=== PATIENT | male | born 1975 | race Caucasian/White ===

== ENCOUNTER 2024-01-16 21:28 | Emergency (ER) | payer OTHER, SELFPAY ==
[2024-01-16 22:17] LABS: PT Prothrombin Time 11.6 SECONDS (9.4-12.5); PTT, Activated Partial Thromb 35.5 SECONDS (24.3-36.9); Protime INR 1.04
[2024-01-16 22:19] LABS: Absolute Basophils 0.1 K/uL (0-0.5); Absolute Lymphocytes (CBC) 2.1 K/uL (0.7-4.9); Basophils % 0.6 % (0-1.3); Hemoglobin 15.8 g/dL (13.6-17.9); MPV 7.7 fL (7.6-11.3)
[2024-01-16 22:21] LABS: Barbiturates NEGATIVE (NEGATIVE); Benzodiazepines NEGATIVE (NEGATIVE); Cocaine POSITIVE (NEGATIVE); METHAMPHETAM NEGATIVE (NEGATIVE); Methadone NEGATIVE (NEGATIVE); Opiates NEGATIVE (NEGATIVE); Phencyclidine NEGATIVE (NEGATIVE); THC Cannibis NEGATIVE (NEGATIVE)
[2024-01-16 22:23] LABS: Absolute Eosinophils 0.3 K/uL (0-0.5); Absolute Monocytes 1.1 K/uL (0.1-1.3); Eosinophils % 2.7 % (0-4.4); Hematocrit 47.4 % (39.6-49.0); Lymphocytes % 19.8 % (15.3-44.8); MCH 29.8 pg (27.0-35.0); MCHC 33.3 g/dL (32.0-36.0); MCV 89.5 fL (80-100); Monocytes % 10.1 % (3.3-12.3); Neutrophils % 66.8 % (41.7-73.7); Platelets 309 thou/uL (152-406); RBC Red Blood Cell Count 5.29 M/uL (4.33-5.43); Red Cell Distribution Width 14.8 % (12.1-15.2)
[2024-01-16 22:24] LABS: Specific Gravity 1.019 (1.005-1.030); Sqamous Epithelial <5 /HPF (None Seen); Urine Bacteria <20 /HPF (<20); Urine Bilirubin NEGATIVE (Negative); Urine Blood 1+ (Negative); Urine Clarity Clear (Clear); Urine Color Light-Yellow (Yellow); Urine Crystals Unidentified Few /HPF (None Seen); Urine Culture Reflex Order NOT NEEDED; Urine Glucose NEGATIVE (Negative); Urine Ketones NEGATIVE (Negative); Urine Microscopic Reflex YN ORDER UMIC; Urine Mucus 1+ /HPF (None Seen); Urine Nitrite NEGATIVE (Negative); Urine Protein 1+ (Negative); Urine RBC <5 /HPF (None Seen); Urine Urobilinogen Normal (Normal); Urine WBC <5 /HPF (<5); Urine pH 5.5 (5.0-7.0)
[2024-01-16 22:29] LABS: ALT/SGPT 45 U/L (16-61); AST/SGOT 34 U/L (15-37); Albumin 3.9 g/dL (3.4-5.0); Alkaline Phosphatase 78 U/L (45-117); Anion Gap 9.3 mEq/L (5.0-15.0); BUN Blood Urea Nitrogen 27 mg/dL (7-18); Bicarbonate 28 mEq/L (21-32); Bilirubin Direct < 0.2 mg/dL (0-0.2); Bilirubin Indirect, Calculated 0.3 mg/dL (0.2-0.8); Bilirubin Total 0.5 mg/dL (0.2-1.0); Glomerular Filtration Rate 61 ml/min (=/>90); Glucose Level 138 mg/dL (74-106); Potassium 3.3 mEq/L (3.5-5.1); Protein, Total 7.9 g/dL (6.4-8.2); Sodium Level 140 mEq/L (136-145)
[2024-01-16] MEDS ORDERED: NA CHLORIDE 0.9% 1,000 ML ONE (22:54)
[2024-01-16] MEDS ORDERED: POTASSIUM 25 MEQ EFFERV TAB ONE (22:54)
--- NOTE | 2024-01-16 23:06 | ER ---
Nurse's Notes [facility] Name: Konrad Verde Age: 48 yrs Sex: Male : 1975 Arrival Date: 01/16/2024 Time: 21:28 Bed 15 Private MD: Diagnosis: Major depressive disorder, recurrent, moderate;Suicidal ideations;Obesity, unspecified;Homelessness;Cocaine abuse;Hypokalemia Presentation: 01/15 21:28 Chief complaint: per [place] [employer], PT was at [employer] at [facility] to worker that he lg3 needed help because he wanted to shoot himself with the gun he had in his backpack. On police arrival to scene PT cooperative and confirms SI ideations. On arrival to ED PT confirms SI ideations and that he took 1/2 a bottle of Advil PM [employer]. Coronavirus screen: Client denies travel out of the [place] in the last 14 days. Ebola Screen: Patient negative for fever greater than or equal to 101.5 degrees Fahrenheit, and additional compatible Ebola Virus Disease symptoms. Initial Sepsis Screen: Does the patient meet any 2 criteria? No. Patient's initial sepsis screen is negative. Does the patient have a suspected source of infection? No. Patient's initial sepsis screen is negative. Risk Assessment: Do you want to hurt yourself or someone else? Patient reports desire/thoughts of hurting themselves or someone else. Provider notified. Onset of symptoms is unknown. 21:28 Method Of Arrival: Law Enforcement: [facility] lg3 21:28 Acuity: HEIDY 2 lg3 Triage Assessment: 21:28 General: Appears in no apparent distress. comfortable, unkempt, Behavior is calm, lg3 cooperative. Pain: Denies pain. EENT: No deficits noted. No signs and/or symptoms were reported regarding the EENT system. Neuro: No deficits noted. Patel Agitation-Sedation Scale (RASS): 0 - Alert and Calm Level of Consciousness is awake, alert, obeys commands, Oriented to person, place, time, situation. Cardiovascular: No deficits noted. Denies chest pain, shortness of breath, Capillary refill < 3 seconds Clubbing of nail beds is absent JVD is absent Patient's skin is warm and dry. 21:28 Respiratory: No deficits noted. Airway is patent Respiratory effort is even, unlabored, lg3 Respiratory pattern is regular, symmetrical. GI: No deficits noted. No signs and/or symptoms were reported involving the gastrointestinal system. Abdomen is round non-distended, obese. : No deficits noted. No signs and/or symptoms were reported regarding the genitourinary system. Derm: No deficits noted. No signs and/or symptoms reported regarding the dermatologic system. Skin is intact, is healthy with good turgor, Skin is dry, Skin is normal, Skin temperature is warm. Musculoskeletal: No deficits noted. No signs and/or symptoms reported regarding the musculoskeletal system. Circulation, motion, and sensation intact. Range of motion: intact in all extremities. Historical: - Allergies: 22:35 No Known Allergies; lg3 - Home Meds: 22:35 Unable to obtain [Active]; lg3 - PMHx: 22:35 Anxiety; Depressive disorder; lg3 - PSHx: 22:35 Unable to Obtain; lg3 - Immunization history:: Adult Immunizations up to date. - Infectious Disease History:: Denies. - Social history:: Smoking status: Patient denies any tobacco usage or history of. Patient/guardian denies using alcohol, street drugs. Screenin:28 [facility] ED Fall Risk Assessment (Adult) History of falling in the last 3 months, lg3 including since admission No falls in past 3 months (0 pts) Confusion or Disorientation No (0 pts) Intoxicated or Sedated No (0 pts) Impaired Gait No (0 pts) Mobility Assist Device Used No (0 pt) Altered Elimination No (0 pt) Score/Fall Risk Level 0 - 2 = Low Risk Oriented to surroundings, Maintained a safe environment, Educated pt \\T\\ family on fall prevention, incl call for assistance when getting out of bed, Assessed \\T\\ reinforced patient's understanding of fall precautions, Provided non-skid footwear. Abuse screen: Denies threats or abuse. Denies injuries from another. Nutritional screening: No deficits noted. Tuberculosis screening: No symptoms or risk factors identified. Assessment: 21:28 General: see triage assessment. lg3 23:30 Reassessment: Patient appears in no apparent distress at this time. No changes from lg3 previously documented assessment. Patient and/or family updated on plan of care and expected duration. Pain level reassessed. Patient is alert, oriented x 3, equal unlabored respirations, skin warm/dry/pink. 01/16 03:30 General: Appears in no apparent distress. comfortable, quietly resting at this time. lg3 06:22 Reassessment: Patient appears in no apparent distress at this time. No changes from lg3 previously documented assessment. quietly resting at this time. 07:00 Reassessment: Patient appears in no apparent distress at this time. Patient is alert, mb9 oriented x 3, equal unlabored respirations, skin warm/dry/pink. SI precautions in place. Sitter at bedside. 08:00 Reassessment: Patient appears in no apparent distress at this time. Patient is alert, mb9 oriented x 3, equal unlabored respirations, skin warm/dry/pink. SI precautions in place. Sitter at bedside. 09:00 Reassessment: Patient and/or family updated on plan of care and expected duration. Pain mb9 level reassessed. Patient is alert, oriented x 3, equal unlabored respirations, skin warm/dry/pink. SI precautions in place. Sitter at bedside. 09:06 Reassessment: [facility] at bedside. mb9 10:00 Reassessment: Patient appears in no apparent distress at this time. Patient is alert, mb9 oriented x 3, equal unlabored respirations, skin warm/dry/pink. SI precautions in place. Sitter at bedside. 11:00 Reassessment: Patient and/or family updated on plan of care and expected duration. Pain mb9 level reassessed. Patient is alert, oriented x 3, equal unlabored respirations, skin warm/dry/pink. SI precautions in place. Sitter at bedside. 12:02 Reassessment: Patient is alert, oriented x 3, equal unlabored respirations, skin mb9 warm/dry/pink. Si precautions in place. Sitter at bedside. 13:00 Reassessment: Patient and/or family updated on plan of care and expected duration. Pain mb9 level reassessed. Patient is alert, oriented x 3, equal unlabored respirations, skin warm/dry/pink. sitter at bedside. SI precautions in place. 14:02 Reassessment: Patient and/or family updated on plan of care and expected duration. Pain mb9 level reassessed. Patient is alert, oriented x 3, equal unlabored respirations, skin warm/dry/pink. SI precautions in place. Sitter at bedside. 15:00 Reassessment: No changes from previously documented assessment. Patient is alert, mb9 oriented x 3, equal unlabored respirations, skin warm/dry/pink. 16:00 Reassessment: No changes from previously documented assessment. Patient is alert, mb9 oriented x 3, equal unlabored respirations, skin warm/dry/pink. 17:00 Reassessment: No changes from previously documented assessment. Patient is alert, mb9 oriented x 3, equal unlabored respirations, skin warm/dry/pink. 18:00 Reassessment: No changes from previously documented assessment. Patient is alert, mb9 oriented x 3, equal unlabored respirations, skin warm/dry/pink. 19:00 Reassessment: No changes from previously documented assessment. Patient is alert, mb9 oriented x 3, equal unlabored respirations, skin warm/dry/pink. 19:00 General: Appears in no apparent distress. comfortable, Behavior is calm. Pain: Denies rg5 pain. 19:00 Neuro: Level of Consciousness is obeys commands, Oriented to person, place, time. rg5 Cardiovascular: Denies chest pain, Capillary refill < 3 seconds Patient's skin is warm and dry. Respiratory: Airway is patent Trachea midline Respiratory effort is even, unlabored, Respiratory pattern is regular, symmetrical. GI: Abdomen is round. : No signs and/or symptoms were reported regarding the genitourinary system. EENT: No signs and/or symptoms were reported regarding the EENT system. Derm: Skin is intact, Skin is dry, Skin is normal, Skin temperature is warm. Musculoskeletal: Range of motion: intact in all extremities. 20:00 Reassessment: No changes from previously documented assessment. Patient and/or family rg5 updated on plan of care and expected duration. Pain level reassessed. 21:16 Reassessment: No changes from previously documented assessment. Patient and/or family rg5 updated on plan of care and expected duration. Pain level reassessed. Pain: Denies pain. Respiratory: Airway is patent Trachea midline Respiratory effort is even, unlabored, Respiratory pattern is regular, symmetrical. 22:30 Reassessment: No changes from previously documented assessment. Patient and/or family rg5 updated on plan of care and expected duration. Pain level reassessed. 23:35 Reassessment: Patient and/or family updated on plan of care and expected duration. Pain rg5 level reassessed. Patient is alert, oriented x 3, equal unlabored respirations, skin warm/dry/pink. 01/17 00:20 Reassessment: No changes from previously documented assessment. Patient and/or family rg5 updated on plan of care and expected duration. Pain level reassessed. Patient is alert, oriented x 3, equal unlabored respirations, skin warm/dry/pink. 01:25 Reassessment: No changes from previously documented assessment. Patient and/or family rg5 updated on plan of care and expected duration. Pain level reassessed. Patient is alert, oriented x 3, equal unlabored respirations, skin warm/dry/pink. 02:38 Reassessment: No changes from previously documented assessment. Patient and/or family rg5 updated on plan of care and expected duration. Pain level reassessed. Respiratory: Airway is patent Respiratory effort is even, unlabored, Respiratory pattern is regular, symmetrical. 03:36 Reassessment: No changes from previously documented assessment. Patient and/or family rg5 updated on plan of care and expected duration. Pain level reassessed. 04:20 Reassessment: No changes from previously documented assessment. Patient and/or family rg5 updated on plan of care and expected duration. Pain level reassessed. 05:00 Reassessment: No changes from previously documented assessment. Patient and/or family rg5 updated on plan of care and expected duration. Pain level reassessed. 06:56 Reassessment: No changes from previously documented assessment. Patient and/or family rg5 updated on plan of care and expected duration. Pain level reassessed. 10:40 Reassessment: Nurse to nurse completed at this time for reyna bowers. ld1 Psych: 01/15 21:28 [place] Suicide Severity Screening: In the past month, have you wished you were lg3 or wished you could go to sleep and not wake up? Patient responds "yes." "In the past month, have you actually had any thoughts of killing yourself?" Patient responds "yes." "In your lifetime, have you ever done anything, started to do anything, or prepared to do anything to end your life?" Patient responds "yes." Patient reports suicidal intent within 3 past months. Subjective: Patient's mood is hopeless, Delusions are denied, Hallucinations are denied Having thoughts of suicide. Plan for suicide is self inflicted gunshot. Objective: Patient is cooperative, using poor eye contact, Speech is normal, Affect is appropriate. Interventions: Removed personal items and placed in bag. Patient placed in hospital gown. Searched person for dangerous items. Urine collected and sent for urine drug test. Belonging list filled out. Safety Checks: Personal items have been removed. Pt has been placed in a hallway bed/chair. No visitors are present at this time. Pt denies substance abuse. Commitment: Patient will be an involuntary commitment. Commitment papers completed. Vital Signs: 21:28 BP 159 / 93; Pulse 83; Resp 17 S; Temp 96.8(O); Pulse Ox 96% on R/A; Weight 113.4 kg lg3 (R); Height 5 ft. 9 in. (R); Pain 0/10; 01/16 14:07 BP 143 / 86; Pulse 74; Resp 23; Pulse Ox 95% on R/A; jr12 19:00 BP 137 / 83; Pulse 82; Resp 17; Temp 98.9; Pulse Ox 100% on R/A; vk 01/17 12:46 BP 134 / 76; Pulse 84; Resp 18; Pulse Ox 100% on R/A; ld1 01/15 21:28 Body Mass Index 36.92 (113.40 kg, 175.26 cm) 3 01/15 21:28 Pain Scale: Adult 3 ED Course: 01/15 21:28 Safety Checks: Personal items have been removed. The door is open or patient has been lg3 placed in a hallway bed/chair. There are no family/friend visitors at this time Sitter present at this time. 21:28 Safety checks: Items removed: yes. Door open/sign placed on door: yes. Sitter present: kmf Yes. 21:28 Arm band placed on right wrist. EKG completed in triage. Results shown to MD. lg3 21:28 Patient has correct armband on for positive identification. Valuables inventory done. lg3 Locked in safe. See valuables checklist. Noise minimized. Lights dimmed. Warm blanket given. Pillow given. Patient is placed in psych hold. 21:34 Patient arrived in ED. lg3 21:44 Jim Alvarez MD is Attending Physician. [facility] 22:23 Mindi Rocha RN is Primary Nurse. lg3 22:30 Initial lab(s) drawn, by me, sent to lab. kmf 22:31 Inserted saline lock: 20 gauge in right forearm, using aseptic technique. Blood kmf collected. Flushed with 10 mL NS. 22:35 Triage completed. lg3 23:15 Faxed pt clinicals to the following facilities for placement; [address] 01/16 07:00 Report received from JORDAN Obregon. mb9 07:00 IV discontinued. mb9 07:02 \\[id number] called the [facility] crisis line placed on automatic hold/ \\[id number] Maryjane took eb patient information and will page the screener pharmacy operations coordinator to come evaluate the patient. 07:53 Sowmya the [facility] screener pharmacy operations coordinator will be here in 45 minutes. eb 07:53 No provider procedures requiring assistance completed. mb9 09:30 Buzz from [facility] here and recommends inpatient. eb 09:41 Primary Nurse role handed off by Mindi Rocha RN eb 09:47 Chase from [facility] says they can't take him currently. They do not have any eb [facility] beds at this time. 09:52 Rach Stephen RN is Primary Nurse. mb9 11:43 Taking lunch break report given to NILAY... jr12 19:00 transfer approval from receiving facility. rg5 19:08 Report given to JORDAN Nunez. mb9 23:38 Diet: Patient given snack. Patient given juice. Patient given water. vk 23:39 Assisted to bathroom. vk 01/17 01:38 Assisted to bathroom. vk 01:48 Warm blanket given. vk 02:38 Resting quietly. Appears to be sleeping. rg5 10:25 Contacted [facility] pt intake to follow up on bed availability, was advised that em1 there were beds available and to fax pt clinical information; pt clinicals faxed to [facility]. 10:40 [facility] accepts this pt as a transfer; Dr Giovanny Vaughn is accepting em1 physician Genaro Sevilla is admin approval. [facility] requests pt be transported under transfer warrant. 11:05 Transfer warrant application packet filled out faxed to Judge Darrin Mccurdy's office. em1 11:23 Transfer warrant signed and faxed back to [facility] ED. em1 11:29 Called [facility]'s Office to arrange transportation via [facility] em1 deputy. Administered Medications: 01/15 23:05 Drug: NS 0.9% IV 1000 ml IV at 1 bolus Per protocol; 1000 mL bolus Route: IV; Rate: 1 lg3 bolus; Site: right forearm; 01/16 00:17 Follow up: Response: No adverse reaction; IV Status: Completed infusion; IV Intake: lg3 1000ml 01/15 23:05 Drug: Potassium PO Effervescent Tablet 50 mEq PO once; dissolve in 4 ounces of water or lg3 juice Route: PO; 01/16 01:13 Follow up: Response: No adverse reaction lg3 01/17 11:35 Drug: Nicoderm CQ Transdermal Patch 21 mg/24 hr 1 patches Transdermal once Route: cm10 Transdermal; Site: affected area; Medication: 01/15 22:42 VIS not applicable for this client. lg3 Intake: 01/16 00:17 IV: 1000ml; Total: 1000ml. lg3 Outcome: 01/15 23:05 ER care complete, transfer ordered by MD. husain 01/17 12:30 Patient left the ED. aa5 12:45 Transferred by ground EMS Note: [facility] ld1 12:45 Condition: stable 12:45 Instructed on the need for transfer, Signatures: Jim Alvarez MD MD cha Martinez, Eric em1 Ana Luisa Castañeda, RN RN aa5 Helena Shelby Lacie, RN RN lg3 Yue Huber RN RN ld1 Rach Stephen, RN RN mb9 Dorina Cohn rv1 Sailaja Huitron RN RN cm10 Melina Pulido [facility] [[email or web address]] Pooja Garcia [facility] Falguni Albert Rommel, RN RN rg5 Corrections: (The following items were deleted from the chart) 01/16 06:22 01:12 Reassessment: Patient appears in no apparent distress at this time. No changes lg3 from previously documented assessment. Patient and/or family updated on plan of care and expected duration. Pain level reassessed. Patient is alert, oriented x 3, equal unlabored respirations, skin warm/dry/pink. lg3 : 06:20 Reassessment: Patient appears in no apparent distress at this time. No changes lg3 from previously documented assessment. Patient and/or family updated on plan of care and expected duration. Pain level reassessed. Patient is alert, oriented x 3, equal unlabored respirations, skin warm/dry/pink. lg3 01/17 12:41 12:39 Patient left the ED. ld1 aa5
--- NOTE | 2024-01-16 23:06 | EDPHYS ---
Physician Documentation [facility] Name: Konrad Verde Age: 48 yrs Sex: Male : 1975 Arrival Date: 01/16/2024 Time: 21:28 Bed 15 Private MD: ED Physician Jim Alvarez HPI: 01/15 22:56 This 48 yrs old Male presents to ER via Law Enforcement with complaints of lisha suicidal ideation, depression. 22:56 The patient presents to the emergency department with anxiety, depression. Onset: The lisha symptoms/episode began/occurred 1 week(s) ago. Past psychiatric history: Prior diagnosis: depression, Psychiatric medications include:. Associated signs and symptoms: The patient has no apparent associated signs or symptoms. Severity of symptoms: At their worst the symptoms were moderate in the emergency department the symptoms are unchanged. The patient has experienced similar episodes in the past, multiple times. Historical: - Allergies: 22:35 No Known Allergies; lg3 - Home Meds: 22:35 Unable to obtain [Active]; lg3 - PMHx: 22:35 Anxiety; Depressive disorder; lg3 - PSHx: 22:35 Unable to Obtain; lg3 - Immunization history:: Adult Immunizations up to date. - Infectious Disease History:: Denies. - Social history:: Smoking status: Patient denies any tobacco usage or history of. Patient/guardian denies using alcohol, street drugs. ROS: 23:00 Constitutional: Negative for fever, chills, and weight loss, Eyes: Negative for injury, lisha pain, redness, and discharge, ENT: Negative for injury, pain, and discharge, Neck: Negative for injury, pain, and swelling, Cardiovascular: Negative for chest pain, palpitations, and edema, Respiratory: Negative for shortness of breath, cough, wheezing, and pleuritic chest pain, Abdomen/GI: Negative for abdominal pain, nausea, vomiting, diarrhea, and constipation, Back: Negative for injury and pain, : Negative for injury, bleeding, discharge, and swelling, MS/Extremity: Negative for injury and deformity, Skin: Negative for injury, rash, and discoloration, Neuro: Negative for headache, weakness, numbness, tingling, and seizure, Allergy/Immunology: Negative for hives, rash, and allergies, Endocrine: Negative for neck swelling, polydipsia, polyuria, polyphagia, and marked weight changes, Hematologic/Lymphatic: Negative for swollen nodes, abnormal bleeding, and unusual bruising, 23:00 Psych: Positive for anxiety, depression, suicide gesture, suicidal ideation, Exam: 23:00 Constitutional: This is a well developed, well nourished patient who is awake, alert, lisha and in no acute distress. Head/Face: Normocephalic, atraumatic. Eyes: Pupils equal round and reactive to light, extra-ocular motions intact. Lids and lashes normal. Conjunctiva and sclera are non-icteric and not injected. Cornea within normal limits. Periorbital areas with no swelling, redness, or edema. ENT: Nares patent. No nasal discharge, no septal abnormalities noted. Tympanic membranes are normal and external auditory canals are clear. Oropharynx with no redness, swelling, or masses, exudates, or evidence of obstruction, uvula midline. Mucous membranes moist. Neck: Trachea midline, no thyromegaly or masses palpated, and no cervical lymphadenopathy. Supple, full range of motion without nuchal rigidity, or vertebral point tenderness. No Meningismus. Chest/axilla: Normal chest wall appearance and motion. Nontender with no deformity. No lesions are appreciated. Cardiovascular: Regular rate and rhythm with a normal S1 and S2. No gallops, murmurs, or rubs. Normal PMI, no JVD. No pulse deficits. Respiratory: Lungs have equal breath sounds bilaterally, clear to auscultation and percussion. No rales, rhonchi or wheezes noted. No increased work of breathing, no retractions or nasal flaring. Abdomen/GI: Soft, non-tender, with normal bowel sounds. No distension or tympany. No guarding or rebound. No evidence of tenderness throughout. Back: No spinal tenderness. No costovertebral tenderness. Full range of motion. Male : Normal genitalia with no discharge or lesions. Skin: Warm, dry with normal turgor. Normal color with no rashes, no lesions, and no evidence of cellulitis. MS/ Extremity: Pulses equal, no cyanosis. Neurovascular intact. Full, normal range of motion. Neuro: Awake and alert, GCS 15, oriented to person, place, time, and situation. Cranial nerves II-XII grossly intact. Motor strength 5/5 in all extremities. Sensory grossly intact. Cerebellar exam normal. Normal gait. 23:00 ECG was reviewed by the Attending Physician. 23:00 Psych: Behavior/mood is cooperative, Affect is calm, Oriented to Patient has no thoughts/intents to harm self or others. Memory is normal. Delusions/hallucinations are not present. Vital Signs: 21:28 BP 159 / 93; Pulse 83; Resp 17 S; Temp 96.8(O); Pulse Ox 96% on R/A; Weight 113.4 kg lg3 (R); Height 5 ft. 9 in. (R); Pain 0/10; 01/16 14:07 BP 143 / 86; Pulse 74; Resp 23; Pulse Ox 95% on R/A; jr12 19:00 BP 137 / 83; Pulse 82; Resp 17; Temp 98.9; Pulse Ox 100% on R/A; vk 01/17 12:46 BP 134 / 76; Pulse 84; Resp 18; Pulse Ox 100% on R/A; ld1 01/15 21:28 Body Mass Index 36.92 (113.40 kg, 175.26 cm) lg3 01/15 21:28 Pain Scale: Adult lg3 MDM: 01/15 21:44 Patient medically screened. lisha 23:02 Differential diagnosis: drug withdrawal. acute psychotic break, depression, psychosis lisha secondary to non-compliance. Data reviewed: vital signs, nurses notes, lab test result(s), EKG, radiologic studies. Consideration of Admission/Observation Escalation of care including admission/observation considered. I considered the following discharge prescriptions or medication management in the emergency department Medications were administered in the Emergency Department. See MAR. Independent interpretation of the following test(s) in the Emergency Department EKG: See my EKG interpretation above. Test considered but Not performed: CT: no ct head. Historians other than the Patient: police. Care significantly affected by the following chronic conditions: Obesity, depression, anxiety. 01/16 12:00 ED course: Patient denies auditory hallucinations. Patient states he doesn't want to ms3 live anymore. Patient without complaints. Awaiting bed for psych placement.. 01/15 21:45 Order name: Acetaminophen; Complete Time: 22:54 lisha 01/15 21:45 Order name: Basic Metabolic Panel; Complete Time: 22:54 lisha 01/15 21:45 Order name: CBC with Diff; Complete Time: 22:54 lisha 01/15 21:45 Order name: ETOH Level; Complete Time: 22:54 [facility] 01/15 21:45 Order name: Hepatic Function; Complete Time: :54 [facility] 01/15 21:45 Order name: PT-INR; Complete Time: :54 [facility] 01/15 21:45 Order name: Ptt, Activated; Complete Time: 22:54 [facility] 01/15 21:45 Order name: Salicylate; Complete Time: :54 [facility] 01/15 21:45 Order name: Urinalysis w/ reflexes; Complete Time: :54 [facility] 01/15 21:45 Order name: Urine Drug Screen; Complete Time: 22:54 [facility] 01/15 21:45 Order name: EKG - Nurse/Tech; Complete Time: 22:40 [facility] 01/15 21:45 Order name: IV Saline Lock; Complete Time: 22:40 [facility] 01/15 21:45 Order name: Labs collected and sent; Complete Time: 22:40 [facility] 01/15 21:45 Order name: Suicide Precautions; Complete Time: 22:40 [facility] 01/15 21:45 Order name: Suicide Screening (Cook); Complete Time: 22:40 [facility] EC/03 23:00 Rate is 95 beats/min. Rhythm is regular. QRS Fidelity is Normal. MS interval is normal. QRS lisha interval is normal. QT interval is normal. No Q waves. T waves are Normal. No ST changes noted. Clinical impression: NSR w/ Non-specific ST/T Changes and No evidence of ischemia. Interpreted by me. Reviewed by me. Administered Medications: 23:05 Drug: NS 0.9% IV 1000 ml IV at 1 bolus Per protocol; 1000 mL bolus Route: IV; Rate: 1 lg3 bolus; Site: right forearm; 01/16 00:17 Follow up: Response: No adverse reaction; IV Status: Completed infusion; IV Intake: lg3 1000ml 01/15 23:05 Drug: Potassium PO Effervescent Tablet 50 mEq PO once; dissolve in 4 ounces of water or lg3 juice Route: PO; 01/16 01:13 Follow up: Response: No adverse reaction lg3 01/17 11:35 Drug: Nicoderm CQ Transdermal Patch 21 mg/24 hr 1 patches Transdermal once Route: cm10 Transdermal; Site: affected area; Disposition Summary: 01/16/24 23:05 Transfer Ordered Notes: Transfer Location: Psych Facility lisha Reason: Higher level of care lisha Condition: Stable lisha Problem: new lisha Symptoms: have improved lisha Accepting Physician: to psych(01/18/24 12:39) ld1 Diagnosis - Major depressive disorder, recurrent, moderate lisha - Suicidal ideations lisha - Obesity, unspecified lisha - Homelessness lisha - Cocaine abuse lisha - Hypokalemia lisha Forms: - Medication Reconciliation Form lisha - SBAR form lisha Signatures: Dispatcher [employer] EDMS Jim Alvarez MD MD cha Able, Lacie, RN RN lg3 Papo Huber, DO ms3 Yue Huber RN RN ld1 Sailaja Huitron RN RN cm10 Corrections: (The following items were deleted from the chart) 01/15 21:46 21:46 ACETAMINOPHEN+C.LAB.BRZ ordered. EDMS EDMS 21:46 21:46 BASIC METABOLIC PANEL+C.LAB.BRZ ordered. EDMS EDMS 21:46 21:46 CBC+H.LAB.BRZ ordered. EDMS EDMS 21:46 21:46 ETHANOL+C.LAB.BRZ ordered. EDMS EDMS 21:46 21:46 HEPATIC FUNCTION+C.LAB.BRZ ordered. EDMS EDMS 21:46 21:46 PROTIME (+INR)+COAG.LAB.BRZ ordered. EDMS EDMS 21:46 21:46 PTT, ACTIVATED+COAG.LAB.BRZ ordered. EDMS EDMS 21:46 21:46 SALICYLATE+C.LAB.BRZ ordered. EDMS EDMS 21:46 21:46 Urinalysis+U.LAB.BRZ ordered. EDMS EDMS 21:46 21:46 URINE DRUG SCREEN+UC.LAB.BRZ ordered. EDMS EDMS 01/17 12:39 01/15 23:05 to psych lisha ld1
--- NOTE | 2024-01-17 12:07 | EKG ---
Test Date: 2024-01-16 Test Time: 21:46:20 Land Commissioner: LATRICE MEASUREMENT RESULTS: Intervals: Rate: 95 MA: 148 QRSD: 76 QT: 368 QTc: 462 [place]: P: 59 MA: 148 QRS: 51 T: 67 INTERPRETIVE STATEMENTS: Normal sinus rhythm Right atrial enlargement Borderline ECG Compared to ECG 03/12/2008 23:26:01 Atrial abnormality now present Electronically Signed On 01-17-24 12:06:08 CDT by Bernardo Guerrero
[2024-01-18] MEDS ORDERED: MAGNES/ALUMIN/SIMET 30ML UCUP ONE (03:23)
[2024-01-18] MEDS ORDERED: ONDANSETRON 4 MG/2 ML VIAL ONE (03:23)
[2024-01-18] MEDS ORDERED: LIDOCAINE VISCOUS 2% 10ML ORAL SOLN ONE (03:24)
[2024-01-18] MEDS ORDERED: MORPHINE 4 MG/ML SYR ONE (03:24)
[2024-01-18] MEDS ORDERED: PANTOPRAZOLE 40 MG INJ ONE (03:24)
[2024-01-18] MEDS ORDERED: NA CHLORIDE 0.9% 1,000 ML ONE (03:58)
[2024-01-18] MEDS ORDERED: NICOTINE 21 MG/PAT TD ONE (11:18)
[2024-01-18 12:57] VITALS: BP 137/83; TEMP 98.9; O2SAT 100
== END 2024-01-18 12:39 ==
LOC: ER 21:28
DX: R45.851 Suicidal ideations (principal); F33.1 Major depressive disorder, recurrent, moderate; F14.10 Cocaine abuse, uncomplicated; E87.6 Hypokalemia; E66.9 Obesity, unspecified; Z68.36 Body mass index [BMI] 36.0-36.9, adult; Z59.00 Homelessness unspecified
CPT/HCPCS: 93005; 85025; 81001; 80048; 36415; 85610; 80076; 85730; 80307; 96360; 99285; 80143; 80179; 82077; J2470; J2405; J7030 ×2

== ENCOUNTER 2024-08-03 08:20 | Emergency (ER) | payer OTHER, SELFPAY ==
--- OUTSIDE RECORDS SUMMARY | 2024-08-03 08:27 | XMS REPORT | Continuity of Care Document ---
Author Name Unknown Address [address] [facility] [address] [place] [address] [facility] [place] Address [address] [facility] [place] [address] Care Team Providers Care Design Teacher Name Role Phone Pcp, Patient Does Not Have A Primary Care Physic yudi PEPITO LAKHANI Attending Clinician Unavailable JANNA LUCIANO Attending Clinician Unavailable [id number] Attending Clinician Unavailable ESPERANZA SOLIS Attending Clinician Unavailable MD EUNICE Attending Clinician Unavailab SHEY Ashford Attending Clinician Unava Norman Soria MD Attending Clinician [phone] RAMSES NUÑEZ Attending Clinician UnavailNUVIA Beal Attending Clinician Unavailable NUVIA MERAZ Attending Clinician Unavailable Nuvia Almazan Attending Clinician [phone] Neurology Attending Clinician Unavailable Keenan Spain RN Attending Clinician Unavail able NESTOR ORTIZ Attending Clinician Unavailable Selam Carrillo DO Attending Clinician [phone] Nu LACEY, Venus Attending Clinician [phone] Rosanna LACEY, Lalit Wahl Attending Clinician [phone] Angel LACEY, Nestor Hernandez Attending Clinician [phone] JP SAAVEDRA Attending Clinician Unavailable ES, TECH 1 Attending Clinician Unavailable LAB90 Attending Clinician Unavailable Campaigns, Generic Provider Attending Clinician Unavailable Faculty, Pulmonary Attending Clinician Unavailab SELAM Brooks Attending Clinician Unavailable SELAM CARRILLO Attending Clinician Unavailable TATYANA FAN Attending Clinician Unavailab Tali Godinez Attending Clinician [phone] NUVIA MERAZ Admitting Clinician Unavailable VENUS JUDGE Admitting Clinician Unavailable Venus Judge MD Admitting Clinician [phone] SELAM CARRILLO Admitting Clinician Unavailable Payers Payer Name Policy Type Policy Number Effective Date Expirati on Date Source [address] 94 9 [id number] 2024 00:00:00 Problems Condition Name Condition Details Condition Category Status Onset Date Resolution Date Last Treatment Date Treating Clinician Comments Source Moderate episode of recurrent major depressive disorder Moderate episode of recurrent major depressive disorder Disease Active 3-20 00:00: 00 Pooja Graff - Externa milka Depression Depression Disease Active 07-10 00:00: 00 Pooja Graff - Externa l History of drug abuse History of drug abuse Disease Active 07-10 00:00: 00 Pooja Peresold - Externa l Chest pain Chest pain Disease Active 07-10 00:00: 00 Pooja Peresold - Externa l Anxiety Anxiety Disease Active 07-10 00:00: 00 Pooja Peresold - Externa l Gastroesop hageal reflux disease Gastroesop hageal reflux disease Disease Active 07-10 00:00: 00 Pooja Peresold - Externa l Hyperlipid emia Hyperlipid emia Disease Active 07-10 00:00: 00 Pooja Seazulold - Externa l Housing instabilit y, currently housed, at risk for homelessne ss Housing instabilit y, currently housed, at risk for homelessne ss Disease Active 07-10 00:00: 00 Pooja Peresold - Externa l Obesity, Class III, BMI 40-49.9 (morbid obesity) Obesity, Class III, BMI 40-49.9 (morbid obesity) Disease Active 07-10 00:00: 00 Pooja Peresold - Externa l Morbid obesity with body mass index of 40.0-49.9 Morbid obesity with body mass index of 40.0-49.9 Disease Active 2023-05 00:00: 00 [facility] Weakness of right leg Weakness of right leg Disease Active 2023-05 00:00: 00 [facility] CHAVA (obstructi ve sleep apnea) CHAVA (obstructi ve sleep apnea) Disease Active Pooja Seybold - Externa l MS (multiple sclerosis) (multi HCC) MS (multiple sclerosis) (multi HCC) Disease Active Pooja Seybold - Externa l HTN (hypertens ion) HTN (hypertens ion) Disease Active Pooja Seybold - Externa l No known active problems No known active problems Disease [facility] Allergies, Adverse Reactions, Alerts Allergy Name Allergy Type Status Severity Reaction(s) Onset Date Inactive Date Treating Clinician Comments Source NO KNOWN ALLERGIE S Drug Class Active [facility] Social History Social Habit Start Date Stop Date Quantity Comments Source History of tobacco use 1988-02-22 00:00:00 Cigarette Smoker [facility] Sexual orientation K shanelle Graff - External Alcoholic beverage intake 2024-02-29 00:00:00 2024-02-29 00:00:00 Current drinker of alcohol (finding) [facility] Cigarettes smoked current (pack per day) - Reported 2024-02-22 00:00:00 2024-02-22 00:00:00 [facility] Cigarette pack-years 2024-02-22 00:00:00 2024-02-22 00:00:00 [facility] History of Social function 2024-02-22 00:00:00 2024-02-22 00:00:00 [facility] Tobacco use and exposure 2024-02-15 00:00:00 2024-02-15 00:00:00 Smokeless tobacco non-user Pooja Deshpande Sex 2023-02-16 17:54:14 2023-02-16 17:54:14 Male (finding) Pooja Paezazulnicola Deshpande Exposure to SARS-CoV-2 (event) 2021-11-09 00:00:00 2021-11-19 09:32:00 Not sure [facility] Sex assigned at 1975 00:00:00 1975 00:00:00 Pooja Paezazulnicola Deshpande Smoking Status Start Date Stop Date Source Tobacco smoking consumption unknown [facility] Smokes tobacco daily 2024-02-15 00:00:00 Pooja Seazulnicola Jeremy Charlee Medications Ordered Medication Name Filled Medication Name Start Date Stop Date Current Medication? Ordering Clinician Indication Dosage Frequency Signature (SIG) Comments Components Source MAGNESIUM BISGLYCINAT E OR 08-01 11:57: 31 08-01 00:00 :00 No 400mg QD Take 400 mg by mouth daily as needed. Pooja jarquin Furosemide (LASIX) 20 MG oral Tablet 08-01 00:00: 00 10-31 04:59 :00 Yes [id number] 20mg Q.5D Take 1 tablet (20 mg total) by mouth 2 times daily. Pooja jarquin Famotidine 40 MG oral Tablet 07-10 09:41: 36 07-10 00:00 :00 No 40mg Q.5D Take 1 tablet (40 mg total) by mouth 2 times daily. Pooja jarquin Benzonatate 200 MG oral Capsule 07-10 09:33: 04 07-10 00:00 :00 No 200mg Q.[id number] 3D Take 1 capsule (200 mg total) by mouth 3 times daily as needed for cough. Pooja jarquin MAGNESIUM BISGLYCINAT E OR 07-10 09:11: 15 Yes 400mg QD Take 400 mg by mouth daily as needed. Pooja jarquin Clonidine HCl (CATAPRES) 0.1 MG oral Tablet 07-10 00:00: 00 Yes 87 .1mg Take 1 tablet (0.1 mg total) by mouth as needed. Indication s: High Blood Pressure Pooja jarquin Atorvastadaniel n Calcium 40 MG oral Tablet 07-10 00:00: 00 Yes [id number] 40mg QD Take 1 tablet (40 mg total) by mouth nightly. Pooja jarquin Famotidine 40 MG oral Tablet 07-10 00:00: 00 01-07 04:59 :00 Yes [id number] 40mg Q.5D Take 1 tablet (40 mg total) by mouth 2 times daily. Pooja jarquin Aspirin Low Dose 81 MG oral Tablet Delayed Response 06-01 00:00: 00 07-10 00:00 :00 No 81mg QD Take 1 tablet (81 mg total) by mouth daily. Pooja jarquin hydrOXYzine HCl 50 MG oral Tablet - 00:00: 00 Yes [id number] 50mg Q.25D Take 1 tablet (50 mg total) by mouth every 6 hours as needed for anxiety. Pooja jarquin Lisinopril 10 MG oral Tablet 2023-05 00:00: 00 Yes [id number] 10mg QD Take 1 tablet (10 mg total) by mouth daily. Pooja jarquin Fluoxetine HCl 20 MG oral Capsule 2023-05 00:00: 00 Yes [id number] 20mg QD Take 1 capsule (20 mg total) by mouth daily. Pooja jarquin Aspirin (Aspirin 81) 81 MG oral Chewable Tablet 2023-05 00:00: 00 07-10 00:00 :00 No 81mg QD Take 1 tablet (81 mg total) by mouth daily. Pooja jarquin Atorvastati n Calcium 40 MG oral Tablet 2023-05 00:00: 00 07-10 00:00 :00 No [id number] 40mg QD Take 1 tablet (40 mg total) by mouth nightly. Pooja jarquin NaCl 0.9% (NS) bolus infusion 1,000 mL 2024-1 2-10 20:45: 00 04-24 00:16 :00 No 1000mL at 999 mL/hr, 1,000 mL, IV Infusion, ONCE, 1 dose, On Mon04/23/24 at 1445, STAT [facility] Benzonatate 200 MG oral Capsule 2023-05 10:07: 49 Yes 200mg Q.[id number] 3D Take 1 capsule (200 mg total) by mouth 3 times daily as needed for cough. Pooja jarquin NICOTINE TRANSDERMAL SYSTEM TD 2023-05 10:07: [address] the skin. Pooja jarquin Atorvastati n Calcium 40 MG oral Tablet 2023-05 10:06: 58 Yes 40mg QD Take 1 tablet (40 mg total) by mouth daily. Pooja jarquin MAGNESIUM BISGLYCINAT E OR 2023-05 10:06: 41 Yes 400mg QD Take 400 mg by mouth daily as needed. Pooja jarquin Famotidine 40 MG oral Tablet 2023-05 10:05: 55 Yes 40mg Q.5D Take 1 tablet (40 mg total) by mouth 2 times daily. Pooja jarquin Azithromyci n 250 MG oral Tablet 2023-05 10:05: 34 Yes 250mg QD Take 1 tablet (250 mg total) by mouth daily Take 2 tablets by mouth on day 1 then 1 tablet by mouth daily for 4 days thereafter .. Pooja jarquin ASPIRIN 81 OR 2023-05 10:04: 54 Yes 1{tbl} QD Take 1 tablet by mouth daily. Pooja jarquin Quetiapine Fumarate 100 MG oral Tablet 2023-05 00:00: 00 Yes 100mg Take 1 tablet (100 mg total) by mouth at bedtime. Pooja jarquin benzonatate 100 mg capsule 2023-05 00:00: 00 Yes [id number] 200mg Take 2 capsules by mouth 3 (three) times daily as needed for Cough. [facility] methylPREDN ISolone sodium succinate (SOLU-MEDRO L) 1,000 mg in D5W 250 mL VIAL-MATE IV piggyback 2023-05 16:00: 00 03-02 16:31 :00 No 1000mg 1,000 mg, Intravenou s, Q24H, 1 dose, First dose (after last modificati on) on 03/02/24 at 1100, Administer over 60 Minutes, 250 mL [facility] fluticasone propionate 50 mcg/actuati on nasal spray 2 [place] 2023-05 14:00: 00 03-02 17:25 :30 No 2{spray } 2 [place], Nasal, DAILY, First dose on Mon03/02/24 at 0900, Until Discontinu ed, Routine [facility] oxymetazoli ne (OXYMETAZOL INE HCL) 0.05 % nasal spray 1 [place] 2023-05 01:00: 00 Yes 1{spray } 1 [place], Nasal, BID, First dose on Mon03/01/24 at 2000, Until Discontinu ed, Routine [facility] aspirin 81 mg chewable tablet 2023-05 00:00: 00 Yes [id number] 81mg Take 1 tablet by mouth in the morning. [facility] vitamin B complex tablet 2023-05 00:00: 00 Yes [id number] 1{tbl} Take 1 tablet by mouth in the morning. [facility] oxymetazoli ne 0.05 % nasal spray 2023-05 00:00: 00 Yes [id number] 1{spray } Use 1 [place] in each nostril in the morning and 1 [place] in the evening. [facility] nitroglycer in 0.4 mg sublingual tablet 2023-05 00:00: [id number] 1 tablet under the tongue every 5 (five) minutes as needed for Chest pain. [facility] nicotine 21 mg/24 hr patch 2023-05 00:00: 00 Yes [id number] 1{patch } Apply 1 Patch to area(s) every 24 (twenty-fo ur) hours. [facility] famotidine 40 mg tablet 2023-05 00:00: 00 Yes [id number] 40mg Take 1 tablet by mouth in the morning and 1 tablet in the evening. [facility] atorvastati n 40 mg tablet 2023-05 00:00: 00 Yes [id number] 40mg Take 1 tablet by mouth at bedtime. [facility] glatiramer 20 mg/mL injection syringe 2023-05 00:00: 00 08-30 04:59 :00 No [id number] 20mg inject 1 mL under the skin in the morning for 180 days. [facility] acetaminoph en-codeine 300-30 mg tablet 2023-05 00:00: 00 03-10 04:59 :00 No [id number] 1{tbl} Take 1 tablet by mouth every 4 (four) hours as needed for Pain (scale 7-10) for up to 7 days. Indication s: chronic pain [facility] D5W 0.9% NaCl (NS) IV infusion 500 mL 2023-05 18:30: 00 02-27 18:30 :00 No 500mL at 100 mL/hr, 500 mL, IV Infusion, ONCE, 1 dose, On Mon02/28/24 at 1330, Routine [facility] lidocaine 2 % + bupivacaine 0.25 % 1:1 injection 2023-05 18:30: 00 02-27 20:00 :00 No 10mL 10 mL, Intraderma l, ONCE, 1 dose, On Mon02/28/24 at 1330, Routine [facility] famotidine (PEPCID) tablet 40 mg 2023-05 13:00: 00 Yes 40mg 40 mg, Oral, BID, First dose (after last modificati on) on Mon02/28/24 at 0800, Until Discontinu ed, Routine, Indication for use: None of the above [facility] Sliding Scale Insulin - Lispro (HumaLOG) 2023-05 13:00: 00 03-02 17:25 :30 No Subcutaneo us, TID MEALS+HS, First dose on Mon02/28/24 at 0800, Until Discontinu ed, Routine [facility] glucagon HCL injection 1 mg 2023-05 016 12:07: 24 03-02 17:25 :30 No 1mg 1 mg, Intramuscu lar, PRN, Starting on Mon02/28/24 at 0707, Until 03/02/24 at 1225, ARLETTE, Low blood sugar, Blood Glucose < or = 70 mg/dL and patient is NPO, unable to swallow or has mental changes. [facility] 50 % in water (D50W) injection 25 mL 2023-05 12:07: 24 03-02 17:25 :30 No 25mL 25 mL, Slow IV Push, PRN, Starting on Mon02/28/24 at 0707, Until 03/02/24 at 1225, ARLETTE, Blood Glucose < or = 70 mg/dL and patient is NPO, unable to swallow or has mental status changes. [facility] methylPREDN ISolone sodium succinate (SOLU-MEDRO L) 1,000 mg in D5W 250 mL VIAL-MATE IV piggyback 2023-05 22:00: 00 03-02 13:29 :23 No 1000mg 1,000 mg, Intravenou s, Q24H, 5 doses, First dose on Mon02/27/24 at 1700, Last dose on Mon03/02/24 at 1700, Administer over 60 Minutes, 250 mL [facility] vitamin B complex (COMPLEX B-100) tablet 2023-05 14:00: 00 04-25 14:59 :00 No 1{tbl} 1 tablet, Oral, DAILY, 60 doses, First dose on Mon02/25/24 at 0900, Last dose on Mon04/24/24 at 0900, Routine [facility] acetaminoph en-codeine (TYLENOL #3) 300-30 mg tablet 1 tablet 2023-05 0 03:43: 40 Yes 1{tbl} 1 tablet, Oral, Q4HPRN, Starting on Mon02/24/24 at 2243, Until Discontinu ed, Routine, Pain (scale 7-10) [facility] morpHINE injection 2 mg 2023-05 0-13 02:15: 00 02-24 01:28 :00 No 2mg 2 mg, Slow IV Push, ONCE, 1 dose, On 02/24/24 at 2115, Routine [facility] nitroglycer in (NITROSTAT) sublingual tablet 0.4 mg 2023-05 01:04: 51 Yes .4mg 0.4 mg, Sublingual , Q5MIN PRN, Starting on Mon02/24/24 at 2004, Until Discontinu ed, Routine, Chest pain [facility] famotidine (PEPCID AC) tablet 20 mg 2023-05 01:00: 00 02-27 12:07 :54 No 20mg 20 mg, Oral, BID, First dose on Mon02/23/24 at 2000, Until Discontinu ed, Routine, Indication for use: None of the above [facility] enoxaparin (LOVENOX) injection 40 mg 2023-05 22:00: 00 03-02 17:25 :30 No 40mg 40 mg, Subcutaneo us, DAILY, First dose on Mon02/23/24 at 1700, Until Discontinu ed, Routine [facility] clopidogreL (PLAVIX) 75 mg tablet 75 mg 2023-05 14:00: 00 02-26 18:22 :58 No 75mg 75 mg, Oral, DAILY, First dose on Mon02/23/24 at 0900, Until Discontinu ed, Routine [facility] aspirin chewable tablet 81 mg 2023-05 12:30: 00 Yes 81mg 81 mg, Oral, DAILY, First dose on Mon02/23/24 at 0730, Until Discontinu ed, Routine [facility] furosemide (LASIX) injection 40 mg 2023-05 12:15: 00 02-22 14:25 :00 No 40mg 40 mg, Slow IV Push, ONCE, 1 dose, On Mon02/23/24 at 0715, Routine [facility] haloperidol lactate (HALDOL) injection 2 mg 2023-05 09:15: 00 02-22 09:09 :00 No 2mg 2 mg, Intramuscu lar, ONCE, 1 dose, On Mon02/23/24 at 0415, Routine [facility] atorvastati n (LIPITOR) tablet 40 mg 2023-05 02:00: 00 Yes 40mg 40 mg, Oral, QHS, First dose on Mon02/22/24 at 2100, Until Discontinu ed, Routine [facility] QUEtiapine (SEROQUEL) tablet 100 mg 2023-05 02:00: 00 03-02 17:25 :30 No 100mg 100 mg, Oral, QHS, First dose (after last modificati on) on Mon02/22/24 at 2100, Until Discontinu ed, Routine [facility] traZODone (DESYREL) tablet 100 mg 2023-05 02:00: 00 03-02 17:25 :29 No 100mg 100 mg, Oral, QHS, First dose on Mon02/22/24 at 2100, Until Discontinu ed, Routine [facility] sulfur hexafluorid e microsphr (LUMASON) injection 5 mL 2023-05 16:15: 00 02-21 15:55 :00 No [id number] 5mL 5 mL, Intravenou s, ONCE, 1 dose, On Mon02/22/24 at 1115, Routine [facility] Saline Bubble Study 2023-05 16:07: 54 03-02 17:25 :30 No [id number] 6mL 6 mL, Injection, SEE-INSTRU CTIONS, Starting on Mon02/22/24 at 1107, Until 03/02/24 at 1225, Routine [facility] Saline Bubble Study 2023-05 16:07: 53 03-02 17:25 :30 No [id number] 6mL 6 mL, Injection, SEE-INSTRU CTIONS, Starting on Mon02/22/24 at 1107, Until 03/02/24 at 1225, Routine [facility] acetaminoph en (TYLENOL) tablet 650 mg 2023-05 15:00: 24 03-02 17:25 :30 No 650mg 650 mg, Oral, Q6HPRN, Starting on Mon02/22/24 at 1000, Until 03/02/24 at 1225, Routine, Pain (scale 1-3), Pain (scale 4-6), Temp > 38 C [facility] FLUoxetine (PROZAC) capsule 20 mg 2023-0510 14:00: 00 03-02 17:25 :29 No 20mg 20 mg, Oral, DAILY, First dose on Mon02/22/24 at 0900, Until Discontinu ed, Routine [facility] D5W 0.9% NaCl (NS) IV infusion 1,000 mL 2023-05 14:00: 00 02-23 03:21 :22 No 1000mL at 42 mL/hr, 1,000 mL, IV Infusion, CONTINUOUS , Starting on Mon02/22/24 at 0900, Until Mon02/23/24 at 2221, Routine [facility] famotidine (PEPCID AC) tablet 20 mg 2023-05 13:00: 00 02-22 15:55 :08 No 20mg 20 mg, Oral, BID, First dose on Mon02/22/24 at 0800, Until Discontinu ed, Routine [facility] heparin (porcine) injection 5,000 Units 2023-05 13:00: 00 02-22 15:55 :08 No 5000U 5,000 Units, Subcutaneo us, Q12H, First dose on Mon02/22/24 at 0800, Until Discontinu ed, Routine [facility] nicotine (NICODERM) 21 mg/24 hr patch 1 Patch 2023-05 12:30: 00 Yes 1{patch } 1 Patch, Topical, Administer over 24 Hours, Q24H, First dose on Mon02/22/24 at 0730, Until Discontinu ed, Routine [facility] labetaloL (NORMODYNE) 5 mg/mL injection 10 mg 2023-0510 12:13: 03 03-02 17:25 :29 No 10mg [facility] clopidogreL (PLAVIX) 75 mg tablet 75 mg 2023-05 08:30: 00 02-21 08:26 :00 No 75mg 75 mg, Oral, ONCE, 1 dose, On [facility]22[facility]24 [facility] 0330[facility] mg 2023-05 08:30: 00 02-21 08:26 :00 No 325mg 325 mg, Oral, ONCE, 1 dose, On [facility] 02/22/24 at 0330, STAT [facility] atorvastati n (LIPITOR) tablet 80 mg 2023-05 08:15: 00 02-21 08:26 :00 No 80mg 80 mg, Oral, ONCE, 1 dose, On [facility] 02/22/24 at 0330, [facility] iopamidol (ISOVUE 370-500 mL) injection 80 mL 2023-05 08:00: 00 02-21 08:00 :00 No [id number] 80mL 80 mL, Intravenou s, ONCE, 1 dose, On [facility] 02/22/24 at 0300, Routine [facility] ipratropium -albuteroL (DUONEB) 0.5 mg-3 mg(2.5 mg base)/3 mL nebulizer solution 3 mL 2023-05 06:00: 00 02-21 05:08 :00 No 3mL 3 mL, Inhalation , ONCE, 1 dose, On [facility] 02/22/24 at 0100, [facility] Propranolol HCl 20 MG oral Tablet 02-05 00:00: 00 Yes 17 20mg Q.25D Take 1 tablet (20 mg total) by mouth 4 times daily PRN. Indication s: Feeling Anxious Pooja Gaytan l Clonidine HCl (CATAPRES) 0.1 MG oral Tablet 02-05 00:00: 00 07-10 00:00 :00 No 87 .1mg Q.5D Take 1 tablet (0.1 mg total) by mouth 2 times daily PRN. Indication s: High Blood Pressure Pooja jarquin hydrOXYzine Pamoate 50 MG oral Capsule 02-05 00:00: 00 07-10 00:00 :00 No 50mg Q.25D Take 1 capsule (50 mg total) by mouth 4 times daily as needed for anxiety PRN. Pooja jarquin Trazodone HCl 100 MG oral Tablet 01-25 00:00: 00 Yes 100mg QD Take 1 tablet (100 mg total) by mouth nightly. Pooja jarquin Fluoxetine HCl 20 MG oral Capsule 01-25 00:00: 00 Yes Pooja jarquin Lisinopril 10 MG oral Tablet 01-25 00:00: 00 Yes Pooja jarquin Quetiapine Fumarate 400 MG oral Tablet 01-25 00:00: 00 Yes Pooja jarquin amoxicillin -clavulanat e 875-125 mg per tablet 11-19 00:00: 00 11-27 04:59 :00 No [id number] 1{tbl} Take 1 tablet by mouth every 12 (twelve) hours for 7 days. [facility] HYDROCODONE -ACETAMINOP HEN 5-500 MG ORAL CAP 06-29 12:52: 55 02-21 00:00 :00 No None Entered [facility] IBUPROFEN 800 MG ORAL TAB 06-29 12:52: 55 02-21 00:00 :00 No None Entered [facility] Vital Signs Vital Name Observation Time Observation Value Comments S nelson Systolic blood pressure 2024-08-01 14:41:00 110 mm[Hg] Pooja yañez - External Diastolic blood pressure 2024-08-01 14:41:00 64 mm[Hg] Pooja yañez - External Heart rate 2024-08-01 14:41:00 78 /min Mango Graff - External Body temperature 2024-08-01 14:41:00 36.28 Tracey Pooja Graff - External Respiratory rate 2024-08-01 14:41:00 20 /min Pooja Graff - External Body height 2024-08-01 14:41:00 175.3 cm Linda ey Seybold - External Body weight 2024-08-01 14:41:00 146.965 kg Linda ey Seybold - External BMI 2024-08-01 14:41:00 47.85 kg/m2 Linda ey Seybold - External Oxygen saturation in Arterial blood by Pulse oximetry 2024-08-01 14:41:00 97 /min Pooja Seybo ld - External Systolic blood pressure 2024-07-10 15:02:00 118 mm[Hg] Pooja Seybo ld - External Diastolic blood pressure 2024-07-10 15:02:00 64 mm[Hg] Pooja Seybo ld - External Heart rate 2024-07-10 15:02:00 76 /min Mango becker Seybold - External Body temperature 2024-07-10 15:02:00 36.72 Tracey Pooja Paezybold - External Respiratory rate 2024-07-10 15:02:00 20 /min Pooja Seybold - External Body height 2024-07-10 15:02:00 175.3 cm Linda ey Seybold - External Body weight 2024-07-10 15:02:00 139.254 kg Linda ey Seybold - External BMI 2024-07-10 15:02:00 45.34 kg/m2 Linda ey Seybold - External Oxygen saturation in Arterial blood by Pulse oximetry 2024-07-10 15:02:00 98 /min Pooja Paezybo ld - External Systolic blood pressure 2024-04-24 02:30:00 110 mm[Hg] [facility] Diastolic blood pressure 2024-04-24 02:30:00 72 mm[Hg] [facility] Heart rate 2024-04-24 02:30:00 77 /min [facility] Respiratory rate 2024-04-24 02:30:00 20 /min [facility] Oxygen saturation in Arterial blood by Pulse oximetry 2024-04-24 02:30:00 95 /min [facility] Body temperature 2024-04-23 18:28:00 36.72 Tracey [facility] Body height 2024-04-23 18:28:00 175.3 cm [facility] Body weight 2024-04-23 18:28:00 136.079 kg [facility] BMI 2024-04-23 18:28:00 44.30 kg/m2 [facility] Systolic blood pressure 2024-04-15 15:36:00 109 mm[Hg] Pooja Paezybo ld - External Diastolic blood pressure 2024-04-15 15:36:00 70 mm[Hg] Pooja Paezybo ld - External Heart rate 2024-04-15 15:36:00 62 /min Kel y Seybold - External Body temperature 2024-04-15 15:36:00 36.44 Tracey Pooja Seybold - External Respiratory rate 2024-04-15 15:36:00 18 /min Pooja Paezybold - External Body height 2024-04-15 15:36:00 175.3 cm Linda garg Seybold - External Body weight 2024-04-15 15:36:00 122.018 kg Linda ey Seybold - External BMI 2024-04-15 15:36:00 39.72 kg/m2 Linda ey Seybold - External Oxygen saturation in Arterial blood by Pulse oximetry 2024-04-15 15:36:00 96 /min Pooja Paezybo ld - External Heart rate 2024-03-20 07:01:00 89 /min [facility] Respiratory rate 2024-03-20 07:01:00 14 /min [facility] Oxygen saturation in Arterial blood by Pulse oximetry 2024-03-20 07:01:00 96 /min [facility] Systolic blood pressure 2024-03-20 07:00:00 128 mm[Hg] [facility] Diastolic blood pressure 2024-03-20 07:00:00 86 mm[Hg] [facility] Body temperature 2024-03-20 07:00:00 36.61 Tracey [facility] Body height 2024-03-20 04:51:00 175.3 cm [facility] Body weight 2024-03-20 04:51:00 135.172 kg [facility] BMI 2024-03-20 04:51:00 44.01 kg/m2 [facility] Heart rate 2024-03-02 16:27:00 88 /min [facility] Body temperature 2024-03-02 16:27:00 36.44 Tracey [facility] Respiratory rate 2024-03-02 16:27:00 18 /min [facility] Oxygen saturation in Arterial blood by Pulse oximetry 2024-03-02 16:27:00 97 /min [facility] Systolic blood pressure 2024-03-02 16:27:00 154 mm[Hg] [facility] Diastolic blood pressure 2024-03-02 16:27:00 79 mm[Hg] [facility] Body height 2024-02-22 11:10:00 175.3 cm [facility] Body weight 2024-02-22 11:10:00 131.543 kg [facility] BMI 2024-02-22 11:10:00 42.83 kg/m2 [facility] Systolic blood pressure 2024-02-15 19:43:00 123 mm[Hg] Pooja Seybo ld - External Diastolic blood pressure 2024-02-15 19:43:00 82 mm[Hg] Pooja Seybo ld - External Heart rate 2024-02-15 19:43:00 80 /min Kelse y Seybold - External Body temperature 2024-02-15 19:43:00 36.61 Tracey Pooja Seybold - External Respiratory rate 2024-02-15 19:43:00 18 /min Pooja Seybold - External Body height 2024-02-15 19:43:00 176.5 cm Linda ey Seybold - External Body weight 2024-02-15 19:43:00 132.632 kg Linda ey Seybold - External BMI 2024-02-15 19:43:00 42.56 kg/m2 Linda ey Seybold - External Oxygen saturation in Arterial blood by Pulse oximetry 2024-02-15 19:43:00 94 /min Pooja Seybo ld - External Systolic blood pressure 2024-02-09 14:45:00 102 mm[Hg] Pooja Seybo ld - External Diastolic blood pressure 2024-02-09 14:45:00 68 mm[Hg] Pooja Alvarez ld - External Heart rate 2024-02-09 14:45:00 90 /min Mango Graff - External Body temperature 2024-02-09 14:45:00 36.39 Tracey Pooja Graff - External Respiratory rate 2024-02-09 14:45:00 20 /min Pooja Graff - External Body height 2024-02-09 14:45:00 176.5 cm Linda garg Seybnicola - External Body weight 2024-02-09 14:45:00 133.811 kg Linda garg Seybold - External BMI 2024-02-09 14:45:00 42.94 kg/m2 Linda garg Seybnicola - External Oxygen saturation in Arterial blood by Pulse oximetry 2024-02-09 14:45:00 90 /min Pooja Alvarez ld - External Systolic blood pressure 2024-01-27 09:10:00 125 mm[Hg] [facility] Diastolic blood pressure 2024-01-27 09:10:00 71 mm[Hg] [facility] Heart rate 2024-01-27 09:10:00 80 /min [facility] Respiratory rate 2024-01-27 09:10:00 20 /min [facility] Oxygen saturation in Arterial blood by Pulse oximetry 2024-01-27 09:10:00 92 /min [facility] Body temperature 2024-01-27 07:43:00 36.78 Tracey [facility] Body height 2024-01-27 07:43:00 175.3 cm [facility] Body weight 2024-01-27 07:43:00 127.007 kg [facility] BMI 2024-01-27 07:43:00 41.35 kg/m2 [facility] Systolic blood pressure 2021-11-19 14:33:00 153 mm[Hg] [facility] Diastolic blood pressure 2021-11-19 14:33:00 102 mm[Hg] [facility] Heart rate 2021-11-19 14:33:00 94 /min [facility] Body temperature 2021-11-19 14:33:00 36.44 Tracey [facility] Respiratory rate 2021-11-19 14:33:00 16 /min [facility] Body height 2021-11-19 14:33:00 177.8 cm [facility] Body weight 2021-11-19 14:33:00 104.327 kg [facility] BMI 2021-11-19 14:33:00 33.00 kg/m2 [facility] Oxygen saturation in Arterial blood by Pulse oximetry 2021-11-19 14:33:00 96 /min [facility] Procedures Procedure Date / Time Performed Performing Clinician Source ACUTE CARE ARTERIAL BLOOD GAS 2024-04-24 00:12:00 Norman Corea [facility] URINE DRUG (IMMUNOASSAY) - COMPREHENSIVE DRUG SCREEN 2024-04-23 20:53:00 Norman Corea [facility] AMMONIA, PLASMA 2024-04-23 19:38:00 Norman Corea [facility] ACUTE CARE ARTERIAL BLOOD GAS 2024-04-23 19:12:00 Norman Corea [facility] CT HEAD WO CONTRAST 2024-04-23 19:09:13 Norman Corea [facility] TROPONIN I 2024-04-23 18:44:00 Norman Corea [facility] COMP. METABOLIC PANEL (98643) 2024-04-23 18:44:00 Norman Corea [facility] ETHANOL 2024-04-23 18:44:00 Norman Corea [facility] SERUM DRUG (IMMUNOASSAY) - COMPREHENSIVE DRUG SCREEN 2024-04-23 18:44:00 Norman Corea [facility] CBC WITH DIFF 2024-04-23 18:44:00 Norman Corea [facility] XR CHEST 1 VW 2024-04-23 18:41:09 Norman Corea [facility] TROPONIN I 2024-03-20 05:28:00 Nuvia Meraz [facility] COMP. METABOLIC PANEL (34461) 2024-03-20 05:28:00 Nuvia Meraz [facility] CBC WITH DIFF 2024-03-20 05:28:00 Nuvia Meraz [facility] N-TERMINAL PRO-BNP 2024-03-20 05:28:00 Nuvia Meraz [facility] XR CHEST 1 VW 2024-03-20 05:24:52 Nuvia Meraz [facility] POCT GLUCOSE (AUTOMATED) 2024-03-02 12:59:00 Masel, To [facility] POCT GLUCOSE (AUTOMATED) 2024-03-02 00:47:00 Masel, To [facility] POCT GLUCOSE (AUTOMATED) 2024-03-01 22:09:00 Masel, To [facility] POCT GLUCOSE (AUTOMATED) 2024-03-01 17:19:00 Masel, To [facility] POCT GLUCOSE (AUTOMATED) 2024-03-01 12:46:00 Masel, To [facility] MAGNESIUM 2024-03-01 09:08:00 Alisha Beltran [facility] BASIC METABOLIC PANEL (NA, K, CL, CO2, GLUCOSE, BUN, CREATININE, CA) 2024-03-01 09:08:00 Alisha Beltran [facility] CBC WITH DIFF 2024-03-01 09:08:00 Alisha Beltran [facility] POCT GLUCOSE (AUTOMATED) 2024-03-01 02:33:00 Masel, To [facility] POCT GLUCOSE (AUTOMATED) 2024-02-29 21:26:00 Masel, To [facility] POCT GLUCOSE (AUTOMATED) 2024-02-29 17:23:00 Masel, To [facility] POCT GLUCOSE (AUTOMATED) 2024-02-29 13:03:00 Masel, To [facility] MAGNESIUM 2024-02-29 09:10:00 Alisha Beltran [facility] BASIC METABOLIC PANEL (NA, K, CL, CO2, GLUCOSE, BUN, CREATININE, CA) 2024-02-29 09:10:00 Alisha Beltran [facility] CBC WITH DIFF 2024-02-29 09:10:00 Alisha Beltran [facility] POCT GLUCOSE (AUTOMATED) 2024-02-29 01:16:00 Masel, To dd S [facility] POCT GLUCOSE (AUTOMATED) 2024-02-28 21:46:00 Masel, To dd S [facility] MYELIN BASIC PROTEIN 2024-02-28 21:25:00 Alisha Beltran [facility] CEREBROSPINAL FLUID PROTEIN 2024-02-28 21:25:00 Alisha Beltran [facility] CEREBROSPINAL FLUID GLUCOSE 2024-02-28 21:25:00 Devin Alisha [facility] BODY FLUID DIRECT COUNT 2024-02-28 21:25:00 Tee alcala Alisha [facility] FUNGUS (ROUTINE) CULTURE 2024-02-28 21:25:00 Luis Alberto perales [facility] EXTRA TUBE CSF 2024-02-28 21:25:00 Ban Beltran [facility] CSF CULTURE 2024-02-28 21:25:00 Devin Alisha [facility] MENINGITIS/ENCEPHALITIS PANEL BY PCR 2024-02-28 21:25:00 Devin Alisha [facility] POCT GLUCOSE (AUTOMATED) 2024-02-28 13:25:00 Masel, To dd S [facility] MAGNESIUM 2024-02-28 08:51:00 Devin Alisha [facility] BASIC METABOLIC PANEL (NA, K, CL, CO2, GLUCOSE, BUN, CREATININE, CA) 2024-02-28 08:51:00 Alisha Beltran [facility] CBC WITH DIFF 2024-02-28 08:51:00 Devin Alisha [facility] PROTHROMBIN TIME / INR 2024-02-27 20:23:00 Carrol blair Alisha [facility] MAGNESIUM 2024-02-27 09:33:00 Paul Ervin [facility] BASIC METABOLIC PANEL (NA, K, CL, CO2, GLUCOSE, BUN, CREATININE, CA) 2024-02-27 09:33:00 Rodolfo Ervin [facility] CBC WITH DIFF 2024-02-27 09:33:00 Paul Ervin [facility] MR STROKE BRAIN WO CONTRAST 2024-02-26 21:59:00 Katy Comer [facility] SHARON AURIS SURVEILLANCE BY PCR (INFECTION CONTROL PURPOSES) 2024-02-26 16:54:00 Rodolfo Ervin Nicu [facility] MAGNESIUM 2024-02-26 09:41:00 Jae Mccurdy [facility] BASIC METABOLIC PANEL (NA, K, CL, CO2, GLUCOSE, BUN, CREATININE, CA) 2024-02-26 09:41:00 Jae Mccurdy [facility] CBC WITH DIFF 2024-02-26 09:41:00 Jae Mccurdy [facility] BASIC METABOLIC PANEL (NA, K, CL, CO2, GLUCOSE, BUN, CREATININE, CA) 2024-02-25 09:42:00 Karen Diallo [facility] POCT GLUCOSE (AUTOMATED) 2024-02-25 02:09:00 Baron Vegaammed [facility] TROPONIN I 2024-02-25 01:11:00 Ari Dobson mmad [facility] URINE DRUG (IMMUNOASSAY) - COMPREHENSIVE DRUG SCREEN 2024-02-24 14:15:00 Marvin Gusman [facility] POCT GLUCOSE (AUTOMATED) 2024-02-24 13:17:00 Irma branch Lalit [facility] POCT GLUCOSE (AUTOMATED) 2024-02-24 09:20:00 Lalit Vega [facility] PHOSPHORUS 2024-02-24 08:39:00 Bruna Gusman [facility] MAGNESIUM 2024-02-24 08:39:00 Bruna Gusman [facility] BASIC METABOLIC PANEL (NA, K, CL, CO2, GLUCOSE, BUN, CREATININE, CA) 2024-02-24 08:39:00 Marvin Gusman [facility] CBC WITH DIFF 2024-02-24 08:39:00 Bruna Gusman [facility] POCT GLUCOSE (AUTOMATED) 2024-02-24 05:27:00 Lalit Vega [facility] POCT GLUCOSE (AUTOMATED) 2024-02-24 02:36:00 [facility] POCT GLUCOSE (AUTOMATED) 2024-02-23 22:04:00 [facility] POCT GLUCOSE (AUTOMATED) 2024-02-23 22:03:00 Lalit Vega [facility] ANTICARDIOLIPIN ANTIBODIES 2024-02-23 21:53:00 Coty rodriguez Lalit [facility] ANTI-B2 GLYCOPROTEIN I AB 2024-02-23 21:53:00 Lalit Cox [facility] DIAGNOSTIC MANAGEMENT TEAM; SPECIAL COAGULATION EVALUATION 2024-02-23 21:53:00 [facility]TIB[facility]S AND EVALUATION 2024-02-23 21:53:00 [facility]TIP[facility] ANTIBODY [facility]ALUATION-LT BLUE 2024-02-23 [facility]:53[facility]TIB[facility]AL[facility]-SST 2024-02-23 21:53:00 [facility] / MSSA SCREEN BY GAMAL BRADFORD 2024-02-23 21:53:00 Jacinto Sethi [facility] LUPUS ANTICOAGULANT REFLEXIVE PANEL 2024-02-23 21:53:00 Lalit Marte [facility] ACUTE CARE ARTERIAL BLOOD GAS 2024-02-23 16:51:00 Jacinto Sethi [facility] AC PANEL 20 + LACTIC ACID 2024-02-23 15:00:00 Grace Benavidez [facility] XR TIBIA FIBULA 2 VW RIGHT 2024-02-23 14:50:00 Katy Garcia [facility] POCT GLUCOSE (AUTOMATED) 2024-02-23 14:45:00 [facility]24-02-23 09:08:00 Darren nowak Katy [facility] BASIC METABOLIC PANEL (NA, K, CL, CO2, GLUCOSE, BUN, CREATININE, CA) 2024-02-23 09:08:00 Katy Comer [facility] CBC WITH DIFF 2024-02-23 09:08:00 Darren nowak Katy [facility] XR TIBIA FIBULA 2 VW RIGHT 2024-02-22 23:30:00 Des Persaud [facility] SERUM DRUG (IMMUNOASSAY) - COMPREHENSIVE DRUG SCREEN 2024-02-22 21:55:00 Lyric [facility] AC PANEL 21 + LACTIC ACID 2024-02-22 19:09:00 Karlos herrmann [facility] INFLUENZA A/B RSV COVID NAAT 2024-02-22 16:47:[address] [facility] LAB ONLY COVID INTERPRETATION 2024-02-22 16:47:00 Darren Chan Katy [facility] TRANSTHORACIC ECHO (TTE) COMPLETE W/ CONTRAST 2024-02-22 16:06:23 Darren Chan Katy [facility] METHYLMALONIC ACID, SERUM 2024-02-22 13:14:[address] [facility] VITAMIN B12, LEVEL 2024-02-22 13:14:00 Darren Chan Katy [facility] FOLATE 2024-02-22 13:14:[address] [facility] C-REACTIVE PROTEIN 2024-02-22 13:14:[address] [facility] THYROID STIMULATING HORMONE 2024-02-22 13:14:[address] [facility] LIPID PANEL ([id number])(TOTAL CHOLESTEROL, TRIGLYCERIDES, HDL) 2024-02-22 13:14:00 Darren Chan Katy [facility] SEDIMENTATION RATE 2024-02-22 13:14:00 Darren Chan Katy [facility] SICKLE CELL SCREEN 2024-02-22 13:14:[address] [facility] GLYCOSYLATED HEMOGLOBIN (A1C) 2024-02-22 13:14:[address] [facility] FACTOR V ASSAY 2024-02-22 13:14:[address] [facility] ANTI-NUCLEAR ANTIBODY SCREEN 2024-02-22 13:14:[address] [facility] HOMOCYSTEINE 2024-02-22 13:14:[address] [facility] PROTEIN C ANTIGEN 2024-02-22 13:14:[address] [facility] ANTI-NUCLEAR ANTIBODY TITER 2024-02-22 13:14:[address] [facility] ANTI-DOUBLE STRANDED DNA 2024-02-22 13:14:[address] [facility] FACTOR 5 LEIDEN 2024-02-22 13:14:[address] [facility] FACTOR 2 [id number] MUTATION 2024-02-22 13:14:[address] [facility] VITAMIN B1 (THIAMINE), WHOLE BLOOD 2024-02-22 13:14:[address] [facility] HIV 1/2 AG-AB WITH REFLEX 2024-02-22 13:14:[address] [facility] F5 LEIDEN AND F2 [id number] MUTATIONS 2024-02-22 13:14:[address] [facility] ANTITHROMBIN ACTIVITY 2024-02-22 13:14:[address] [facility] FREE PROTEIN S 2024-02-22 13:14:[address] [facility] HB ECG ROUTINE & RHYTHM STRIP 2024-02-22 13:05:[address] [facility] XR CHEST 1 VW 2024-02-22 08:18:07 Selam Carrillo [facility] HB ECG ROUTINE & RHYTHM STRIP 2024-02-22 07:55:32 Selam Carrillo [facility] CT ANGIOGRAM HEAD 2024-02-22 07:12:08 Selam Carrillo [facility] CT ANGIOGRAM NECK 2024-02-22 07:12:08 Selam Carrillo [facility] CT HEAD WO CONTRAST 2024-02-22 07:11:35 Selam Carrillo [facility] XR KNEE 3 VW RIGHT 2024-02-22 05:42:55 Selam Carrillo [facility] TROPONIN I 2024-02-22 05:19:00 Selam Carrillo [facility] COMP. METABOLIC PANEL ([id number]) 2024-02-22 05:19:00 Selam Carrillo [facility] CBC WITH DIFF 2024-02-22 05:19:00 Selam Carrillo [facility] EKG-12 LEAD 2024-01-27 09:25:34 Selam Carrillo [facility] XR CHEST 1 VW 2024-01-27 08:17:37 Selam Carrillo [facility] TROPONIN I 2024-01-27 07:48:00 Selam Carrillo [facility] COMP. METABOLIC PANEL ([id number]) 2024-01-27 07:48:00 Berta Selam [facility] CBC WITH DIFF 2024-01-27 07:48:00 Selam Carrillo [facility] N-TERMINAL PRO-BNP 2024-01-27 07:48:00 Selam Carrillo [facility] Encounters Start Date/Time End Date/Time Encounter Type Admission Type Attending Clinicians Care Facility Care Department Encounter ID Source 2024-10-04 08:30:00 2024-10-04 08:30:00 Outpatient PEPITO LAKHANI POOJA VILLALOBOS [id number] Pooja [facility] 2024-08-29 09:00:00 2024-08-29 09:00:00 Outpatient PEPITO LAKHANI POOJA VILLALOBOS [id number] [facility]ja [facility] 2024-08-13 10:45:00 2024-08-13 10:45:00 Outpatient FRANDYRASHMIJEROME JANNA POOJA VILLALOBOS [id number] [facility]ja [facility] 2024-08-02 13:00:00 2024-08-02 13:00:00 Outpatient POOJA VILLALOBOS [id number] Pooja [facility] 2024-08-02 00:00:00 2024-08-02 00:00:00 Outpatient PEPITO LAKHANI POOJA VILLALOBOS [id number] [facility]ja [facility] 2024-08-01 11:00:00 2024-08-01 11:00:00 Outpatient PEPITO LAKHANI POOJA VILLALOBOS [id number] [facility]ja [facility] 2024-07-29 13:30:00 2024-07-29 13:30:00 Outpatient LAKHANIPEPITO DOMINGUEZ POOJA VILLALOBOS [id number] [facility]ooja [facility] 2024-07-15 10:05:00 2024-07-15 10:05:00 Outpatient [id number] POOJA VILLALOBOS [id number] Pooja [facility] 2024-07-10 09:30:00 2024-07-10 09:30:00 Outpatient PEPITO LAKHANI POOJA VILLALOBOS [id number] [facility] 2024-07-10 00:00:00 2024-07-10 00:00:00 Outpatient POOJA VILLALOBOS [id number] [facility]ooja [facility] 2024-06-29 00:00:00 2024-06-29 00:00:00 Outpatient ESPERANZA SOLIS [id number] [facility] 2024-05-22 00:00:00 2024-05-22 00:00:00 Outpatient MD POOJA WOOD [id number] [facility] 2024-05-22 00:00:00 2024-05-22 00:00:00 Outpatient SHEY CARVAJAL POOJA VILLALOBOS [id number] [facility] 2024-05-22 00:00:00 2024-05-22 00:00:00 Outpatient MD POOJA WOOD [id number] [facility] 2024-04-27 00:00:00 2024-04-27 00:00:00 Outpatient ESPERANZA SOLIS [id number] [facility] 2024-04-25 00:00:00 2024-04-25 00:00:00 Outpatient MD POOJA WOOD [id number] [facility] 2024-04-24 00:00:00 2024-04-24 00:00:00 Outpatient MD POOJA WOOD [id number] [facility]ja [facility] 2024-04-23 12:19:00 2024-04-23 21:19:00 Emergency Norman Corea [facility] [id number] 350.1.13.10 4.2.7.2.686 [id number] [facility] 2024-04-23 00:00:00 2024-04-23 00:00:00 Outpatient RAMSES NUÑEZ [id number] [facility] 2024-04-22 00:00:00 2024-04-22 00:00:00 Outpatient ESPERANZA SOLIS [id number] [facility]ja [facility] 2024-04-15 10:00:00 2024-04-15 10:00:00 Outpatient RAMSES NUÑEZ [id number] [facility] 2024-04-03 00:00:00 2024-04-03 00:00:00 Outpatient ESPERANZA SOLIS [id number] [facility] 2024-03-19 22:42:00 2024-03-20 01:21:00 Emergency NUVIA GIBBONS ERICCA [facility] [id number] [facility] 2024-03-19 22:42:00 2024-03-20 01:21:00 Emergency Nuvia Meraz [facility] 1..840.114 350.1.13.10 4.2.7.2.686 [id number] [facility] 2024-03-08 00:00:00 2024-03-08 00:00:00 Outpatient MD POOJA WOOD [id number] Pooja [facility] 2024-03-05 00:00:00 2024-03-05 09:38:24 Letter (Out) Neurology Neurology [facility] 1..840.114 350.1.13.10 4.2.7.2.686 [id number] [facility] 2024-03-04 00:00:00 2024-03-04 12:50:02 Transition of Care Keenan [place] Miatha R [address] 1..840.114 350.1.13.10 4.2.7.2.686 [id number] [facility] 2024-02-21 23:51:00 2024-03-02 12:24:00 Inpatient X NESTOR ORTIZ [facility] [id number] [facility] 2024-02-21 23:51:00 2024-03-02 12:24:00 Hospital Encounter Selam Carrillo, Venus Marte, Nestor Palafox [facility] 1..840.114 350.1.13.10 4.2.7.2.686 [id number] [facility] 2024-02-24 00:00:00 2024-02-24 00:00:00 Outpatient JP SAAVEDRA [id number] [facility] Gra[facility] 2024-02-23 10:00:00 2024-02-23 10:00:00 Outpatient JP SAAVEDRASEY [id number] P[facility]ja Paeznicola 2024-02-23 00:00:00 2024-02-23 00:00:00 Outpatient KERI, JP [facility] [id number] [facility] 2024-02-22 00:00:00 2024-02-22 00:00:00 Outpatient POOJA [facility]OBOS [id number] [facility] 2024-02-16 15:00:00 2024-02-16 15:00:00 Outpatient ES, KALEIGH NULLSEY [id number] [facility] 2024-02-15 14:40:00 2024-02-15 14:40:00 Outpatient KERI, JP VILLALOBOS POOJA [id number] [facility]ja [facility] 2024-02-14 00:00:00 2024-02-14 00:00:00 Outpatient SHEY CARVAJAL POOJA [id number] [facility] 2024-02-09 10:35:00 2024-02-09 10:35:00 Outpatient LAB90 POOJA NULLSEY [id number] Pooja [facility] 2024-02-09 10:00:00 2024-02-09 10:00:00 Outpatient SHEY CARVAJALRUMA VILLALOBOS [id number] [facility] 2024-02-07 00:00:00 2024-02-07 10:47:01 Letter (Out) Campaigns, Generic Provider Campaigns, Generic Provider [facility] ..840.114 350.1.13.10 4.2.7.2.686 [id number] [facility] 2024-02-02 00:00:00 2024-02-02 12:35:50 Letter (Out) Faculty, Pulmonary Faculty, Pulmonary [facility] ..840.114 350.1.13.10 4.2.7.2.686 [id number] [facility] 2024-01-27 02:48:00 2024-01-27 05:24:00 Emergency X SELAM CARRILLO TIMOTHY [facility] [id number] [facility] 2024-01-27 02:48:00 2024-01-27 05:24:00 Emergency Selam Carrillo [facility] 1.2.840.114 350.1.13.10 4.2.7.2.686 [id number] [facility] 2023-07-31 15:30:00 2023-07-31 15:30:00 Outpatient TATYANA FAN POOJA POOJA [id number] P[facility]ja Peresnicola 2021-11-19 09:34:00 2021-11-19 10:32:00 Emergency X TALI DA SILVA [facility] ERT [id number] [facility] 2021-11-19 09:34:00 2021-11-19 10:32:00 Emergency Tali Da Silva [facility] [id number] [id number] [facility] Results Test Description Test Time Test Comments Results Result Co mments Source [facility].2024-04-24 00:17:12* Test Item Value Reference Range Interpretation Comme nts PH (test code = 2) 7.36 7.35-7.45 PCO2 (test code = 9792174710) 45 35-45 PO2 (test code = 6666729789) 72 80-100 L HCO3 (test code = 7338325822) 25 22-26 BE (test code = 1135017795) -1.1 -3.0-3.0 Lab Interpretation (test cod e = 30631-4) Abnormal [facility] 1 [id number] 20:52:56EXAM: XR CHEST 1 VW HISTORY: 49 years-old Male with ams . TECHNIQUE: Single frontal view of the chest. COMPARISON: Chest radiograph from March 19, 2024 FINDINGS: Lines, tubes and devices: None. Lungs and pleura: The lungs are moderately expanded with mild resultantperihilar congestion. No focal opacities, pleural effusion or pneumothoraxis visualized. Heart/Mediastinum: The cardiac silhouette appears normal accounting fortechnique and degree of inspiration. Bones and soft tissues: No acute fracture, aggressive osseous lesion, ordislocation. No soft tissue abnormality.[facility] CenterAmmonia, Ktokrw3372-46-56 20:00:03* Test Item Value Reference Range Interpretation Comme nts AMMONIA (test code = 1395546638) 28 umol/L Lab Interpretation (test cod e = 74456-1) Normal [facility] CenterCT Head wo wfqpkiml2023-16-22 19:41:57EXAM: CT HEAD WO CONTRAST HISTORY: Mental status change, lethargy TECHNIQUE: Axial CT of the head was performed and reconstructed at 5 mmintervals. Coronal and sagittal reformatted images were generated. COMPARISON: MRI brain 02/26/2024 FINDINGS: The ventricles and cerebral sulci are unchanged in caliber andconfiguration. No midline shift or pathological extra-axial fluidcollection is present. The basal cisterns are unremarkable. No acute intracranial hemorrhage or significant mass effect is visualized.Patchy hypodensities are redemonstrated in the periventricular and deepwhite matter which correlates to demyelinating plaques on the comparisonMRI. Partial opacification of the right mastoid air cells. Paranasal sinuses arenormal. The calvarium and central skull base are unremarkable.[facility] CenterTroponin Z3602-06-17 19:33:16* Test Item Value Reference Range Interpretation Comme nts TROPONIN I (test code = 7758099066) 0.001 ng/mL <=0.034 BANDAR (test code = BANDAR) Reference (Normal) Range (defined by the 99th percentile reference limit): <= 0.034 ng/mL Note: Cardiac troponin begins to rise 3-4 hours after the onset of ischemia. Repeat in 4-6 hours if the sample was drawn within 3-4 hours of the onset of the symptom and found normal. Diagnosis of myocardial injury is made with acute changes in cTn concentrations with at least one serial sample above the 99th percentile upper reference limit (URL), taken together with the patient's clinical presentation. Biotin has been reported to cause a negative bias, interpret results relative to patient's use of biotin. Lab Interpretation (test code = 85636-2) Normal [facility] CenterEthanol2024-12-10 19:22:05 ALCOHOL<10mg/dL04/23/2024 1:22 PM [facility] Hwfrbpuj70-123 Toxic>100 Depression of HEPATOLOGY PHYSICIAN>400 Fatalities ReportedUnDoctors Hospital at RenaissanceComp. Metabolic Panel (46797)2024-04-23 19:21:39* Test Item Value Reference Range Interpretation Comme nts NA (test code = 8345148552) 134 mmol/L 135-145 L K (test code = 0134369702) 4.2 mmol/L 3.5-5.0 CL (test code = 0685261529) 102 mmol/L 98-108 CO2 TOTAL (test code = 7068771071) 25 mmol/L 23-31 AGAP (test code = 1943161733) 7 2-16 BUN (test code = 8336534768) 14 mg/dL 7-23 GLUCOSE (test code = 3316209358) 144 mg/dL 70-110 H CREATININE (test code = 2160-0) 0.85 mg/dL 0.60-1.25 TOTAL BILI (test code = 9429054717) 0.3 mg/dL 0.1-1.1 CALCIUM (test code = 5387167607) 9.2 mg/dL 8.6-10.6 T PROTEIN (test code = 8516742413) 7.2 g/dL 6.3-8.2 ALBUMIN (test code = 7008444048) 4.1 g/dL 3.5-5.0 ALK PHOS (test code = 7128903563) 77 U/L 34-122 ALTv (test code = 1742-6) 43 U/L 5-50 AST(SGOT) (test code = 4971139759) 44 U/L 13-40 H eGFR (test code = 67425-3) 106.5 mL/min/1.73m2 CKD-EPI eGFR (2020). Assuming creatinine has been stable day-to-day for at least three months, the eGFR indicates Category G1 (>= 90 mL/min/1.73 m2) Lab Interpretation (test code = 96879-9) Abnormal [facility] with [id number] 19:09:48* Test Item Value Reference Range Interpretation Comme nts WBC (test code = 6690-2) 5.59 4.20-10.70 RBC (test code = 789-8) 4.87 4.26-5.52 HGB (test code = 718-7) 14.7 g/dL 12.2-16.4 HCT (test code = 4544-3) 44.4 % 38.4-49.3 MCV (test code = 787-2) 91.2 fL 81.7-95.6 MCH (test code = 785-6) 30.2 pg 26.1-32.7 MCHC (test code = 786-4) 33.1 g/dL 31.2-35.0 RDW-SD (test code = 83506-2) 47.3 fL 38.5-51.6 RDW-CV (test code = 788-0) 14.0 % 12.1-15.4 PLT (test code = 777-3) 212 150-328 MPV (test code = 54743-0) 9.7 fL 9.8-13.0 L NRBC/100 WBC (test code = 7175234153) 0.0 0.0-10.0 NRBC x10^3 (test code = 8451444307) See_Comment [Automated messa ge] The system which generated this result transmitted reference range: 10*3/?L. The reference range was not used to interpret this result as normal/abnormal. GRAN MAT (NEUT) % (test code = 770-8) 62.0 % IMM GRAN % (test code = 7320278180) 0.20 % LYMPH % (test code = 736-9) 20.4 % MONO % (test code = 5905-5) 14.0 % EOS % (test code = 713-8) 2.7 % BASO % (test code = 706-2) 0.7 % GRAN MAT x10^3(ANC) (test code = 8115634812) 3.47 10*3/uL 1.99-6.95 IMM GRAN x10^3 (test code = 5282206040) 0.00-0.06 LYMPH x10^3 (test code = 731-0) 1.14 10*3/uL 1.09-3.23 MONO x10^3 (test code = 742-7) 0.78 10*3/uL 0.36-1.02 EOS x10^3 (test code = 711-2) 0.15 10*3/uL 0.06-0.53 BASO x10^3 (test code = 704-7) 0.04 10*3/uL 0.01-0.09 Lab Interpretation (test code = 35012-4) Abnormal [facility] CenterXR Chest 1 [id number] 06:55:30EXAM: XR CHEST 1 VW HISTORY: 48 years-old Male; Provided indication: STEMI TECHNIQUE: Single frontal view of the chest. COMPARISON: Radiograph dated 02/22/2024 FINDINGS: Poor inspiratory effort. No focal consolidation or pleural abnormality isvisualized. The cardiomediastinal silhouette is normal in size accounting fortechnique. No focal osseous lesions or acute osseous findings are detected. [facility] CenterN-Terminal Wyh-VTN7648-78-06 06:17:27* Test Item Value Reference Range Interpretation Comme nts NT-proBNP (test code = 40919-9) <=125 Lab Interpretation (test cod e = 76541-3) Normal [facility] CenterTroponin [id number] 06:17:07* Test Item Value Reference Range Interpretation Comme nts TROPONIN I (test code = 2427304237) <=0.034 BANDAR (test code = BANDAR) Reference (Normal) Range (defined by the 99th percentile reference limit): <= 0.034 ng/mL Note: Cardiac troponin begins to rise 3-4 hours after the onset of ischemia. Repeat in 4-6 hours if the sample was drawn within 3-4 hours of the onset of the symptom and found normal. Diagnosis of myocardial injury is made with acute changes in cTn concentrations with at least one serial sample above the 99th percentile upper reference limit (URL), taken together with the patient's clinical presentation. Biotin has been reported to cause a negative bias, interpret results relative to patient's use of biotin. Lab Interpretation (test code = 73088-3) Normal [facility] CenterCMP2024-11-06 06:04:19* Test Item Value Reference Range Interpretation Comme nts NA (test code = 0982809398) 134 mmol/L 135-145 L K (test code = 3285467368) 3.8 mmol/L 3.5-5.0 CL (test code = 6968568353) 95 mmol/L 98-108 L CO2 TOTAL (test code = 8216562567) 33 mmol/L 23-31 H AGAP (test code = 3901152745) 6 2-16 BUN (test code = 5117090055) 19 mg/dL 7-23 GLUCOSE (test code = 9656725991) 118 mg/dL 70-110 H CREATININE (test code = 2160-0) 0.96 mg/dL 0.60-1.25 TOTAL BILI (test code = 4522546294) 0.2 mg/dL 0.1-1.1 CALCIUM (test code = 1768609033) 9.9 mg/dL 8.6-10.6 T PROTEIN (test code = 9572059074) 7.6 g/dL 6.3-8.2 ALBUMIN (test code = 5841262316) 4.2 g/dL 3.5-5.0 ALK PHOS (test code = 3741162927) 90 U/L 34-122 ALTv (test code = 1742-6) 43 U/L 5-50 AST(SGOT) (test code = 1705897115) 33 U/L 13-40 eGFR (test code = 87472-4) 97.5 mL/min/1.73m2 CKD-EPI eGFR (2020). Assuming creatinine has been stable day-to-day for at least three months, the eGFR indicates Category G1 (>= 90 mL/min/1.73 m2) Lab Interpretation (test code = 30315-2) Abnormal [facility] with Potu7836-10-64 05:39:14* Test Item Value Reference Range Interpretation Comme nts WBC (test code = 6690-2) 11.80 4.20-10.70 H RBC (test code = 789-8) 4.75 4.26-5.52 HGB (test code = 718-7) 13.9 g/dL 12.2-16.4 HCT (test code = 4544-3) 42.9 % 38.4-49.3 MCV (test code = 787-2) 90.3 fL 81.7-95.6 MCH (test code = 785-6) 29.3 pg 26.1-32.7 MCHC (test code = 786-4) 32.4 g/dL 31.2-35.0 RDW-SD (test code = 78085-6) 47.5 fL 38.5-51.6 RDW-CV (test code = 788-0) 14.3 % 12.1-15.4 PLT (test code = 777-3) 305 150-328 MPV (test code = 58343-6) 8.8 fL 9.8-13.0 L NRBC/100 WBC (test code = 7003132817) 0.0 0.0-10.0 NRBC x10^3 (test code = 1779629687) See_Comment [Automated messa ge] The system which generated this result transmitted reference range: 10*3/?L. The reference range was not used to interpret this result as normal/abnormal. GRAN MAT (NEUT) % (test code = 770-8) 74.1 % IMM GRAN % (test code = 5115136632) 0.30 % LYMPH % (test code = 736-9) 14.6 % MONO % (test code = 5905-5) 8.6 % EOS % (test code = 713-8) 2.0 % BASO % (test code = 706-2) 0.4 % GRAN MAT x10^3(ANC) (test code = 9873430510) 8.74 10*3/uL 1.99-6.95 H IMM GRAN x10^3 (test code = 6247746483) 0.04 10*3/uL 0.00-0.06 LYMPH x10^3 (test code = 731-0) 1.72 10*3/uL 1.09-3.23 MONO x10^3 (test code = 742-7) 1.01 10*3/uL 0.36-1.02 EOS x10^3 (test code = 711-2) 0.24 10*3/uL 0.06-0.53 BASO x10^3 (test code = 704-7) 0.05 10*3/uL 0.01-0.09 Lab Interpretation (test code = 78867-1) Abnormal [facility] GLUCOSE (AUTOMATED)2024-03-02 13:00:16* Test Item Value Reference Range Interpretation Comme nts POCT GLU (test code = 0421690832) 123 mg/dL 70-110 H Lab Interpretation (test cod e = 12703-0) Abnormal [facility] GLUCOSE (AUTOMATED)2024-03-02 00:48:50* Test Item Value Reference Range Interpretation Comme nts POCT GLU (test code = 8462828675) 181 mg/dL 70-110 H Lab Interpretation (test cod e = 84078-6) Abnormal [facility] GLUCOSE (AUTOMATED)2024-03-01 22:11:45* Test Item Value Reference Range Interpretation Comme nts POCT GLU (test code = 8212186014) 117 mg/dL 70-110 H Lab Interpretation (test cod e = 72559-7) Abnormal [facility] GLUCOSE (AUTOMATED)2024-03-01 17:20:46* Test Item Value Reference Range Interpretation Comme nts POCT GLU (test code = 5921873963) 93 mg/dL 70-110 Lab Interpretation (test cod e = 72798-9) Normal [facility] GLUCOSE (AUTOMATED)2024-03-01 12:48:14* Test Item Value Reference Range Interpretation Comme nts POCT GLU (test code = 7174126996) 109 mg/dL 70-110 Lab Interpretation (test cod e = 10379-7) Normal [facility] GLUCOSE (AUTOMATED)2024-03-01 02:34:07* Test Item Value Reference Range Interpretation Comme nts POCT GLU (test code = 6991730056) 134 mg/dL 70-110 H Lab Interpretation (test cod e = 62264-0) Abnormal [facility] GLUCOSE (AUTOMATED)2024-02-29 21:27:11* Test Item Value Reference Range Interpretation Comme nts POCT GLU (test code = 7532889983) 95 mg/dL 70-110 Lab Interpretation (test cod e = 30020-4) Normal [facility] GLUCOSE (AUTOMATED)2024-02-29 17:24:36* Test Item Value Reference Range Interpretation Comme nts POCT GLU (test code = 8094889252) 187 mg/dL 70-110 H Lab Interpretation (test cod e = 34294-1) Abnormal [facility] CenterDiagnostic Management Team; Special Coagulation Wkebeyftfl4351-86-77 16:32:15Related Clinical Uphyxfw56-xvxw-ldx right handed male with PMH of substance abuse (cocaine, crack, prior crystal meth), alcohol use, smoking history (vapes and tobacco cigarettes), HTN, and CHAVA (not on CPAP) who was transferred from [facility] with CC of R leg weakness. 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 The suspected etiology is watershed versus lacunar infarction. BMI: 42.83 kg/m2 Medications: Aspirin 81 mg and Plavix 75 mg daily Family History: No family history of coagulation disorder 02/29/2024 11:32 AM [facility]OR[facility] SERVICESPertinent Lab Results ? Ref. Range ?02/22/24 ? ? PT ? 12 - 15.5 Sec. ?13.3 Factor V Activity ?62 - 139 % ?104 ? Antithrombin Activity ? ?83 - 128% ? 76 Protein C Activity ? ? ? 70 - 140% ? 116Free Protein S ? 55 - 146% ? 93 Lupus Anticoagulant Screen (DRVVT) ? NegativeLupus Anticoagulant Screen (PTT-LA) ?Negative Antiphospholipid Antibodies: Anti-Beta 2 Glycoprotein 1 IgG ?0.0-20.0 SGU ?2.6IgM ?0.0-20.0 SMU ?7IgA ?0.0-20.0 LAUREN ?7.7 Anticardiolipin IgG ?<10.0 GPL ? 1.4IgM ?<10.0 MPL ? 2.2IgA ?<15.0 APL ? 7.6 ?Genetic Mutation Testing: Factor V Leiden ?Normal ?NormalProthrombin ?Normal ?Wgcfza9102/29/2024 11:32 AM [facility] LABORATORY SERVICESCoagDMT interpretationAntithrombin activity is slightly low. It is unlikely that this represents a truecongenital deficiency of antithrombin because the patient has been treated with heparin. Treatment with heparin results in the formation of heparin antithrombin complexes which are cleared, reducing the antithrombin level. Remaining labs are within normal limits. A significant portion of the population are moderately insensitive to aspirin therapy and testing may be informative to verify the effectiveness of the therapy if the use of aspirin is continued. A significant portion of the populationare non-responders to Plavix therapy and testing may be informative to verify the effectiveness of the therapy if the use of Plavix is continued. 02/29/2024 11:32 AM [facility] LABORATORY SERVICESRecommendationsIf concerns for antithrombin deficiency persist, retesting for antithrombin when patient isnot on heparin may be informative. Recommend testing the patient for aspirin insensitivity by the Ve rifyNow method. If inadequate inhibition of platelets is demonstrated by the current aspirin therapy, therapy may be increased to 325 mg and patient may be retested for platelet responsiveness. Recommend testing the patient for Clopidogrel (Plavix) resistance by the VerifyNow method. ?If inadequate inhibition of platelets is demonstrated by the current Clopidogrel therapy, patient should be genotyped for the WOH7M43 enzyme to determine medication efficacy. ?02/29/2024 11:32 AM [facility]OR[facility] SERVICESUnDoctors Hospital at RenaissancePOCT GLUCOSE (AUTOMATED)2024-02-29 13:04:10* Test Item Value Reference Range Interpretation Comme nts POCT GLU (test code = 5934862449) 133 mg/dL 70-110 H Lab Interpretation (test cod e = 65001-2) Abnormal [facility] CenterCb with Cxgt3817-16-12 09:59:58* Test Item Value Reference Range Interpretation Comme nts WBC (test code = 6690-2) 20.49 4.20-10.70 H RBC (test code = 789-8) 5.15 4.26-5.52 HGB (test code = 718-7) 15.2 g/dL 12.2-16.4 HCT (test code = 4544-3) 46.7 % 38.4-49.3 MCV (test code = 787-2) 90.7 fL 81.7-95.6 MCH (test code = 785-6) 29.5 pg 26.1-32.7 MCHC (test code = 786-4) 32.5 g/dL 31.2-35.0 RDW-SD (test code = 29303-2) 47.4 fL 38.5-51.6 RDW-CV (test code = 788-0) 14.3 % 12.1-15.4 PLT (test code = 777-3) 339 150-328 H MPV (test code = 58449-3) 9.3 fL 9.8-13.0 L NRBC/100 WBC (test code = 2524342308) 0.0 0.0-10.0 NRBC x10^3 (test code = 3752948696) See_Comment [Automated message] The system which generated this result transmitted reference range: 10*3/?L. The reference range was not used to interpret this result as normal/abnormal. GRAN MAT (NEUT) % (test code = 770-8) 91.6 % IMM GRAN % (test code = 3707754173) 1.80 % LYMPH % (test code = 736-9) 5.1 % MONO % (test code = 5905-5) 1.4 % EOS % (test code = 713-8) 0.0 % BASO % (test code = 706-2) 0.1 % GRAN MAT x10^3(ANC) (test code = 2685085166) 18.78 10*3/uL 1.99-6.95 H IMM GRAN x10^3 (test code = 1796948875) 0.36 10*3/uL 0.00-0.06 H LYMPH x10^3 (test code = 731-0) 1.04 10*3/uL 1.09-3.23 L MONO x10^3 (test code = 742-7) 0.29 10*3/uL 0.36-1.02 L EOS x10^3 (test code = 711-2) 0.06-0.53 L BASO x10^3 (test code = 704-7) 0.01-0.09 Lab Interpretation (test code = 77930-7) Abnormal [facility] CenterBariver [facility] Metabolic Panel (NA, K, CL, CO2, GLUCOSE, BUN, CREATININE, CA)2024-02-29 09:48:38* Test Item Value Reference Range Interpretation Comme nts NA (test code = 1250739809) 137 mmol/L 135-145 K (test code = 5014207410) 4.7 mmol/L 3.5-5.0 CL (test code = 0090259557) 97 mmol/L 98-108 L CO2 TOTAL (test code = 0320807362) 31 mmol/L 23-31 AGAP (test code = 8181903413) 9 2-16 BUN (test code = 8374360664) 16 mg/dL 7-23 GLUCOSE (test code = 9178726175) 153 mg/dL 70-110 H CREATININE (test code = 2160-0) 0.82 mg/dL 0.60-1.25 CALCIUM (test code = 6389871186) 9.7 mg/dL 8.6-10.6 eGFR (test code = 02405-0) 108.4 mL/min/1.73m2 CKD-EPI eGFR (2020). Assuming creatinine has been stable day-to-day for at least three months, the eGFR indicates Category G1 (>= 90 mL/min/1.73 m2) Lab Interpretation (test code = 44062-2) Abnormal [facility] CenterMagnesium2024-10-17 09:48:38* Test Item Value Reference Range Interpretation Comme nts MAGNESIUM (test code = 5366664057) 2.0 mg/dL 1.7-2.4 Lab Interpretation (test cod e = 28005-9) Normal [facility] CenterPOCT GLUCOSE (AUTOMATED)2024-02-29 01:17:39* Test Item Value Reference Range Interpretation Comme nts POCT GLU (test code = 3725670027) 176 mg/dL 70-110 H Lab Interpretation (test cod e = 64548-4) Abnormal [facility] Medical CenterAnti-B2 Glycoprotein I Fo0426-35-57 00:55:22* Test Item Value Reference Range Interpretation Comme [facility] Anti-B2 Glycoprotein 1 IgG (test code = 8111729159) 2.6 0.0-20.0 Anti-B2 Glycoprotein 1 IgM (test code = 9687369541) 7.0 0.0-20.0 Anti-B2 Glycoprotein 1 IgA (test code = 1358400675) 7.7 0.0-20.0 BANDAR (test code = BANDAR) INTERPRETATION:Delilah ues over 20 SGU, SMU, or LAUREN units are considered positive. NOTE:A positive test for anti-B2 Glycoprotein I antibodies may indicate the presence of Antiphospholipid Syndrome. ?Anti-B2 Glycoprotein I antibodies have been associated with thrombosis, recurrent losses and/or thrombocytopenia. TEST PERFORMED AT:[facility] [id number] [place] [address], [address] [employer] [place] [address] Lab Interpretation (test code = 58544-8) Normal [facility] Medical CenterAnticardiolipin Xwkytlnfti7786-70-57 00:55:12 * Test Item Value Reference Range Interpretation Comme nts Anticardiolipin Antibody IgG (test code = 2633370220) 1.4 0.0-10.0 Anticardiolipin Antibody IgM (test code = 7701851690) 2.2 0.0-10.0 Anticardiolipin Antibody IgA (test code = 5072571764) 7.6 0.0-15.0 BANDAR (test code = BANDAR) Interpretation: ? IgG ?IgM ?IgANegative Values: ? <10.0 ?<10.0 ? <15.0Indeterminate ("Talbot" zone) Values: ? ?10.0-19.0 ? ?10.0-25.0 ? ? 15.0-27.0Medium Values: ? 20.0-80.0 ? ?26.0-80.0 ? ? 28.0-80.0High Positive Values: ? >80.0 ?>80.0 ? >80.0 Note:Medium-high levels of anticardiolipin antibodies (mainly of the IgG isotype)have been associated with thrombosis, recurrent losses andthrombocytopenia in patients with Antiphospholipid Syndrome and SLE relateddisorders.It is recommended to repeat the test that give values in theIndeterminate "Talbot" zone range at a later date (i.e. 4-6 weeks) to confirmpositivity. ?Rajeev Manning et al. ?J Thromb Haemost 2006; 4: 2210-4 Lab Interpretation (test code = 28924-8) Normal [facility] GLUCOSE (AUTOMATED)2024-02-28 21:47:39* Test Item Value Reference Range Interpretation Comme [facility] POCT GLU (test code = 2680513357) 181 mg/dL 70-110 H Lab Interpretation (test cod e = 25970-3) Abnormal [facility] GLUCOSE (AUTOMATED)2024-02-28 13:25:39* Test Item Value Reference Range Interpretation Comme [facility] POCT GLU (test code = 9990436506) 139 mg/dL 70-110 H Lab Interpretation (test cod e = 12581-8) [facility] Ref[facility]ive Rtgub6415-98-29 02:51:39* Test Item Value Reference Range Interpretation Comme [facility] Prothrombin Time (PT) (test code = 5902-2) 13.3 s 12.0-15.5 Neutralized PTT-LA Ratio (test code = 99920-5) Not Performed <=1.20 dRVVT Screen Ratio (test code = 57399-6) 0.87 <=1.20 Anti-Xa Qualitative Interpretation (test code = 48361-1) Not Performed Not Present Thrombin Time (TT) (test code = 3243-3) Not Performed <=19.5 Anticoagulant Medication Neutralization (test code = 3269-8) Not Performed Not Performed Neutralized dRVVT Screen Ratio (test code = 21792-9) Not Performed <=1.20 dRVVT 1:1 Mix Ratio (test code = 64289-0) Not Performed <=1.20 dRVVT Confirmation Ratio (test code = 06799-1) Not Performed <=1.20 Hexagonal Phospholipid Confirmation (test code = 57828-7) Not Performed <=7.9 Lupus Anticoagulant, Interpretation (test code = 68352-2) See Note Lupus anticoagul ant not detected. This panel did not detect evidence for heparin, direct thrombin inhibitors, or direct Xa inhibitors and drug neutralization was not performed. Lupus anticoagulant antibodies are heterogeneous and antibody titers fluctuate over time. Laboratory tests used to identify lupus anticoagulant demonstrate variable sensitivity. Testing is best performed when the patient is not acutely ill and not anticoagulated. If there is strong clinical suspicion for antiphospholipid antibody syndrome (APS), consider testing for cardiolipin and beta-2 glycoprotein 1 antibodies (IgG and IgM) if this testing has not already been performed.INTERPRETIV E INFORMATION: Lupus Anticoagulant Reflex Panel This test was developed and its performance characteristics determined by [facility]. It has not been cleared or approved by the U.S. Food and Drug Administration. This test was performed in a CLIA-certified laboratory and is intended for clinical purposes.Performed By: [facility] [place] [address] [id number] Director: Marvin Gillespie MD, PhDCLIA Number: [id number] [facility] CenterMR STROKE BRAIN WO FQKEWHMI5122-03-21 22:08:21 MR STROKE BRAIN WO CONTRAST COMPARISON: None HISTORY: Neuro deficit, acute, stroke suspected S/SX, Dx: Stroke TECHNIQUE: Multisequence multiplanar MR images of the brain obtainedwithout IV contrast. FINDINGS:Images degraded by motion artifact.The ventricles and cerebral sulci are normal in caliber and configuration.No midline shift, hydrocephalus or pathological extra-axial fluidcollection is present. The basal cisterns are unremarkable. Patchy supratentorial deep and subcortical white matter T2/FLAIRhyperintensities are seen many involving the callososeptal interfaceconcerning for demyelination. Two lesions in the right centrum semiovaledemonstrate questionable diffusion restriction raising the possibility ofactive demyelination. No abnormal gradient blooming. The T2 flow voids for the major intracranial vessels are unremarkable.Right mastoid effusion.[facility] CenterXR TIBIA FIBULA 2 VW [id number] 17:19:50XR TIBIA FIBULA 2 VW RIGHT HISTORY: ?MRI CLEARANCE Neuro deficit, acute, stroke suspected S/SX, Dx:Stroke COMPARISON: [facility]25 02:10:22* Test Item Value Reference Range Interpretation Comme nts POCT GLU (test code = 5688499097) 108 mg/dL 70-110 Lab Interpretation (test cod e = 76171-8) Normal [facility] GLUCOSE (AUTOMATED)2024-02-24 13:17:53* Test Item Value Reference Range Interpretation Comme nts POCT GLU (test code = 7150679420) 99 mg/dL 70-110 Lab Interpretation (test cod e = 66797-9) Normal [facility] GLUCOSE (AUTOMATED)2024-02-24 09:21:47* Test Item Value Reference Range Interpretation Comme nts POCT GLU (test code = 7081995323) 85 mg/dL 70-110 Lab Interpretation (test cod e = 93616-8) Normal [facility] GLUCOSE (AUTOMATED)2024-02-24 05:28:17* Test Item Value Reference Range Interpretation Comme nts POCT GLU (test code = 7610440920) 107 mg/dL 70-110 Lab Interpretation (test cod e = 51169-1) Normal [facility] GLUCOSE (AUTOMATED)2024-02-24 02:37:16* Test Item Value Reference Range Interpretation Comme nts POCT GLU (test code = 6537020870) 112 mg/dL 70-110 H Lab Interpretation (test cod e = 41329-3) Abnormal [facility] GLUCOSE (AUTOMATED)2024-02-23 22:06:44* Test Item Value Reference Range Interpretation Comme nts POCT GLU (test code = 7600944784) 93 mg/dL 70-110 Lab Interpretation (test cod e = 47802-8) Normal [facility] GLUCOSE (AUTOMATED)2024-02-23 22:03:50* Test Item Value Reference Range Interpretation Comme nts POCT GLU (test code = 8486701325) 79 mg/dL 70-110 Lab Interpretation (test cod e = 94501-3) Normal [facility] Arterial Blood Gas.2024-02-23 16:53:18* Test Item Value Reference Range Interpretation Comme nts PH (test code = 2) 7.38 7.35-7.45 PCO2 (test code = 2535331805) 54 35-45 H PO2 (test code = 9485914252) 107 80-100 H QUES HCO3 (test code = 5401959565) 31 22-26 H BE (test code = 3146060880) 4.4 -3.0-3.0 H Lab Interpretation (test cod e = 67293-0) [facility] + Lactic [id number] 15:12:41* Test Item Value Reference Range Interpretation Comme nts PH (test code = 2) 7.39 7.35-7.45 PCO2 (test code = 5552827821) 51 35-45 H PO2 (test code = 0644412341) 62 80-100 L HCO3 (test code = 9075063414) 31 22-26 H BE (test code = 0919201898) 4.3 -3.0-3.0 H THB (test code = 8786705356) 15.8 g/dL 13.5-18.0 %O2HB (test code = 1964028918) 91.7 % 94.0-99.0 L %COHB ART (test code = 1890782700) 1.0 % 0.0-1.5 %METHB ART (test code = 7299458151) 0.3 % 0.4-1.5 L VOL%O2 ART (test code = 3782779240) 20.3 % 15.0-23.0 NA (test code = 0147375065) 139 mmol/L 135-145 K+ (test code = 8641982723) 4.3 mmol/L 3.5-5.0 AC CA IONZ (test code = 1139336603) 4.90 mg/dL 4.50-5.30 GLUCOSE (test code = 0031072817) 92 mg/dL 70-110 LACTIC ACID (test code = 1488106411) 1.29 mmol/L 0.50-2.20 QUES Lab Interpretation (test cod e = 01633-8) [facility]normal [facility]2024-02-23 14:47:48* Test Item Value Reference Range Interpretation Comme nts POCT GLU (test code = 9533788014) 94 mg/dL 70-110 Lab Interpretation (test cod e = 39737-7) Normal [facility] TIBIA FIBULA 2 VW [id number] 12:10:58 XR TIBIA FIBULA 2 VW RIGHT HISTORY: ?For Mri Clearance PT claims to have metal injury from counter topthat had to be removed. Need XR to verify no foreign body still in patientprior to MRI. COMPARISON: ?none available.[facility] Protocol - Transthoracic echo (TTE)2024-02-22 21:09:32* Test Item Value Reference Range Interpretation Comme nts Height (test code = 6496267647) 69 in Weight (test code = 4421853796) 290 lbs Systolic BP (test code = 0115850264) 149 mmHg Diastolic BP (test code = 7042487574) 95 mmHg Heart Rate (test code = 7203659478) 81 bpm BSA (test code = 2895800996) 2.42 m2 LVOT diameter (test code = 2308598038) 2.29 cm LVOT area (test code = 3488332298) 4.10 cm2 LA size (test code = 3035144020) 3.8 cm Ao root diam (test code = 4143031093) 3.40 cm Aortic root (test code = 0127877305) 3.4 cm Ao root annulus (test code = 5163866518) 3.4 cm E wave decelartion time (test code = 7942761786) 0.12 s MV Peak A Elidia (test code = 8435447191) 90.9 cm/s MV Peak E Elidia (test code = 5021834358) 76.2 cm/s E/A ratio (test code = 8657833625) 0.84 ratio MV Prop V (test code = 9838896146) 47.10 cm/s LAV(MOD-sp4) (test code = 3785285287) 28.70 mL Tapse (test code = 3719243225) 1.97 cm LVOT stroke volume (test code = 3504984524) 59.40 cm3 LVOT peak elidia (test code = 6175784722) 99.1 cm/s LVOT mn grad (test code = 0970770392) 1.7 mmHg AV LVOT peak gradient (test code = 6029430676) 3.9 mmHg LVOT peak VTI (test code = 8654632427) 14.4 cm LV V1 mean (test code = 9421098289) 60.30 cm/s LA Volume Index (BP) (test code = 3680308493) 10.1 mL/m2 LA volume (BP) (test code = 4093537202) 24.5 mL LAV(MOD-sp2) (test code = 3951064969) 21.70 mL LVIDD (test code = 9096889266) 5.30 cm Left Ventricular End Diastolic Volume by Teichholz Method (test code = 4408151) 134.8 mL IVS (test code = 4457052269) 0.92 cm Interventricular Septum Diastolic Thickness by 2D (test code = 1284178) 0.92 cm LVPWD (test code = 9703140867) 1.09 cm PW (test code = 8865251689) 1.09 cm 0.6-1.1 EF(Teich) (test code = 4311357403) 52.10 % LVIDS (test code = 1893265906) 3.90 cm Left Ventricular End Systolic Volume by Teichholz Method (test code = 1328402) 64.6 mL FS (test code = 9052502773) 27 % EF - 2D (test code = 51728740) 52.10 % A4C EF (test code = 0362627930) 25.40 % EF(sp4-el) (test code = 8051117890) 23.40 % SV(MOD-sp4) (test code = 1308951316) 45.70 mL SV(sp4-el) (test code = 3430571975) 41.50 mL Radiology Study observation (narrative) (test code = 44861-2) BANDAR (test code = BANDAR) ?Left?Ventricle: Left ventricle size is normal. Normal wall thickness. Septal motion is normal. Normal wall motion. No regional wall motion abnormalities. Normal systolic function with a visually estimated EF of 55 - 60%. Normal diastolic function. ?Right?Ventricle: Right ventricle is dilated. Normal wall thickness. Normal systolic function. ?Left?Atrium: Left atrium size is normal. Left atrium volume index is 10.1 mL/m2. Saline contrast shows no shunt. ?Tricuspid?Valve: Tricuspid valve structure is normal. Trace transvalvular regurgitation. Insufficient tricuspid regurgitation jet to estimate RVSP . Left VentricleLeft ventricle size is normal. Normal wall thickness. Septal motion is normal. Normal wall motion. No regional wall motion abnormalities. Normal systolic function with a visually estimated EF of 55 - 60%. Normal diastolic function.Right VentricleRight ventricle is dilated. Normal wall thickness. Normal systolic function.Left AtriumLeft atrium size is normal. Left atrium volume index is 10.1 mL/m2. Saline contrast shows no shunt.Right AtriumRight atrium size is normal.IVC/SVCIVC diameter is less than or equal to 21 mm and decreases greater than 50% during inspiration; therefore the estimated right atrial pressure is normal (~0-5 mmHg). IVC normal in size and respiratory variation.Mitral ValveMitral valve structure is normal. No transvalvular regurgitation. No stenosis.Tricuspid ValveTricuspid valve structure is normal. Trace transvalvular regurgitation. Insufficient tricuspid regurgitation jet to estimate RVSP . No stenosis.Aortic ValveAortic valve opens well. No transvalvular regurgitation. No evidence of aortic stenosis.Pulmonic ValveNot well visualized. No transvalvular regurgitation. No stenosis.Ascending AortaNormal sized annulus.PericardiumEv idence of epicardial fat. Trivial pericardial effusion present. No indication of cardiac tamponade.Study DetailsStudy quality experienced technical difficulty. A complete echocardiogram was performed using 2D, color flow Doppler and spectral Doppler. 5 mL of Lumason ultrasound enhancing agent used and saline contrast was performed. Patient exhibited sinus bradycardia. [facility] Panel 21 + Lactic [id number] 19:16:26* Test Item Value Reference Range Interpretation Comme nts PH (test code = 6834178982) 7.35 7.32-7.42 PCO2 GYPSY (test code = 3266145131) 56 41-51 H PO2 GYPSY (test code = 6960377789) 46 25-40 H HCO3 GYPSY (test code = 6307084729) 30 24-28 H AC VBE(BEAKER) (test code = 0957023582) 2.9 mEq/L THB GYPSY (test code = 8432496625) 16.0 g/dL 13.5-18.0 %O2HB GYPSY (test code = 9354282873) 83.4 % 52.0-63.0 H %COHB GYPSY (test code = 2915112489) 1.0 % 0.0-1.5 %METHB GYPSY (test code = 0246342036) 0.3 % 0.4-1.5 L VOL%O2 GYPSY (test code = 0784866961) 18.7 % 6.0-12.0 H NA (test code = 8845731154) 138 mmol/L 135-145 K+ (test code = 9033121990) 4.3 mmol/L 3.5-5.0 AC CA IONZ (test code = 1065892466) 4.90 mg/dL 4.50-5.30 GLUCOSE (test code = 6405291100) 113 mg/dL 70-110 H LACTIC ACID (test code = 0736749054) 1.88 mmol/L 0.50-2.20 QUES Lab Interpretation (test cod e = 95662-3) Abnormal [facility] CHEST 1 [id number] 16:02:49EXAM: XR CHEST 1 VW COMPARISON: 01/27/2020 HISTORY: 48 years-old Male; weakness FINDINGS: The lung apices are not fully visualized due to the overlying patient'shead. Lungs: The lung volumes are low resulting in crowding of bronchovascularmarkings. Bilateral pulmonary hilar vasculature congestion. No focalopacities. No pneumothorax. No pleural effusion. Heart/Mediastinum: The cardiac silhouette terry ears normal. Bones and soft tissues: No acute osseous findings are detected. [facility] CenterCT ANGIOGRAM [id number] 13:49:37CT ANGIOGRAM HEAD, CT ANGIOGRAM NECK HISTORY: 48 years-old; Male; Neuro deficit, acute, stroke suspected TECHNIQUE: CTA of the head and neck with coronal, sagittal reformats, andMIPS reconstruction was performed. COMPARISON: ?None available FINDINGS: CTA NECK: Degraded scan due to patient's body habitus. Four- vessel branching anatomy of the aortic arch, the left vertebral arteryarises directly from the arch. Right subclavian artery is patent. Left subclavian artery is obscured bycontrast in thesubclavian vein. Common and internal cervical carotids: The common carotid arteries, carotidbulbs and cervical internal carotid arteries are patent. Vertebral arteries: The right vertebral artery originates from thesubclavian artery and the left vertebral artery from the aorta. Rightdominant vertebral artery with the hypoplastic left vertebral arteryterminating as PICA. Cervical soft tissues: Unremarkable. Lung apices: Unremarkable. Cervical spine: No acute bony abnormality.. CTA HEAD: PICA origin is visualized bilaterally. Left vertebral artery terminates asPICA The basilar artery is normal in caliber. The superior cerebellararteries are unremarkable. The posterior cerebral arteries areunremarkable. origin of the bilateral posterior cerebral arteries,otherwise patent. The distal cervical, petrous, cavernous and supraclinoidinternal carotid arteries are unremarkable. The distal cervical, petrous, cavernous and supraclinoid internal carotidarteries are patent. The anterior and middle cerebral arteries areunremarkable. Small anterior communicating artery. The dural venous sinuses are grossly patent. [facility] ANGIOGRAM [id number] 13:49:37CT ANGIOGRAM HEAD, CT ANGIOGRAM NECK HISTORY: 48 years-old; Male; Neuro deficit, acute, stroke suspected TECHNIQUE: CTA of the head and neck with coronal, sagittal reformats, andMIPS reconstruction was performed. COMPARISON: ?None available FINDINGS: CTA NECK: Degraded scan due to patient's body habitus. Four- vessel branching anatomy of the aortic arch, the left vertebral arteryarises directly from the arch. Right subclavian artery is patent. Left subclavian artery is obscured bycontrast in thesubclavian vein. Common and internal cervical carotids: The common carotid arteries, carotidbulbs and cervical internal carotid arteries are patent. Vertebral arteries: The right vertebral artery originates from thesubclavian artery and the left vertebral artery from the aorta. Rightdominant vertebral artery with the hypoplastic left vertebral arteryterminating as PICA. Cervical soft tissues: Unremarkable. Lung apices: Unremarkable. Cervical spine: No acute bony abnormality.. CTA HEAD: PICA origin is visualized bilaterally. Left vertebral artery terminates asPICA The basilar artery is normal in caliber. The superior cerebellararteries are unremarkable. The posterior cerebral arteries areunremarkable. origin of the bilateral posterior cerebral arteries,otherwise patent. The distal cervical, petrous, cavernous and supraclinoidinternal carotid arteries are unremarkable. The distal cervical, petrous, cavernous and supraclinoid internal carotidarteries are patent. The anterior and middle cerebral arteries areunremarkable. Small anterior communicating artery. The dural venous sinuses are grossly patent. [facility] KNEE 3 VW [id number] 13:33:39EXAM: XR KNEE 3 VW RIGHT HISTORY: 48 years-old Male with pain COMPARISON: None. FINDINGS: Radiographs of the right knee demonstrate no acute fractures ordislocations. Chronically fragmented tibial tuberosity is visualized. Trav-Stiedatype calcification, likely due to remote MCL injury.Alignment is within normal limits. The soft tissues are unremarkable.[facility] CenterCT HEAD WO [id number] 13:29:15EXAM: CT HEAD WO CONTRAST HISTORY: 48 years- old Male; Provided indication: Neuro deficit, acute,stroke suspected . TECHNIQUE: Axial CT of the head was performed and reconstructed at 2.5 mmintervals. Coronal and sagittal reformatted images were generated. COMPARISON: None FINDINGS: The ventricles and cerebral sulci are normal in caliber and configuration.No midline shift or pathological extra-axial fluid collection is present.The basal cisterns are unremarkable. No acute intracranial hemorrhage or significant mass effect is visualized.Patchy hypodensities in the left parietal periventricular white matter andsubcortical white matter of right parietal lobe, indeterminant. Thegray-white matter differentiation is preserved. There is complete opacification of right mastoid air cells. The leftmastoid air cells are clear. The calvarium and central skull base areunremarkable.[facility] CenterTROPONIN [id number] 08:15:34* Test Item Value Reference Range Interpretation Comme nts TROPONIN I (test code = 4928088647) 0.005 ng/mL <=0.034 BANDAR (test code = BANDAR) Reference (Normal) Range (defined by the 99th percentile reference limit): <= 0.034 ng/mL Note: Cardiac troponin begins to rise 3-4 hours after the onset of ischemia. Repeat in 4-6 hours if the sample was drawn within 3-4 hours of the onset of the symptom and found normal. Diagnosis of myocardial injury is made with acute changes in cTn concentrations with at least one serial sample above the 99th percentile upper reference limit (URL), taken together with the patient's clinical presentation. Biotin has been reported to cause a negative bias, interpret results relative to patient's use of biotin. Lab Interpretation (test code = 85226-7) Normal [facility]. METABOLIC PANEL (85266)2024-02-22 06:19:00* Test Item Value Reference Range Interpretation Comme nts NA (test code = 2753010353) 137 mmol/L 135-145 K (test code = 9435104931) 3.6 mmol/L 3.5-5.0 CL (test code = 2971871174) 100 mmol/L 98-108 CO2 TOTAL (test code = 3464979224) 33 mmol/L 23-31 H AGAP (test code = 7639638167) 4 2-16 BUN (test code = 3804015290) 23 mg/dL 7-23 GLUCOSE (test code = 2457794627) 132 mg/dL 70-110 H CREATININE (test code = 2160-0) 1.04 mg/dL 0.60-1.25 TOTAL BILI (test code = 4831327193) 0.5 mg/dL 0.1-1.1 CALCIUM (test code = 6242307477) 9.4 mg/dL 8.6-10.6 T PROTEIN (test code = 9364212636) 7.5 g/dL 6.3-8.2 ALBUMIN (test code = 9496329121) 3.9 g/dL 3.5-5.0 ALK PHOS (test code = 5565017458) 75 U/L 34-122 ALTv (test code = 1742-6) 38 U/L 5-50 AST(SGOT) (test code = 7331113688) 34 U/L 13-40 eGFR (test code = 54288-7) 88.6 mL/min/1.73m2 CKD-EPI eGFR (2020). Assuming creatinine has been stable day-to-day for at least three months, the eGFR indicates Category G2 (60 - 89 mL/min/1.73 m2) Lab Interpretation (test code = 84742-3) Abnormal [facility] WITH [id number] 05:49:38* Test Item Value Reference Range Interpretation Comme nts WBC (test code = 6690-2) 9.08 4.20-10.70 RBC (test code = 789-8) 4.94 4.26-5.52 HGB (test code = 718-7) 14.6 g/dL 12.2-16.4 HCT (test code = 4544-3) 44.8 % 38.4-49.3 MCV (test code = 787-2) 90.7 fL 81.7-95.6 MCH (test code = 785-6) 29.6 pg 26.1-32.7 MCHC (test code = 786-4) 32.6 g/dL 31.2-35.0 RDW-SD (test code = 09252-0) 47.6 fL 38.5-51.6 RDW-CV (test code = 788-0) 14.4 % 12.1-15.4 PLT (test code = 777-3) 294 150-328 MPV (test code = 06681-9) 9.1 fL 9.8-13.0 L NRBC/100 WBC (test code = 0439856519) 0.0 0.0-10.0 NRBC x10^3 (test code = 1959466799) See_Comment [Automated messa ge] The system which generated this result transmitted reference range: 10*3/?L. The reference range was not used to interpret this result as normal/abnormal. GRAN MAT (NEUT) % (test code = 770-8) 56.5 % IMM GRAN % (test code = 4657068905) 0.30 % LYMPH % (test code = 736-9) 30.2 % MONO % (test code = 5905-5) 8.4 % EOS % (test code = 713-8) 4.2 % BASO % (test code = 706-2) 0.4 % GRAN MAT x10^3(ANC) (test code = 6110015594) 5.13 10*3/uL 1.99-6.95 IMM GRAN x10^3 (test code = 1004523576) 0.03 10*3/uL 0.00-0.06 LYMPH x10^3 (test code = 731-0) 2.74 10*3/uL 1.09-3.23 MONO x10^3 (test code = 742-7) 0.76 10*3/uL 0.36-1.02 EOS x10^3 (test code = 711-2) 0.38 10*3/uL 0.06-0.53 BASO x10^3 (test code = 704-7) 0.04 10*3/uL 0.01-0.09 Lab Interpretation (test code = 32447-4) Abnormal [facility] CenterN-TERMINAL [id number] 08:57:36* Test Item Value Reference Range Interpretation Comme nts NT-proBNP (test code = 37350-5) 20 pg/mL <=125 Lab Interpretation (test cod e = 34052-7) Normal [facility] CenterTROP[facility]IN [id number] 08:33:10* Test Item Value Reference Range Interpretation Comme nts TROPONIN I (test code = 5971948763) 0.005 ng/mL <=0.034 BANDAR (test code = BANDAR) Reference (Normal) Range (defined by the 99th percentile reference limit): <= 0.034 ng/mL Note: Cardiac troponin begins to rise 3-4 hours after the onset of ischemia. Repeat in 4-6 hours if the sample was drawn within 3-4 hours of the onset of the symptom and found normal. Diagnosis of myocardial injury is made with acute changes in cTn concentrations with at least one serial sample above the 99th percentile upper reference limit (URL), taken together with the patient's clinical presentation. Biotin has been reported to cause a negative bias, interpret results relative to patient's use of biotin. Lab Interpretation (test code = 85080-1) Normal [facility] CHEST 1 [id number] 08:30:11Ordering physician: SELAM CARRILLO Indication: Chest pain Comparison: None Technical quality: Adequate Findings: Single AP view of the chest. The cardiopericardial silhouette ismildly enlarged. There is mild prominence of the central interstitium. Thevisualized bony thorax is intact.[facility] CenterCOMP. METABOLIC PANEL (69870)2024-01-27 08:22:18* Test Item Value Reference Range Interpretation Comme nts NA (test code = 7838425852) 137 mmol/L 135-145 K (test code = 7564875259) 3.6 mmol/L 3.5-5.0 CL (test code = 6571611612) 100 mmol/L 98-108 CO2 TOTAL (test code = 1421723009) 32 mmol/L 23-31 H AGAP (test code = 4478307553) 5 2-16 BUN (test code = 7523848394) 17 mg/dL 7-23 GLUCOSE (test code = 9884772199) 163 mg/dL 70-110 H CREATININE (test code = 2160-0) 0.94 mg/dL 0.60-1.25 TOTAL BILI (test code = 1370501857) 0.3 mg/dL 0.1-1.1 CALCIUM (test code = 3279176325) 8.9 mg/dL 8.6-10.6 T PROTEIN (test code = 5970298514) 6.8 g/dL 6.3-8.2 ALBUMIN (test code = 7557467863) 3.8 g/dL 3.5-5.0 ALK PHOS (test code = 4693670997) 84 U/L 34-122 ALTv (test code = 1742-6) 36 U/L 5-50 AST(SGOT) (test code = 1852855253) 46 U/L 13-40 H eGFR (test code = 46400-5) 100.0 mL/min/1.73m2 CKD-EPI eGFR (2020). Assuming creatinine has been stable day-to-day for at least three months, the eGFR indicates Category G1 (>= 90 mL/min/1.73 m2) Lab Interpretation (test code = 96981-3) Abnormal [facility] WITH [id number] 08:05:09* Test Item Value Reference Range Interpretation Comme nts WBC (test code = 6690-2) 8.83 4.20-10.70 RBC (test code = 789-8) 4.97 4.26-5.52 HGB (test code = 718-7) 14.7 g/dL 12.2-16.4 HCT (test code = 4544-3) 45.4 % 38.4-49.3 MCV (test code = 787-2) 91.3 fL 81.7-95.6 MCH (test code = 785-6) 29.6 pg 26.1-32.7 MCHC (test code = 786-4) 32.4 g/dL 31.2-35.0 RDW-SD (test code = 75565-9) 46.6 fL 38.5-51.6 RDW-CV (test code = 788-0) 13.8 % 12.1-15.4 PLT (test code = 777-3) 274 150-328 MPV (test code = 79994-8) 9.6 fL 9.8-13.0 L NRBC/100 WBC (test code = 6843594045) 0.0 0.0-10.0 NRBC x10^3 (test code = 8387691560) See_Comment [Automated messa ge] The system which generated this result transmitted reference range: 10*3/?L. The reference range was not used to interpret this result as normal/abnormal. GRAN MAT (NEUT) % (test code = 770-8) 63.7 % IMM GRAN % (test code = 9142445889) 0.30 % LYMPH % (test code = 736-9) 21.7 % MONO % (test code = 5905-5) 10.1 % EOS % (test code = 713-8) 3.9 % BASO % (test code = 706-2) 0.3 % GRAN MAT x10^3(ANC) (test code = 1456491391) 5.62 10*3/uL 1.99-6.95 IMM GRAN x10^3 (test code = 7599914469) 0.03 10*3/uL 0.00-0.06 LYMPH x10^3 (test code = 731-0) 1.92 10*3/uL 1.09-3.23 MONO x10^3 (test code = 742-7) 0.89 10*3/uL 0.36-1.02 EOS x10^3 (test code = 711-2) 0.34 10*3/uL 0.06-0.53 BASO x10^3 (test code = 704-7) 0.03 10*3/uL 0.01-0.09 Lab Interpretation (test code = 77848-2) Abnormal [facility] Consult Notes Date/Time Note Provider Source 2024-02-28 11:54:18 Associated Order(s): CONSULT MANAGER [facility]-ADULT Care Management Note 02/28/24 11:54 AM Consult Comments Reason for Consult - will need help obtaining CPAP at home for CHAVA CM ordered home BiPAP that will be delivered to the patient at discharge. JOHN Whitehead, RN Inpatient Aircraft Maintenance Engineer [facility] [email or web address]. [email or web address] [phone] [facility] Health 2024-02-24 12:10:40 Associated Order(s): CONSULT HEMATOLOGY HEMATOLOGY AND ONCOLOGY CONSULT NOTE Date of Service: 02/23/2024 Reason for Consultation: Hypercoagulable workup Referring Physician / Primary Service: MICU Chief Complaint: stroke HPI Janiya Verde is a 48 year old /White male with a Medical Hx significant for substance, tobacco use disorder, HTN, ?CHAVA transferred from [facility] to [facility] for right leg weakness. 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 He did not receive tPA or thrombectomy given no LVO and > 4.5 hours from onset of symptoms. Symptoms started 02/19/24 with difficulty walking 2/2 R leg weakness and slurred speech. Presented to [facility] ED with NIHSS 0 and CTH showing left parietal white matter infarct at the MCA [place] watershed and CTA H/N showing moderate narrowing of the superior branch of th left Me segment of MCA. PT received ASA 325 mg and plavix 75 mg x1. Pt has been living at a rehab facility for drug use: cocaine. Pt reports multiple family members with "clots" in hearts and legs requiring stents. Denies personal hx of clots or abnormal bleeding or abnormal bruising. ONCOLOGY HISTORY: Oncology History No history exists. Review of Systems: A 10-system review was conducted and was negative except for what's noted in the HPI. The following systems were reviewed: Constitutional, cardiovascular, respiratory, gastrointestinal, genitourinary, musculoskeletal, neurologic, psychiatric, endocrinological, and hematological. HISTORIES: Past Medical History: Diagnosis Date Cocaine abuse Hypertension CHAVA (obstructive sleep apnea) Smoking Substance abuse History reviewed. No pertinent surgical history. History reviewed. No pertinent family history. Social History Socioeconomic History Marital status: Single Spouse name: Not on file Number of children: Not on file Years of education: Not on file Highest education level: Not on file Occupational History Not on file Tobacco Use Smoking status: Every Day Current packs/day: 2.00 Average packs/day: 2.0 packs/day for 36.0 years (72.0 ttl pk-yrs) Types: Cigarettes Start date: 02/22/1988 Smokeless tobacco: Not on file Vaping Use Vaping status: Every Day Substance and Sexual Activity Alcohol use: Yes Drug use: Yes Types: Cocaine, Marijuana, Other-see comments Comment: former Sexual activity: Not on file Other Topics Concern Not on file Social History Narrative Not on file Social Determinants of Health Financial Resource Strain: Medium Risk (02/22/2024) Overall Financial Resource Strain (CARDIA) Difficulty of Paying Living Expenses: Somewhat hard Food Insecurity: No Food Insecurity (02/22/2024) Hunger Vital Sign Worried About Running Out of Food in the Last Year: Never true Ran Out of Food in the Last Year: Never true Transportation Needs: Not on file Physical Activity: Inactive (02/22/2024) Exercise Vital Sign Days of Exercise per Week: 0 days Minutes of Exercise per Session: 0 min Stress: Not on file Social Connections: Unknown (02/22/2024) Social Connection and Isolation Panel [NHANES] Frequency of Communication with Friends and Family: More than three times a week Frequency of Social Gatherings with Friends and Family: Not on file Attends Rastafari Services: Not on file Active Member of Clubs or Organizations: Not on file Attends Club or Organization Meetings: Not on file Marital Status: Patient declined Intimate Partner Violence: Not on file Housing Stability: Low Risk (02/22/2024) Housing Stability Vital Sign Unable to Pay for Housing in the Last Year: No Number of Places Lived in the Last Year: 1 Unstable Housing in the Last Year: No ALLERGIES No Known Allergies MEDICATIONS: Current Facility-Administered Medications: enoxaparin (LOVENOX) injection 40 mg, 40 mg, Subcutaneous, DAILY, Jacinto Sethi MD, 40 mg at 02/23/241736 famotidine (PEPCID AC) tablet 20 mg, 20 mg, Oral, BID, Jacinto Sethi MD, 20 mg at 02/23/242046 acetaminophen (TYLENOL) tablet 650 mg, 650 mg, Oral, Q6HPRN, Katy Comer MD aspirin chewable tablet 81 mg, 81 mg, Oral, DAILY, Katy Comer MD, 81 mg at 02/23/24 1038 atorvastatin (LIPITOR) tablet 40 mg, 40 mg, Oral, QHS, Katy Comer MD, 40 mg at 02/23/242046 clopidogreL (PLAVIX) 75 mg tablet 75 mg, 75 mg, Oral, DAILY, Katy Comer MD, 75 mg at 02/23/24 1038 D5W 0.9% NaCl (NS) IV infusion 1,000 mL, 1,000 mL, IV Infusion, CONTINUOUS, Rl Gunter MBBS, Last Rate: 42 mL/hr at 02/22/24 1347, 1,000 mL at 02/22/24 1347 FLUoxetine (PROZAC) capsule 20 mg, 20 mg, Oral, DAILY, Katy Comer MD labetaloL (NORMODYNE) 5 mg/mL injection 10 mg, 10 mg, Slow IV Push, [id number], Katy Comer MD nicotine (NICODERM) 21 mg/24 hr patch 1 Patch, 1 Patch, Topical, Q24H, Katy Comer MD, 1 Patch at 02/23/24 0924 QUEtiapine (SEROQUEL) tablet 100 mg, 100 mg, Oral, QHS, Lerint, Rodolfo Ahn MD, 100 mg at 02/23/242045 Saline Bubble Study, 6 mL, Injection, SEE-INSTRUCTIONS, Blair Dhaliwal MD, 6 mL at 02/22/24 1050 Saline Bubble Study, 6 mL, Injection, SEE-INSTRUCTIONS, Blair Dhaliwal MD, 6 mL at 02/22/24 105 traZODone (DESYREL) tablet 100 mg, 100 mg, Oral, QHS, Katy Comer MD, 100 mg at 02/23/242045 PHYSICAL EXAM Wt Readings from Last 3 Encounters: 02/22/24 131.5 kg (290 lb) 01/27/24 127 kg (280 lb) 11/19/21 104.3 kg (230 lb) Vitals: 02/23/24 1700 02/23/24 1800 02/23/24 1913 02/23/241999 BP: (!) 133/92 125/80 128/82 BP Location: Patient Position: Pulse: 72 73 82 72 Resp: 18 18 20 20 Temp: 36.3 ?C (97.3 ?F) 36.6 ?C (97.9 ?F) TempSrc: Tympanic SpO2: 97% 96% 100% 96% Weight: Height: Intake/Output Summary (Last 24 hours) at 02/23/20242054 Last data filed at 02/23/20241999 Gross per 24 hour Intake -- Output 1550 ml Net -1550 ml General: No acute distress, obese HEENT: Normocephalic, atraumatic, PERRLA, normal conjunctiva & lids, moist mucous membranes, left facial droop Neck: thick Lungs: clear to auscultation bilaterally Cardiovascular: Normal S1, S2, RRR Abdomen: soft, non-tender, non-distended Musculoskeletal: Full ROM of all extremities 5/5 LE and UE strength Extremities: no edema, no calf tenderness Integumentary: warm, dry Neuro: no tremors, no focal deficits LABS/IMAGING - Reviewed ASSESSMENT: Janiya Verde is a 48 year old male with the following active problems: #L parietal white matter infarct, unknonw chronicity ?CHAVA #cocaine use disorder #tobacco use disorder #HTN Pt presenting with R leg weakness and slurre speech for > 3 days. CTH found L parietal white matte infarct at watershed area unknown chronicity of lesion. Hypercoagulable workup was initiated given age < 50 and possible FHx. Given acuity of clotting event most of the hypercoagulable work up is unreliable and will require repeating after resolution of acute issues. Currently pending APLS antibodies. FVL and PT [id number] wild-type. Positive CORNELIUS. Anti-thrombin 3 level was low at 76%, which is unreliable in the acute setting. PLANS / RECOMMENDATIONS: --stroke per neurology --pending APLS labs --recommend repeat hypercoagulable work up in 4 weeks --rest per primary Hematology & Medical Oncology will continue to follow this patient with you. Thank you for involving us in the care of this interesting patient. Please call with any questions or concerns. Patient seen and discussed with Dr. Zuñiga, Faculty. Darell Fernandez MD I PGY-4 Department of Hematology and Oncology If after 5 pm or weekend please page on-call fellow Associated attestation - Gerry Zuñiga MD - 02/26/2024 10:43 AM CDT I have seen and examined the patient with the hematology/medical oncology fellow, Dr. Winkler on February 24, 2024, reviewed the history, exam findings, relevant laboratory and radiological results, and discussed assessment and plan. I agree with the note Please contact us with any further questions/concerns. Gerry Zuñiga MD professor of voice, Department of Hematology/Oncology, [facility]. HEMATOLOGY & ONCOLOGY [facility] 2024-02-22 14:57:12 Associated Order(s): Consult Pulmonary Medicine Consult Pulmonary Medicine Consult performed by: Rudy Kelsey MD Consult ordered by: Venus Judge MD PULMONARY MEDICINE CONSULTATION NOTE Consultation requested by: Venus Judge MD Date of Service: 02/22/2024 14:57 HD #: 0 Reason for Consultation: Management of CHAVA and hypersomnolence History of Present Illness Janiya Verde is a 48 year old male with PMH significant for substance abuse, tobacco abuse, HTN, and possible CHAVA. Patient was originally admitted to [facility] with right leg weakness where he was found to have left parietal infarct and was admitted to the neurology unit. Did not receive tPA nor thrombectomy as no LVO and time to presentation was contraindication to tPA. Today we were consulted for assistance with management of his CHAVA as the patient has been hypersomnolent throughout his admission. It was reported that he has been falling asleep through conversations and have not able to clearly find a reason for this. Outpatient he follows Dr. Saavedra at [facility]. Due to hypersomnolence, snoring and obesity a home sleep study was recently performed; the patient does not have the results yet. Labs and imaging were reviewed. VBG was pH 7.35 CO2 56 bicarb 30. A1c 5.9. CXR with suggestion of pulmonary vascular congestion without infiltrate or effusion. TTE currently pending as part of stroke workup. With no known history of heart failure. Viral panel negative including COVID, influenza and HIV. . PAST MEDICAL HISTORY Past Medical History: Diagnosis Date Cocaine abuse Hypertension CHAVA (obstructive sleep apnea) Smoking Substance abuse History reviewed. No pertinent surgical history. History reviewed. No pertinent family history. Social History Socioeconomic History Marital status: Single Tobacco Use Smoking status: Every Day Current packs/day: 2.00 Average packs/day: 2.0 packs/day for 36.0 years (72.0 ttl pk-yrs) Types: Cigarettes Start date: 02/22/1988 Vaping Use Vaping status: Every Day Substance and Sexual Activity Alcohol use: Yes Drug use: Yes Types: Cocaine, Marijuana, Other-see comments Comment: former Social Determinants of Health Financial Resource Strain: Medium Risk (02/22/2024) Overall Financial Resource Strain (CARDIA) Difficulty of Paying Living Expenses: Somewhat hard Food Insecurity: No Food Insecurity (02/22/2024) Hunger Vital Sign Worried About Running Out of Food in the Last Year: Never true Ran Out of Food in the Last Year: Never true Physical Activity: Inactive (02/22/2024) Exercise Vital Sign Days of Exercise per Week: 0 days Minutes of Exercise per Session: 0 min Social Connections: Unknown (02/22/2024) Social Connection and Isolation Panel [NHANES] Frequency of Communication with Friends and Family: More than three times a week Marital Status: Patient declined Housing Stability: Low Risk (02/22/2024) Housing Stability Vital Sign Unable to Pay for Housing in the Last Year: No Number of Places Lived in the Last Year: 1 Unstable Housing in the Last Year: No Allergies: Patient has no known allergies. Current Hospital Medications: Current Facility-Administered Medications Medication Dose Route Frequency Last Rate Last Admin acetaminophen (TYLENOL) tablet 650 mg 650 mg Oral Q6HPRN [START ON 02/23/2024] aspirin chewable tablet 81 mg 81 mg Oral DAILY atorvastatin (LIPITOR) tablet 40 mg 40 mg Oral QHS [START ON 02/23/2024] clopidogreL (PLAVIX) 75 mg tablet 75 mg 75 mg Oral DAILY D5W 0.9% NaCl (NS) IV infusion 1,000 mL 1,000 mL IV Infusion CONTINUOUS 42 mL/hr at 02/22/24 1347 1,000 mL at 02/22/24 1347 famotidine (PEPCID AC) tablet 20 mg 20 mg Oral BID FLUoxetine (PROZAC) capsule 20 mg 20 mg Oral DAILY heparin (porcine) injection 5,000 Units 5,000 Units Subcutaneous Q12H 5,000 Units at 02/22/24 1354 labetaloL (NORMODYNE) 5 mg/mL injection 10 mg 10 mg Slow IV Push [id number] [START ON 02/23/2024] lisinopriL (PRINIVIL,ZESTRIL) tablet 10 mg 10 mg Oral DAILY nicotine (NICODERM) 21 mg/24 hr patch 1 Patch 1 Patch Topical Q24H 1 Patch at 02/22/24 1354 QUEtiapine (SEROQUEL) tablet 100 mg 100 mg Oral QHS Saline Bubble Study 6 mL Injection SEE-INSTRUCTIONS 6 mL at 02/22/24 1050 Saline Bubble Study 6 mL Injection SEE-INSTRUCTIONS 6 mL at 02/22/24 1052 traZODone (DESYREL) tablet 100 mg 100 mg Oral QHS Home Medications: Current Facility-Administered Medications Medication Dose Route Frequency Last Rate Last Admin acetaminophen (TYLENOL) tablet 650 mg 650 mg Oral Q6HPRN [START ON 02/23/2024] aspirin chewable tablet 81 mg 81 mg Oral DAILY atorvastatin (LIPITOR) tablet 40 mg 40 mg Oral QHS [START ON 02/23/2024] clopidogreL (PLAVIX) 75 mg tablet 75 mg 75 mg Oral DAILY D5W 0.9% NaCl (NS) IV infusion 1,000 mL 1,000 mL IV Infusion CONTINUOUS 42 mL/hr at 02/22/24 1347 1,000 mL at 02/22/24 1347 famotidine (PEPCID AC) tablet 20 mg 20 mg Oral BID FLUoxetine (PROZAC) capsule 20 mg 20 mg Oral DAILY heparin (porcine) injection 5,000 Units 5,000 Units Subcutaneous Q12H 5,000 Units at 02/22/24 1354 labetaloL (NORMODYNE) 5 mg/mL injection 10 mg 10 mg Slow IV Push [id number] [START ON 02/23/2024] lisinopriL (PRINIVIL,ZESTRIL) tablet 10 mg 10 mg Oral DAILY nicotine (NICODERM) 21 mg/24 hr patch 1 Patch 1 Patch Topical Q24H 1 Patch at 02/22/24 1354 QUEtiapine (SEROQUEL) tablet 100 mg 100 mg Oral QHS Saline Bubble Study 6 mL Injection SEE-INSTRUCTIONS 6 mL at 02/22/24 1050 Saline Bubble Study 6 mL Injection SEE-INSTRUCTIONS 6 mL at 02/22/24 1052 traZODone (DESYREL) tablet 100 mg 100 mg Oral QHS Review of Systems: Review of Systems Constitutional: Positive for malaise/fatigue. Negative for chills, diaphoresis, fever and weight loss. Respiratory: Positive for shortness of breath. Negative for cough and wheezing. Cardiovascular: Negative for chest pain and leg swelling. Neurological: Positive for dizziness and focal weakness. Negative for headaches. Psychiatric/Behavioral: The patient is not nervous/anxious. Physical Exam and Objective Data BP 121/83 (BP Location: Left arm, Patient Position: Supine) | Pulse 65 | Temp 36.2 ?C (97.2 ?F) | Resp 18 | Ht 5' 9" (1.753 m) | Wt 290 lb (131.5 kg) | SpO2 99% | BMI 42.83 kg/m? Physical Exam Constitutional: General: He is awake. Appearance: He is obese. He is ill-appearing. Cardiovascular: Rate and Rhythm: Normal rate. Heart sounds: No murmur heard. Pulmonary: Effort: No respiratory distress. Comments: Distant lung sounds 4L via NC Musculoskeletal: Right lower leg: Edema present. Left lower leg: Edema present. Skin: General: Skin is warm. Capillary Refill: Capillary refill takes less than 2 seconds. Coloration: Skin is not jaundiced. Neurological: Mental Status: He is oriented to person, place, and time. He is lethargic. Psychiatric: Mood and Affect: Mood normal. Behavior: Behavior is cooperative. No intake or output data in the 24 hours ending 02/22/24 1457 LABORATORY CBC BMP LFTs WBC (10*3/?L) Date Value 02/22/2024 9.08 NA (mmol/L) Date Value 02/22/2024 137 ALK PHOS (U/L) Date Value 02/22/2024 75 HGB (g/dL) Date Value 02/22/2024 14.6 K (mmol/L) Date Value 02/22/2024 3.6 ALTv (U/L) Date Value 02/22/2024 38 HCT (%) Date Value 02/22/2024 44.8 CALCIUM (mg/dL) Date Value 02/22/2024 9.4 AST(SGOT) (U/L) Date Value 02/22/2024 34 PLT (10*3/?L) Date Value 02/22/2024 294 CL (mmol/L) Date Value 02/22/2024 100 RBC (10*6/?L) Date Value 02/22/2024 4.94 BUN (mg/dL) Date Value 02/22/2024 23 Cardio CREATININE (mg/dL) Date Value 02/22/2024 1.04 NT-proBNP (pg/mL) Date Value 01/27/2024 20 Thyroid TSH (mIU/L) Date Value 02/22/2024 1.84 No components found for: "GLUC" RESULTS REVIEWED: XR CHEST 1 VW Result Date: 02/22/2024 Bilateral pulmonary congestion without acute infiltrate, pleural effusion, or pneumothorax. Preliminary Report Dictated by Resident: Drake Garner MD., have reviewed this study and agree with the above report. CT ANGIOGRAM HEAD Result Date: 02/22/2024 No high-grade stenosis or large vessel occlusion within the limitations of the scan. Preliminary Report Dictated by Resident: Miesha Garner MD., have reviewed this study and agree with the above report. CT ANGIOGRAM NECK Result Date: 02/22/2024 No high-grade stenosis or large vessel occlusion within the limitations of the scan. Preliminary Report Dictated by Resident: Miesha Garner MD., have reviewed this study and agree with the above report. XR KNEE 3 VW RIGHT Result Date: 02/22/2024 No acute fracture or dislocation. Chronically fragmented tibial tuberosity which may be seen with remote [place] Schlatter disease. Preliminary Report Dictated by Resident: Adrian Garner MD., have reviewed this study and agree with the above report. CT HEAD WO CONTRAST Result Date: 02/22/2024 Hypodensities in the left parietal periventricular white matter and right parietal subcortical white matter, indeterminant may represent ischemic changes versus demyelinating process. Further evaluation by MRI of the brain is recommended. The findings of this study, including concern for left parietal white matter infarct at the MCA [place] watershed, have been discussed by Dr. Bashir Cardona with and acknowledged by Dr. Carrillo, over the phone on 02/22/2024 at 2:40 AM with readback. Preliminary Report Dictated by Resident: Miesha Garner MD., have reviewed this study and agree with the above report. 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 He recalls that he is waking up every 45 minutes to 1 hour sometimes due to his significant snoring and then feels tired during the day and has required numerous naps. Labs reviewed and For the past 2 years he has also been [place] bridge which exacerbated his symptoms although now that he lives at his rehab facility he is still endorsing similar symptoms. No symptoms at this time to suggest narcolepsy. Labs suggestive of chronic hypercapnia without acute exacerbation. Recently was seen by linux support engineer and had home sleep study done due to high pretest probability of CHAVA. No results yet as he only had it done this past Monday. Hypersomnolence is likely related to untreated fragmented sleep in the setting of suspected CHAVA. Also suggestion of volume overload based on physical exam, oxygen requirement and xray; pending TTE. - Can continue CPAP(Auto-titrate) QHS and with naps - Will attempt to get results of sleep study but if positive will need titration study for PAP device as outpatient with his linux support engineer. - Lasix 40 mg IV once today Patient to be discussed with Dr Morocho. Rudy Kelsey MD Pulmonary & Critical Care Medicine Fellow 02/22/24 2:57 PM Associated attestation - Ronaldo Morocho MD - 02/23/2024 1:34 PM CDT Attestation: Today 22 February 2024 I examined and discussed this patient with Dr Kelsey. I agree with the observations, assessments, and recommendations. [facility] [employer] 2024-02-22 14:12:00 Associated Order(s): CONSULT ADULT OCCUPATIONAL THERAPY OT GENERAL EVALUATION Consult received via [employer], EMR reviewed and evaluation completed 02/22/24. Patient referred to occupational therapy for evaluation and treatment per stroke protocol. Seen in conjunction with Pérze Maynard, PT secondary to anticipated limited activity tolerance. Billing for OT portion only. Patient agreeable to participate in occupational therapy. Discharge Recommendations: Therapy Needs and Potential: Not applicable as no further skilled acute care OT needs at this time. Challenges to Home Transition: - No caregiver support Equipment Recommendations: None PLAN OF CARE: Discharge from OT services Precautions: Weight bearing status: NA General: PPE Utilized: Gloves, Gown, and N-95 Mask, Contact, and Airborne, and aspiration, seizure, bowel management Bracing: N/A Subjective: "I just feel like I have narcolepsy." Current Occupational Performance and/or Treatment: AM-PAC 6 Clicks (Raw Score 0=Dependent, 24=Independent; Low function Raw Score 0= Dependent, 32=Independent): Raw Score - Daily Activity: 24 T-Scale Score - Daily Activity: 57.54 Grooming: Independent, to wipe face with damp washcloth at bed level Dressing: Independent, patient wearing clothing from home and endorses independence in dressing Toilet Transfer: Independent, Functional Mobility: Recline to sit: Independent, with no device Sit to stand: Independent, with no device In room ambulation with no device Out of room ambulation then patient returns to bedside chair Stand to sit: Independent, onto bedside chair. Patient/caregiver educated on: ADL training, Compensatory techniques/adaptive strategies, Deep breathing, Fall prevention, Positioning, Role of OT, Safety awareness, and importance of participation in ADLs relative to individual functionality (e.g., grooming, dressing, bathing, toileting, feeding, and functional mobility, etc.) and participation in simple UE ROM/strengthening regimen for increased/continued functional participation in ADLs and deconditioning prevention Patient left reclining in bedside chair with call garcia in reach. Nursing present. Please, see full evaluation below for more detail. OT EVALUATION: 48 year old male Admit date: 02/21/2024 Date of onset: 2-3 days Admit Diagnosis: Weakness of right leg [R29.898] OT Diagnosis: Impaired IADL independence PMH: Past Medical History: Diagnosis Date Cocaine abuse Hypertension CHAVA (obstructive sleep apnea) Smoking Substance abuse PSH: History reviewed. No pertinent surgical history. PAIN: Pain Location: diffuse/generalized Pain rating before treatment: does not rate, After treatment: no change Pain Management: Decreased movement aides in some pain reduction and Repositioning Provided OCCUPATIONAL ROLES/HOME ENVIRONMENT: Home environment: Prior homelessness however recently at drug rehab facility 30+ days. Bathroom access: Yes Bathroom setup: Shower Occupation(s): Unemployed Function prior to admission: Household ambulation, Community ambulation, Independent with BADLs, and Independent with IADLs Suspected ischemic or hemorraghic stroke patient: No Equipment prior to admission: None PERFORMANCE SKILLS/FACTORS: UE Muscle Tone: bilateral WNL UE ROM: bilateral AROM WFL UE Strength: GIOVANNI UE WFL Hand dominance: bilateral Dexterity/Coordination: bilateral Intact Endurance - Sitting: Good Standing: Good Sitting Balance - Static: Good Dynamic: Good Standing: Balance - Static Good Dynamic: Good Dizziness: yes upon standing however resolves Skin Integrity: No breakdown noted Sensation: Patient denies numbness and tingling. Oral Motor: WFL Communication: Able to verbalize needs Yes Other: N/A Vision: WFL Yes Other: needs glasses Hearing: good; no issues reported COGNITION: Orientation: person, place, date/time, and situation Follows Commands: 1-step Yes Multi-step Yes Inconsistencies No Safety Awareness/Judgment: Good PROBLEM LIST: Decreased independence with IADL and Decreased strength/endurance for functional activity REHAB POTENTIAL/PROGNOSIS: NA as no further therapy needs PATIENT/FAMILY GOALS: To get better. TREATMENT/INTERVENTION PLAN: Discharge from OT PATIENT-FAMILY TEACHING Patient provided with preferred teaching of verbal information on ADL training, Compensatory techniques/adaptive strategies, Deep breathing, Fall prevention, Positioning, Role of OT, Safety awareness, and importance of participation in ADLs relative to individual functionality (e.g., grooming, dressing, bathing, toileting, feeding, and functional mobility, etc.) and participation in simple UE ROM/strengthening regimen for increased/continued functional participation in ADLs and deconditioning prevention. Shows readiness to learn. Verbal instruction teaching provided. Individual is able to read and verbalizes understanding of teaching provided and accurately returns demonstration of skill. Mahnaz Nicole, OTR, OTD Pager: [phone] Total Timed Treatment Codes: 10 Min Total Treatment Time: 26 Min Patient Complexity Level Moderate - An occupational therapy evaluation of moderate complexity was completed using the above tests and measures. The following information was obtained: An occupational profile and medical and therapy history, including an expanded review of medical and/or therapy records and additional review of physical, cognitive, or psychosocial history related to current functional performance, Various standardized and non-standardized assessments were used to identify at least 3-5 performance deficits related to physical, cognitive, or psychosocial skills that result in activity limitations and/or participation restrictions, and Clinical decision making of moderate analytic complexity, which includes an analysis of the occupational profile, analysis of data from detailed assessment(s), and consideration of several treatment options. Patient may present with comorbidities that affect occupational performance. Minimal to moderate modification of tasks or assistance (e.g., physical or verbal) with assessment(s) is necessary to enable patient to complete evaluation component. [facility] 2024-02-22 14:12:00 Associated Order(s): CONSULT ADULT PHYSICAL THERAPY Patient cleared with nursing and agreeable to working with physical therapy. Patient met semi reclined in bed. Recommend nursing staff utilize cane at independent level to safely assist patient with mobility out of the bed or chair. PHYSICAL THERAPY EVALUATION Consult received, chart reviewed and evaluation complete this date in conjunction with Venu Nicole OTR/L for safety given patient's decreased activity tolerance. Billing for PT portion only. Patient is referred to PT for evaluation and treatment. Patient is a 48 year old male who presents to hospital for Weakness of right leg [R29.898] and stroke work up. Discharge Recommendations: Therapy Needs and Potential: Patient without any skilled PT needs at this time. Challenges to Home Transition: N/A Equipment recommendations: Patient has or access to necessary equipment Current Functional Status and/or Treatment: AM-PAC 6 Clicks (Raw Score 0=Dependent, 24=Independent; Low function Raw Score 0= Dependent, 32=Independent): Raw Score - Basic Mobility : 24 T-Scale Score - Basic Mobility : 57.68 Tolerated session well at room air with vitals as follows: Semi reclined: 117/84, MAP (95), 81 bpm and 97% SpO2 Seated EOB: 119/82, MAP (91), 78 bpm and 95% SpO2 Standing with cane: 119/78, MAP (92), 70 bpm and 95% SpO2 Bed Mobility: Rolling: Independent Supine to sit: Independent Scooting to edge of bed: Independent Sitting EOB for ~ 5 mins while prepping to stand and AROM ex of both LE Dizziness No Transfers: Sit to stand: Independent using cane Step transfer: Independent using cane Stand to sit: Independent using cane Instructed patient to stand upright and to reach back for sitting surface before sitting down for safety with control descent Dizziness No Ambulation: Assisted patient with ambulation as follows: 300 feet using straight Cane and Independent. Patient presenting with Modified 3 point gait pattern. Normal herb with slight wider LIZ. No unsteadiness / LOB or SOB noted. Provided varying grade assistance to increase patient control and intermittent cues to improve posture Dizziness No Therapeutic exercise: Patient educated in ROM ex, Postural / positional Awareness, Compensatory techniques/adaptive strategies, Energy conservation, and Fall prevention, Functional Outcome Measures: (Values within the past 12 hours) Tinetti Gait Score- # / 12 Initiation of gait: No hesitancy Step length: On both sides, swing foot passes stance foot Foot clearance: Both feet completely clear floor Step Symmetry: Step lengths equal Step continuity: Steps appear continuous Path: Mild/moderate deviation or uses AD Trunk: Marked sway or uses AD Walking: Heels apart Tinetti Gait Score: 8 Tinetti Gait Score Interpretation: >= 7 - Low risk for falls TINETTI BALANCE SCORE- # / 16 Sitting balance: Steady, safe Arises: Able, uses arms to help Attempts to Rise: Able to rise, 1 attempt Immediate standing balance (first 5 sec): Steady but uses walker or other support Standing Balance: Steady but LIZ > 4 inches or uses AD/other support Nudged 3 times *: Staggers, grabs, catches self Eyes closed*: Steady Turning 360 degrees: Continuous steps and steady Sitting down: Safe smooth Tinetti Balance Score: 12 Tinetti Balance Interpretation: >= 9 - Low risk for falls After session, patient up in chair. Call button provided. All needs met, RN aware PLAN OF CARE: PT signs off. See below for complete details. Admit Date: 02/21/2024 Hospital Diagnosis:Weakness of right leg [R29.898] PT Diagnosis: Difficulty walking and Vertigo/dizziness Weight Bearing Precaution: NA General Precautions: General,IV Peripheral, oxygen: Nasal canula Bracing/Cast present or required:N/A PMH: Past Medical History: Diagnosis Date Cocaine abuse Hypertension CHAVA (obstructive sleep apnea) Smoking Substance abuse PSH: History reviewed. No pertinent surgical history. Prior Living Situation: lives alone and was in drug rehab, DME: Single Point Cane Prior level of Mobility: community ambulation, ambulates with straight Cane Suspected ischemic or hemorraghic stroke:No Subjective: "Feeling better and ready to walk." Patient/Family Goals: Finish my rehab Patient/Family verbalizes understanding of condition: Yes PAIN: denies pain before and after session COMMUNICATION Primary Language: Danish Able to Verbalize needs: Yes Vision:glasses Hearing:good; no issues reported ORIENTATION/COGNITION: Oriented to: person, place, date/time, and situation Awake: Yes Alert: Yes Dizzy: No Follows Commands: Yes 1-Step Yes Multi-Step Yes Inconsistent: No NEUROLOGICAL Light Touch: within functional limits bilateral LE, Heel to medellin: WFL Tone: WFL BALANCE: Sitting: Static: Excellent Dynamic: Good Standing: Static: Good Dynamic: Good RANGE OF MOTION: within functional limits bilateral LE, STRENGTH: 5/5 (Normal), bilateral LE ENDURANCE: Good, Room air SKIN INTEGRITY: defer to nursing PROBLEM LIST: Decline in gait, Decline in transfers, Decreased endurance, Decreased balance, and Decreased Coordination ASSESSMENT: Patient is a 48 year old male seen secondary to the above listed diagnosis. No further inpatient PT needs identified at this time. Rehabilitation Potential: NA as no further therapy needs Goals: The following goals are to maximize independence and safety with functional mobility to eventually return to prior living situation and prior functional status. Defer as no PT needs. Treatment Plan: Discharge from PT , Gait training, Therapeutic exercise, Transfer training, Balance training, Bed mobility training, Equipment needs assessment, Safety education, patient/caregiver education, Pain management, Neuromuscular Re-Education, and Functional Motor Training PATIENT EDUCATION: Patient provided with preferred teaching of verbal information and demonstration on role of PT, plan of care and HEP. Shows readiness to learn. Verbal instruction and Demonstration teaching provided. Individual verbalizes understanding of teaching provided and accurately returns demonstration of skill. Total Time Tx Codes in Minutes: 15 min Total Treatment Time in Minutes: 30 min Clark Maynard PT [facility] Department of Rehabilitation Services Clark Maynard PT [facility] 2024-02-22 12:05:00 Associated Order(s): CONSULT SPEECH Speech-Language Pathology Clinical Swallow Evaluation 02/22/2024 Janiya Verde : 1975 Age/Sex: 48 year old male Time IN/OUT: 7297-8675 Referring Physician: Katy Comer MD Date of Referral: 02/22/2024 Reason for Referral: stroke activation (dysphagia, speech-language/cognitive-hortencia guistic) Date of Admission/Onset: 02/22/2024 SUBJECTIVE: Pt awake/alert, no family at bedside, and agreeable to evaluation upon WOOD BARKER arrival. Pt denies coughing or choking on food or liquids. WOOD BARKER observed slightly slurred speech, however pt denies noticing changes in his speech, difficulty w/ expressive or receptive language, or changes in cognition. Pt endorses being very drowsy and intentionally avoids eating when tired to avoid falling asleep with food in his mouth. OBJECTIVE: is being seen for a clinical swallow evaluation. "Janiya Verde is a 48 year old right handed male with PMH of substance abuse (cocaine, crack, prior crystal meth), alcohol use, smoking history (vapes and tobacco cigarettes), HTN, CHAVA who was transferred from [facility] with CC of R leg weakness." Please see chart for further details. Pertinent Imaging: XR CHEST 1 VW Result Date: 02/22/2024 Bilateral pulmonary congestion without acute infiltrate, pleural effusion, or pneumothorax. Preliminary Report Dictated by Resident: Drake Garner MD., have reviewed this study and agree with the above report. CT ANGIOGRAM HEAD Result Date: 02/22/2024 No high-grade stenosis or large vessel occlusion within the limitations of the scan. Preliminary Report Dictated by Resident: Miesha Garner MD., have reviewed this study and agree with the above report. CT ANGIOGRAM NECK Result Date: 02/22/2024 No high-grade stenosis or large vessel occlusion within the limitations of the scan. Preliminary Report Dictated by Resident: Miesha Garner MD., have reviewed this study and agree with the above report. XR KNEE 3 VW RIGHT Result Date: 02/22/2024 No acute fracture or dislocation. Chronically fragmented tibial tuberosity which may be seen with remote [place] Schlatter disease. Preliminary Report Dictated by Resident: Bashir Cardona I, Adrian Chiu MD., have reviewed this study and agree with the above report. CT HEAD WO CONTRAST Result Date: 02/22/2024 Hypodensities in the left parietal periventricular white matter and right parietal subcortical white matter, indeterminant may represent ischemic changes versus demyelinating process. Further evaluation by MRI of the brain is recommended. The findings of this study, including concern for left parietal white matter infarct at the MCA [place] watershed, have been discussed by Dr. Bashir Cardona with and acknowledged by Dr. Carrillo, over the phone on 02/22/2024 at 2:40 AM with readback. Preliminary Report Dictated by Resident: Bashir Cardona I, Miesha Benton MD., have reviewed this study and agree with the above report. XR CHEST 1 VW Result Date: 01/27/2024 Impression: Mild cardiomegaly with mild pulmonary edema versus viral respiratory illness. END REPORT RL: [id number] AFC: [id number] Previous WOOD BARKER Services/Swallow History: Pt not previously known to WOOD BARKER services. Past Medical History: Diagnosis Date Cocaine abuse Hypertension CHVAA (obstructive sleep apnea) Smoking Substance abuse History reviewed. No pertinent surgical history. General Behavior: Alert and Cooperative Hearing: WFL for speech Respiratory Status: nasal cannula: 3L/min Orientation/Cognition: - Patient oriented to: person, place, time, and situation - Response type: verbal - Follows 1-step commands: Yes Current Diet Texture/Means of Nutrition: NPO Oral Motor Exam Dentition and Oral Cavity: natural dentition, dental caries, and many missing teeth Face within normal limits and symmetrical Jaw within normal limits and symmetrical Lips within normal limits and symmetrical Tongue impaired function, characterized by slight tongue deviation to the left Palate unable to assess/did not assess Vocal Quality rough Speech decreased intelligibility d/t slurring, ?dysarthria CLINICAL SWALLOW EVALUATION Swallows on command: Yes Handles Secretions: Yes Volitional Cough: strong Spontaneous Cough: No PO trials were administered by patient and WOOD BARKER. Patient was provided with multiple bites/sips of ice chips, thin liquid (0), pudding (4), and regular solid (7) consistencies with the following observations: Oral Stage Anterior leakage of bolus not observed Pocketing of bolus not observed Subjectively prolonged oral phase not observed Oral residue not observed Mastication WNL Pharyngeal Stage Subjectively reduced laryngeal elevation not observed Coughing or throat clearing not observed Change in voice quality not observed Multiple swallows subjectively not observed Respiratory sufficiency and coordination WFL - no increased work of breathing and/or oxygen sats and respiratory rate remained stable Report of globus sensation does not report 3 oz water challenge passed Patient/Family/Staff education: Provided verbally. Discussed findings of evaluation, recommendations and WOOD BARKER plan of care. Discussed recommendation/option for instrumental swallow assessment. Discussed risks of aspiration/dysphagia and possible associated complications including respiratory distress, respiratory infections (such as PNA), weight loss/difficulty meeting nutritional needs, possible need for mechanical ventilation, and even . Patient/Family goal: safe PO intake ASSESSMENT/IMPRESSIONS: Janiya Verde presents with: Diagnosis: suspected grossly safe and functional oropharyngeal swallow Etiology of suspected dysphagia/Risk factors for dysphagia: infarct of unknown chronicity and ongoing neurologic work up Observations/Complaints: audible swallows and no overt s/sx of aspiration Factors raising concern for aspiration or pharyngeal dysphagia: need for supplemental oxygen and ?acute stroke Suspected risk for aspiration: low Factors increasing risk for aspiration-related respiratory complication such as pneumonia: reduced mobility, poor oral hygiene, and tenuous respiratory status Risk for malnutrition/dehydration or not meeting nutritional needs: no Additional comments: NA *Note: aspiration cannot be ruled out nor confirmed without instrumental assessment/imaging. Prognosis: good for safe po intake with adherence to WOOD BARKER recommendations due to above findings. RECOMMENDATIONS/GOALS: Diet: Recommend patient initiate a regular (IDDSI level 7)-textured diet with thin liquids (IDDSI level 0) Precautions: - Swallow Precautions: sit fully upright/in chair, small single bites/sips, and remain upright after PO intake - Recommend patient be monitored for s/sx of aspiration or signs of a developing respiratory infection or worsening respiratory status (i.e. throat clearing/coughing with po, wet/gurgled voice, fever spikes 30-60 mins after meals, increased chest congestion, leukocytosis, increased O2 requirements, etc.). If observed or suspected, please notify MD and WOOD BARKER. Instrumental Swallow Assessment: no Additional Referrals: - None evident at this time. Continued WOOD BARKER services: Recommend WOOD BARKER therapy 2-5x/wk for 15-45 min/session while in-house to address the following goals: Swallowing: - Patient will tolerate the safest, least restricted po diet texture without overt s/sx of aspiration or other negative effects on medical condition Discharge Recommendations: - TBD pending ongoing work-up/progress made while in-house. Eugenie Marquis M.S. WOOD BARKER-Skate Boarder Speech-Language Pathology Office: [phone] Pager: [phone] Associated attestation - Keyana Castelan SLP - 02/22/2024 3:40 PM CDT I agree with the assessment and recommendations as completed and documented by Eugenie Marquis MS, WOOD BARKER-Skate Boarder. Keyana Castelan MS, CCC-WOOD BARKER Speech Language Pathology Office Number: [phone] Pager: [phone] [facility] - Health 2024-02-22 11:16:07 Associated Order(s): CONSULT MANAGER PARK-ADULT Care Management Note 02/22/24 11:16 AM Consult Comments Reason for Consult - Please give recommendations and opinions on family primary decision maker and appropriate options for discharge destination. Met with Patient at bedside for SFA interview. Patient is A&Ox4 and therefore should retain full executive decision making capacity. Patient does not have a MPOA completed. Probable discharge location; [x] Home [] Home with Home Angel [x] Home with Outpatient Physical Therapy [] Inpatient Rehab [] [facility] JOHN Whitehead, RN Inpatient Aircraft Maintenance Engineer [facility] [email or web address]. weekends/holidays [phone] [facility] - Health History and Physical Notes Date/Time Note Provider Source 2024-02-23 17:14:58 Medicine Intensive Care History and Physical Date of Service: 02/23/2024 17:16 ICU day: 0 Intubation Day: 0 CHIEF COMPLAINT: Short of breath History of Present Illness Janiya Verde is a 48 year old male with a substance abuse (cocaine, crack, prior crystal meth), alcohol use, smoking history (vapes and tobacco cigarettes), HTN, CHAVA not on CPAP that presents with hypersomnolence likely 2/2 untreated CHAVA requiring continuous BiPAP. Pt presented to [facility] ED on 02/20 with CC of RLE weakness. Was transferred to [facility] on 02/21 AM due to concern for stroke. CTH revealed Left Parietal White Matter infarct at MCA [place] Watershed. CTA H/N Moderate narrowing of the superior branch of the left M2 segment of MCA, but no aneurysm or high-grade, flow-limiting stenosis of the intracranial or extracranial vessels. The patient received aspirin loading dose 325 mg and Plavix 75 mg once in [facility] before being transferred. Pulmonary medicine consulted and started CPAP at night. Pt was incompliant with CPAP at night. Rapid Response was called this AM (02/23/24) for apnea and hypersomnolence that required BiPAP. Pt transferred to ICU on continuous BiPAP. Per Pt, he had sleep study done at OSH for concern for CHAVA but has not gotten the results back. Pt says he has neuropathy in his bilateral upper and lower extremities. Pt lives in rehab facility for previous crack cocaine use last date he used was on Jan 20 2024. Pt does not take any medications at home. PAST MEDICAL HISTORY Past Medical History: Diagnosis Date Cocaine abuse Hypertension CHAVA (obstructive sleep apnea) Smoking Substance abuse PAST SURGICAL HISTORY History reviewed. No pertinent surgical history. FAMILY HISTORY History reviewed. No pertinent family history. SOCIAL HISTORY Social History Socioeconomic History Marital status: Single Tobacco Use Smoking status: Every Day Current packs/day: 2.00 Average packs/day: 2.0 packs/day for 36.0 years (72.0 ttl pk-yrs) Types: Cigarettes Start date: 02/22/1988 Vaping Use Vaping status: Every Day Substance and Sexual Activity Alcohol use: Yes Drug use: Yes Types: Cocaine, Marijuana, Other-see comments Comment: former Social Determinants of Health Financial Resource Strain: Medium Risk (02/22/2024) Overall Financial Resource Strain (CARDIA) Difficulty of Paying Living Expenses: Somewhat hard Food Insecurity: No Food Insecurity (02/22/2024) Hunger Vital Sign Worried About Running Out of Food in the Last Year: Never true Ran Out of Food in the Last Year: Never true Physical Activity: Inactive (02/22/2024) Exercise Vital Sign Days of Exercise per Week: 0 days Minutes of Exercise per Session: 0 min Social Connections: Unknown (02/22/2024) Social Connection and Isolation Panel [NHANES] Frequency of Communication with Friends and Family: More than three times a week Marital Status: Patient declined Housing Stability: Low Risk (02/22/2024) Housing Stability Vital Sign Unable to Pay for Housing in the Last Year: No Number of Places Lived in the Last Year: 1 Unstable Housing in the Last Year: No ALLERGIES No Known Allergies REVIEW OF SYSTEMS Review of Systems Constitutional: Positive for fatigue. Negative for chills and fever. HENT: Negative for congestion, sneezing and trouble swallowing. Respiratory: Positive for shortness of breath. Negative for cough, choking and chest tightness. Cardiovascular: Negative for chest pain, palpitations and leg swelling. Gastrointestinal: Negative for abdominal pain, blood in stool, constipation, diarrhea and nausea. Musculoskeletal: Negative for myalgias and neck pain. Skin: Negative for wound. Neurological: Negative for dizziness, seizures, weakness, light-headedness and headaches. Psychiatric/Behavioral: Negative for confusion. PHYSICAL EXAMINATION Physical Exam Vitals reviewed. Constitutional: General: He is not in acute distress. Appearance: He is obese. He is not toxic-appearing or diaphoretic. Comments: Somnolent HENT: Head: Normocephalic and atraumatic. Mouth/Throat: Comments: Dry Lips Cardiovascular: Rate and Rhythm: Normal rate and regular rhythm. Pulses: Normal pulses. Heart sounds: Normal heart sounds. No murmur heard. No gallop. Pulmonary: Effort: Tachypnea present. Comments: Increased WOB Chest: Chest wall: No tenderness. Abdominal: General: Abdomen is flat. Bowel sounds are normal. Palpations: Abdomen is soft. There is no mass. Tenderness: There is no guarding. Genitourinary: Comments: Deferred Musculoskeletal: General: No swelling. Right lower leg: No edema. Left lower leg: No edema. Skin: General: Skin is warm and dry. Neurological: Mental Status: He is oriented to person, place, and time. Labs (pertinent only)/Imaging: ABG: pH: 7.38 PCO2: 54 PO2: 107 HCO3: 31 FiO2: 40% Lactic acid: 1.29, Time: 1000 AM XR TIBIA FIBULA 2 VW RIGHT Result Date: 02/23/2024 Findings/Impression: No visualized acute fracture or dislocation. Chronic nonunited tibial tuberosity avulsion fracture. 2 screws stabilizing healed fracture of the medial malleolus. XR CHEST 1 VW Result Date: 02/22/2024 Bilateral pulmonary congestion without acute infiltrate, pleural effusion, or pneumothorax. Preliminary Report Dictated by Resident: Drake Garner MD., have reviewed this study and agree with the above report. CT ANGIOGRAM HEAD Result Date: 02/22/2024 No high-grade stenosis or large vessel occlusion within the limitations of the scan. Preliminary Report Dictated by Resident: Miesha Garner MD., have reviewed this study and agree with the above report. CT ANGIOGRAM NECK Result Date: 02/22/2024 No high-grade stenosis or large vessel occlusion within the limitations of the scan. Preliminary Report Dictated by Resident: Miesha Garner MD., have reviewed this study and agree with the above report. XR KNEE 3 VW RIGHT Result Date: 02/22/2024 No acute fracture or dislocation. 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 Preliminary Report Dictated by Resident: Adrian Garner MD., have reviewed this study and agree with the above report. CT HEAD WO CONTRAST Result Date: 02/22/2024 Hypodensities in the left parietal periventricular white matter and right parietal subcortical white matter, indeterminant may represent ischemic changes versus demyelinating process. Further evaluation by MRI of the brain is recommended. The findings of this study, including concern for left parietal white matter infarct at the MCA [place] watershed, have been discussed by Dr. Bashir Cardona with and acknowledged by Dr. Carrillo, over the phone on 02/22/2024 at 2:40 AM with readback. Preliminary Report Dictated by Resident: Miesha Garner MD., have reviewed this study and agree with the above report. Microbiology: None Assessment/Plan: Janiya Verde is a 48 year old male with PMH of substance abuse (cocaine, crack, prior crystal meth), alcohol use, smoking history (vapes and tobacco cigarettes), HTN, CHAVA not on CPAP admitted with respiratory distress secondary to untreated CHAVA requiring continuous BiPAP. Pt is hemodynamically stable. Neuro Stroke Etiology: Watershed infarction vs Lacunar Sedation/Analgesia: other: None - Neurology Stroke Service Following - Thrombophilia Workup: protein S and C, anti-cardiolipin, lupus anticoagulant, anti-thrombin III, factor V leiden mutation, APC resistance, Prothrombin 29234 A mutation, check sickle cell screen, hemoglobin electrophoresis, ESR, CRP, CORNELIUS, anti-dsDNA antibodies, vit B12, folate, homocysteine, methylmalonic acid, thiamine, HIV - ASA 81 mg daily - Lipitor 40 mg QHS daily - MRI Brain without contrast - Hematology Consult Resp The patient describes months of hypersomnolence associated with fragmented sleep. He recalls that he is waking up every 45 minutes to 1 hour sometimes due to his significant snoring and then feels tired during the day and has required numerous naps. No symptoms at this time to suggest narcolepsy. Labs suggestive of chronic hypercapnia without acute exacerbation(Normal pH with elevated CO2 and bicarb) secondary to CHAVA. Recently was seen by linux support engineer and had home sleep study done due to high pretest probability of CHAVA. No results yet as he only had it done this past Monday. Also suggestion of volume overload based on physical exam, oxygen requirement, and TTE. Today rapid called due to hypersomnolence and ABG reviewed without acute hypercapnia. Attempt to get results of sleep study but study had not yet been read. Overall clinical picture and symptom of chronic hypercapnia and hypersomnolence is likely related to untreated fragmented sleep due to suspected CHAVA - Now on NC tolerating well - BiPAP at Night - Consider diuresis pending clinical development of pulmonary edema Cardiovascular Pressors (mcg/kg/min): None - No Active Concerns FEN/GI Stress ulcer prophylaxis: None Nutrition: Diabetic Diet PO ID - No active issues Renal - No active issues Endo - T2DM on Diabetic Diet Other DVT prophylaxis: None Dispo: MICU Prognosis: Guarded Code Status: Presumed Full Code COMPLICATIONS/SECONDARY DIAGNOSIS Neurological: TIA Jacinto Sethi MD Department of Anesthesiology Associated attestation - Lalit Marte MD - 02/24/2024 9:27 AM CDT I personally examined the patient on 02/24/[address] Sethi's resident note. I actively participated in the decision-making process. Please see the resident's note for additional details. Janiya Verde is a 48 year old male admitted with Acute CVA Acute on chronic hypercapnic and hypoxic respiratory failure -- requiring NC and BPAP Suspecting CHAVA / [facility] PLAN Cont BPAP at night and with daytime naps everyday Symptoms improved Tolerating Nc during the day PT OT Ok for TTF [facility] 2024-02-22 07:26:55 STROKE SERVICE HISTORY AND PHYSICAL DATE OF SERVICE: 02/22/2024 11:27 CHIEF COMPLAINT: R leg weakness HISTORY OF PRESENT ILLNESS Janiya Verde is a 48 year old right handed male with PMH of substance abuse (cocaine, crack, prior crystal meth), alcohol use, smoking history (vapes and tobacco cigarettes), HTN, CHAVA not on CPAP who was transferred from [facility] with CC of R leg weakness. Patient last known normal was 3 days ago (02/19/2024). The patient reports that 2-3 days ago started experiencing difficulty walking due to R leg weakness, requiring a cane for assistance in his walking as well as slurred speech. The patient was taken to [facility] and at the ED, NIHSS was 0, glucose: 132, BP: Wnl, O2 sat: 90-93%, labs wnl He had a CTH reporting left parietal white matter infarct at the MCA [place] watershed, and CTA H/N with Moderate narrowing of the superior branch of the left M2 segment of MCA. Patient received one aspirin loading dose 325 mg and plavix 75 mg once and was sent to our facility for further stroke workup. T-PA not given due to Arrival > 4.5 hours from onset of Stroke symptoms. Thrombectomy not performed due to no LVO. Also, the patient is complaining of dry cough for 6 weeks, but denies fever, SOB, Chest pain, palpitations, headache, nausea, vomiting, diarrhea, vision changes. The patient has been living in a rehab facility for drug abuse (cocaine and crack), last time he consumed 30 days ago. Upon the arrival presentation, BP 149/95, FSBG 132. NIHSS 0. Antiplatelets: none Anticoagulants: none Tobacco abuse: Yes, 2 packs/day, cut down 2 months ago to 2 cigarettes per day. Alcohol abuse: occasionally Drug abuse: Yes, cocaine crack, last use 30 days ago. Previously crystal meth, last 10 years ago. Previous stroke: No STROKE DOCUMENTATION Stroke Activation - Date: 02/22/24 Stroke Activation - Time: (not recorded) Physician arrival at bedside - Date: (not recorded) Physician arrival at bedside - Time: (not recorded) CT-Head without contrast read by Neurology: (not recorded) Last seen normal: Last known well - Date: (not recorded) Last known well - Time: (not recorded) Wake up stroke: No NIH STROKE SCALE NIHSS TOTAL: 0 NIHSS Interval: Admission LOC: 0 Alert: Keenly Responsive LOC QUESTIONS: 0 Answers Both Questions Correctly LOC COMMANDS: 0 Performs Both Tasks Correctly BEST GAZE: 0 Normal VISUAL: 0 No Visual Loss FACIAL PALSY: 0 Normal MOTOR ARM-LEFT: 0 No Drift MOTOR ARM-RIGHT: 0 No Drift MOTOR LEG-LEFT: 0 No Drift MOTOR LEG-RIGHT: 0 No Drift LIMB ATAXIA: 0 Absent SENSORY: 0 Normal BEST LANGUAGE: 0 No Aphasia DYSARTHRIA: 0 Normal EXTINCTION AND INATTENTION (FORMERLY NEGLECT): 0 No Abnormalty Dysphagia Screen: Dysphagia Screen Step 1 (Exclusion Criteria): Patient is not alert or awake for 5 minutes or greater IV Thrombolytic Therapy: Was IV thrombolytic given?: no Reason why thrombolytic not given: T-PA not given due to Arrival > 4.5 hours from onset of Stroke symptoms If IV thrombolytic was indicated and given as a standard of care was the patient/family informed of benefits of treatment and risk such as hemorrhage and/or angioedema?: N/A If IV Tenecteplase was indicated and given as standard of care, was the patient/family informed of the nature of patient s diagnosis, medically indicated, evidence-based treatment options including the immediate use of intravenous thrombolytic Tenecteplase (TNK) for the non-FDA approved indication of Acute Ischemic Stroke (AIS) treatment? N/A Patient/family was advised of the risks of this treatment, the likelihood of achieving the patient s goals, and had the opportunity to address any questions. The [place] [employer]/[place] [employer] Association AIS guidelines recognize TNK as a non-inferior alternative to the FDA-approved use of alteplase for AIS treatment with similar risks/benefits/alternatives: N/A Was there a delay in door to IV thrombolytic over 30 minutes?: N/A ICH/SAH ICH/SAH: No Endovascular Intervention: Was Endovascular Intervention Performed?: No Reason patient is not a candidate for endovascular intervention: Imaging: no large vessel occlusion PRE- ADMISSION MODIFIED ASHLEY SCORE 1 - No significant disability despite symptoms; able to carry out all usual duties and activities PAST MEDICAL HISTORY Past Medical History: Diagnosis Date Cocaine abuse Hypertension CHAVA (obstructive sleep apnea) Smoking Substance abuse PAST SURGICAL HISTORY History reviewed. No pertinent surgical history. FAMILY HISTORY History reviewed. No pertinent family history. SOCIAL HISTORY Social History Socioeconomic History Marital status: Single Tobacco Use Smoking status: Every Day Current packs/day: 2.00 Average packs/day: 2.0 packs/day for 36.0 years (72.0 ttl pk-yrs) Types: Cigarettes Start date: 02/22/1988 Vaping Use Vaping status: Every Day Substance and Sexual Activity Alcohol use: Yes Drug use: Yes Types: Cocaine, Marijuana, Other-see comments Comment: former Social Determinants of Health Financial Resource Strain: Medium Risk (02/22/2024) Overall Financial Resource Strain (CARDIA) Difficulty of Paying Living Expenses: Somewhat hard Food Insecurity: No Food Insecurity (02/22/2024) Hunger Vital Sign Worried About Running Out of Food in the Last Year: Never true Ran Out of Food in the Last Year: Never true Physical Activity: Inactive (02/22/2024) Exercise Vital Sign Days of Exercise per Week: 0 days Minutes of Exercise per Session: 0 min Social Connections: Unknown (02/22/2024) Social Connection and Isolation Panel [NHANES] Frequency of Communication with Friends and Family: More than three times a week Marital Status: Patient declined Housing Stability: Low Risk (02/22/2024) Housing Stability Vital Sign Unable to Pay for Housing in the Last Year: No Number of Places Lived in the Last Year: 1 Unstable Housing in the Last Year: No Reviewed patient's family, surgical and social hx. HOME MEDICATIONS Medications Prior to Admission Medication Sig Dispense Refill Last Dose FLUoxetine 20 mg capsule Take 1 capsule by mouth in the morning. lisinopriL 10 mg tablet Take 1 tablet by mouth in the morning. QUEtiapine 400 mg tablet Take 1 tablet by mouth in the morning. traZODone 100 mg tablet Take 1 tablet by mouth at bedtime. [DISCONTINUED] HYDROCODONE-ACETAMINOPHEN 5-500 MG ORAL CAP None Entered [DISCONTINUED] IBUPROFEN 800 MG ORAL TAB None Entered HOSPITAL MEDICATIONS Current Facility-Administered Medications Medication Dose Route Frequency Last Rate Last Admin acetaminophen (TYLENOL) tablet 650 mg 650 mg Oral Q6HPRN [START ON 02/23/2024] aspirin chewable tablet 81 mg 81 mg Oral DAILY atorvastatin (LIPITOR) tablet 40 mg 40 mg Oral QHS [START ON 02/23/2024] clopidogreL (PLAVIX) 75 mg tablet 75 mg 75 mg Oral DAILY D5W 0.9% NaCl (NS) IV infusion 1,000 mL 1,000 mL IV Infusion CONTINUOUS famotidine (PEPCID AC) tablet 20 mg 20 mg Oral BID FLUoxetine (PROZAC) capsule 20 mg 20 mg Oral DAILY heparin (porcine) injection 5,000 Units 5,000 Units Subcutaneous Q12H labetaloL (NORMODYNE) 5 mg/mL injection 10 mg 10 mg Slow IV Push [id number] [START ON 02/23/2024] lisinopriL (PRINIVIL,ZESTRIL) tablet 10 mg 10 mg Oral DAILY nicotine (NICODERM) 21 mg/24 hr patch 1 Patch 1 Patch Topical Q24H QUEtiapine (SEROQUEL) tablet 400 mg 400 mg Oral DAILY Saline Bubble Study 6 mL Injection SEE-INSTRUCTIONS 6 mL at 02/22/24 1050 Saline Bubble Study 6 mL Injection SEE-INSTRUCTIONS 6 mL at 02/22/24 1052 traZODone (DESYREL) tablet 100 mg 100 mg Oral QHS ALLERGY No Known Allergies REVIEW OF SYSTEMS As per HPI. PHYSICAL EXAM Vitals: 02/22/24 0438 02/22/24 0605 02/22/24 0610 02/22/24 0800 BP: 108/79 (!) 149/95 (!) 150/98 Pulse: 78 81 85 Resp: 21 18 18 Temp: 37.1 ?C (98.8 ?F) 35.6 ?C (96 ?F) 36.7 ?C (98.1 ?F) TempSrc: Oral Tympanic SpO2: 93% 95% 95% Weight: 131.5 kg (290 lb) Height: 1.753 m (5' 9") Body mass index is 42.83 kg/m?. General: Sleepy, but easily arousable and oriented x 4 (time, person, place and situation); no apparent distress. Mental Status: Attention, concentration: stays focused and on task while being questioned. Speech/ Language: intact fluency, comprehension, naming and repetition. Remote and recent memory: normal, can recall recent and distant memories Cranial Nerves: I. Not tested. II. PERRL. full to confrontation III. IV., . extraocular muscles intact V. intact sensation in bilateral V1-3 distributions. VII. No facial droop noted. VIII. Hearing intact bilaterally . IX., X. Palatal elevation and gag response present symmetrically. XI. normal strength of sternocleidomastoid and trapezius muscles bilaterally. XII. Tongue in midline. Motor: Bulk: normal pattern without edema or atrophy Tone: normal Tremors: neg STRENGTH Right Left Deltoid 5 5 Biceps 5 5 Triceps 5 5 Wrist extensors 5 5 Interossei 5 5 Hip flexors 5 5 Knee flexors (hamstring) 5 5 Knee extensors (quadriceps) 5 5 Ankle dorsiflexors 5 5 Ankle plantar flexors 5 5 DTR's: Right Left Biceps 2+ 2+ Triceps 2+ 2+ Brachioradialis 2+ 2+ Patella 2+ 2+ Achilles 2+ 1+ Pathologic reflexes and signs: Chung: absent Babinski: absent Cerebellar: Nystagmus: neg, FTN: nl, HTS:nl, Dysdiadochokinesia: neg Sensory: LT: intact, PP: intact, proprioception: intact Gait: normal Neck:supple,no carotid bruit,no JVD Cardio: S1, S2 normal Lungs: slightly decreased breath sound in R lower field, rest clear to auscultation bilaterally Extremities:no cyanosis,clubbing or edema LABS Labs (last 24 hours): Chemistry CBC LFTs Coags, other 137 100 23 132 (H) 9.08 14.6 294 AST: 34 ALT: 38 PT: - INR: - 3.6 33 (H) 1.04 44.8 AP: 75 T Giovanni: 0.5 PTT: - eGFR: 88.6 Ca: 9.4 % Manju: 56.5 Prot: 7.5 Alb: 3.9 Lact: - Mg: - PO4: - ANC: 5.13 Procal: - Stroke Cardiac A1C: 5.9 (H) Date: 02/22/2024 Tri Date: 02/22/2024 pBNP: 20 Date: 01/27/2024 LDL: 129 Date: 02/22/2024 HDL: 39 (L) Date: 02/22/2024 Trop I: 0.005 Date: 02/22/[address] head wo contrast 02/22/2024 IMPRESSION Suspected area of infarct at the deep white matter of the left parietal lobe at the area of left MCA [place] watershed. MRI can be performed to for further evaluation and possible further extension of the suspected infarct. Right mastoid effusion. The findings of this study, including concern for left parietal white matter infarct at the MCA [place] watershed. CTA H/N 02/22/2024: IMPRESSION Moderate narrowing of the superior branch of the left M2 segment of middle cerebral artery. Otherwise no aneurysm or high-grade, flow-limiting stenosis of the intracranial or extracranial vessels. ASSESSMENT AND PLAN Janiya Verde is a 48 year old right handed male with PMH of substance abuse (cocaine, crack, prior crystal meth), alcohol use, smoking history (vapes and tobacco cigarettes), HTN, CHAVA who was transferred from [facility] with CC of R leg weakness. LSN: 02/19/2024, NIHSS 0. BP 149/95, FSBG 132. NIHSS 0. 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 Labs wnl, chest xray with bilateral pulmonary congestion. The patient received aspirin loading dose 325 mg and Plavix 75 mg once in [facility] before being transferred. The patient will benefit from further stroke workup to determine stroke etiology, but most likely related to his substance abuse. Anatomic localization: Subacute to chronic L parietal infarct Stroke etiology: Watershed infarction vs lacunar List of Problems: L parietal white matter infarct, unsure about chronicity Substance abuse Tobacco use HTN Plan: - Admission under Neurology service - Aspirin 81mg daily from tomorrow - continue with Plavix 75 mg PO daily - Lipitor 40 mg QHS daily - continue home meds: - Lisinopril 10 mg daily - Fluoxetine 20 mg q daily - Seroquel 400 mg daily - Trazodone 100 mg QHS - start nicotine patch daily - BP control - Telemetry monitoring - Check CBC, BMP, fasting Lipid panel, HgA1c, U/A, TSH, PT, PTT, Troponin x 2, EKG - Frequent Neurochecks - Avoid hyperthermia, pain and constipation - POCT for BG and sliding scale insulin - Fall precautions - Consult PT/OT/ Speech pathology/Primary swallowing screen - Flatwork Finisher on stroke education, smoking cessation, healthy diet, physical activity, weight loss Imaging: - TTE w/ bubble study - MRI brain without contrast - For Stroke in Young patients <50: - Thrombophilia workup (including protein S and C, anti-cardiolipin, lupus anticoagulant, anti-thrombin III, factor V leiden mutation, APC resistance, Prothrombin 78304 A mutation), check sickle cell screen, hemoglobin electrophoresis, ESR, CRP, CORNELIUS, anti-dsDNA antibodies, vit B12, folate, homocysteine, methylmalonic acid, thiamine, HIV. - GI Prophylaxis: famotidine - DVT Prophylaxis: heparin - Code status: Full code Discussed with Dr. NU LACEY, ANGELIKA, Neurology Faculty Katy Banks MD PGY-2 Neurology Department [facility] Stroke pager: [phone] Associated attestation - Venus Judge MD - 02/24/2024 9:14 AM CDT I personally examined the patient on 02/22/[address] Banks's resident note as written . I actively participated in the decision-making process. Please see the resident's note for additional details. [facility] - Health Procedure Notes Date/Time Note Provider Source 2024-02-28 17:00:45 LUMBAR PUNCTURE PROCEDURE NOTE: Faculty: Dr. Ortiz Indication/Diagnosis: c/f MS PreProcedure Verification Completed: Yes Site Marking Completed Yes Time Out Completed: Yes Aseptic technique: Betadine Anesthesia: local: 1% lidocaine Opening pressure (in cm H2O): 26 Closing pressure (in cm H2O): Not measured Narrative: The patient was placed in the lateral decubitus position. The patient was prepped and draped in a sterile fashion. The skin and subcutaneous tissue were numbed with 1% lidocaine. The spinal needle was inserted into the L3-L4 inner space and CSF was obtained after 1 attempt/s. 28 cc of fluid was obtained and sent for cell count, chemistry, cultures, cytology and gram stain. Also, [facility] was ordered. The spinal needle was removed and a sterile dressing was applied. The patient was instructed to lie supine for two hours post procedure. The patient tolerated the procedure well. Complications: None Dr. Ortiz, Faculty was immediately available for the procedure, if needed. [facility] [place] Department of Internal medicine PGY2 Neurology Associated attestation - Nestor Ortiz MD - 02/29/2024 12:19 PM CDT Agree with jannet for LP. [facility] Notes Date/Time Note Provider Source 2024-08-01 09:45:15 Chief Complaint Patient presents with Edema Edema to right foot Elsi Lang LVN T [facility] 2024-07-10 09:11:59 Chief Complaint Patient presents with Physical Patient is not fasting Elsi Lang LVN [facility] 2024-04-23 20:40:00 Report given to [facility] EMS personnel LAY Olson RN [facility] 2024-04-23 20:40:00 Patient is awake and alert, oriented x4, speech is clear and appropriate, ambulatory with a steady gait. Respirations even and unlabored, no distress. [facility] 2024-04-23 19:38:15 [employer] cancelled and called [facility] instead[facility] ETA is 35 to 40 minutes. [facility] Olga Resendiz [facility] 2024-04-23 19:08:44 [employer] ETA is 20 minutes. [facility] 2024-04-23 13:12:22 Report received from JORDAN Diego [facility] 2024-04-23 12:23:25 [facility] for [facility]argy. EMS originally called out for high BP. Pt from [facility] and was given an extra dose of 0.1mg Clonidine this morning. Pt reports he has felt this tired all morning. EMS gave 2x narcan without change. Pt A&Ox4 but very drowsy. Awakens to verbal stimuli. [facility] Brandie Baca RN [facility] 2024-04-23 12:15:00 [facility] Emergency Department Note Patient Name: Janiya Verde Date of : 1975 49 year old male Treatment Room: TX1/TX1 Primary Care Physician: PATIENT DOES NOT HAVE A PCP Patient Escorted by: Self [9] Mode of Arrival: EMS - [facility] [45] EMS Treatment Prior to ED Arrival: CHIEF CARDIOPULMONARY TECHNOLOGIST treatment: Saline lock;Medication (comment) CHIEF CARDIOPULMONARY TECHNOLOGIST treatment comments: Narcan Travel and Exposure Screening: Symptoms Does patient have any of these symptoms?: (not recorded) Exposure Screening Has patient had contact with someone with a communicable disease in the last month?: (not recorded) Diseases exposed to:: (not recorded) Is Patient ?: (not recorded) Exposure Date: (not recorded) Chief Complaint: Chief Complaint Patient presents with Lethargic History of Present Illness: 49 y.o. male to ER with lethargy and AMS Past Medical History/Immunizations: Past Medical History: Diagnosis Date Cocaine abuse Hypertension CHAVA (obstructive sleep apnea) Smoking Substance abuse Tetanus received in last 5 years: Unknown Allergies: No Known Allergies Past Social History: Tobacco Use Every Day; Cigarettes: Started 02/22/1988; 2.0 packs/day; Smoked an average of 2.0 packs/day for 36.2 years Vaping Use Every day Alcohol Use Yes. Drug Use Yes; Cocaine, Marijuana, Other-see comments. Comments: former Past Surgical History: No past surgical history on file. Review of Systems: Review of Systems Unable to perform ROS: Mental status change Physical Exam: ED Triage Vitals [04/23/24 1228] Weight 136.1 kg (300 lb) Actual or estimated Estimated by patient/family report Height 1.753 m (5' 9") BP 128/86 Pulse 72 Resp 14 Temp 36.7 ?C (98.1 ?F) Temp source Oral SpO2 94 % Measured on Room air Physical Exam Vitals and nursing note reviewed. Constitutional: Comments: Alert to painful stimuli, lethargic HENT: Mouth/Throat: Mouth: Mucous membranes are dry. Eyes: Pupils: Pupils are equal, round, and reactive to light. Cardiovascular: Rate and Rhythm: Normal rate. Pulses: Normal pulses. Pulmonary: Effort: Pulmonary effort is normal. Abdominal: Palpations: Abdomen is soft. Musculoskeletal: General: Normal range of motion. Skin: General: Skin is warm. Capillary Refill: Capillary refill takes less than 2 seconds. Neurological: Mental Status: He is disoriented. Radiology: CT Head wo contrast Final Result EXAM: CT HEAD WO CONTRAST HISTORY: Mental status change, lethargy TECHNIQUE: Axial CT of the head was performed and reconstructed at 5 mm intervals. Coronal and sagittal reformatted images were generated. COMPARISON: MRI brain 02/26/2024 FINDINGS: The ventricles and cerebral sulci are unchanged in caliber and configuration. No midline shift or pathological extra-axial fluid collection is present. The basal cisterns are unremarkable. No acute intracranial hemorrhage or significant mass effect is visualized. Patchy hypodensities are redemonstrated in the periventricular and deep white matter which correlates to demyelinating plaques on the comparison MRI. Partial opacification of the right mastoid air cells. Paranasal sinuses are normal. The calvarium and central skull base are unremarkable. IMPRESSION No acute intracranial finding. Patchy periventricular and deep white matter hypodensities which correlates to demyelinating plaques on the comparison MRI. Preliminary Report Dictated by Resident: Enrrique Davis I, Miesha Benton MD., have reviewed this study and agree with the above report. XR Chest 1 vw Final Result EXAM: XR CHEST 1 VW HISTORY: 49 years-old Male with ams . TECHNIQUE: Single frontal view of the chest. COMPARISON: Chest radiograph from March 19, 2024 FINDINGS: Lines, tubes and devices: None. Lungs and pleura: The lungs are moderately expanded with mild resultant perihilar congestion. No focal opacities, pleural effusion or pneumothorax is visualized. Heart/Mediastinum: The cardiac silhouette appears normal accounting for technique and degree of inspiration. Bones and soft tissues: No acute fracture, aggressive osseous lesion, or dislocation. No soft tissue abnormality. IMPRESSION No acute cardiopulmonary abnormality. Preliminary Report Dictated by Resident: Jerrica Calero I, Justin Antoine MD., have reviewed this study and agree with the above report. Lab Results: Lab Results CBC WITH DIFF - Abnormal Result Value Ref Range WBC 5.59 4.20 - 10.70 10*3/?L RBC 4.87 4.26 - 5.52 10*6/?L HGB 14.7 12.2 - 16.4 g/dL HCT 44.4 38.4 - 49.3 % MCV 91.2 81.7 - 95.6 fL MCH 30.2 26.1 - 32.7 pg MCHC 33.1 31.2 - 35.0 g/dL RDW-SD 47.3 38.5 - 51.6 fL RDW-CV 14.0 12.1 - 15.4 % PLT 212 150 - 328 10*3/?L MPV 9.7 (*) 9.8 - 13.0 fL NRBC/100 WBC 0.0 0.0 - 10.0 /100 WBCs NRBC x10 3 <0.01 10*3/?L GRAN MAT (NEUT) % 62.0 % IMM GRAN % 0.20 % LYMPH % 20.4 % MONO % 14.0 % EOS % 2.7 % BASO % 0.7 % GRAN MAT x10 3 (ANC) 3.47 1.99 - 6.95 10*3/uL IMM GRAN x10 3 <0.03 0.00 - 0.06 10*3/uL LYMPH x10 3 1.14 1.09 - 3.23 10*3/uL MONO x10 3 0.78 0.36 - 1.02 10*3/uL EOS x10 3 0.15 0.06 - 0.53 10*3/uL BASO x10 3 0.04 0.01 - 0.09 10*3/uL COMP. METABOLIC PANEL (28842) - Abnormal NA 134 (*) 135 - 145 mmol/L K 4.2 3.5 - 5.0 mmol/L CL 102 98 - 108 mmol/L CO2 TOTAL 25 23 - 31 mmol/L AGAP 7 2 - 16 BUN 14 7 - 23 mg/dL GLUCOSE 144 (*) 70 - 110 mg/dL CREATININE 0.85 0.60 - 1.25 mg/dL TOTAL BILI 0.3 0.1 - 1.1 mg/dL CALCIUM 9.2 8.6 - 10.6 mg/dL T PROTEIN 7.2 6.3 - 8.2 g/dL ALBUMIN 4.1 3.5 - 5.0 g/dL ALK PHOS 77 34 - 122 U/L ALTv 43 5 - 50 U/L AST(SGOT) 44 (*) 13 - 40 U/L eGFR 106.5 mL/min/1.73m2 ACUTE CARE ARTERIAL BLOOD GAS - Abnormal PH 7.35 7.35 - 7.45 PCO2 58 (*) 35 - 45 mmHg PO2 58 (*) 80 - 100 mmHg HCO3 28 (*) 22 - 26 mEq/L BE 2.0 -3.0 - 3.0 mEq/L ACUTE CARE ARTERIAL BLOOD GAS - Abnormal PH 7.36 7.35 - 7.45 PCO2 45 35 - 45 mmHg PO2 72 (*) 80 - 100 mmHg HCO3 25 22 - 26 mEq/L BE -1.1 -3.0 - 3.0 mEq/L TROPONIN I - Normal TROPONIN I 0.001 <=0.034 ng/mL URINE DRUG (IMMUNOASSAY) - COMPREHENSIVE DRUG SCREEN - Normal AMPHET Negative Negative LAURENT U Negative Negative BENZO U Negative Negative Cocaine Metabolite Negative Negative METHADONE Negative Negative OPIATES Negative Negative PCP Negative Negative THC Negative Negative AMMONIA, PLASMA - Normal AMMONIA 28 9 - 33 umol/L ETHANOL ALCOHOL <10 mg/dL SERUM DRUG (IMMUNOASSAY) - COMPREHENSIVE DRUG SCREEN EKG: If EKG completed, see Procedure Note. Orders and Treatments: Orders Placed This Encounter Procedures XR Chest [address] Head wo contrast Cbc with Diff Comp. Metabolic Panel (40096) Acute Care Arterial Blood Gas. Troponin I Urine Drug (Immunoassay) - Comprehensive Drug Screen Ethanol Serum Drug (Immunoassay) - Comprehensive Drug Screen Ammonia, Plasma Acute Care Arterial Blood Gas. BI-PAP O2 Per Protocol Orders Placed This Encounter Medications NaCl 0.9% (NS) bolus infusion 1,000 mL First Provider Eval: ED Events Date/Time Event User Comments 04/23/24 1240 Medical Screening Begins NORMAN COREA MD -- 04/23/24 124 First Provider Evaluation NORMAN COREA MD -- ED COURSE Diagnosis/Impression as of 04/23/24 1837 Altered mental status, unspecified altered mental status type Procedures: Procedures MDM: Medical Decision Making Amount and/or Complexity of Data Reviewed Labs: ordered. Radiology: ordered. Risk Prescription drug management. A) Severe CHAVA with lethargy Disposition/Condition: Home, continue CPAP and meds as prescribed, ER warnings, f/u PCP in 1-2 days. ED Disposition ED Disposition Discharge Condition Stable Comment -- Discharge Medications: Patient's Medications START taking these medications No medications on file CONTINUE taking these medications which have NOT CHANGED ASPIRIN 81 MG CHEWABLE TABLET Take 1 tablet by mouth in the morning. ATORVASTATIN 40 MG TABLET Take 1 tablet by mouth at bedtime. BENZONATATE 100 MG CAPSULE Take 2 capsules by mouth 3 (three) times daily as needed for Cough. FAMOTIDINE 40 MG TABLET Take 1 tablet by mouth in the morning and 1 tablet in the evening. FLUOXETINE 20 MG CAPSULE Take 1 capsule by mouth in the morning. GLATIRAMER 20 MG/ML INJECTION SYRINGE inject 1 mL under the skin in the morning for 180 days. LISINOPRIL 10 MG TABLET Take 1 tablet by mouth in the morning. NICOTINE 21 MG/24 HR PATCH Apply 1 Patch to area(s) every 24 (twenty-four) hours. NITROGLYCERIN 0.[address] 1 tablet under the tongue every 5 (five) minutes as needed for Chest pain. OXYMETAZOLINE 0.05 % NASAL SPRAY Use 1 [place] in each nostril in the morning and 1 [place] in the evening. QUETIAPINE 400 MG TABLET Take 1 tablet by mouth in the morning. TRAZODONE 100 MG TABLET Take 1 tablet by mouth at bedtime. VITAMIN B COMPLEX TABLET Take 1 tablet by mouth in the morning. START taking Modified Medications as Prescribed No medications on file STOP taking these medications No medications on file Follow-up: PCP and Neurology clinics Electronically signed by: Norman Corea MD 04/23/241836 [facility] 2024-04-15 09:36:44 Chief Complaint Patient presents with Consultation Wants rx for nitroglycerine, has sleep apnea Monica Paulino CMA I [facility] 2024-03-20 01:20:08 Pt given printed and verbal discharge instructions regarding cough, chest pain, and encouraged hydration. Prescription x1 sent to pharmacy Pt verbalized understanding of instructions, pt awake alert oriented, resp reg unlabored, skin w/d, color appropriate for race, moves all ext well,pt encouraged to follow up with pcp. Advised to seek medical attention for new/prolonged/worsening of symptoms. PIV d'cd, dressing to site, catheter in tact. Awake, alert oriented, resp reg unlabored, skin w/d, pt leaving ambulatory with use of cane, in no apparent distress, LAY Feliz RN [facility] 2024-03-19 22:51:25 Pt to ED via EMS CO CP starting 2029 today. Pt had just gotten out of an NA meeting and was at the [facility] when his CP started. CP is centralized, states it starts in his back and goes through into his chest. Pt is currently on a zpack, he is unsure why. Also CO ongoing cough. CP worsens on inspiration and cough. Pt reports chronic fatigue, and was in the process of narcolepsy RO, but was unable to finish the testing. 4 ASA, 1 nitro given en route with no relief. BGL 98. P [employer] Inga Sanchez RN [facility] 2024-03-04 12:49:11 TRANSITIONAL CARE MANAGEMENT ASSESSMENT 03/04/2024 Janiya Verde [id number] Janiya Verde is a 48 year old /White male was admitted on 02/21/[address] He was discharged on 03/02/24 with discharge disposition of HR- Routine Discharge. Admitting Physician: Venus Judge Discharge Diagnosis: C/F Multiple sclerosis No linked episodes TCM [id number] outreach documentation: Discharge Assessment Chart Assessed: 03/04/24 Chart Reviewed - Post Discharge Call Deferred due to Change in Discharge Status.: Discharged to Other ([address], [place] [address] F: [phone]) Future Appointments: Keenan Spain RN [facility] 2024-03-02 11:41:17 Problem: Falls, Risk of Goal: Absence of falls 03/02/2024 1140 by Geronimo Sargent, JORDAN Outcome: Resolved 03/02/2024 0943 by Geronimo Sargent, JORDAN Outcome: Progressing as expected Problem: Tissue Perfusion, Cerebral - Altered Goal: Absence of continued neurologic deterioration signs and symptoms 03/02/2024 1140 by Geronimo Sargent, JORDAN Outcome: Resolved 03/02/2024 0943 by Geronimo Sargent, JORDAN Outcome: Progressing as expected Problem: Procedure Routine Goal: Absence of post-procedure complications 03/02/2024 1140 by Geronimo Sargent, JORDAN Outcome: Resolved 03/02/2024 0943 by Geronimo Sargent, JORDAN Outcome: Progressing as expected Goal: Knowledge of procedure 03/02/2024 1140 by Geronimo Sargent, RN Outcome: Resolved 03/02/2024 0943 by Geronimo Sargent, RN Outcome: Progressing as expected Problem: Discharge Planning Goal: Able to perform ADL 03/02/2024 1140 by Geronimo Sargent, RN Outcome: Resolved 03/02/2024 0943 by Geronimo Sargent, RN Outcome: Progressing as expected Goal: Knowledge of medication management 03/02/2024 1140 by Geronimo Sargent, RN Outcome: Resolved 03/02/2024 0943 by Geronimo Sargent, RN Outcome: Progressing as expected Goal: Knowledge of need for follow-up care 03/02/2024 1140 by Geronimo Sargent, RN Outcome: Resolved 03/02/2024 09 by Geronimo Sargent, RN Outcome: Progressing as expected Goal: Knowledge of personal stroke risk factors 03/02/2024 1140 by Geronimo Sargent, JORDAN Outcome: Resolved 03/02/2024 0943 by Geronimo Sargent, RN Outcome: Progressing as expected Goal: Knowledge of stroke warning signs 03/02/2024 1140 by Geronimo Sargent, RN Outcome: Resolved 03/02/2024 0943 by Geronimo Sargent, RN Outcome: Progressing as expected Problem: Aspiration, Risk of Goal: Absence of aspiration 03/02/2024 1140 by Geronimo Sargent, JORDAN Outcome: Resolved 03/02/2024 0943 by Geronimo Sargent, RN Outcome: Progressing as expected Problem: Complications of thrombolytic administration (risk or actual) Goal: Absence of impaired coagulation signs and symptoms 03/02/2024 1140 by Geronimo Sargent, RN Outcome: Resolved 03/02/2024 0943 by Geronimo Sargent, RN Outcome: Progressing as expected Goal: Absence of active bleeding 03/02/2024 1140 by Geronimo Sargent, JORDAN Outcome: Resolved 03/02/2024 0943 by Geronimo Sargent, RN Outcome: Progressing as expected Goal: Absence of angioedema signs & symptoms 03/02/2024 1140 by Geronimo Sargent, RN Outcome: Resolved 03/02/2024 0943 by Geronimo Sargent, RN Outcome: Progressing as expected Problem: Bowel Function - Altered Goal: Normal bowel habits 03/02/2024 1140 by Geronimo Sargent, RN Outcome: Resolved 03/02/2024942 by Geronimo Sargent, JORDAN Outcome: Progressing as expected Problem: Cognitive-Perceptual Pattern - Impaired Goal: Able to achieve maximum level of cognitive ability 03/02/2024 1140 by Geronimo Sargent, RN Outcome: Resolved 03/02/2024942 by Geronimo Sargent, RN Outcome: Progressing as expected Goal: Mood stable 03/02/2024 1140 by Geronimo Sargent, RN Outcome: Resolved 03/02/2024942 by Geronimo Sargent, RN Outcome: Progressing as expected Problem: Mobility - Impaired Goal: Able to achieve maximum mobility level 03/02/2024 1140 by Geronimo Sargent, JORDAN Outcome: Resolved 03/02/2024942 by Geronimo Sargent, RN Outcome: Progressing as expected Goal: Able to use ambulatory assistive device appropriately 03/02/2024 1140 by Geronimo Sargent, JORDAN Outcome: Resolved 03/02/2024942 by Geronimo Sargent, RN Outcome: Progressing as expected Problem: Nutrition Deficit, Risk of Goal: Adequate nutritional intake 03/02/2024 1140 by Geronimo Sargent, JORDAN Outcome: Resolved 03/02/2024942 by Geronimo Sargent, JORDAN Outcome: Progressing as expected Problem: Pain Goal: Control of pain at or below patient's documented comfort goal Outcome: Resolved Goal: Reduction in pain sensation 03/02/2024 1140 by Geronimo Sargent, JORDAN Outcome: Resolved 03/02/2024942 by Geronimo Sargent, JORDAN Outcome: Progressing as expected Problem: Skin integrity Impaired (Risk or Actual) Goal: Prevention of new skin breakdown 03/02/2024 1140 by Geronimo Sargent, JORDAN Outcome: Resolved 03/02/2024942 by Geronimo Sargent, RN Outcome: Progressing as expected Problem: Respiratory Function - Impaired Goal: Able to cough effectively 03/02/2024 1140 by Geronimo Sargent, RN Outcome: Resolved 03/02/2024942 by Geronimo Sargent, RN Outcome: Progressing as expected Goal: Adequate oxygenation 03/02/2024 1140 by Geronimo Sargent RN Outcome: Resolved 03/02/2024 0943 by Geronimo Sargent RN Outcome: Progressing as expected Goal: Adequate work of breathing 03/02/2024 1140 by Geronimo Sargent RN Outcome: Resolved 03/02/2024 0943 by Geronimo Sargent RN Outcome: Progressing as expected Goal: Patent airway 03/02/2024 1140 by Geronimo Sargent RN Outcome: Resolved 03/02/2024 0943 by Geronimo Sargent RN Outcome: Progressing as expected Geronimo Sargent RN [facility] 2024-03-02 02:13:52 Problem: Falls, Risk of Goal: Absence of falls Outcome: Progressing as expected Problem: Tissue Perfusion, Cerebral - Altered Goal: Absence of continued neurologic deterioration signs and symptoms Outcome: Progressing as expected Problem: Discharge Planning Goal: Able to perform ADL Outcome: Progressing as expected Goal: Knowledge of medication management Outcome: Progressing as expected Goal: Knowledge of need for follow-up care Outcome: Progressing as expected Goal: Knowledge of personal stroke risk factors Outcome: Progressing as expected Goal: Knowledge of stroke warning signs Outcome: Progressing as expected Problem: Aspiration, Risk of Goal: Absence of aspiration Outcome: Progressing as expected Problem: Complications of thrombolytic administration (risk or actual) Goal: Absence of active bleeding Outcome: Progressing as expected Goal: Absence of angioedema signs & symptoms Outcome: Progressing as expected Problem: Bowel Function - Altered Goal: Normal bowel habits Outcome: Progressing as expected Problem: Cognitive-Perceptual Pattern - Impaired Goal: Able to achieve maximum level of cognitive ability Outcome: Progressing as expected Goal: Mood stable Outcome: Progressing as expected Problem: Mobility - Impaired Goal: Able to achieve maximum mobility level Outcome: Progressing as expected Goal: Able to use ambulatory assistive device appropriately Outcome: Progressing as expected Problem: Nutrition Deficit, Risk of Goal: Adequate nutritional intake Outcome: Progressing as expected Problem: Pain Goal: Control of pain at or below patient's documented comfort goal Outcome: Progressing as expected Goal: Reduction in pain sensation Outcome: Progressing as expected Problem: Skin integrity Impaired (Risk or Actual) Goal: Prevention of new skin breakdown Outcome: Progressing as expected Problem: Respiratory Function - Impaired Goal: Able to cough effectively Outcome: Progressing as expected Goal: Adequate oxygenation Outcome: Progressing as expected Goal: Adequate work of breathing Outcome: Progressing as expected Goal: Patent airway Outcome: Progressing as expected Sabino Schroeder RN [facility] 2024-03-01 10:40:20 Problem: Falls, Risk of Goal: Absence of falls Outcome: Progressing as expected Problem: Tissue Perfusion, Cerebral - Altered Goal: Absence of continued neurologic deterioration signs and symptoms Outcome: Progressing as expected Problem: Procedure Routine Goal: Absence of post-procedure complications Outcome: Progressing as expected Goal: Knowledge of procedure Outcome: Progressing as expected Problem: Discharge Planning Goal: Able to perform ADL Outcome: Progressing as expected Goal: Knowledge of medication management Outcome: Progressing as expected Goal: Knowledge of need for follow-up care Outcome: Progressing as expected Goal: Knowledge of personal stroke risk factors Outcome: Progressing as expected Goal: Knowledge of stroke warning signs Outcome: Progressing as expected Problem: Aspiration, Risk of Goal: Absence of aspiration Outcome: Progressing as expected Problem: Complications of thrombolytic administration (risk or actual) Goal: Absence of impaired coagulation signs and symptoms Outcome: Progressing as expected Goal: Absence of active bleeding Outcome: Progressing as expected Goal: Absence of angioedema signs & symptoms Outcome: Progressing as expected Problem: Bowel Function - Altered Goal: Normal bowel habits Outcome: Progressing as expected Problem: Cognitive-Perceptual Pattern - Impaired Goal: Able to achieve maximum level of cognitive ability Outcome: Progressing as expected Goal: Mood stable Outcome: Progressing as expected Problem: Mobility - Impaired Goal: Able to achieve maximum mobility level Outcome: Progressing as expected Goal: Able to use ambulatory assistive device appropriately Outcome: Progressing as expected Problem: Nutrition Deficit, Risk of Goal: Adequate nutritional intake Outcome: Progressing as expected Problem: Pain Goal: Control of pain at or below patient's documented comfort goal Outcome: Progressing as expected Goal: Reduction in pain sensation Outcome: Progressing as expected Problem: Skin integrity Impaired (Risk or Actual) Goal: Prevention of new skin breakdown Outcome: Progressing as expected Problem: Respiratory Function - Impaired Goal: Able to cough effectively Outcome: Progressing as expected Goal: Adequate oxygenation Outcome: Progressing as expected Goal: Adequate work of breathing Outcome: Progressing as expected Goal: Patent airway Outcome: Progressing as expected [facility] 2024-02-29 20:08:48 Problem: Falls, Risk of Goal: Absence of falls Outcome: Progressing as expected Problem: Tissue Perfusion, Cerebral - Altered Goal: Absence of continued neurologic deterioration signs and symptoms Outcome: Progressing as expected Problem: Procedure Routine Goal: Absence of post-procedure complications Outcome: Progressing as expected Goal: Knowledge of procedure Outcome: Progressing as expected Problem: Discharge Planning Goal: Able to perform ADL Outcome: Progressing as expected Goal: Knowledge of medication management Outcome: Progressing as expected Goal: Knowledge of need for follow-up care Outcome: Progressing as expected Goal: Knowledge of personal stroke risk factors Outcome: Progressing as expected Goal: Knowledge of stroke warning signs Outcome: Progressing as expected T Ambrocio Bravo RN [facility] 2024-02-29 13:23:32 Problem: Falls, Risk of Goal: Absence of falls Outcome: Progressing as expected Problem: Tissue Perfusion, Cerebral - Altered Goal: Absence of continued neurologic deterioration signs and symptoms Outcome: Progressing as expected Problem: Procedure Routine Goal: Absence of post-procedure complications Outcome: Progressing as expected Goal: Knowledge of procedure Outcome: Progressing as expected Problem: Discharge Planning Goal: Able to perform ADL Outcome: Progressing as expected Goal: Knowledge of medication management Outcome: Progressing as expected Goal: Knowledge of need for follow-up care Outcome: Progressing as expected Goal: Knowledge of personal stroke risk factors Outcome: Progressing as expected Goal: Knowledge of stroke warning signs Outcome: Progressing as expected Problem: Aspiration, Risk of Goal: Absence of aspiration Outcome: Progressing as expected Problem: Complications of thrombolytic administration (risk or actual) Goal: Absence of impaired coagulation signs and symptoms Outcome: Progressing as expected Goal: Absence of active bleeding Outcome: Progressing as expected Goal: Absence of angioedema signs & symptoms Outcome: Progressing as expected Problem: Bowel Function - Altered Goal: Normal bowel habits Outcome: Progressing as expected Problem: Cognitive-Perceptual Pattern - Impaired Goal: Able to achieve maximum level of cognitive ability Outcome: Progressing as expected Goal: Mood stable Outcome: Progressing as expected Problem: Mobility - Impaired Goal: Able to achieve maximum mobility level Outcome: Progressing as expected Goal: Able to use ambulatory assistive device appropriately Outcome: Progressing as expected Problem: Nutrition Deficit, Risk of Goal: Adequate nutritional intake Outcome: Progressing as expected Problem: Pain Goal: Control of pain at or below patient's documented comfort goal Outcome: Progressing as expected Goal: Reduction in pain sensation Outcome: Progressing as expected Problem: Skin integrity Impaired (Risk or Actual) Goal: Prevention of new skin breakdown Outcome: Progressing as expected Problem: Respiratory Function - Impaired Goal: Able to cough effectively Outcome: Progressing as expected Goal: Adequate oxygenation Outcome: Progressing as expected Goal: Adequate work of breathing Outcome: Progressing as expected Goal: Patent airway Outcome: Progressing as expected T Maryam Sadler RN [facility] 2024-02-28 20:24:45 Problem: Falls, Risk of Goal: Absence of falls Outcome: Progressing as expected Problem: Tissue Perfusion, Cerebral - Altered Goal: Absence of continued neurologic deterioration signs and symptoms Outcome: Progressing as expected Problem: Procedure Routine Goal: Absence of post-procedure complications Outcome: Progressing as expected Goal: Knowledge of procedure Outcome: Progressing as expected Problem: Discharge Planning Goal: Able to perform ADL Outcome: Progressing as expected Goal: Knowledge of medication management Outcome: Progressing as expected Goal: Knowledge of need for follow-up care Outcome: Progressing as expected Goal: Knowledge of personal stroke risk factors Outcome: Progressing as expected Goal: Knowledge of stroke warning signs Outcome: Progressing as expected [facility] 2024-02-28 16:07:38 Problem: Falls, Risk of Goal: Absence of falls Outcome: Progressing as expected Problem: Tissue Perfusion, Cerebral - Altered Goal: Absence of continued neurologic deterioration signs and symptoms Outcome: Progressing as expected Problem: Procedure Routine Goal: Absence of post-procedure complications Outcome: Progressing as expected Goal: Knowledge of procedure Outcome: Progressing as expected Problem: Discharge Planning Goal: Able to perform ADL Outcome: Progressing as expected Goal: Knowledge of medication management Outcome: Progressing as expected Goal: Knowledge of need for follow-up care Outcome: Progressing as expected Goal: Knowledge of personal stroke risk factors Outcome: Progressing as expected Goal: Knowledge of stroke warning signs Outcome: Progressing as expected Problem: Aspiration, Risk of Goal: Absence of aspiration Outcome: Progressing as expected Problem: Complications of thrombolytic administration (risk or actual) Goal: Absence of impaired coagulation signs and symptoms Outcome: Progressing as expected Goal: Absence of active bleeding Outcome: Progressing as expected Goal: Absence of angioedema signs & symptoms Outcome: Progressing as expected Problem: Bowel Function - Altered Goal: Normal bowel habits Outcome: Progressing as expected Problem: Cognitive-Perceptual Pattern - Impaired Goal: Able to achieve maximum level of cognitive ability Outcome: Progressing as expected Goal: Mood stable Outcome: Progressing as expected Problem: Mobility - Impaired Goal: Able to achieve maximum mobility level Outcome: Progressing as expected Goal: Able to use ambulatory assistive device appropriately Outcome: Progressing as expected Problem: Nutrition Deficit, Risk of Goal: Adequate nutritional intake Outcome: Progressing as expected Problem: Pain Goal: Control of pain at or below patient's documented comfort goal Outcome: Progressing as expected Goal: Reduction in pain sensation Outcome: Progressing as expected Problem: Skin integrity Impaired (Risk or Actual) Goal: Prevention of new skin breakdown Outcome: Progressing as expected Problem: Respiratory Function - Impaired Goal: Able to cough effectively Outcome: Progressing as expected Goal: Adequate oxygenation Outcome: Progressing as expected Goal: Adequate work of breathing Outcome: Progressing as expected Goal: Patent airway Outcome: Progressing as expected [facility] [employer] 2024-02-28 04:29:45 Problem: Falls, Risk of Goal: Absence of falls Outcome: Progressing as expected Problem: Tissue Perfusion, Cerebral - Altered Goal: Absence of continued neurologic deterioration signs and symptoms Outcome: Progressing as expected Problem: Procedure Routine Goal: Absence of post-procedure complications Outcome: Progressing as expected Goal: Knowledge of procedure Outcome: Progressing as expected Problem: Discharge Planning Goal: Able to perform ADL Outcome: Progressing as expected Goal: Knowledge of medication management Outcome: Progressing as expected Goal: Knowledge of need for follow-up care Outcome: Progressing as expected Goal: Knowledge of personal stroke risk factors Outcome: Progressing as expected Goal: Knowledge of stroke warning signs Outcome: Progressing as expected Problem: Aspiration, Risk of Goal: Absence of aspiration Outcome: Progressing as expected Problem: Complications of thrombolytic administration (risk or actual) Goal: Absence of impaired coagulation signs and symptoms Outcome: Progressing as expected Goal: Absence of active bleeding Outcome: Progressing as expected Goal: Absence of angioedema signs & symptoms Outcome: Progressing as expected Problem: Bowel Function - Altered Goal: Normal bowel habits Outcome: Progressing as expected Problem: Cognitive-Perceptual Pattern - Impaired Goal: Able to achieve maximum level of cognitive ability Outcome: Progressing as expected Goal: Mood stable Outcome: Progressing as expected Problem: Mobility - Impaired Goal: Able to achieve maximum mobility level Outcome: Progressing as expected Goal: Able to use ambulatory assistive device appropriately Outcome: Progressing as expected Problem: Nutrition Deficit, Risk of Goal: Adequate nutritional intake Outcome: Progressing as expected Problem: Pain Goal: Control of pain at or below patient's documented comfort goal Outcome: Progressing as expected Goal: Reduction in pain sensation Outcome: Progressing as expected Problem: Skin integrity Impaired (Risk or Actual) Goal: Prevention of new skin breakdown Outcome: Progressing as expected Problem: Respiratory Function - Impaired Goal: Able to cough effectively Outcome: Progressing as expected Goal: Adequate oxygenation Outcome: Progressing as expected Goal: Adequate work of breathing Outcome: Progressing as expected Goal: Patent airway Outcome: Progressing as expected Lyndon Nicolas RN [facility] 2024-02-27 14:46:16 Janiya Verde is a 48 year old right handed male with PMH of substance abuse (cocaine, crack, prior crystal meth), alcohol use, smoking history (vapes and tobacco cigarettes), HTN, CHAVA who was transferred from [facility] with CC of R leg weakness. LSN: 02/19/2024, NIHSS 0. BP 149/95, FSBG 132. NIHSS 0. 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 Labs wnl, chest xray with bilateral pulmonary congestion. The patient was loaded with aspirin 325 mg and Plavix 75 mg before being transferred. His A1c is 5.9, LDL 129. TTE w/ EF 55-60%, LA normal size, no shunt. MRI brain pending today. 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 The patient will benefit from further stroke workup to determine stroke etiology, but most likely related to his substance abuse. He was transferred to [facility]U for hypercapnic resp failure likely 2/2 suspected CHAVA on 02/22, afterwhich he was shifted back to [facility] the following day with recs to continue BPAP overnight and daily daytime naps. Pending CHAVA device prior to discharge. Julianne Yanez [facility] 2024-02-27 08:49:33 Problem: Falls, Risk of Goal: Absence of falls Outcome: Adequate for discharge Problem: Tissue Perfusion, Cerebral - Altered Goal: Absence of continued neurologic deterioration signs and symptoms Outcome: Adequate for discharge Problem: Procedure Routine Goal: Absence of post-procedure complications Outcome: Adequate for discharge Goal: Knowledge of procedure Outcome: Adequate for discharge Problem: Discharge Planning Goal: Able to perform ADL Outcome: Adequate for discharge Goal: Knowledge of medication management Outcome: Adequate for discharge Goal: Knowledge of need for follow-up care Outcome: Adequate for discharge Goal: Knowledge of personal stroke risk factors Outcome: Adequate for discharge Goal: Knowledge of stroke warning signs Outcome: Adequate for discharge Problem: Aspiration, Risk of Goal: Absence of aspiration Outcome: Adequate for discharge Problem: Complications of thrombolytic administration (risk or actual) Goal: Absence of impaired coagulation signs and symptoms Outcome: Adequate for discharge Goal: Absence of active bleeding Outcome: Adequate for discharge Goal: Absence of angioedema signs & symptoms Outcome: Adequate for discharge Problem: Bowel Function - Altered Goal: Normal bowel habits Outcome: Adequate for discharge Problem: Cognitive-Perceptual Pattern - Impaired Goal: Able to achieve maximum level of cognitive ability Outcome: Adequate for discharge Goal: Mood stable Outcome: Adequate for discharge Problem: Mobility - Impaired Goal: Able to achieve maximum mobility level Outcome: Adequate for discharge Goal: Able to use ambulatory assistive device appropriately Outcome: Adequate for discharge Problem: Nutrition Deficit, Risk of Goal: Adequate nutritional intake Outcome: Adequate for discharge Problem: Pain Goal: Control of pain at or below patient's documented comfort goal Outcome: Adequate for discharge Goal: Reduction in pain sensation Outcome: Adequate for discharge Problem: Skin integrity Impaired (Risk or Actual) Goal: Prevention of new skin breakdown Outcome: Adequate for discharge Problem: Respiratory Function - Impaired Goal: Able to cough effectively Outcome: Adequate for discharge Goal: Adequate oxygenation Outcome: Adequate for discharge Goal: Adequate work of breathing Outcome: Adequate for discharge Goal: Patent airway Outcome: Adequate for discharge Dorina Hidalgo RN [facility] 2024-02-27 04:42:02 Problem: Falls, Risk of Goal: Absence of falls Outcome: Progressing as expected Problem: Tissue Perfusion, Cerebral - Altered Goal: Absence of continued neurologic deterioration signs and symptoms Outcome: Progressing as expected Problem: Procedure Routine Goal: Absence of post-procedure complications Outcome: Progressing as expected Goal: Knowledge of procedure Outcome: Progressing as expected Problem: Discharge Planning Goal: Able to perform ADL Outcome: Progressing as expected Goal: Knowledge of medication management Outcome: Progressing as expected Goal: Knowledge of need for follow-up care Outcome: Progressing as expected Goal: Knowledge of personal stroke risk factors Outcome: Progressing as expected Goal: Knowledge of stroke warning signs Outcome: Progressing as expected Problem: Aspiration, Risk of Goal: Absence of aspiration Outcome: Progressing as expected Problem: Complications of thrombolytic administration (risk or actual) Goal: Absence of impaired coagulation signs and symptoms Outcome: Progressing as expected Goal: Absence of active bleeding Outcome: Progressing as expected Goal: Absence of angioedema signs & symptoms Outcome: Progressing as expected Problem: Bowel Function - Altered Goal: Normal bowel habits Outcome: Progressing as expected Problem: Cognitive-Perceptual Pattern - Impaired Goal: Able to achieve maximum level of cognitive ability Outcome: Progressing as expected Goal: Mood stable Outcome: Progressing as expected Problem: Mobility - Impaired Goal: Able to achieve maximum mobility level Outcome: Progressing as expected Goal: Able to use ambulatory assistive device appropriately Outcome: Progressing as expected Problem: Nutrition Deficit, Risk of Goal: Adequate nutritional intake Outcome: Progressing as expected Problem: Pain Goal: Control of pain at or below patient's documented comfort goal Outcome: Progressing as expected Goal: Reduction in pain sensation Outcome: Progressing as expected Problem: Skin integrity Impaired (Risk or Actual) Goal: Prevention of new skin breakdown Outcome: Progressing as expected Problem: Respiratory Function - Impaired Goal: Able to cough effectively Outcome: Progressing as expected Goal: Adequate oxygenation Outcome: Progressing as expected Goal: Adequate work of breathing Outcome: Progressing as expected Goal: Patent airway Outcome: Progressing as expected [facility] [employer] 2024-02-26 09:09:39 Problem: Falls, Risk of Goal: Absence of falls Outcome: Progressing as expected Problem: Tissue Perfusion, Cerebral - Altered Goal: Absence of continued neurologic deterioration signs and symptoms Outcome: Progressing as expected Problem: Procedure Routine Goal: Absence of post-procedure complications Outcome: Progressing as expected Goal: Knowledge of procedure Outcome: Progressing as expected Problem: Discharge Planning Goal: Able to perform ADL Outcome: Progressing as expected Goal: Knowledge of medication management Outcome: Progressing as expected Goal: Knowledge of need for follow-up care Outcome: Progressing as expected Goal: Knowledge of personal stroke risk factors Outcome: Progressing as expected Goal: Knowledge of stroke warning signs Outcome: Progressing as expected Problem: Aspiration, Risk of Goal: Absence of aspiration Outcome: Progressing as expected Problem: Complications of thrombolytic administration (risk or actual) Goal: Absence of impaired coagulation signs and symptoms Outcome: Progressing as expected Goal: Absence of active bleeding Outcome: Progressing as expected Goal: Absence of angioedema signs & symptoms Outcome: Progressing as expected Problem: Bowel Function - Altered Goal: Normal bowel habits Outcome: Progressing as expected Problem: Cognitive-Perceptual Pattern - Impaired Goal: Able to achieve maximum level of cognitive ability Outcome: Progressing as expected Goal: Mood stable Outcome: Progressing as expected Problem: Mobility - Impaired Goal: Able to achieve maximum mobility level Outcome: Progressing as expected Goal: Able to use ambulatory assistive device appropriately Outcome: Progressing as expected Problem: Nutrition Deficit, Risk of Goal: Adequate nutritional intake Outcome: Progressing as expected Problem: Pain Goal: Control of pain at or below patient's documented comfort goal Outcome: Progressing as expected Goal: Reduction in pain sensation Outcome: Progressing as expected Problem: Skin integrity Impaired (Risk or Actual) Goal: Prevention of new skin breakdown Outcome: Progressing as expected Problem: Respiratory Function - Impaired Goal: Able to cough effectively Outcome: Progressing as expected Goal: Adequate oxygenation Outcome: Progressing as expected Goal: Adequate work of breathing Outcome: Progressing as expected Goal: Patent airway Outcome: Progressing as expected [employer] 2024-02-25 22:53:24 Problem: Falls, Risk of Goal: Absence of falls Outcome: Progressing as expected Problem: Tissue Perfusion, Cerebral - Altered Goal: Absence of continued neurologic deterioration signs and symptoms Outcome: Progressing as expected Problem: Procedure Routine Goal: Absence of post-procedure complications Outcome: Progressing as expected Goal: Knowledge of procedure Outcome: Progressing as expected Problem: Discharge Planning Goal: Able to perform ADL Outcome: Progressing as expected Goal: Knowledge of medication management Outcome: Progressing as expected Goal: Knowledge of need for follow-up care Outcome: Progressing as expected Goal: Knowledge of personal stroke risk factors Outcome: Progressing as expected Goal: Knowledge of stroke warning signs Outcome: Progressing as expected Problem: Aspiration, Risk of Goal: Absence of aspiration Outcome: Progressing as expected Problem: Complications of thrombolytic administration (risk or actual) Goal: Absence of impaired coagulation signs and symptoms Outcome: Progressing as expected Goal: Absence of active bleeding Outcome: Progressing as expected Goal: Absence of angioedema signs & symptoms Outcome: Progressing as expected Problem: Bowel Function - Altered Goal: Normal bowel habits Outcome: Progressing as expected Problem: Cognitive-Perceptual Pattern - Impaired Goal: Able to achieve maximum level of cognitive ability Outcome: Progressing as expected Goal: Mood stable Outcome: Progressing as expected Problem: Mobility - Impaired Goal: Able to achieve maximum mobility level Outcome: Progressing as expected Goal: Able to use ambulatory assistive device appropriately Outcome: Progressing as expected Problem: Nutrition Deficit, Risk of Goal: Adequate nutritional intake Outcome: Progressing as expected Problem: Pain Goal: Control of pain at or below patient's documented comfort goal Outcome: Progressing as expected Goal: Reduction in pain sensation Outcome: Progressing as expected Problem: Skin integrity Impaired (Risk or Actual) Goal: Prevention of new skin breakdown Outcome: Progressing as expected Problem: Respiratory Function - Impaired Goal: Able to cough effectively Outcome: Progressing as expected Goal: Adequate oxygenation Outcome: Progressing as expected Goal: Adequate work of breathing Outcome: Progressing as expected Goal: Patent airway Outcome: Progressing as expected [facility] 2024-02-25 13:09:35 Problem: Falls, Risk of Goal: Absence of falls Outcome: Progressing as expected Problem: Tissue Perfusion, Cerebral - Altered Goal: Absence of continued neurologic deterioration signs and symptoms Outcome: Progressing as expected Problem: Procedure Routine Goal: Absence of post-procedure complications Outcome: Progressing as expected Goal: Knowledge of procedure Outcome: Progressing as expected Problem: Discharge Planning Goal: Able to perform ADL Outcome: Progressing as expected Goal: Knowledge of medication management Outcome: Progressing as expected Goal: Knowledge of need for follow-up care Outcome: Progressing as expected Goal: Knowledge of personal stroke risk factors Outcome: Progressing as expected Goal: Knowledge of stroke warning signs Outcome: Progressing as expected Problem: Aspiration, Risk of Goal: Absence of aspiration Outcome: Progressing as expected Problem: Complications of thrombolytic administration (risk or actual) Goal: Absence of impaired coagulation signs and symptoms Outcome: Progressing as expected Goal: Absence of active bleeding Outcome: Progressing as expected Goal: Absence of angioedema signs & symptoms Outcome: Progressing as expected Problem: Bowel Function - Altered Goal: Normal bowel habits Outcome: Progressing as expected Problem: Cognitive-Perceptual Pattern - Impaired Goal: Able to achieve maximum level of cognitive ability Outcome: Progressing as expected Goal: Mood stable Outcome: Progressing as expected Problem: Mobility - Impaired Goal: Able to achieve maximum mobility level Outcome: Progressing as expected Goal: Able to use ambulatory assistive device appropriately Outcome: Progressing as expected Problem: Nutrition Deficit, Risk of Goal: Adequate nutritional intake Outcome: Progressing as expected Problem: Pain Goal: Control of pain at or below patient's documented comfort goal Outcome: Progressing as expected Goal: Reduction in pain sensation Outcome: Progressing as expected Problem: Skin integrity Impaired (Risk or Actual) Goal: Prevention of new skin breakdown Outcome: Progressing as expected Problem: Respiratory Function - Impaired Goal: Able to cough effectively Outcome: Progressing as expected Goal: Adequate oxygenation Outcome: Progressing as expected Goal: Adequate work of breathing Outcome: Progressing as expected Goal: Patent airway Outcome: Progressing as expected [facility] 2024-02-25 06:33:03 Problem: Falls, Risk of Goal: Absence of falls Outcome: Progressing as expected Problem: Tissue Perfusion, Cerebral - Altered Goal: Absence of continued neurologic deterioration signs and symptoms Outcome: Progressing as expected Problem: Discharge Planning Goal: Able to perform ADL Outcome: Progressing as expected Problem: Aspiration, Risk of Goal: Absence of aspiration Outcome: Progressing as expected Problem: Complications of thrombolytic administration (risk or actual) Goal: Absence of active bleeding Outcome: Progressing as expected [facility] 2024-02-25 06:31:34 Dr. Jones making rounds and see pt ambulating in his room. Denies chest pain or SOB at this time. [facility] Bibiana Jalloh RN [facility] 2024-02-25 00:08:45 During nurse rounding pt observe walking in his room. Denies chest pain or SOB at this time. Offered assistance pt denies any discomfort at this time. Vital signs WNL. [facility] 2024-02-24 15:46:57 Problem: Falls, Risk of Goal: Absence of falls Outcome: Progressing as expected Problem: Tissue Perfusion, Cerebral - Altered Goal: Absence of continued neurologic deterioration signs and symptoms Outcome: Progressing as expected Problem: Procedure Routine Goal: Absence of post-procedure complications Outcome: Progressing as expected Goal: Knowledge of procedure Outcome: Progressing as expected Problem: Discharge Planning Goal: Able to perform ADL Outcome: Progressing as expected Goal: Knowledge of medication management Outcome: Progressing as expected Goal: Knowledge of need for follow-up care Outcome: Progressing as expected Goal: Knowledge of personal stroke risk factors Outcome: Progressing as expected Goal: Knowledge of stroke warning signs Outcome: Progressing as expected Problem: Aspiration, Risk of Goal: Absence of aspiration Outcome: Progressing as expected Problem: Complications of thrombolytic administration (risk or actual) Goal: Absence of impaired coagulation signs and symptoms Outcome: Progressing as expected Goal: Absence of active bleeding Outcome: Progressing as expected Goal: Absence of angioedema signs & symptoms Outcome: Progressing as expected Problem: Bowel Function - Altered Goal: Normal bowel habits Outcome: Progressing as expected Problem: Cognitive-Perceptual Pattern - Impaired Goal: Able to achieve maximum level of cognitive ability Outcome: Progressing as expected Goal: Mood stable Outcome: Progressing as expected Problem: Mobility - Impaired Goal: Able to achieve maximum mobility level Outcome: Progressing as expected Goal: Able to use ambulatory assistive device appropriately Outcome: Progressing as expected Problem: Nutrition Deficit, Risk of Goal: Adequate nutritional intake Outcome: Progressing as expected Problem: Pain Goal: Control of pain at or below patient's documented comfort goal Outcome: Progressing as expected Goal: Reduction in pain sensation Outcome: Progressing as expected Problem: Skin integrity Impaired (Risk or Actual) Goal: Prevention of new skin breakdown Outcome: Progressing as expected Problem: Respiratory Function - Impaired Goal: Able to cough effectively Outcome: Progressing as expected Goal: Adequate oxygenation Outcome: Progressing as expected Goal: Adequate work of breathing Outcome: Progressing as expected Goal: Patent airway Outcome: Progressing as expected Lacy Doe RN [facility] 2024-02-23 18:40:24 Problem: Falls, Risk of Goal: Absence of falls Outcome: Progressing as expected Problem: Tissue Perfusion, Cerebral - Altered Goal: Absence of continued neurologic deterioration signs and symptoms Outcome: Progressing as expected Problem: Procedure Routine Goal: Absence of post-procedure complications Outcome: Progressing as expected Goal: Knowledge of procedure Outcome: Progressing as expected Problem: Discharge Planning Goal: Able to perform ADL Outcome: Progressing as expected Goal: Knowledge of medication management Outcome: Progressing as expected Goal: Knowledge of need for follow-up care Outcome: Progressing as expected Goal: Knowledge of personal stroke risk factors Outcome: Progressing as expected Goal: Knowledge of stroke warning signs Outcome: Progressing as expected Problem: Aspiration, Risk of Goal: Absence of aspiration Outcome: Progressing as expected Problem: Complications of thrombolytic administration (risk or actual) Goal: Absence of impaired coagulation signs and symptoms Outcome: Progressing as expected Goal: Absence of active bleeding Outcome: Progressing as expected Goal: Absence of angioedema signs & symptoms Outcome: Progressing as expected Problem: Bowel Function - Altered Goal: Normal bowel habits Outcome: Progressing as expected Problem: Cognitive-Perceptual Pattern - Impaired Goal: Able to achieve maximum level of cognitive ability Outcome: Progressing as expected Goal: Mood stable Outcome: Progressing as expected Problem: Mobility - Impaired Goal: Able to achieve maximum mobility level Outcome: Progressing as expected Goal: Able to use ambulatory assistive device appropriately Outcome: Progressing as expected Problem: Nutrition Deficit, Risk of Goal: Adequate nutritional intake Outcome: Progressing as expected Problem: Pain Goal: Control of pain at or below patient's documented comfort goal Outcome: Progressing as expected Goal: Reduction in pain sensation Outcome: Progressing as expected Problem: Skin integrity Impaired (Risk or Actual) Goal: Prevention of new skin breakdown Outcome: Progressing as expected Problem: Respiratory Function - Impaired Goal: Able to cough effectively Outcome: Progressing as expected Goal: Adequate oxygenation Outcome: Progressing as expected Goal: Adequate work of breathing Outcome: Progressing as expected Goal: Patent airway Outcome: Progressing as expected Eunice Garcia RN [facility] 2024-02-23 13:45:32 Rapid Response Note Patient with apneic spells and severe lethargy (brief awakening to painful stimuli). Pt had been removing CPAP mask overnight. Mask in place but long apneic intervals and mid 90's saturations. After awakening pt alert and apnea improved, but still dozing off. Likely need for rescue BiPAP. Pt transferred to ICU. Rapid Response Note Neftali Castano RN [facility] 2024-02-23 03:27:38 Patient refused CPAP 3x, ripping off both face and nasal mask. Keeps desaturating to 80 before coming up with bouts of apnea. Placed on 3 L O2, messaged providers and waiting on response. Aziza Urban RT [facility] 2024-02-22 16:56:39 Problem: Falls, Risk of Goal: Absence of falls Outcome: Progressing as expected Problem: Tissue Perfusion, Cerebral - Altered Goal: Absence of continued neurologic deterioration signs and symptoms Outcome: Progressing as expected Problem: Procedure Routine Goal: Absence of post-procedure complications Outcome: Progressing as expected Goal: Knowledge of procedure Outcome: Progressing as expected Problem: Discharge Planning Goal: Able to perform ADL Outcome: Progressing as expected Goal: Knowledge of medication management Outcome: Progressing as expected Goal: Knowledge of need for follow-up care Outcome: Progressing as expected Goal: Knowledge of personal stroke risk factors Outcome: Progressing as expected Goal: Knowledge of stroke warning signs Outcome: Progressing as expected Problem: Aspiration, Risk of Goal: Absence of aspiration Outcome: Progressing as expected Problem: Complications of thrombolytic administration (risk or actual) Goal: Absence of impaired coagulation signs and symptoms Outcome: Progressing as expected Goal: Absence of active bleeding Outcome: Progressing as expected Goal: Absence of angioedema signs & symptoms Outcome: Progressing as expected Problem: Mobility - Impaired Goal: Able to achieve maximum mobility level Outcome: Progressing as expected Goal: Able to use ambulatory assistive device appropriately Outcome: Progressing as expected Problem: Nutrition Deficit, Risk of Goal: Adequate nutritional intake Outcome: Progressing as expected Problem: Pain Goal: Control of pain at or below patient's documented comfort goal Outcome: Progressing as expected Goal: Reduction in pain sensation Outcome: Progressing as expected Problem: Skin integrity Impaired (Risk or Actual) Goal: Prevention of new skin breakdown Outcome: Progressing as expected Ramila Jones RN [facility] 2024-02-22 06:17:43 Problem: Falls, Risk of Goal: Absence of falls Outcome: Progressing as expected Problem: Tissue Perfusion, Cerebral - Altered Goal: Absence of continued neurologic deterioration signs and symptoms Outcome: Progressing as expected Problem: Procedure Routine Goal: Absence of post-procedure complications Outcome: Progressing as expected Goal: Knowledge of procedure Outcome: Progressing as expected Krunal Duran RN [facility] 2024-02-22 04:39:49 Patient transferred to [facility] for diagnosis of weakness of right leg, acute CVA, sleep apnea Patient agrees to transfer/admit plan and verbalized understanding of plan of care, family aware of plan Patient awake alert, oriented, resp reg unlabored, skin w/d PIV patent, no s/s infiltration noted, No adverse reaction to medications given while in ED. Report given to [facility] personnel Isha Ordaz RN [facility] 2024-02-22 04:12:22 Nurse Report Report given to JORDAN Quintanilla. Chief complaint, assessment findings, infusion verify and orders reviewed. Plan of care discussed with patient and both nurses. Patient/family members verbalized understanding. Isha Ordaz RN [facility] 2024-02-22 00:59:38 Report to Isha ORTEGA. Inga Sanchez RN [facility] 2024-02-21 23:52:44 Pt arrived from [facility] for multiple falls and today started complaining of R leg weakness for a few days. Pt recently had sleep study done but no results. Brandie Baca RN [facility] 2024-02-21 23:49:00 Associated Order(s): EKG-12 Lead ROUTINE ONCE Pre-Procedure Diagnose(s): Weakness of right leg Post-Procedure Diagnose(s): Weakness of right leg [facility] Emergency Department Note Patient Name: Janiya Verde Date of : 1975 48 year old male Treatment [facility]: [facility] Primary Care Physician: PATIENT DOES NOT HAVE A PCP Patient Escorted by: Friend [6] Mode of Arrival: Personal means [1] EMS Treatment Prior to ED Arrival: CHIEF CARDIOPULMONARY TECHNOLOGIST treatment: Medication (comment) CHIEF CARDIOPULMONARY TECHNOLOGIST treatment comments: 100mg Seroquel, 100mg Trazodone Travel and Exposure Screening: Symptoms Does patient have any of these symptoms?: (not recorded) Exposure Screening Has patient had contact with someone with a communicable disease in the last month?: (not recorded) Diseases exposed to:: (not recorded) Is Patient ?: (not recorded) Exposure Date: (not recorded) Chief Complaint: Chief Complaint Patient presents with Weakness History of Present Illness: [facility] with complaint of right leg weakness for 3 days. The patient further relates that he has had difficulty with his walking and balance for the last 3 days because of some weakness to this right lower extremity. The patient does not relate numbness. Multiple reasons for falls are related History provided by: Patient Weakness Location: Right lower extremity Quality: Weak Severity: Mild Onset quality: Gradual Duration: 3 days Timing: Constant Progression: Unchanged Chronicity: New Associated symptoms: cough Associated symptoms: no abdominal pain, no chest pain, no fever and no sore throat Past Medical History/Immunizations: History reviewed. No pertinent past medical history. Tetanus received in last 5 years: Yes Allergies: No Known Allergies Past Social History: Substance & Sexual Activity No substance use or sexual activity history on file. Past Surgical History: History reviewed. No pertinent surgical history. Review of Systems: Review of Systems Constitutional: Negative for activity change, appetite change and fever. HENT: Negative for sore throat. Eyes: Negative for photophobia, pain and redness. Respiratory: Positive for cough. Cardiovascular: Negative for chest pain. Gastrointestinal: Negative for abdominal pain. Genitourinary: Negative for dysuria, urgency, frequency and difficulty urinating. Musculoskeletal: Negative for neck pain and neck stiffness. Physical Exam: ED Triage Vitals [02/21/24 2355] Weight 131.5 kg (290 lb) Actual or estimated Estimated by patient/family report Height 1.753 m (5' 9") BP 125/79 Pulse 92 Resp 13 Temp 37.3 ?C (99.1 ?F) Temp source Oral SpO2 98 % Measured on Room air Physical Exam Vitals reviewed. Constitutional: General: He is not in acute distress. Appearance: He is obese. HENT: Right Ear: Tympanic membrane, ear canal and external ear normal. There is no impacted cerumen. Left Ear: Tympanic membrane, ear canal and external ear normal. There is no impacted cerumen. Nose: Nose normal. No congestion or rhinorrhea. Mouth/Throat: Mouth: Mucous membranes are moist. Pharynx: Oropharynx is clear. No oropharyngeal exudate or posterior oropharyngeal erythema. Eyes: General: No scleral icterus. Right eye: No discharge. Left eye: No discharge. Conjunctiva/sclera: Conjunctivae normal. Pupils: Pupils are equal, round, and reactive to light. Cardiovascular: Rate and Rhythm: Normal rate and regular rhythm. Pulses: Normal pulses. Heart sounds: Normal heart sounds. Pulmonary: Breath sounds: Examination of the right-middle field reveals decreased breath sounds. Examination of the left-middle field reveals decreased breath sounds. Examination of the right-lower field reveals decreased breath sounds. Examination of the left-lower field reveals decreased breath sounds. Decreased breath sounds present. No wheezing or rales. Abdominal: General: Abdomen is protuberant. Bowel sounds are normal. There is no distension. Palpations: Abdomen is soft. There is no fluid wave. Tenderness: There is no abdominal tenderness. Musculoskeletal: General: No swelling, tenderness or deformity. Cervical back: Neck supple. No rigidity or tenderness. Skin: General: Skin is warm. Coloration: Skin is not jaundiced or pale. Neurological: General: No focal deficit present. Mental Status: He is alert and oriented to person, place, and time. Cranial Nerves: No cranial nerve deficit. Motor: No weakness. Radiology: XR CHEST 1 VW Preliminary Result EXAM: XR CHEST 1 VW COMPARISON: 01/27/2020 HISTORY: 48 years-old Male; weakness FINDINGS: The lung apices are not fully visualized due to the overlying patient's head. Lungs: The lung volumes are low resulting in crowding of bronchovascular markings. Bilateral pulmonary hilar vasculature congestion. No focal opacities. No pneumothorax. No pleural effusion. Heart/Mediastinum: The cardiac silhouette appears normal. Bones and soft tissues: No acute osseous findings are detected. IMPRESSION Bilateral pulmonary congestion without evident pulmonary edema. Preliminary Report Dictated by Resident: Bashir Cardona CT ANGIOGRAM HEAD Preliminary Result CT ANGIOGRAM HEAD, CT ANGIOGRAM NECK HISTORY: 48 years-old; Male; Neuro deficit, acute, stroke suspected TECHNIQUE: CTA of the head and neck with coronal, sagittal reformats, and MIPS reconstruction was performed. COMPARISON: None available FINDINGS: CTA NECK: Aortic arch and arch vessel origins: Standard three- vessel aortic arch. The ostia of the great neck vessels are free of significant stenosis. Innominate and subclavian arteries: Innominate and subclavian arteries are patent with normal course. Common and internal cervical carotids: The common carotid arteries, carotid bulbs and cervical internal carotid arteries are patent. Vertebral arteries: Vertebral arteries originate normally from the subclavian arteries and are patent along their course. Right dominant vertebral artery with the hypoplastic left vertebral artery terminating as PICA. Cervical soft tissues: Unremarkable. Lung apices: Unremarkable. Cervical spine: No acute bony abnormality.. CTA HEAD: Right PICA origin is visualized. The left hypoplastic vertebral artery terminates as PICA. The basilar artery is normal in caliber. The superior cerebellar arteries are unremarkable. The posterior cerebral arteries are unremarkable. origin of the right [place] RUNNER with a very faint right P1 segment. A left P-comm is visualized. The distal cervical, petrous, cavernous and supraclinoid internal carotid arteries are unremarkable. There is moderate diffuse narrowing of the superior branch of the left M2 segments of the middle cerebral artery (8:258 and 6:69-67). The left anterior cerebral artery is unremarkable. The right anterior and middle cerebral arteries are unremarkable. A faint anterior communicating artery is visualized. The dural venous sinuses are grossly patent. IMPRESSION Moderate narrowing of the superior branch of the left M2 segment of middle cerebral artery. Otherwise no aneurysm or high-grade, flow-limiting stenosis of the intracranial or extracranial vessels. Preliminary Report Dictated by Resident: Bashir Cardona CT ANGIOGRAM NECK Preliminary Result CT ANGIOGRAM HEAD, CT ANGIOGRAM NECK HISTORY: 48 years-old; Male; Neuro deficit, acute, stroke suspected TECHNIQUE: CTA of the head and neck with coronal, sagittal reformats, and MIPS reconstruction was performed. COMPARISON: None available FINDINGS: CTA NECK: Aortic arch and arch vessel origins: Standard three- vessel aortic arch. The ostia of the great neck vessels are free of significant stenosis. Innominate and subclavian arteries: Innominate and subclavian arteries are patent with normal course. Common and internal cervical carotids: The common carotid arteries, carotid bulbs and cervical internal carotid arteries are patent. Vertebral arteries: Vertebral arteries originate normally from the subclavian arteries and are patent along their course. Right dominant vertebral artery with the hypoplastic left vertebral artery terminating as PICA. Cervical soft tissues: Unremarkable. Lung apices: Unremarkable. Cervical spine: No acute bony abnormality.. CTA HEAD: Right PICA origin is visualized. The left hypoplastic vertebral artery terminates as PICA. The basilar artery is normal in caliber. The superior cerebellar arteries are unremarkable. The posterior cerebral arteries are unremarkable. origin of the right [place] with a very faint right P1 segment. A left P-comm is visualized. The distal cervical, petrous, cavernous and supraclinoid internal carotid arteries are unremarkable. There is moderate diffuse narrowing of the superior branch of the left M2 segments of the middle cerebral artery (8:258 and 6:69-67). The left anterior cerebral artery is unremarkable. The right anterior and middle cerebral arteries are unremarkable. A faint anterior communicating artery is visualized. The dural venous sinuses are grossly patent. IMPRESSION Moderate narrowing of the superior branch of the left M2 segment of middle cerebral artery. Otherwise no aneurysm or high-grade, flow-limiting stenosis of the intracranial or extracranial vessels. Preliminary Report Dictated by Resident: Bashir Cardona CT HEAD WO CONTRAST Preliminary Result EXAM: CT HEAD WO CONTRAST HISTORY: 48 years-old Male; Provided indication: Neuro deficit, acute, stroke suspected . TECHNIQUE: Axial CT of the head was performed and reconstructed at 2.5 mm intervals. Coronal and sagittal reformatted images were generated. COMPARISON: None FINDINGS: The ventricles and cerebral sulci are normal in caliber and configuration. No midline shift or pathological extra-axial fluid collection is present. The basal cisterns are unremarkable. No acute intracranial hemorrhage or significant mass effect is visualized. Small area of hypoattenuation within the deep white matter of the left parietal lobe (series 13, image 53 and series 6 image 13. This correlates to the area of watershed between the left MCA and SLOPE RUNNER. Otherwise no parenchymal attenuation abnormality is seen. The tomlinson-white matter differentiation is preserved. There is complete opacification of right mastoid air cells. The left mastoid air cells are clear. The calvarium and central skull base are unremarkable. IMPRESSION Suspected area of infarct at the deep white matter of the left parietal lobe at the area of left MCA SLOPE RUNNER watershed. MRI can be performed to for further evaluation and possible further extension of the suspected infarct. Right mastoid effusion. The findings of this study, including concern for left parietal white matter infarct at the MCA SLOPE RUNNER watershed, have been discussed by Dr. Bashir Cardona with and acknowledged by Dr. Carrillo, over the phone on 02/22/2024 at 2:40 AM with readback. Preliminary Report Dictated by Resident: Bashir Cardona XR KNEE 3 VW RIGHT Preliminary Result EXAM: XR KNEE 3 VW RIGHT HISTORY: 48 years-old Male with pain COMPARISON: None. FINDINGS: Radiographs of the right knee demonstrate no acute fractures or dislocations. Unfused versus fragmented tibial tuberosity is visualized. There is a prominent intercondylar notch and mild loss of medial joint space. Alignment is within normal limits. The soft tissues are unremarkable. IMPRESSION No acute fracture or dislocation. 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 Preliminary Report Dictated by Resident: Bashir Cardona Lab Results: Lab Results CBC WITH DIFF - Abnormal Result Value Ref Range WBC 9.08 4.20 - 10.70 10*3/?L RBC 4.94 4.26 - 5.52 10*6/?L HGB 14.6 12.2 - 16.4 g/dL HCT 44.8 38.4 - 49.3 % MCV 90.7 81.7 - 95.6 fL MCH 29.6 26.1 - 32.7 pg MCHC 32.6 31.2 - 35.0 g/dL RDW-SD 47.6 38.5 - 51.6 fL RDW-CV 14.4 12.1 - 15.4 % PLT 294 150 - 328 10*3/?L MPV 9.1 (*) 9.8 - 13.0 fL NRBC/100 WBC 0.0 0.0 - 10.0 /100 WBCs NRBC x10 3 <0.01 10*3/?L GRAN MAT (NEUT) % 56.5 % IMM GRAN % 0.30 % LYMPH % 30.2 % MONO % 8.4 % EOS % 4.2 % BASO % 0.4 % GRAN MAT x10 3 (ANC) 5.13 1.99 - 6.95 10*3/uL IMM GRAN x10 3 0.03 0.00 - 0.06 10*3/uL LYMPH x10 3 2.74 1.09 - 3.23 10*3/uL MONO x10 3 0.76 0.36 - 1.02 10*3/uL EOS x10 3 0.38 0.06 - 0.53 10*3/uL BASO x10 3 0.04 0.01 - 0.09 10*3/uL COMP. METABOLIC PANEL (12626) - Abnormal NA 137 135 - 145 mmol/L K 3.6 3.5 - 5.0 mmol/L CL 100 98 - 108 mmol/L CO2 TOTAL 33 (*) 23 - 31 mmol/L AGAP 4 2 - 16 BUN 23 7 - 23 mg/dL GLUCOSE 132 (*) 70 - 110 mg/dL CREATININE 1.04 0.60 - 1.25 mg/dL TOTAL BILI 0.5 0.1 - 1.1 mg/dL CALCIUM 9.4 8.6 - 10.6 mg/dL T PROTEIN 7.5 6.3 - 8.2 g/dL ALBUMIN 3.9 3.5 - 5.0 g/dL ALK PHOS 75 34 - 122 U/L ALTv 38 5 - 50 U/L AST(SGOT) 34 13 - 40 U/L eGFR 88.6 mL/min/1.73m2 TROPONIN I - Normal TROPONIN I 0.005 <=0.034 ng/mL EKG: If EKG completed, see Procedure Note. Orders and Treatments: Orders Placed This Encounter Procedures XR KNEE [address] HEAD WO CONTRAST CT ANGIOGRAM HEAD CT ANGIOGRAM NECK XR CHEST 1 VW CBC WITH DIFF COMP. METABOLIC PANEL (76205) TROPONIN I BI-PAP Orders Placed This Encounter Medications ipratropium-albuteroL (DUONEB) 0.5 mg-3 mg(2.5 mg base)/3 mL nebulizer solution 3 mL iopamidol (ISOVUE 370-500 mL) injection 80 mL aspirin tablet 325 mg clopidogreL (PLAVIX) 75 mg tablet 75 mg atorvastatin (LIPITOR) tablet 80 mg First Provider Eval: ED Events Date/Time Event User Comments 02/21/24 2352 Medical Screening Begins SELAM CARRILLO DO -- 02/21/242351 First Provider Evaluation SELAM CARRILLO DO -- ED COURSE Diagnosis/Impression as of 02/22/24 0432 Weakness of right leg Sleep apnea in adult Acute CVA (cerebrovascular accident) Procedures: EKG-12 Lead ROUTINE ONCE Date/Time: 02/22/2024 3:17 AM Performed by: Selam Carrillo DO Authorized by: Selam Carrillo DO ECG interpreted by ED Physician in the absence of a gun stock maker: yes Interpretation: Interpretation: non-specific Rate: ECG rate: 58 ECG rate assessment: bradycardic Rhythm: Rhythm: sinus bradycardia Ectopy: Ectopy: none QRS: QRS axis: Normal QRS intervals: Normal QRS conduction: normal ST segments: ST segments: Normal T waves: T waves: normal Q waves: Abnormal Q-waves: not present MDM: Medical Decision Making Patient was evaluated for the complaint of Weakness Diagnoses considered but not limited to: CVA Hypernatremia Hypoglycemia Hyponatremia Pneumonia Transient Ischemic Attack Intracerebral Hemorrhage Subarachnoid Hemorrhage Subdural Hematoma. Labs:were ordered, and resulted, any relevant abnormalities were considered. Imaging:Ordered, and resulted, any relevant abnormalities were considered. Procedures:were not performed. History, physical exam findings, results of visit, diagnosis, medication regimens and plan of future care have been considered. Additional MDM may be found in the ED course. Vital signs were rechecked before final disposition and determined to be stable. Amount and/or Complexity of Data Reviewed Labs: ordered. Decision-making details documented in ED Course. Radiology: ordered. Decision-making details documented in ED Course. Risk OTC drugs. Prescription drug management. Decision regarding hospitalization. Flowsheet Documentation: Stroke Activation - Date: 02/22/24 LOC: 0 Alert: Keenly Responsive LOC QUESTIONS: 0 Answers Both Questions Correctly LOC COMMANDS: 0 Performs Both Tasks Correctly BEST GAZE: 0 Normal VISUAL: 0 No Visual Loss FACIAL PALSY: 0 Normal MOTOR ARM-LEFT: 0 No Drift MOTOR ARM-RIGHT: 0 No Drift MOTOR LEG-LEFT: 0 No Drift MOTOR LEG-RIGHT: 0 No Drift LIMB ATAXIA: 0 Absent SENSORY: 0 Normal BEST LANGUAGE: 0 No Aphasia DYSARTHRIA: 0 Normal EXTINCTION AND INATTENTION (FORMERLY NEGLECT): 0 No Abnormalty STROKE SCALE TOTAL SCORE: 0 NIH STROKE SCALE LOC: 0 Alert: Keenly Responsive LOC QUESTIONS: 0 Answers Both Questions Correctly LOC COMMANDS: 0 Performs Both Tasks Correctly BEST GAZE: 0 Normal VISUAL: 0 No Visual Loss FACIAL PALSY: 0 Normal MOTOR ARM-LEFT: 0 No Drift MOTOR ARM-RIGHT: 0 No Drift MOTOR LEG-LEFT: 0 No Drift MOTOR LEG-RIGHT: 0 No Drift LIMB ATAXIA: 0 Absent SENSORY: 0 Normal BEST LANGUAGE: 0 No Aphasia DYSARTHRIA: 0 Normal EXTINCTION AND INATTENTION (FORMERLY NEGLECT): 0 No Abnormalty STROKE SCALE INTERVAL: Admission STROKE SCALE TOTAL SCORE: 0 STROKE SCALE INTERVAL: Admission STROKE SCALE TOTAL SCORE: 0 Did the patient score a "0" on the NIH stroke scale within 180 minutes of their time last known well?: Yes Was IV thrombolytic therapy given?: No Reason no IV thrombolytic therapy initiated: NIH equals 0;Arrival > 4.5 hours from symptom onset Did patient and/or family agree to IV Thrombolytic?: No ICH/SAH: No Was Endovascular Intervention Performed?: No Reason patient is not a candidate for endovascular intervention: Imaging: no large vessel occlusion Scoring Tools: No data recorded Disposition/Condition: ED Disposition ED Disposition Transfer [facility] to IP/Obs Condition -- Comment -- Discharge Medications: Patient's Medications START taking these medications No medications on file CONTINUE taking these medications which have NOT CHANGED HYDROCODONE-ACETAMINOPHEN 5-500 MG ORAL CAP None Entered IBUPROFEN 800 MG ORAL TAB None Entered START taking Modified Medications as Prescribed No medications on file STOP taking these medications No medications on file Follow-up: Electronically signed by: Selam Carrillo DO 02/22/24 0432 EM-EMERGENCY MEDICINE STAFF [facility] 2024-02-15 14:43:47 Chief Complaint Patient presents with Consultation CHAVA Sweta Huitron MA II [facility] 2024-01-27 04:45:00 Pt dc'd back [facility]. Pt v/u of dc instructions and copy sent back with patient. Pt to follow up with cardiology and sleep study T [facility] 2024-01-27 03:03:15 Pt has undiagnosed sleep apnea, states multiple people have told him he has it. Pt has breathing patterns that appears to be sleep apnea. Pt on 2L NC. T [facility] 2024-01-27 02:39:26 Pt arrived via [facility] from [facility] for CP that started at 1:45 am while taking a bath. Pt given Nitro by facility and EMS gave 324 ASA, 500 NS, 4 Zofran CHIEF CARDIOPULMONARY TECHNOLOGIST. Pt also took trazodone and Seroquel and is very drowsy but awakes to verbal stimuli. Brandie Baca RN [facility] - Health 2024-01-27 02:36:00 Associated Order(s): EKG-12 Lead ROUTINE ONCE Pre-Procedure Diagnose(s): Acute chest pain Post-Procedure Diagnose(s): Acute chest pain [facility] Emergency Department Note Patient Name: Janiya Verde Date of : 1975 48 year old male Treatment Room: Room/bed info not found Primary Care Physician: PATIENT DOES NOT HAVE A PCP Patient Escorted by: Self [9] Mode of Arrival: EMS - [facility] ([facility]) [43] EMS Treatment Prior to ED Arrival: CHIEF CARDIOPULMONARY TECHNOLOGIST treatment: Saline lock;Oxygen CHIEF CARDIOPULMONARY TECHNOLOGIST treatment comments: Nitro @ Rehab home, Zofran 4mg, ASA 324mg, 500mL NS bolus by [facility] Travel and Exposure Screening: Symptoms Does patient have any of these symptoms?: (not recorded) Exposure Screening Has patient had contact with someone with a communicable disease in the last month?: (not recorded) Diseases exposed to:: (not recorded) Is Patient ?: (not recorded) Exposure Date: (not recorded) Chief Complaint: Chief Complaint Patient presents with Chest Pain History of Present Illness: History provided by: Patient and EMS personnel Chest Pain Pain location: L lateral chest Pain quality: dull Pain radiates to: Does not radiate Pain severity: Moderate Onset quality: Sudden Duration: 1 hour Timing: Constant Progression: Resolved Chronicity: New Relieved by: Nothing Worsened by: Nothing Associated symptoms: no abdominal pain, no anorexia, no diaphoresis, no fever, no nausea, no shortness of breath, no vomiting and no weakness Past Medical History/Immunizations: No past medical history on file. Tetanus received in last 5 years: Unknown Allergies: No Known Allergies Past Social History: Substance & Sexual Activity No substance use or sexual activity history on file. Past Surgical History: No past surgical history on file. Review of Systems: Review of Systems Constitutional: Negative for activity change, appetite change, diaphoresis and fever. Respiratory: Negative for shortness of breath. Cardiovascular: Positive for chest pain. Gastrointestinal: Negative for abdominal pain, anorexia, nausea and vomiting. Neurological: Negative for weakness. Physical Exam: ED Triage Vitals [01/27/24 0243] Weight 127 kg (280 lb) Actual or estimated Estimated by patient/family report Height 1.753 m (5' 9") BP 122/72 Pulse 91 Resp 25 Temp 36.8 ?C (98.2 ?F) Temp source Oral SpO2 92 % Measured on Room air Physical Exam Vitals and nursing note reviewed. Constitutional: General: He is sleeping. He is not in acute distress. Appearance: Normal appearance. He is obese. He is not ill-appearing, toxic-appearing or diaphoretic. HENT: Head: Normocephalic and atraumatic. Right Ear: Tympanic membrane, ear canal and external ear normal. Left Ear: Tympanic membrane, ear canal and external ear normal. Nose: Nose normal. No congestion or rhinorrhea. Mouth/Throat: Mouth: Mucous membranes are dry. Pharynx: Oropharynx is clear. Eyes: General: No scleral icterus. Right eye: No discharge. Left eye: No discharge. Extraocular Movements: Extraocular movements intact. Conjunctiva/sclera: Conjunctivae normal. Pupils: Pupils are equal, round, and reactive to light. Cardiovascular: Rate and Rhythm: Normal rate and regular rhythm. Pulses: Normal pulses. Heart sounds: Normal heart sounds. No murmur heard. No friction rub. No gallop. Pulmonary: Effort: Pulmonary effort is normal. No respiratory distress. Breath sounds: Normal breath sounds. No stridor. No wheezing or rales. Chest: Chest wall: No tenderness. Abdominal: General: Bowel sounds are normal. There is no distension. Palpations: Abdomen is soft. There is no mass. Tenderness: There is no abdominal tenderness. There is no right CVA tenderness, left CVA tenderness or rebound. Musculoskeletal: General: No swelling, tenderness, deformity or signs of injury. Normal range of motion. Cervical back: Neck supple. No rigidity. Right lower leg: No edema. Left lower leg: No edema. Lymphadenopathy: Cervical: No cervical adenopathy. Skin: General: Skin is warm and dry. Capillary Refill: Capillary refill takes less than 2 seconds. Coloration: Skin is not pale. Findings: No erythema or rash. Neurological: General: No focal deficit present. Mental Status: He is oriented to person, place, and time and easily aroused. Mental status is at baseline. Cranial Nerves: No cranial nerve deficit. Motor: No weakness. Coordination: Coordination normal. Radiology: XR CHEST 1 VW Final Result Ordering physician: SELAM CARRILLO Indication: Chest pain Comparison: None Technical quality: Adequate Findings: Single AP view of the chest. The cardiopericardial silhouette is mildly enlarged. There is mild prominence of the central interstitium. The visualized bony thorax is intact. IMPRESSION Impression: Mild cardiomegaly with mild pulmonary edema versus viral respiratory illness. END REPORT RL: [id number] AFC: [id number] Lab Results: Lab Results CBC WITH DIFF - Abnormal Result Value Ref Range WBC 8.83 4.20 - 10.70 10*3/?L RBC 4.97 4.26 - 5.52 10*6/?L HGB 14.7 12.2 - 16.4 g/dL HCT 45.4 38.4 - 49.3 % MCV 91.3 81.7 - 95.6 fL MCH 29.6 26.1 - 32.7 pg MCHC 32.4 31.2 - 35.0 g/dL RDW-SD 46.6 38.5 - 51.6 fL RDW-CV 13.8 12.1 - 15.4 % PLT 274 150 - 328 10*3/?L MPV 9.6 (*) 9.8 - 13.0 fL NRBC/100 WBC 0.0 0.0 - 10.0 /100 WBCs NRBC x10 3 <0.01 10*3/?L GRAN MAT (NEUT) % 63.7 % IMM GRAN % 0.30 % LYMPH % 21.7 % MONO % 10.1 % EOS % 3.9 % BASO % 0.3 % GRAN MAT x10 3 (ANC) 5.62 1.99 - 6.95 10*3/uL IMM GRAN x10 3 0.03 0.00 - 0.06 10*3/uL LYMPH x10 3 1.92 1.09 - 3.23 10*3/uL MONO x10 3 0.89 0.36 - 1.02 10*3/uL EOS x10 3 0.34 0.06 - 0.53 10*3/uL BASO x10 3 0.03 0.01 - 0.09 10*3/uL COMP. METABOLIC PANEL (52773) - Abnormal NA 137 135 - 145 mmol/L K 3.6 3.5 - 5.0 mmol/L CL 100 98 - 108 mmol/L CO2 TOTAL 32 (*) 23 - 31 mmol/L AGAP 5 2 - 16 BUN 17 7 - 23 mg/dL GLUCOSE 163 (*) 70 - 110 mg/dL CREATININE 0.94 0.60 - 1.25 mg/dL TOTAL BILI 0.3 0.1 - 1.1 mg/dL CALCIUM 8.9 8.6 - 10.6 mg/dL T PROTEIN 6.8 6.3 - 8.2 g/dL ALBUMIN 3.8 3.5 - 5.0 g/dL ALK PHOS 84 34 - 122 U/L ALTv 36 5 - 50 U/L AST(SGOT) 46 (*) 13 - 40 U/L eGFR 100.0 mL/min/1.73m2 TROPONIN I - Normal TROPONIN I 0.005 <=0.034 ng/mL N-TERMINAL PRO-BNP - Normal NT-proBNP 20 <=125 pg/mL EKG: If EKG completed, see Procedure Note. Orders and Treatments: Orders Placed This Encounter Procedures XR CHEST 1 VW CBC WITH DIFF TROPONIN I COMP. METABOLIC PANEL (88622) N-TERMINAL PRO-BNP Consult/Referral Cardiology CONSULT/REFERRAL SLEEP CLINIC ADULT PULM No orders of the defined types were placed in this encounter. First Provider Eval: ED Events Date/Time Event User Comments 01/27/24 0240 Medical Screening Begins SELAM CARRILLO DO -- 01/27/24 024 First Provider Evaluation SELAM CARRILLO DO -- ED COURSE Diagnosis/Impression as of 01/27/24 0425 Acute chest pain Sleep apnea, unspecified type Procedures: EKG-12 Lead ROUTINE ONCE Date/Time: 01/27/2024 4:23 AM Performed by: Selam Carrillo DO Authorized by: Selam Carrillo DO ECG interpreted by ED Physician in the absence of a gun stock maker: yes Interpretation: Interpretation: normal Rate: ECG rate: 86 ECG rate assessment: normal Rhythm: Rhythm: sinus rhythm Ectopy: Ectopy: none QRS: QRS axis: Normal QRS intervals: Normal QRS conduction: normal ST segments: ST segments: Normal T waves: T waves: normal Q waves: Abnormal Q-waves: not present MDM: Medical Decision Making Patient was evaluated for the complaint of Chest Pain Diagnoses considered but not limited to: Chest Pain (acute) Congestive Heart Failure Dyspnea (acute) Myocardial Infarction (acute) Pleuritis Pneumomediastinum Pneumonia Pneumothorax Pulmonary Edema. Labs:were ordered, and resulted, any relevant abnormalities were considered. Imaging:Ordered, and resulted, any relevant abnormalities were considered. Procedures:were not performed. History, physical exam findings, results of visit, diagnosis, medication regimens and plan of future care have been considered. Additional MDM may be found in the ED course. Vital signs were rechecked before final disposition and determined to be stable. Amount and/or Complexity of Data Reviewed Labs: ordered. Decision-making details documented in ED Course. Radiology: ordered. Decision-making details documented in ED Course. Flowsheet Documentation: Scoring Tools: No data recorded Disposition/Condition: ED Disposition ED Disposition Disch - Home Condition Stable Comment -- Discharge Medications: Patient's Medications START taking these medications No medications on file CONTINUE taking these medications which have NOT CHANGED HYDROCODONE-ACETAMINOPHEN 5-500 MG ORAL CAP None Entered IBUPROFEN 800 MG ORAL TAB None Entered START taking Modified Medications as Prescribed No medications on file STOP taking these medications No medications on file Follow-up: Electronically signed by: Selam Carrillo DO 01/27/24 0425 T [facility]
[2024-08-03 09:11] LABS: Absolute Basophils 0.1 K/uL (0-0.5); Absolute Eosinophils 0.4 K/uL (0-0.5); Absolute Lymphocytes (CBC) 1.6 K/uL (0.7-4.9); Absolute Neutrophil 5.3 K/uL (1.8-8.0); Basophils % 0.7 % (0-1.3); Eosinophils % 4.5 % (0-4.4); Hematocrit 41.8 % (39.6-49.0); Lymphocytes % 19.6 % (15.3-44.8); MCH 30.1 pg (27.0-35.0); MCHC 33.5 g/dL (32.0-36.0); MCV 89.8 fL (80-100); MPV 7.6 fL (7.6-11.3); Monocytes % 11.7 % (3.3-12.3); Neutrophils % 63.5 % (41.7-73.7); Platelets 286 thou/uL (152-406); RBC Red Blood Cell Count 4.66 M/uL (4.33-5.43); Red Cell Distribution Width 13.9 % (12.1-15.2)
[2024-08-03 09:26] LABS: Uric Acid 6.5 mg/dL (3.5-7.2)
--- NOTE | 2024-08-03 09:40 | RAD REPORT ---
EXAM:Ankle Right 2 View CLINICAL HISTORY: Ankle pain FINDINGS: 2 screws have been placed into the medial malleolus. No acute fracture or dislocation seen. Soft tissue swelling is present. Prominent calcaneal spurs
--- NOTE | 2024-08-03 09:46 | ER ---
Nurse's Notes [facility] Name: Konrad Verde Age: 49 yrs Sex: Male : 1975 Arrival Date: 08/03/2024 Time: 08:20 Bed 14 Private MD: Diagnosis: Right ankle pain, right ankle swelling Presentation: 08/03 08:26 Chief complaint: EMS states: patient complains of right lower extremity pain and ap3 swelling for approx 2 weeks. patient currently rates pain a 3/10 on the pain scale and reports the pain only occurs on standing or ambulation. patient was evaluated by PCP yesterday. Coronavirus screen: At this time, the client does not indicate any symptoms associated with coronavirus-19. Ebola Screen: No symptoms or risks identified at this time. Initial Sepsis Screen: Does the patient meet any 2 criteria? No. Patient's initial sepsis screen is negative. Does the patient have a suspected source of infection? No. Patient's initial sepsis screen is negative. Risk Assessment: Do you want to hurt yourself or someone else? Patient reports no desire to harm self or others. Onset of symptoms was July 20, 2024. 08:26 Method Of Arrival: [facility] ap3 08:26 Acuity: HEIDY 3 ap3 Triage Assessment: 08:29 General: Appears in no apparent distress. Behavior is calm, cooperative, appropriate ap3 for age. Pain: Complains of pain in right leg Pain currently is 3 out of 10 on a pain scale. at worst was 8 out of 10 on a pain scale. Neuro: Level of Consciousness is obeys commands, lethargic, Oriented to person, place, time, situation, Appropriate for age. Cardiovascular: Patient's skin is warm and dry. Respiratory: Airway is patent Respiratory effort is even, unlabored, Respiratory pattern is regular, symmetrical. Historical: - Allergies: 08:29 No Known Allergies; ap3 - PMHx: 08:29 Anxiety; depressive disorder; ap3 - Immunization history:: Client reports having NOT received the Covid vaccine. - Infectious Disease History:: Denies. - Social history:: Smoking status: Reported history of juuling and/or vaping. Screenin:33 Abuse screen: Denies threats or abuse. Nutritional screening: No deficits noted. ap3 Tuberculosis screening: No symptoms or risk factors identified. 08:34 [facility] Fall Risk Assessment (Adult) History of falling in the last 3 months, ap3 including since admission Yes- single mechanical fall (1 pt) Confusion or Disorientation No (0 pts) Intoxicated or Sedated No (0 pts) Impaired Gait No (0 pts) Mobility Assist Device Used Yes (1 pt) Altered Elimination No (0 pt) Score/Fall Risk Level 0 - 2 = Low Risk Oriented to surroundings, Maintained a safe environment, Educated pt \T\ family on fall prevention, incl call for assistance when getting out of bed, Assessed \T\ reinforced patient's understanding of fall precautions, Hourly rounding (assess needs \T\ fall precautionary measures) done, Used ambulatory aids as needed (educated on \T\ assisted with). Vital Signs: 08:26 BP 135 / 69; Pulse 79; Resp 18; Temp 98.2(O); Pulse Ox 94% on R/A; Weight 147.42 kg; ap3 Height 5 ft. 9 in. ; Pain 3/10; 09:12 BP 113 / 48; Pulse 56; Resp 12; Pulse Ox 96% 3 lpm ; ap3 08:26 Body Mass Index 47.99 (147.42 kg, 175.26 cm) ap3 08:26 Pain Scale: Adult ap3 09:12 sleep apnea. pt reports wearing cpap machine at home ap3 ED Course: 08:26 Patient arrived in ED. ap3 08:29 Abigail Pike MD is Attending Physician. sp3 08:29 Triage completed. ap3 08:35 Patient has correct armband on for positive identification. Call light in reach. Side ap3 rails up X2. Provided Education on: call light education. 08:35 Arm band placed on right wrist. ap3 08:37 Alysha Perry, JORDAN is Primary Nurse. ap3 09:06 Initial lab(s) drawn, by me, sent to lab. Inserted saline lock: 22 gauge in right upper ap3 arm, using aseptic technique. Blood collected. Flushed with 10 mL NS. 09:12 Client placed on continuous cardiac and pulse oximetry monitoring. NIBP monitoring ap3 applied. accounting methods analyst on. Pulse ox on. NIBP on. 09:15 Ankle Right 2 View XRAY In Process Unspecified. EDMS 09:45 Adryan Robertson MD is Referral Physician. sp3 10:28 No provider procedures requiring assistance completed. IV discontinued, intact, ap3 bleeding controlled, No redness/swelling at site. Pressure dressing applied. Administered Medications: No medications were administered Medication: 10: VIS not applicable for this client. ap3 Outcome: 09:45 Discharge ordered by . sp3 10:28 Discharged to [facility] ap3 10: Condition: good 10:28 Discharge instructions given to patient, Instructed on discharge instructions, follow up and referral plans. Demonstrated understanding of instructions, follow-up care, medications, Prescriptions given X 1, 10:29 Patient left the ED. ap3 Signatures: Dispatcher [employer] Alysha Don RN RN ap3 Abigail Pike MD MD sp3
--- NOTE | 2024-08-03 09:47 | EDPHYS ---
Physician Documentation [facility] Name: Konrad Verde Age: 49 yrs Sex: Male : 1975 Arrival Date: 08/03/2024 Time: 08:20 Bed 14 Private MD: ED Physician Abigail Pike HPI: 08/03 08:38 This 49 yrs old Male presents to ER via EMS with complaints of right ankle swelling and sp3 pain. 08:38 49-year-old male with history of anxiety and depression presents with right ankle pain sp3 and swelling. No prior history of gout or other joint abnormalities noted. No history of CHF. Patient was seen at [facility] at his PCP ordered an ultrasound assessing for DVT which was negative. He states he wanted to assess for labs and other things which she has not had a chance to get yet. This morning he states that it is painful to walk on the leg and presents to the ED. He denies any other joint pain, shortness of breath, chest pain, trauma, injury, or any other signs or symptoms on ROS at this time. Also denies fever.. Historical: - Allergies: 08:29 No Known Allergies; ap3 - PMHx: 08:29 Anxiety; depressive disorder; ap3 - Immunization history:: Client reports having NOT received the Covid vaccine. - Infectious Disease History:: Denies. - Social history:: Smoking status: Reported history of juuling and/or vaping. ROS: 08:41 Constitutional: Negative for fever, chills, and weight loss, Eyes: Negative for injury, sp3 pain, redness, and discharge, ENT: Negative for injury, pain, and discharge, Neck: Negative for injury, pain, and swelling, Cardiovascular: Negative for chest pain, palpitations, and edema, Respiratory: Negative for shortness of breath, cough, wheezing, and pleuritic chest pain, Abdomen/GI: Negative for abdominal pain, nausea, vomiting, diarrhea, and constipation, Back: Negative for injury and pain, Skin: Negative for injury, rash, and discoloration, Neuro: Negative for headache, weakness, numbness, tingling, and seizure, Psych: Negative for depression, anxiety, suicide ideation, homicidal ideation, and hallucinations, Allergy/Immunology: Negative for hives, rash, and allergies, Endocrine: Negative for neck swelling, polydipsia, polyuria, polyphagia, and marked weight changes, 08:41 All other systems are negative, Exam: 08:41 Constitutional: This is a well developed, well nourished patient who is awake, alert, sp3 and in no acute distress. Head/Face: Normocephalic, atraumatic. Eyes: Pupils equal round and reactive to light, extra-ocular motions intact. Lids and lashes normal. Conjunctiva and sclera are non-icteric and not injected. Cornea within normal limits. Periorbital areas with no swelling, redness, or edema. ENT: Nares patent. No nasal discharge, no septal abnormalities noted. External auditory canals are clear. Oropharynx with no redness, swelling, or masses, exudates, or evidence of obstruction, uvula midline. Mucous membranes moist. Neck: Trachea midline, no thyromegaly or masses palpated, and no cervical lymphadenopathy. Supple, full range of motion without nuchal rigidity, or vertebral point tenderness. No Meningismus. Chest/axilla: Normal chest wall appearance and motion. Nontender with no deformity. No lesions are appreciated. Cardiovascular: Regular rate and rhythm with a normal S1 and S2. No gallops, murmurs, or rubs. Normal PMI, no JVD. No pulse deficits. Respiratory: Lungs have equal breath sounds bilaterally, clear to auscultation and percussion. No rales, rhonchi or wheezes noted. No increased work of breathing, no retractions or nasal flaring. Abdomen/GI: Soft, non-tender, with normal bowel sounds. No distension or tympany. No guarding or rebound. No evidence of tenderness throughout. Back: No spinal tenderness. No costovertebral tenderness. Full range of motion. Skin: Warm, dry with normal turgor. Normal color with no rashes, no lesions, and no evidence of cellulitis. Neuro: Awake and alert, GCS 15, oriented to person, place, time, and situation. Cranial nerves II-XII grossly intact. Motor strength 5/5 in all extremities. Sensory grossly intact. Cerebellar exam normal. Normal gait. Psych: Awake, alert, with orientation to person, place and time. Behavior, mood, and affect are within normal limits. 08:41 Musculoskeletal/extremity: Right ankle area swollen. No erythema or significant warmth noted. No pain to palpation but patient states it is painful when he walks. Vital signs are normal. Edema is nonpitting in nature. It runs from his foot up to mid calf.. Vital Signs: 08:26 BP 135 / 69; Pulse 79; Resp 18; Temp 98.2(O); Pulse Ox 94% on R/A; Weight 147.42 kg; ap3 Height 5 ft. 9 in. ; Pain 3/10; 09:12 BP 113 / 48; Pulse 56; Resp 12; Pulse Ox 96% 3 lpm ; ap3 08:26 Body Mass Index 47.99 (147.42 kg, 175.26 cm) ap3 08:26 Pain Scale: Adult ap3 09:12 sleep apnea. pt reports wearing cpap machine at home ap3 MDM: 08:29 Medical Screening Exam initiated sp3 08:42 Data reviewed: vital signs, nurses notes, lab test result(s), radiologic studies. ED sp3 course: 49-year-old male with right ankle pain and swelling. Differential diagnosis includes arthritis, joint effusion, gout, and to a lesser degree CHF or other process. DVT was ruled out yesterday. Will obtain x-ray of the ankle, general labs, uric acid and general supportive care. If workup negative we will follow-up with orthopedics for further evaluation and treatment.. 09:45 ED course: Full workup negative. Prior surgical screws noted. Soft tissue swelling sp3 only. Follow-up with orthopedics as needed.. 08/03 08:30 Order name: Basic Metabolic Panel; Complete Time: 09:32 sp3 08/03 08:30 Order name: CBC with Diff; Complete Time: :32 sp3 08/03 08:30 Order name: NT PRO-BNP; Complete Time: 09:32 sp3 08/03 08:30 Order name: Uric Acid; Complete Time: :32 sp3 08/03 08:30 Order name: Ankle Right 2 View XRAY; Complete Time: 09:45 sp3 08/03 08:30 Order name: Cardiac monitoring; Complete Time: 09:12 sp3 08/03 08:30 Order name: IV Saline Lock; Complete Time: 09:06 sp3 08/03 08:30 Order name: Labs collected and sent; Complete Time: 09:06 sp3 Administered Medications: No medications were administered Disposition Summary: 08/03/24 09:45 Discharge Ordered Notes: Location: Home sp3 Condition: Stable sp3 Diagnosis - Right ankle pain, right ankle swelling sp3 Followup: sp3 - With: Adryan Robertson MD - When: Upon discharge from the Emergency Department - Reason: Continuance of care Discharge Instructions: - Discharge Summary Sheet sp3 - Joint Pain sp3 Forms: - Medication Reconciliation Form sp3 - Antibiotic Education sp3 - Prescription Opioid Use sp3 - Patient Portal Instructions sp3 - Leadership Thank You Letter sp3 Prescriptions: - Tramadol 50 mg Oral Tablet - take 1 tablet ORAL route every 8 hours as needed; 12 tablet; Refills: 0, sp3 Product Selection Permitted Signatures: Dispatcher [employer] EDAlysha Nagel RN RN ap3 Abigail Pike MD MD sp3 Corrections: (The following items were deleted from the chart) 08:32 08:32 Ankle Right 2 View+[email or web address] ordered. EDMS EDMS
[2024-08-03 10:40] VITALS: TEMP 98.2
[2024-08-03 10:45] VITALS: BP 113/48; O2SAT 96
== END 2024-08-03 10:29 | disposition home or self-care (01) ==
LOC: ER 08:20
DX: M25.571 Pain in right ankle and joints of right foot (principal); R22.41 Localized swelling, mass and lump, right lower limb
CPT/HCPCS: 36415; 80048; 83880; 84550; 85025; 99284

== ENCOUNTER 2024-08-05 18:31 | Inpatient (IN) | payer SELFPAY ==
--- NOTE | 2024-08-05 19:06 | RAD REPORT ---
EXAMINATION: ONE VIEW CHEST XR CLINICAL INDICATION: COUGH TECHNIQUE: Frontal chest projection is submitted. Examination is limited by patient positioning and t echnique. COMPARISON: 05/12/2008 FINDINGS: [id number] bilateral pulmonary opacities most compatible with pulmonary edema or pneumonia/infe ction. The heart is mildly enlarged. No displaced fractures identified.
[2024-08-05] MEDS ORDERED: NA CHLORIDE 0.9% 250 ML ONE (19:39)
[2024-08-05] MEDS ORDERED: VANCOMYCIN 1 GM/VIAL ONE (19:39)
[2024-08-05] MEDS ORDERED: NA CHLORIDE 0.9% 100 ML ONE (19:39)
[2024-08-05] MEDS ORDERED: FUROSEMIDE 40 MG/4 ML VIAL ONE (19:39)
[2024-08-05] MEDS ORDERED: PIPERACIL/TAZO 3.375 GM VIAL IV ONE (19:39)
--- NOTE | 2024-08-05 19:46 | ER ---
Nurse's Notes [facility] [place], [place] Name: Konrad Verde Age: 49 yrs Sex: Male : 1975 Arrival Date: 08/05/2024 Time: 18:31 Bed 7 Private MD: Diagnosis: Edema, unspecified;Combined systolic (congestive) and diastolic (congestive) heart failure;Cellulitis of unspecified part of limb-right lower extremity;Morbid (severe) obesity with alveolar hypoventilation;Tobacco abuse counseling;Tobacco use;Chronic respiratory failure with hypercapnia Presentation: 08/05 18:32 Chief complaint: EMS states: Called to patient's home for right foot and lower leg pain cm10 and swelling. PT states that he was seen here Monday for the same thing but now the pain radiates up thigh. Pt noted to have swelling to right foot. Pt also reports back pain, but states that it is an ongoing pain. Coronavirus screen: Client denies travel out of the [place] in the last 14 days. Ebola Screen: Patient denies travel to an Ebola-affected area in the 21 days before illness onset. Initial Sepsis Screen: Does the patient meet any 2 criteria? No. Patient's initial sepsis screen is negative. Does the patient have a suspected source of infection? No. Patient's initial sepsis screen is negative. Risk Assessment: Do you want to hurt yourself or someone else? Patient reports no desire to harm self or others. Onset of symptoms was August 05, 2024. 18:32 Method Of Ar[facility]: [facility] cm10 18:32 Acuity: HEIDY 3 cm10 Triage Assessment: 18:35 General: Appears in no apparent distress. uncomfortable. General: Behavior is calm, cm10 cooperative. Pain: Complains of pain in right foot and right leg Pain currently is 7 out of 10 on a pain scale. Quality of pain is described as pressure. Neuro: No deficits noted. Level of Consciousness is awake, alert, obeys commands, Oriented to person, place, time, situation, Appropriate for age. Respiratory: No deficits noted. Airway is patent Respiratory effort is even, unlabored, Respiratory pattern is regular, symmetrical. Musculoskeletal: Swelling present in right foot and right leg Reports pain in right foot and right leg. Historical: - Allergies: 18:34 No Known Allergies; cm10 - PMHx: 18:34 Anxiety; depressive disorder; Hypertensive disorder; Multiple sclerosis; cm10 - Immunization history:: Adult Immunizations up to date. - Infectious Disease History:: Denies. - Social history:: Smoking status: Reported history of juuling and/or vaping. - Family history:: not pertinent. Screenin:54 [facility] ED Fall Risk Assessment (Adult) History of falling in the last 3 months, cm10 including since admission No falls in past 3 months (0 pts) Confusion or Disorientation No (0 pts) Intoxicated or Sedated No (0 pts) Impaired Gait No (0 pts) Mobility Assist Device Used No (0 pt) Altered Elimination No (0 pt) Score/Fall Risk Level 0 - 2 = Low Risk Oriented to surroundings, Maintained a safe environment, Hourly rounding (assess needs \T\ fall precautionary measures) done. Abuse screen: Denies threats or abuse. Denies injuries from another. Nutritional screening: No deficits noted. Tuberculosis screening: No symptoms or risk factors identified. Assessment: 18:37 General: SEE TRIAGE ASSESSMENT. cm10 20:38 Reassessment: Patient appears in no apparent distress at this time. Patient and/or cm10 family updated on plan of care and expected duration. Pain level reassessed. Patient is alert, oriented x 3, equal unlabored respirations, skin warm/dry/pink. 22:04 Reassessment: Patient appears in no apparent distress at this time. Patient and/or cm10 family updated on plan of care and expected duration. Pain level reassessed. Patient is alert, oriented x 3, equal unlabored respirations, skin warm/dry/pink. Vital Signs: 18:32 BP 112 / 76; Pulse 70; Resp 15; Temp 97.6(O); Pulse Ox 94% ; Weight 147.42 kg; Height 5 cm10 ft. 9 in. ; Pain 7/10; 19:00 BP 116 / 65; Pulse 65; Resp 20; Pulse Ox 94% ; cm10 19:30 BP 106 / 64; Pulse 65; Resp 18; Pulse Ox 96% ; cm10 20:00 BP 116 / 95; Pulse 68; Resp 15; Pulse Ox 99% ; cm10 20:30 BP 123 / 75; Pulse 65; Resp 15; Pulse Ox 96% on R/A; cm10 21:00 BP 117 / 68; Pulse 78; Resp 15; Pulse Ox 96% on R/A; cm10 21:30 BP 125 / 84; Pulse 65; Resp 17; Pulse Ox 96% ; cm10 22:00 BP 117 / 76; Pulse 69; Resp 18; Pulse Ox 96% ; cm10 18:32 Body Mass Index 47.99 (147.42 kg, 175.26 cm) cm10 18:32 Pain Scale: Adult 10 ED Course: 18:32 Patient arrived in ED. cm10 18:34 Triage completed. cm10 18:37 Sailaja Huitron, JORDAN is Primary Nurse. cm10 18:37 Jim Alvarez MD is Attending Physician. lisha 18:37 Arm band placed on right wrist. Patient placed in an exam room, on a stretcher. cm10 18:55 XRAY Chest (1 view) In Process Unspecified. EDMS 19:15 US Extremity Venous W Compression Giovanni In Process Unspecified. EDMS 19:25 Initial lab(s) drawn, by ok, sent to lab. First set of blood cultures drawn by ok. 10 Accessed peripheral vein via ultrasound, utilizing dynamic ultrasound technique Blood collected. Clean \T\ dry. Dressing intact. Good blood return. Flushes easily. 20g right upper arm. 19:33 Basic Metabolic Panel Sent. cm10 19:33 CBC with Diff Sent. cm10 19:33 LFT's Sent. cm10 19:33 Magnesium Sent. cm10 19:33 NT PRO-BNP Sent. cm10 19:33 PT-INR Sent. cm10 19:33 Troponin HS Sent. cm10 19:34 Patient has correct armband on for positive identification. Bed in low position. Call cm10 light in reach. Side rails up X2. Client placed on continuous cardiac and pulse oximetry monitoring. NIBP monitoring applied. chemical plant worker on. 19:34 Lactate w/ 2H reflex if indic. Sent. cm10 19:42 Maxime Evans MD is Hospitalizing Provider. lisha 19:45 Second set of blood cultures drawn by me. cm10 20:41 EKG done, by ED staff, reviewed by Hubert Hurd MD. mm11 22:05 Provided Education on: Need for admit. cm10 22:05 No provider procedures requiring assistance completed. Patient admitted, IV remains in cm10 place. Administered Medications: 19:12 CANCELLED (Duplicate Order): ns 0.9% (30 ml/kg) 30 ml/kg IV at bolus once; Sepsis lisha Protocol; to be given as a bolus over 90 minutes 19:50 Drug: Furosemide IVP 40 mg IVP once; give over 2 minutes Route: IVP; Site: right upper cm10 arm; 20:31 Follow up: Response: No adverse reaction cm10 19:55 Drug: Piperacillin-Tazobactam IVPB 3.375 grams IVPB once over 60 mins; (mix in NS 100 cm10 mL) Route: IVPB; Infused Over: 60 mins; Site: right upper arm; 20:32 Follow up: Response: No adverse reaction; IV Status: Completed infusion; IV Intake: cm10 100ml 20:35 Drug: vancoMYCIN IVPB 1 grams IVPB once over 2 hrs Route: IVPB; Infused Over: 2 hrs; cm10 Site: right upper arm; 22:05 Follow up: Response: No adverse reaction; IV Status: Completed infusion; IV Intake: cm10 250ml Medication: 22:06 VIS not applicable for this client. cm10 Intake: 20:32 IV: 100ml; Total: 100ml. cm10 22:05 IV: 250ml; Total: 350ml. cm10 Outcome: 19:45 Decision to Hospitalize by Provider. lisha 22:05 Admitted to Tele accompanied by tech, via wheelchair, cm10 22:05 Condition: stable 22:05 Instructed on the need for admit, 22:06 Patient left the ED. cm10 Signatures: Dispatcher [employer] Jim Henry MD MD cha Martinez, Clarissa RN RN cm10 swati ga mm11
--- NOTE | 2024-08-05 19:46 | EDPHYS ---
Physician Documentation [facility] Name: Konrad Verde Age: 49 yrs Sex: Male : 1975 Arrival Date: 08/05/2024 Time: 18:31 Bed 7 Private MD: ED Physician Jim Alvarez HPI: 08/05 18:59 This 49 yrs old Male presents to ER via EMS with complaints of Leg Pain. lisha 18:59 The patient presents with pain. The complaints affect the lateral aspect of right calf, lisha right ankle, medial aspect of right calf, right medellin and anterior aspect of right ankle. Context: resulted from an unknown cause. Onset: The symptoms/episode began/occurred 3 day(s) ago. Modifying factors: The symptoms are alleviated by elevating leg, remaining still, the symptoms are aggravated by movement, weight bearing, bending knee. Associated signs and symptoms: Pertinent positives: calf tenderness, fever, swelling, weakness. Treatment prior to arrival includes: no previous treatment. Severity of symptoms: At their worst the symptoms were moderate, in the emergency department the symptoms are unchanged. The patient has not experienced similar symptoms in the past. Historical: - Allergies: 18:34 No Known Allergies; cm10 - PMHx: 18:34 Anxiety; depressive disorder; Hypertensive disorder; Multiple sclerosis; cm10 - Immunization history:: Adult Immunizations up to date. - Infectious Disease History:: Denies. - Social history:: Smoking status: Reported history of juuling and/or vaping. - Family history:: not pertinent. ROS: 18:59 Constitutional: Negative for fever, chills, and weight loss, Eyes: Negative for injury, lisha pain, redness, and discharge, ENT: Negative for injury, pain, and discharge, Neck: Negative for injury, pain, and swelling, Cardiovascular: Negative for chest pain, palpitations, and edema, Respiratory: Negative for shortness of breath, cough, wheezing, and pleuritic chest pain, Abdomen/GI: Negative for abdominal pain, nausea, vomiting, diarrhea, and constipation, Back: Negative for injury and pain, : Negative for injury, bleeding, discharge, and swelling, Neuro: Negative for headache, weakness, numbness, tingling, and seizure, Psych: Negative for depression, anxiety, suicide ideation, homicidal ideation, and hallucinations, Allergy/Immunology: Negative for hives, rash, and allergies, Endocrine: Negative for neck swelling, polydipsia, polyuria, polyphagia, and marked weight changes, Hematologic/Lymphatic: Negative for swollen nodes, abnormal bleeding, and unusual bruising, 18:59 MS/extremity: Positive for decreased range of motion, erythema, pain, swelling, tenderness, of the right leg, Exam: 18:59 Constitutional: This is a well developed, well nourished patient who is awake, alert, lisha and in no acute distress. Head/Face: Normocephalic, atraumatic. Eyes: Pupils equal round and reactive to light, extra-ocular motions intact. Lids and lashes normal. Conjunctiva and sclera are non-icteric and not injected. Cornea within normal limits. Periorbital areas with no swelling, redness, or edema. ENT: Nares patent. No nasal discharge, no septal abnormalities noted. Tympanic membranes are normal and external auditory canals are clear. Oropharynx with no redness, swelling, or masses, exudates, or evidence of obstruction, uvula midline. Mucous membranes moist. Neck: Trachea midline, no thyromegaly or masses palpated, and no cervical lymphadenopathy. Supple, full range of motion without nuchal rigidity, or vertebral point tenderness. No Meningismus. Chest/axilla: Normal chest wall appearance and motion. Nontender with no deformity. No lesions are appreciated. Cardiovascular: Regular rate and rhythm with a normal S1 and S2. No gallops, murmurs, or rubs. Normal PMI, no JVD. No pulse deficits. Abdomen/GI: Soft, non-tender, with normal bowel sounds. No distension or tympany. No guarding or rebound. No evidence of tenderness throughout. Back: No spinal tenderness. No costovertebral tenderness. Full range of motion. Male : Normal genitalia with no discharge or lesions. Skin: Warm, dry with normal turgor. Normal color with no rashes, no lesions, and no evidence of cellulitis. Neuro: Awake and alert, GCS 15, oriented to person, place, time, and situation. Cranial nerves II-XII grossly intact. Motor strength 5/5 in all extremities. Sensory grossly intact. Cerebellar exam normal. Normal gait. Psych: Awake, alert, with orientation to person, place and time. Behavior, mood, and affect are within normal limits. 18:59 Respiratory: the patient does not display signs of respiratory distress, Respirations: normal, Breath sounds: bronchial sounds, that are moderate, are scattered, Respiratory rate: 15 18:59 Musculoskeletal/extremity: ROM: limited active range of motion due to pain, limited passive range of motion due to pain, in the right leg, Circulation is intact in all extremities. Sensation intact. Compartment Syndrome exam of affected extremity: is normal. DVT Exam: negative Homans' sign noted on exam, no appreciated bluish discoloration, pain, swelling, tenderness, erythema, increased warmth, Vital Signs: 18:32 BP 112 / 76; Pulse 70; Resp 15; Temp 97.6(O); Pulse Ox 94% ; Weight 147.42 kg; Height 5 cm10 ft. 9 in. ; Pain 7/10; 19:00 BP 116 / 65; Pulse 65; Resp 20; Pulse Ox 94% ; cm10 19:30 BP 106 / 64; Pulse 65; Resp 18; Pulse Ox 96% ; cm10 20:00 BP 116 / 95; Pulse 68; Resp 15; Pulse Ox 99% ; cm10 20:30 BP 123 / 75; Pulse 65; Resp 15; Pulse Ox 96% on R/A; cm10 21:00 BP 117 / 68; Pulse 78; Resp 15; Pulse Ox 96% on R/A; cm10 21:30 BP 125 / 84; Pulse 65; Resp 17; Pulse Ox 96% ; cm10 22:00 BP 117 / 76; Pulse 69; Resp 18; Pulse Ox 96% ; cm10 18:32 Body Mass Index 47.99 (147.42 kg, 175.26 cm) cm10 18:32 Pain Scale: Adult cm10 MDM: 18:37 Medical Screening Exam initiated lisha 19:08 Differential diagnosis: contusion, tendonitis. Data reviewed: vital signs, nurses [facility] notes, lab test result(s), EKG, radiologic studies, plain films. Consideration of Admission/Observation Patient was admitted/placed on observation. Escalation of care including admission/observation considered. I considered the following discharge prescriptions or medication management in the emergency department Medications were administered in the Emergency Department. See MAR. Independent interpretation of the following test(s) in the Emergency Department EKG: See my EKG interpretation above. Test considered but Not performed: CT: no ct c/a/p. Historians other than the Patient: EMS: ems well informed. Care significantly affected by the following chronic conditions: Hypertension, Obesity, MS, TOBACCO , DEPRESSION. Counseling: I had a detailed discussion with the patient and/or guardian regarding the historical points, exam findings, and any diagnostic results supporting the discharge/admit diagnosis, lab results, radiology results, the need for further work-up and treatment in the hospital. 08/05 18:39 Order name: Basic Metabolic Panel; Complete Time: 20:09 lisha 08/05 18:39 Order name: CBC with Diff; Complete Time: 20:09 08/05 18:39 Order name: LFT's; Complete Time: 20:09 08/05 18:39 Order name: Magnesium; Complete Time: 20:09 lisha 08/05 18:39 Order name: NT PRO-BNP; Complete Time: 20:09 lisha 08/05 18:39 Order name: PT-INR; Complete Time: 19:52 08/05 18:39 Order name: Troponin HS; Complete Time: 20:09 [facility] 08/05 18:39 Order name: Blood Culture Adult (2) lisha 08/05 18:39 Order name: Lactate w/ 2H reflex if indic.; Complete Time: 20:09 [facility] 08/05 18:39 Order name: Urinalysis w/ reflexes [facility] 08/05 19:13 Order name: ABG [facility] 08/05 20:28 Order name: Urinalysis w/ reflexes EDMS 08/05 20:28 Order name: CBC with Automated Diff EDMS 08/05 20:28 Order name: CBC with Automated Diff EDMS 08/05 20:28 Order name: Comprehensive Metabolic Panel EDMS 08/05 20:28 Order name: Comprehensive Metabolic Panel EDMS 08/05 20:28 Order name: Magnesium EDMS 08/05 20:28 Order name: Magnesium EDMS 08/05 20:28 Order name: Phosphorus EDMS 08/05 20:28 Order name: Phosphorus EDMS 08/05 18:39 Order name: XRAY Chest (1 view); Complete Time: 19:42 08/05 18:45 Order name: US Extremity Venous W Compression Giovanni; Complete Time: 20:09 08/05 19:13 Order name: BIPAP 08/05 18:39 Order name: EKG; Complete Time: 18:39 08/05 18:39 Order name: Cardiac monitoring; Complete Time: 19:55 08/05 18:39 Order name: EKG - Nurse/Tech; Complete Time: 19:55 [facility] 08/05 18:39 Order name: IV Saline Lock; Complete Time: 19:33 [facility] 08/05 18:39 Order name: Labs collected and sent; Complete Time: 19:33 [facility] 08/05 18:39 Order name: O2 Per Protocol; Complete Time: 19:33 [facility] 08/05 18:39 Order name: O2 Sat Monitoring; Complete Time: 19:33 [facility] 08/05 19:42 Order name: IV Saline Lock - Large Bore; Complete Time: 20:31 lisha Administered Medications: 19:12 CANCELLED (Duplicate Order): ns 0.9% (30 ml/kg) 30 ml/kg IV at bolus once; Sepsis [facility] Protocol; to be given as a bolus over 90 minutes 19:50 Drug: Furosemide IVP 40 mg IVP once; give over 2 minutes Route: IVP; Site: right upper cm10 arm; 20:31 Follow up: Response: No adverse reaction cm10 19:55 Drug: Piperacillin-Tazobactam IVPB 3.375 grams IVPB once over 60 mins; (mix in NS 100 cm10 mL) Route: IVPB; Infused Over: 60 mins; Site: right upper arm; 20:32 Follow up: Response: No adverse reaction; IV Status: Completed infusion; IV Intake: cm10 100ml 20:35 Drug: vancoMYCIN IVPB 1 grams IVPB once over 2 hrs Route: IVPB; Infused Over: 2 hrs; cm10 Site: right upper arm; 22:05 Follow up: Response: No adverse reaction; IV Status: Completed infusion; IV Intake: cm10 250ml Disposition Summary: 08/05/24 19:45 Hospitalization Ordered Notes: Hospitalization Status: Inpatient Admission lisha Provider: Maxime Evans cha Location: Telemetry/MedSurg (Inpatient) lisha Condition: Stable lisha Problem: new lisha Symptoms: have improved lisha Bed/Room Type: Standard [facility] Room Assignment: 413(08/05/24 20:32) vk Diagnosis - Edema, unspecified lisha - Combined systolic (congestive) and diastolic (congestive) heart failure lisha - Cellulitis of unspecified part of limb - right lower extremity lisha - Morbid (severe) obesity with alveolar hypoventilation lisha - Tobacco abuse counseling lisha - Tobacco use lisha - Chronic respiratory failure with hypercapnia lisha Forms: - Medication Reconciliation Form lisha - SBAR form lisha - Leadership Thank You Letter lisha Signatures: Dispatcher [employer] Jim Henry MD MD cha Martinez, Clarissa, RN RN cm10 Falguni Albert Corrections: (The following items were deleted from the chart) 19:12 18:39 NS 0.9% IV (30 ml/kg) 30 ml/kg IV at bolus once; Sepsis Protocol; to be given as lisha a bolus over 90 minutes ordered. lisha 20:32 19:45 lisha maynard 22:05 19:13 Kang ordered. lisha cm10
[2024-08-05 19:49] LABS: Absolute Basophils 0.1 K/uL (0-0.5); Absolute Eosinophils 0.4 K/uL (0-0.5); Absolute Monocytes 0.9 K/uL (0.1-1.3); Absolute Neutrophil 5.4 K/uL (1.8-8.0); Basophils % 0.9 % (0-1.3); Eosinophils % 5.1 % (0-4.4); Hematocrit 44.8 % (39.6-49.0); Hemoglobin 14.5 g/dL (13.6-17.9); Lymphocytes % 22.2 % (15.3-44.8); MCH 29.4 pg (27.0-35.0); MCHC 32.4 g/dL (32.0-36.0); MCV 90.7 fL (80-100); MPV 7.5 fL (7.6-11.3); Neutrophils % 61.8 % (41.7-73.7); Platelets 284 thou/uL (152-406); RBC Red Blood Cell Count 4.94 M/uL (4.33-5.43); Red Cell Distribution Width 13.9 % (12.1-15.2)
[2024-08-05 19:50] LABS: Protime INR 0.96
--- NOTE | 2024-08-05 19:58 | RAD REPORT ---
EXAMINATION: US BILATERAL LOWER EXTREMITY VENOUS DOPPLER CLINICAL INDICATION: Pain;Swelling TECHNIQUE: Complete bilateral duplex sonography of the BILATERAL lower extremity veins was performed. The examination included compression for vein patency, color Doppler imaging and flow augmentation in response to distal compression of the distal external iliac, common femoral, femoral, popliteal, t ibial, and great and small saphenous veins. COMPARISON: No prior exam. FINDINGS: Duplex sonography testing of the veins of the BILATERAL lower extremity was performed. Color flow lemuel ging shows all veins to be compressible with [id number] color filling. Pulsatile and phasic flow is present within all lower extremity deep and superficial veins examined. IMPRESSION: There is no deep vein or superficial vein thrombosis.
[2024-08-05 20:06] LABS: ALT/SGPT 35 U/L (16-61); AST/SGOT 25 U/L (15-37); Albumin 3.1 g/dL (3.4-5.0); Albumin/Globulin Ratio 0.7 (1.1-1.8); Alkaline Phosphatase 100 U/L (45-117); BUN Blood Urea Nitrogen 19 mg/dL (7-18); Bicarbonate 32 mEq/L (21-32); Bilirubin Total 0.2 mg/dL (0.2-1.0); Globulin 4.4 g/dL (2.3-3.5); Glomerular Filtration Rate 77 ml/min (=/>90); Glucose Level 86 mg/dL (74-106); Magnesium 2.3 mg/dL (1.6-2.4); NT PRO-BNP 187 pg/mL (<125); Protein, Total 7.5 g/dL (6.4-8.2); Sodium Level 135 mEq/L (136-145); Troponin High Sensitivity 5.1 pg/mL (<58.9)
[2024-08-05 20:07] LABS: Bilirubin Direct < 0.2 mg/dL (0-0.2)
[2024-08-05] MEDS ORDERED: ACETAMINOPHEN 325 MG TABLET PO PRN (20:23)
[2024-08-05] MEDS ORDERED: ONDANSETRON 4 MG/2 ML VIAL IV PRN (20:23)
--- NOTE | 2024-08-05 20:23 | P.HP ---
Certification for Inpatient Patient admitted to: Inpatient With expected LOS: >2 Midnights Practitioner: I am a practitioner with admitting privileges, knowledge of patient current condition, hospital course, and medical plan of care. Services: Services provided to patient in accordance with Admission requirements found in Title 42 Section 412.3 of the Code of Federal Regulations Patient History Date of Service: 08/05/24 Reason for admission: cellulitis lower extremity History of Present Illness: 49 yrs old Male with past medical history of hypertension, multiple sclerosis, anxiety, depression, CHAVA on CPAP who was brought to ER with pain in the leg on the right calf which has been going on for the last 2 to 3 weeks but worsened over the last 3 days. Denies any trauma. No fever or chills. No nausea vomiting or diarrhea. Started with insidious onset , associated pain and swelling and noted redness the last 2 to 3 days. Swelling worse with lower leg and ankle denies any previous history of rheumatoid arthritis or gout. Patient has difficulty in ambulating. The pain and swelling getting worse was brought to ER. Patient was assessed in the ER and was admitted for further management of right lower extremity cellulitis. Allergies No Known Allergies Allergy (Unverified 08/05/24 21:18) - Past Medical/Surgical History Past Medical History: Reviewed- Non-Contributory -: CHAVA -: Hypertension -: Anxiety, Past Surgical History: Reviewed- Non-Contributory - Family History Family History: Reviewed- Non-Contributory - Social History Smoking Status: Never smoker Review of Systems 10-point ROS is otherwise unremarkable Physical Examination - Vital Signs Temperature: 97.6 F Blood Pressure: 112/76 Pulse: 70 Respirations: 16 Pulse Ox (%): 94 - Physical Exam General: Alert, Oriented x3, Mild distress, Obese HEENT: Atraumatic, Normocephalic Neck: Supple Respiratory: Clear to auscultation bilaterally, Normal air movement Cardiovascular: Regular rate/rhythm, Normal S1 S2 Capillary refill: <2 Seconds Gastrointestinal: Soft and benign, W/out hepatosplenomegaly Musculoskeletal: No clubbing, Erythema, Tenderness, Warmth Integumentary: No rashes, Tenderness/swelling, Erythema, Warmth Neurological: Normal speech, Normal strength at 5/5 x4 extr, Cranial nerves 3-12 intact Lymphatics: No axilla or inguinal lymphadenopathy - Studies Laboratory Data (last 24 hrs) 08/05/24 08/05/24 08/05/24 19:25 19:25 19:25 WBC 8.80 Hgb 14.5 Hct 44.8 Plt Count 284 PT 11.0 INR 0.96 Sodium 135 L Potassium 4.0 BUN 19 H Creatinine 1.16 Glucose 86 Magnesium 2.3 Total Bilirubin 0.2 AST 25 ALT 35 Alkaline Phosphatase 100 Assessment and Plan - Plan Right lower extremity cellulitis Pain control Started on IV antibiotic Doppler negative for DVT Will obtain cultures Change antibiotic as per sensitivity Hypertension Continue home medications and titrate as needed Mild hyponatremia Monitor electrolytes and replace accordingly Anxiety Depression Continue home medications Obstructive sleep apnea Continue CPAP while sleeping GI/DVT prophylaxis Advanced directive full code Discharge Plan: Home Plan to discharge in: 48 Hours - Advance Directives Does patient have a Living Will: No Does patient have a Durable POA for Healthcare: No - Code Status/Comfort Care Code Status: Full Code Time Spent Managing Pts Care (In Minutes): 54
[2024-08-05 22:15] VITALS: O2SAT 96
[2024-08-05] MEDS ORDERED: MORPHINE 2 MG/ML SYR IV PRN (22:42)
[2024-08-05] MEDS: VANCOMYCIN 1 GM in NA CHLORIDE 0.9% 250 ML IVPB SCH (22:43)
[2024-08-05 22:56] VITALS: BMI 47.9
[2024-08-05] MEDS: VANCOMYCIN 2 GM in NA CHLORIDE 0.9% 500 ML IVPB SCH (23:00)
[2024-08-05] MEDS: VANCOMYCIN 1 GM in NA CHLORIDE 0.9% 250 ML IVPB ONE (23:31)
[2024-08-06 06:35] LABS: Absolute Eosinophils 0.5 K/uL (0-0.5); Absolute Lymphocytes (CBC) 1.8 K/uL (0.7-4.9); Absolute Monocytes 1.2 K/uL (0.1-1.3); Absolute Neutrophil 5.8 K/uL (1.8-8.0); Basophils % 0.5 % (0-1.3); Hematocrit 44.2 % (39.6-49.0); Hemoglobin 14.5 g/dL (13.6-17.9); Lymphocytes % 19.5 % (15.3-44.8); MCH 29.9 pg (27.0-35.0); MCHC 32.9 g/dL (32.0-36.0); MCV 90.9 fL (80-100); MPV 7.9 fL (7.6-11.3); Platelets 290 thou/uL (152-406); RBC Red Blood Cell Count 4.86 M/uL (4.33-5.43); Red Cell Distribution Width 13.8 % (12.1-15.2)
[2024-08-06 06:56] LABS: Albumin 3.2 g/dL (3.4-5.0); Albumin/Globulin Ratio 0.8 (1.1-1.8); Anion Gap 8.8 mEq/L (5.0-15.0); Bilirubin Total 0.3 mg/dL (0.2-1.0); Magnesium 2.1 mg/dL (1.6-2.4); Phosphorus 4.1 mg/dL (2.5-4.9); Potassium 3.8 mEq/L (3.5-5.1); Protein, Total 7.2 g/dL (6.4-8.2)
[2024-08-06] MEDS: FLU (Fluarix Triv) TS24-25(6MOS UP)/PF 45 MCG/0.5 ML Syringe IM ONE (07:30)
[2024-08-06 07:32] LABS: Specific Gravity 1.018 (1.005-1.030); Urine Bilirubin NEGATIVE (Negative); Urine Blood Negative (Negative); Urine Clarity Clear (Clear); Urine Color Light-Yellow (Yellow); Urine Glucose NEGATIVE (Negative); Urine Ketones NEGATIVE (Negative); Urine Microscopic Reflex YN NO UMIC; Urine Nitrite NEGATIVE (Negative); Urine Protein NEGATIVE (Negative); Urine Urobilinogen Normal (Normal)
[2024-08-06] MEDS: NA CHLORIDE 0.9% 50 ML ONE (08:25)
[2024-08-06] MEDS: POTASSIUM CL SA 10 MEQ TAB PO ONE (08:33)
[2024-08-06] MEDS: CEFTRIAXONE 1,000 MG in NA CHLORIDE 0.9% 50 ML IVPB SCH (08:33)
[2024-08-06] MEDS: ENOXAPARIN 40 MG/0.4 ML SQ SCH (08:33)
[2024-08-06] MEDS: VANCOMYCIN 1.5 GM in NA CHLORIDE 0.9% 500 ML IVPB SCH (08:38)
[2024-08-06] MEDS: AMPICILLIN/SULBACT 3 GM in NA CHLORIDE 0.9% 100 ML IVPB SCH (12:27)
[2024-08-06] MEDS ORDERED: TRAZODONE 50 MG TABLET PO PRN (13:14)
[2024-08-06] MEDS ORDERED: cloNIDine HCL 0.1 MG TAB PO PRN (13:14)
--- NOTE | 2024-08-06 13:20 | P.PN ---
Date of Service: 08/06/24 subjective: Right lower extremity pain No acute events overnight ROS: 10 point ROS as noted above, otherwise negative Physical exam GEN: Alert, oriented, NAD HEENT: Normal conjunctiva, sclera anicteric CV: Regular rate and rhythm, no edema Pulm: Nonlabored respirations on room air ABD: Soft, nontender, nondistended MSK: No joint tenderness Integumentary: Erythema to distal right lower extremity Neuro: Normal speech, normal affect Vitals reviewed Assessment: Right lower extremity cellulitis/pain Hypertension Mild hyponatremia Anxiety/depression Obstructive sleep apnea Narcolepsy Multiple sclerosis Plan: Right lower extremity cellulitis/pain Continue antibioticsUnasyn Await blood cultures White blood cell count normal, procalcitonin normal, afebrile Consider starting oral antibiotics and possible DC tomorrow Hypertension Mild hyponatremia Anxiety/depression Obstructive sleep apnea Narcolepsy Multiple sclerosis Home medications continued Sodium improving Check chemistry daily VTE: Lovenox Code: Full Dispo: 1 to 2 days Time Spent Managing Pts Care (In Minutes): 35
[2024-08-06] MEDS: FUROSEMIDE 20 MG TABLET PO SCH (16:25)
[2024-08-06] MEDS ORDERED: VANCOMYCIN 2 GM in NA CHLORIDE 0.9% 500 ML IVPB SCH (17:00)
[2024-08-06] MEDS: ATORVASTATIN 40 MG TAB PO SCH (20:21)
[2024-08-06] MEDS: QUETIAPINE 100MG TAB PO SCH (20:21)
[2024-08-07] MEDS: HYDROCODONE/APAP 5/325 MG TAB PO PRN (03:26)
[2024-08-07 04:33] VITALS: TEMP 98.1
[2024-08-07 06:25] LABS: Hematocrit 43.9 % (39.6-49.0); Hemoglobin 14.3 g/dL (13.6-17.9); MCH 29.6 pg (27.0-35.0); MCHC 32.7 g/dL (32.0-36.0); MCV 90.5 fL (80-100); MPV 7.6 fL (7.6-11.3); Platelets 284 thou/uL (152-406); RBC Red Blood Cell Count 4.85 M/uL (4.33-5.43); Red Cell Distribution Width 13.6 % (12.1-15.2)
[2024-08-07 08:06] VITALS: BP 125/75
[2024-08-07] MEDS: PROPRANOLOL HCL 10 MG TAB PO SCH (08:57)
[2024-08-07] MEDS: FLUOXETINE 20 MG CAP PO SCH (08:58)
[2024-08-07] MEDS: ASPIRIN 81 MG CHEWABLE TABLET PO SCH (08:58)
[2024-08-07] MEDS: FAMOTIDINE 20 MG TAB PO SCH (08:58)
--- NOTE | 2024-08-07 15:03 | P.DS ---
Admission Date: 08/05/24 Discharge Date: 08/07/24 Disposition: ROUTINE DISCHARGE Discharge Condition: GOOD Reason for Admission: cellulitis lower extremity Brief History of Present Illness: 49 yrs old Male with past medical history of hypertension, multiple sclerosis, anxiety, depression, CHAVA on CPAP who was brought to ER with pain in the leg on the right calf which has been going on for the last 2 to 3 weeks but worsened over the last 3 days. Denies any trauma. No fever or chills. No nausea vomiting or diarrhea. Started with insidious onset , associated pain and swelling and noted redness the last 2 to 3 days. Swelling worse with lower leg and ankle denies any previous history of rheumatoid arthritis or gout. Patient has difficulty in ambulating. The pain and swelling getting worse was brought to ER. Patient was assessed in the ER and was admitted for further management of right lower extremity cellulitis. Hospital Course: Assessment: Right lower extremity cellulitis/pain Hypertension Mild hyponatremia Anxiety/depression Obstructive sleep apnea Narcolepsy Multiple sclerosis Patient was admitted to the hospital for cellulitis of the right lower extremity. DVT was ruled out, white blood cell count remained within normal limits and patient was afebrile. Procalcitonin was also less than 0.05. His symptoms have improved and he stable for discharge with outpatient management. Prescriptions for Augmentin and doxycycline sent to his pharmacy [facility] in [place]. Continue medications as previously prescribed 1 week of antibiotics with Augmentin/doxycycline sent to pharmacy Follow-up with your primary care doctor in 1 to 2 weeks Vital Signs/Physical Exam: Temp Pulse Resp BP Pulse Ox 98.1 F 71 16 125/75 95 08/07/24 08:00 08/07/24 09:02 08/07/24 08:00 08/07/24 08:58 08/07/24 09:02 General: Alert, In no apparent distress, Oriented x3 HEENT: Atraumatic, PERRLA Neck: Supple, JVD not distended Respiratory: Clear to auscultation bilaterally, Normal air movement Cardiovascular: Regular rate/rhythm, Normal S1 S2 Gastrointestinal: Normal bowel sounds, No tenderness Musculoskeletal: No tenderness Integumentary: Erythema (mild-RLE) Neurological: Normal speech, Normal affect Laboratory Data at Discharge: WBC 8.90 thou/uL (4.3-10.9) 08/07/24 05:46 Hgb 14.3 g/dL (13.6-17.9) 08/07/24 05:46 Hct 43.9 % (39.6-49.0) 08/07/24 05:46 Plt Count 284 thou/uL (152-406) 08/07/24 05:46 PT 11.0 SECONDS (10-13.0) 08/05/24 19:25 INR 0.96 08/05/24 19:25 Sodium 136 mEq/L (136-145) 08/07/24 05:46 Potassium 4.0 mEq/L (3.5-5.1) 08/07/24 05:46 BUN 14 mg/dL (7-18) 08/07/24 05:46 Creatinine 1.00 mg/dL (0.70-1.30) 08/07/24 05:46 Glucose 103 mg/dL (74-106) 08/07/24 05:46 Phosphorus 4.1 mg/dL (2.5-4.9) 08/06/24 05:43 Magnesium 2.1 mg/dL (1.6-2.4) 08/06/24 05:43 Total Bilirubin 0.3 mg/dL (0.2-1.0) 08/06/24 05:43 AST 26 U/L (15-37) 08/06/24 05:43 ALT 32 U/L (16-61) 08/06/24 05:43 Alkaline Phosphatase 95 U/L (45-117) 08/06/24 05:43 Home Medications: Aspirin 81 mg PO DAILY 08/06/24 Atorvastatin Calcium 40 mg PO BEDTIME 08/06/24 Famotidine 40 mg PO DAILY 08/06/24 Fluoxetine HCl [Prozac] 20 mg PO DAILY 08/06/24 Furosemide 20 mg PO BID 08/06/24 Propranolol HCl 20 mg PO DAILY 08/06/24 Quetiapine Fumarate [Seroquel] 100 mg PO BEDTIME 08/06/24 Trazodone HCl 100 mg PO BEDTIME PRN 08/06/24 cloNIDine HCL [Clonidine HCl] 0.1 mg PO QID PRN 08/06/24 Amox/Clavulanate [Augmentin 875-125 Tab] 875 mg PO BID 7 Days #14 tab 08/07/24 Doxycycline Hyclate 100 mg PO BID 7 Days #14 tab 08/07/24 New Medications: Amox/Clavulanate [Augmentin 875-125 Tab] 875 mg PO BID 7 Days #14 tab Doxycycline Hyclate 100 mg PO BID 7 Days #14 tab Physician Discharge Instructions: Patient was admitted to the hospital for cellulitis of the right lower extremity. DVT was ruled out, white blood cell count remained within normal limits and patient was afebrile. Procalcitonin was also less than 0.05. His symptoms have improved and he stable for discharge with outpatient management. Prescriptions for Augmentin and doxycycline sent to his pharmacy [facility] in [place]. Continue medications as previously prescribed 1 week of antibiotics with Augmentin/doxycycline sent to pharmacy Follow-up with your primary care doctor in 1 to 2 weeks Diet: Regular Activity: Ad mango Followup: NONE,NONE [Primary Care Provider] - 1-2 Weeks Time spent managing pt's care (in minutes): 43
--- NOTE | 2024-08-08 08:47 | EKG ---
Test Date: 2024-08-05 Test Time: 20:27:18 Bacteriologist Pharmaceutical: [employer] MEASUREMENT RESULTS: Intervals: Rate: 65 WI: 190 QRSD: 74 QT: 418 QTc: 434 [place]: P: 28 WI: 190 QRS: 45 T: 59 INTERPRETIVE STATEMENTS: Normal sinus rhythm Low voltage QRS Borderline ECG Compared to ECG 01/16/2024 21:46:20 Low QRS voltage now present Atrial abnormality no longer present Electronically Signed On 08-08-24 08:40:06 CDT by Bernardo Guerrero
== END 2024-08-07 11:04 | disposition home or self-care (01) | DRG 603 ==
LOC: ER 18:31 → ERHOLD 20:23 → 4TH 21:45
PROVIDERS: ADMIT Family Medicine; ATTEND Hospitalist
DX: L03.115 Cellulitis of right lower limb (principal); E87.1 Hypo-osmolality and hyponatremia; Z68.42 Body mass index [BMI] 45.0-49.9, adult; Z99.81 Dependence on supplemental oxygen; I10 Essential (primary) hypertension; G47.419 Narcolepsy without cataplexy; F41.8 Other specified anxiety disorders; G47.33 Obstructive sleep apnea (adult) (pediatric); E66.01 Morbid (severe) obesity due to excess calories; F17.210 Nicotine dependence, cigarettes, uncomplicated
CPT/HCPCS: 36415; 71045; 80048; 80053; 80076; 81003; 83605; 83735; 83880; 84100; 84145; 84484; 85025; 85027; 85610; 86141; 87040; 93005; 93970; 94660; 96365; 96367; 96375; 99285; J0295; J0696; J1650; J1940; J2543; J3370; J7040; J7050

== ENCOUNTER 2024-08-08 17:02 | Emergency (ER) | payer SELFPAY ==
--- OUTSIDE RECORDS SUMMARY | 2024-08-08 17:08 | XMS REPORT | Continuity of Care Document ---
Author Name Unknown Address [address] [facility] [address] [place] [address] Organization [facility] [place] Address [address] [facility]. [address] [place] [address] Care Team Providers Care Head Of Science Name Role Phone Pcp, Patient Does Not Have A Primary Care Physic yudi PEPITO LAKHANI Attending Clinician Unavailable JANNA LUCIANO Attending Clinician Unavailable [id number] Attending Clinician Unavailable ESPERANZA SOLIS Attending Clinician Unavailable MD EUNICE Attending Clinician Unavailab SHEY Ashford Attending Clinician UnaNorman Ferreira MD Attending Clinician [phone] RAMSES NUÑEZ Attending Clinician Unavaila NUVIA Proctor Attending Clinician Unavailable NUVIA MERAZ Attending Clinician Unavailable Nuvia Almazan Attending Clinician [phone] Neurology Attending Clinician Unavailable Keenan Spain RN Attending Clinician Unavail able NESTOR ORTIZ Attending Clinician Unavailable Selam Carrillo DO Attending Clinician [phone] Venus Judge MD Attending Clinician [phone] Rosanna LACEY, Lalit Wahl Attending Clinician [phone] Nestor Ortiz MD Attending Clinician [phone] JP SAAVEDRA Attending Clinician Unavailable ES, TECH 1 Attending Clinician Unavailable LAB90 Attending Clinician Unavailable Campaigns, Generic Provider Attending Clinician Unavailable Faculty, Pulmonary Attending Clinician Unavailab SELAM Brooks Attending Clinician Unavailable SELAM CARRILLO Attending Clinician Unavailable TATYANA FAN Attending Clinician Unavailab Tali Godinez Attending Clinician [phone] NUVIA MERAZ Admitting Clinician Unavailable VENUS JUDGE Admitting Clinician Unavailable Venus Judge MD Admitting Clinician [phone] SELAM CARRILLO Admitting Clinician Unavailable Payers Payer Name Policy Type Policy Number Effective Date Expirati on Date Source [address] 94 9 [id number] 2024 00:00:00 Problems Condition Name Condition Details Condition Category Status Onset Date Resolution Date Last Treatment Date Treating Clinician Comments Source Moderate episode of recurrent major depressive disorder Moderate episode of recurrent major depressive disorder Disease Active 3-20 00:00: 00 Pooja Graff - Externa milka Depression Depression Disease Active 07-10 00:00: 00 Pooja Graff - Externa milka History of drug abuse History of drug abuse Disease Active 07-10 00:00: 00 Pooja Graff - Externa l Chest pain Chest pain Disease Active 07-10 00:00: 00 Pooja Graff - Externa l Anxiety Anxiety Disease Active 07-10 00:00: 00 Pooja Peresold - Externa l Gastroesop hageal reflux disease Gastroesop hageal reflux disease Disease Active 07-10 00:00: 00 Pooja Peresold - Externa l Hyperlipid emia Hyperlipid emia Disease Active 07-10 00:00: 00 Pooja Peresold - Externa l Housing instabilit y, currently housed, at risk for homelessne ss Housing instabilit y, currently housed, at risk for homelessne ss Disease Active 07-10 00:00: 00 Pooja Harrella l Obesity, Class III, BMI 40-49.9 (morbid obesity) Obesity, Class III, BMI 40-49.9 (morbid obesity) Disease Active 07-10 00:00: 00 Pooja Graff - Sharria milka Morbid obesity with body mass index of 40.0-49.9 Morbid obesity with body mass index of 40.0-49.9 Disease Active 2023-05 00:00: 00 [facility] Weakness of right leg Weakness of right leg Disease Active 2023-05 00:00: 00 [facility] CHAVA (obstructi ve sleep apnea) CHAVA (obstructi ve sleep apnea) Disease Active Pooja Graff - Externa l MS (multiple sclerosis) (multi HCC) MS (multiple sclerosis) (multi HCC) Disease Active Pooja Graff - Externa l HTN (hypertens ion) HTN (hypertens ion) Disease Active Pooja Graff - Externa l No known active problems No known active problems Disease [facility] Allergies, Adverse Reactions, Alerts Allergy Name Allergy Type Status Severity Reaction(s) Onset Date Inactive Date Treating Clinician Comments Source NO KNOWN ALLERGIE S Drug Class Active [facility] Social History Social Habit Start Date Stop Date Quantity Comments Source History of tobacco use 1988-02-22 00:00:00 Cigarette Smoker [facility] Sexual orientation K ronnierosita Graff - External Alcoholic beverage intake 2024-02-29 00:00:00 2024-02-29 00:00:00 Current drinker of alcohol (finding) [facility] Cigarettes smoked current (pack per day) - Reported 2024-02-22 00:00:00 2024-02-22 00:00:00 [facility] Cigarette pack-years 2024-02-22 00:00:00 2024-02-22 00:00:00 [facility] History of Social function 2024-02-22 00:00:00 2024-02-22 00:00:00 [facility] Tobacco use and exposure 2024-02-15 00:00:00 2024-02-15 00:00:00 Smokeless tobacco non-user Pooja Deshpande Sex 2023-02-16 17:54:14 2023-02-16 17:54:14 Male (finding) Pooja Deshpande Exposure to SARS-CoV-2 (event) 2021-11-09 00:00:00 2021-11-19 09:32:00 Not sure [facility] Sex assigned at 1975 00:00:00 1975 00:00:00 Pooja Paezazulnicola Deshpande Smoking Status Start Date Stop Date Source Tobacco smoking consumption unknown [facility] Smokes tobacco daily 2024-02-15 00:00:00 Pooja Paezazulnicola Luna External Medications Ordered Medication Name Filled Medication Name Start Date Stop Date Current Medication? Ordering Clinician Indication Dosage Frequency Signature (SIG) Comments Components Source MAGNESIUM BISGLYCINAT E OR 08-01 11:57: 31 08-01 00:00 :00 No 400mg QD Take 400 mg by mouth daily as needed. Pooja jarquin Furosemide (LASIX) 20 MG oral Tablet 08-01 00:00: 00 10-31 04:59 :00 Yes [id number] 20mg Q.5D Take 1 tablet (20 mg total) by mouth 2 times daily. Pooja jarquin Famotidine 40 MG oral Tablet 07-10 09:41: 36 07-10 00:00 :00 No 40mg Q.5D Take 1 tablet (40 mg total) by mouth 2 times daily. Pooja jarquin Benzonatate 200 MG oral Capsule 07-10 09:33: 04 07-10 00:00 :00 No 200mg [id number] 3D Take 1 capsule (200 mg total) [...] Indication s: High Blood Pressure Pooja jarquin Atorvastati n Calcium 40 MG oral Tablet 07-10 00:00: 00 Yes [id number] 40mg QD Take 1 tablet (40 mg total) by mouth nightly. Pooja jarquin Famotidine 40 MG oral Tablet 07-10 00:00: 00 01-07 04:59 :00 Yes [id number] 40mg Q.5D Take 1 tablet (40 mg total) by mouth 2 times daily. Pooja jarquin Aspirin Low Dose 81 MG oral Tablet Delayed Response 06-01 00:00: 00 07-10 00:00 :00 No 81mg QD Take 1 tablet (81 mg total) by mouth daily. Pooja jarquin hydrOXYzine HCl 50 MG oral Tablet - 00:00: 00 Yes [id number] 50mg Q.25D Take 1 tablet (50 mg total) by mouth every 6 hours as needed for anxiety. Pooja jarquin Lisinopril 10 MG oral Tablet 2023-05 00:00: 00 Yes [id number] 10mg QD Take 1 tablet (10 mg total) by mouth daily. Pooja jarquin Fluoxetine HCl 20 MG oral Capsule 2023-05 00:00: 00 Yes [id number] 20mg QD Take 1 capsule (20 mg total) by mouth daily. Pooja jarquin Aspirin (Aspirin 81) 81 MG oral Chewable Tablet 2023-05 00:00: 00 07-10 00:00 :00 No 81mg QD Take 1 tablet (81 mg total) by mouth daily. Pooja jarquin Atorvastati n Calcium 40 MG oral Tablet 2023-05 00:00: 00 07-10 00:00 :00 No [id number] 40mg QD Take 1 tablet (40 mg total) by mouth nightly. Pooja jarquin NaCl 0.9% (NS) bolus infusion 1,000 mL 2023-05 20:45: 00 04-24 00:16 :00 No 1000mL at 999 mL/hr, 1,000 mL, IV Infusion, ONCE, 1 dose, On Mon04/23/24 at 1445, STAT [facility] Benzonatate 200 MG oral Capsule 2023-05 10:07: 49 Yes 200mg Q.[id number] 3D Take 1 capsule (200 mg total) [...] mouth daily for 4 days thereafter .. Pooaj jarquin ASPIRIN 81 OR 2023-05 10:04: 54 Yes 1{tbl} QD Take 1 tablet by mouth daily. Pooja jarquin Quetiapine Fumarate 100 MG oral Tablet 2023-05 00:00: 00 Yes 100mg Take 1 tablet (100 mg total) by mouth at bedtime. Pooja jarquin benzonatate 100 mg capsule 2023-05 00:00: 00 Yes [id number] 200mg Take 2 capsules by mouth 3 (three) times daily as needed for Cough. [facility] methylPREDN ISolone sodium succinate (SOLU-MEDRO L) 1,000 mg in D5W 250 mL VIAL-MATE IV piggyback 2023-05 16:00: 00 03-02 16:31 :00 No 1000mg 1,000 mg, Intravenou s, Q24H, 1 dose, First dose (after last modificati on) on Mon03/02/24 at 1100, Administer over 60 Minutes, 250 mL [facility] fluticasone propionate 50 mcg/actuati on nasal spray 2 [place] 2023-05 14:00: 00 03-02 17:25 :30 No 2{spray } 2 [place], Nasal, DAILY, First dose on Mon03/02/24 at 0900, Until Discontinu ed, Routine [facility] oxymetazoli ne (OXYMETAZOL INE HCL) 0.05 % nasal spray 1 [place] 2023-05 01:00: 00 Yes 1{spray } 1 [place], Nasal, BID, First dose on Mon03/01/24 at 2000, Until Discontinu ed, Routine [facility] aspirin 81 mg chewable tablet 2023-05 00:00: 00 Yes [id number] 81mg Take 1 tablet by mouth in the morning. [facility] vitamin B complex tablet 2023-05 00:00: 00 Yes [id number] 1{tbl} Take 1 tablet by mouth in the morning. [facility] oxymetazoli ne 0.05 % nasal spray 2023-05 00:00: 00 Yes [id number] 1{spray } Use 1 [place] in each nostril in the morning and 1 [place] in the evening. [facility] nitroglycer in 0.4 mg sublingual tablet 2023-05 00:00: [id number] 1 tablet under the tongue every 5 (five) minutes as needed for Chest pain. [facility] nicotine 21 mg/24 hr patch 2023-05 00:00: 00 Yes [id number] 1{patch } Apply 1 Patch to area(s) every 24 (twenty-fo ur) hours. [facility] famotidine 40 mg tablet 2023-05 00:00: 00 Yes [id number] 40mg Take 1 tablet by mouth in the morning and 1 tablet in the evening. [facility] atorvastati n 40 mg tablet 2023-05 00:00: 00 Yes [id number] 40mg Take 1 tablet by mouth at bedtime. [facility] glatiramer 20 mg/mL injection syringe 2023-05 00:00: 00 08-30 04:59 :00 No [id number] 20mg inject 1 mL under the skin in the morning for 180 days. [facility] acetaminoph en-codeine 300-30 mg tablet 2023-05 00:00: 00 03-10 04:59 :00 No [id number] 1{tbl} Take 1 tablet by mouth every 4 (four) hours as needed for Pain (scale 7-10) for up to 7 days. Indication s: chronic pain [facility] D5W 0.9% NaCl (NS) IV infusion 500 mL 2023-05 18:30: 00 02-27 18:30 :00 No 500mL at 100 mL/hr, 500 mL, IV Infusion, ONCE, 1 dose, On Mon02/28/24 at 1330, Routine [facility] lidocaine 2 % + bupivacaine 0.25 % 1:1 injection 2023-05 18:30: 00 02-27 20:00 :00 No 10mL 10 mL, Intraderma l, ONCE, 1 dose, On Mon02/28/24 at 1330, Routine [facility] famotidine (PEPCID) tablet 40 mg 2023-05 13:00: 00 Yes 40mg 40 mg, Oral, BID, First dose (after last modificati on) on Mon02/28/24 at 0800, Until Discontinu ed, Routine, Indication for use: None of the above [facility] Sliding Scale Insulin - Lispro (HumaLOG) 2023-05 13:00: 00 03-02 17:25 :30 No Subcutaneo us, TID MEALS+HS, First dose on Mon02/28/24 at 0800, Until Discontinu ed, Routine [facility] glucagon HCL injection 1 mg 2023-0516 12:07: 24 03-02 17:25 :30 No 1mg 1 mg, Intramuscu lar, PRN, Starting on Mon02/28/24 at 0707, Until 03/02/24 at 1225, ARLETTE, Low blood sugar, Blood Glucose < or = 70 mg/dL and patient is NPO, unable to swallow or has mental changes. [facility] dextrose 50 % in water (D50W) injection 25 mL 2023-05 12:07: 24 03-02 17:25 :30 No 25mL 25 mL, Slow IV Push, PRN, Starting on Mon02/28/24 at 0707, Until 03/02/24 at 1225, ARLETTE, Blood Glucose < or = 70 mg/dL and patient is NPO, unable to swallow or has mental status changes. [facility] methylPREDN ISolone sodium succinate (SOLU-MEDRO L) 1,000 mg in D5W 250 mL VIAL-MATE IV piggyback 2023-05 22:00: 00 03-02 13:29 :23 No 1000mg 1,000 mg, Intravenou s, Q24H, 5 doses, First dose on Mon02/27/24 at 1700, Last dose on Mon03/02/24 at 1700, Administer over 60 Minutes, 250 mL [facility] vitamin B complex (COMPLEX B-100) tablet 2023-05 14:00: 00 04-25 14:59 :00 No 1{tbl} 1 tablet, Oral, DAILY, 60 doses, First dose on Mon02/25/24 at 0900, Last dose on Mon04/24/24 at 0900, Routine [facility] acetaminoph en-codeine (TYLENOL #3) 300-30 mg tablet 1 tablet 2023-05 03:43: 40 Yes 1{tbl} 1 tablet, Oral, Q4HPRN, Starting on Mon02/24/24 at 2243, Until Discontinu ed, Routine, Pain (scale 7-10) [facility] morpHINE injection 2 mg 2023-05- 02:15: 00 02-24 01:28 :00 No 2mg 2 mg, Slow IV Push, ONCE, 1 dose, On 02/24/24 at 2115, Routine [facility] nitroglycer in (NITROSTAT) sublingual tablet 0.4 mg 2023-05 01:04: 51 Yes .4mg 0.4 mg, Sublingual , Q5MIN PRN, Starting on 02/24/24 at 2004, Until Discontinu ed, Routine, Chest pain [facility] famotidine (PEPCID AC) tablet 20 mg 2023-05 01:00: 00 02-27 12:07 :54 No 20mg 20 mg, Oral, BID, First dose on Mon02/23/24 at 2000, Until Discontinu ed, Routine, Indication for use: None of the above [facility] enoxaparin (LOVENOX) injection 40 mg 2023-05 22:00: 00 03-02 17:25 :30 No 40mg 40 mg, Subcutaneo us, DAILY, First dose on Mon02/23/24 at 1700, Until Discontinu ed, Routine [facility] clopidogreL (PLAVIX) 75 mg tablet 75 mg 2023-05 14:00: 00 02-26 18:22 :58 No 75mg 75 mg, Oral, DAILY, First dose on Mon02/23/24 at 0900, Until Discontinu ed, Routine [facility] aspirin chewable tablet 81 mg 2023-05 12:30: 00 Yes 81mg 81 mg, Oral, DAILY, First dose on Mon02/23/24 at 0730, Until Discontinu ed, Routine [facility] furosemide (LASIX) injection 40 mg 2023-05 12:15: 00 02-22 14:25 :00 No 40mg 40 mg, Slow IV Push, ONCE, 1 dose, On Mon02/23/24 at 0715, Routine [facility] haloperidol lactate (HALDOL) injection 2 mg 2023-05 09:15: 00 02-22 09:09 :00 No 2mg 2 mg, Intramuscu lar, ONCE, 1 dose, On Mon02/23/24 at 0415, [facility] atorvast[facility] n (LIPITOR) tablet 40 mg 2023-05 02:00: 00 Yes 40mg 40 mg, Oral, QHS, First dose on Mon02/22/24 at 2100, Until Discontinu ed, Routine [facility] QUEtiapine (SEROQUEL) tablet 100 mg 2023-05 02:00: 00 03-02 17:25 :30 No 100mg 100 mg, Oral, QHS, First dose (after last modificati on) on Mon02/22/24 at 2100, Until Discontinu ed, Routine [facility] traZODone (DESYREL) tablet 100 mg 2023-05 02:00: 00 03-02 17:25 :29 No 100mg 100 mg, Oral, QHS, First dose on Mon02/22/24 at 2100, Until Discontinu ed, Routine [facility] sulfur hexafluorid e microsphr (LUMASON) injection 5 mL 2023-05 16:15: 00 02-21 15:55 :00 No [id number] 5mL 5 mL, Intravenou s, ONCE, 1 dose, On Mon02/22/24 at 1115, Routine [facility] Saline Bubble Study 2023-05 16:07: 54 03-02 17:25 :30 No [id number] 6mL 6 mL, Injection, SEE-INSTRU CTIONS, Starting on Mon02/22/24 at 1107, Until 03/02/24 at 1225, Routine [facility] Saline Bubble Study 2023-05 16:07: 53 03-02 17:25 :30 No [id number] 6mL 6 mL, Injection, SEE-INSTRU CTIONS, Starting on Mon02/22/24 at 1107, Until 03/02/24 at 1225, [facility] acetaminoph en (TYLENOL) tablet 650 mg 2023-05 15:00: 24 03-02 17:25 :30 No 650mg 650 mg, Oral, Q6HPRN, Starting on Mon02/22/24 at 1000, Until 03/02/24 at 1225, Routine, Pain (scale 1-3), Pain (scale 4-6), Temp > 38 C [facility] FLUoxetine (PROZAC) capsule 20 mg 2023-05 0-10 14:00: 00 03-02 17:25 :29 No 20mg 20 mg, Oral, DAILY, First dose on Mon02/22/24 at 0900, Until Discontinu ed, Routine [facility] D5W 0.9% NaCl (NS) IV infusion 1,000 mL 2023-05 14:00: 00 02-23 03:21 :22 No 1000mL at 42 mL/hr, 1,000 mL, IV Infusion, CONTINUOUS , Starting on Mon02/22/24 at 0900, Until Mon02/23/24 at 2221, Routine [facility] famotidine (PEPCID AC) tablet 20 mg 2023-05 13:00: 00 02-22 15:55 :08 No 20mg 20 mg, Oral, BID, First dose on Mon02/22/24 at 0800, Until Discontinu ed, Routine [facility] heparin (porcine) injection 5,000 Units 2023-0510 13:00: 00 02-22 15:55 :08 No 5000U 5,000 Units, Subcutaneo us, Q12H, First dose on Mon02/22/24 at 0800, Until Discontinu ed, Routine [facility] nicotine (NICODERM) 21 mg/24 hr patch 1 Patch 2023-05 12:30: 00 Yes 1{patch } 1 Patch, Topical, Administer over 24 Hours, Q24H, First dose on Mon02/22/24 at 0730, Until Discontinu ed, Routine [facility] labetaloL (NORMODYNE) 5 mg/mL injection 10 mg 2023-0510 12:13: 03 03-02 17:25 :29 No 10mg [facility] clopidogreL (PLAVIX) 75 mg tablet 75 mg 2023-05 08:30: 00 02-21 08:26 :00 No 75mg 75 mg, Oral, ONCE, 1 dose, On [place] 02/22/24 at 0330, [facility] aspirin tablet 325 mg 2023-05 08:30: 00 02-21 08:26 :00 No 325mg 325 mg, Oral, ONCE, 1 dose, On [place] 02/22/24 at 0330, STAT [facility] atorvastati n (LIPITOR) tablet 80 mg 2023-05 08:15: 00 02-21 08:26 :00 No 80mg 80 mg, Oral, ONCE, 1 dose, On [place] 02/22/24 at 0330, [facility] iopamidol (ISOVUE 370-500 mL) injection 80 mL 2023-05 08:00: 00 02-21 08:00 :00 No [id number] 80mL 80 mL, Intravenou s, ONCE, 1 dose, On [place] 02/22/24 at 0300, Routine [facility] ipratropium -albuteroL (DUONEB) 0.5 mg-3 mg(2.5 mg base)/3 mL nebulizer solution 3 mL 2023-05 06:00: 00 02-21 05:08 :00 No 3mL 3 mL, Inhalation , ONCE, 1 dose, On [facility] 02/22/24 at 0100, [facility] Propranolol HCl 20 MG oral Tablet 02-05 00:00: 00 Yes 17 20mg Q.25D Take 1 tablet (20 mg total) by mouth 4 times daily PRN. Indication s: Feeling Anxious Pooja jarquin Clonidine HCl (CATAPRES) 0.1 MG [...] 11-19 00:00: 00 11-27 04:59 :00 No [id number] 1{tbl} Take 1 tablet by mouth every 12 (twelve) hours for 7 days. [facility] HYDROCODONE -ACETAMINOP HEN 5-500 MG ORAL CAP 06-29 12:52: 55 02-21 00:00 :00 No None Entered [facility] IBUPROFEN 800 MG ORAL TAB 06-29 12:52: 55 02-21 00:00 :00 No None Entered [facility] Vital Signs Vital Name Observation [...] Pulse oximetry 2024-08-01 14:41:00 97 /min Pooja Paezybo ld - External Systolic blood pressure 2024-07-10 15:02:00 118 mm[Hg] Pooja Seybo ld - External Diastolic blood pressure 2024-07-10 15:02:00 64 mm[Hg] Pooja Seybo ld - External Heart rate 2024-07-10 15:02:00 76 /min Mango becker Seybold - External Body temperature 2024-07-10 15:02:00 36.72 Tracey Pooja Paezybold - External Respiratory rate 2024-07-10 15:02:00 20 /min Pooja Paezybold - External Body height 2024-07-10 15:02:00 175.3 cm Linda ey Seybold - External Body weight 2024-07-10 15:02:00 139.254 kg Linda ey Seybold - External BMI 2024-07-10 15:02:00 45.34 kg/m2 Linda ey Seybold - External Oxygen saturation in Arterial blood by Pulse oximetry 2024-07-10 15:02:00 98 /min Pooja Preeso ld - External Systolic blood pressure 2024-04-24 02:30:00 110 mm[Hg] [facility] Diastolic blood pressure 2024-04-24 02:30:00 72 mm[Hg] [facility] Heart rate 2024-04-24 02:30:00 77 /min [facility] Respiratory rate 2024-04-24 02:30:00 20 /min [facility] Oxygen saturation in Arterial blood by Pulse oximetry 2024-04-24 02:30:00 95 /min [facility] Body temperature 2024-04-23 18:28:00 36.72 Tracey [facility] Body height 2024-04-23 18:28:00 175.3 cm [facility] Body weight 2024-04-23 18:28:00 136.079 kg [facility] BMI 2024-04-23 18:28:00 44.30 kg/m2 [facility] Systolic blood pressure 2024-04-15 15:36:00 109 mm[Hg] Pooja Paezybo ld - External Diastolic blood pressure 2024-04-15 15:36:00 70 mm[Hg] Pooja Paezybo ld - External Heart rate 2024-04-15 15:36:00 62 /min Mango y Seybold - External Body temperature 2024-04-15 [...] External Heart rate 2024-03-20 07:01:00 89 /min [facility] Respiratory rate 2024-03-20 07:01:00 14 /min [facility] Oxygen saturation in Arterial blood by Pulse oximetry 2024-03-20 07:01:00 96 /min [facility] Systolic blood pressure 2024-03-20 07:00:00 128 mm[Hg] [facility] Diastolic blood pressure 2024-03-20 07:00:00 86 mm[Hg] [facility] Body temperature 2024-03-20 07:00:00 36.61 Tracey [facility] Body height 2024-03-20 04:51:00 175.3 cm [facility] Body weight 2024-03-20 04:51:00 135.172 kg [facility] BMI 2024-03-20 04:51:00 44.01 kg/m2 [facility] Heart rate 2024-03-02 16:27:00 88 /min [facility] Body temperature 2024-03-02 16:27:00 36.44 Tracey [facility] Respiratory rate 2024-03-02 16:27:00 18 /min [facility] Oxygen saturation in Arterial blood by Pulse oximetry 2024-03-02 16:27:00 97 /min [facility] Systolic blood pressure 2024-03-02 16:27:00 154 mm[Hg] [facility] Diastolic blood pressure 2024-03-02 16:27:00 79 mm[Hg] [facility] Body height 2024-02-22 11:10:00 175.3 cm [facility] Body weight 2024-02-22 11:10:00 131.543 kg [facility] BMI 2024-02-22 11:10:00 42.83 kg/m2 [facility] Systolic blood pressure 2024-02-15 19:43:00 123 [...] blood pressure 2024-02-09 14:45:00 68 mm[Hg] Pooja Seybo ld - External Heart rate 2024-02-09 14:45:00 90 /min Mango Graff - External Body temperature 2024-02-09 14:45:00 36.39 Tracey Pooja Graff - External Respiratory rate 2024-02-09 14:45:00 20 /min Pooja Graff - External Body height 2024-02-09 14:45:00 176.5 cm Linda Graff - External Body weight 2024-02-09 14:45:00 133.811 kg Linda garg Seybnicola - External BMI 2024-02-09 14:45:00 42.94 kg/m2 Linda Graff - External Oxygen saturation in Arterial blood by Pulse oximetry 2024-02-09 14:45:00 90 /min Pooja Alvarez ld - External Systolic blood pressure 2024-01-27 09:10:00 125 mm[Hg] [facility] Diastolic blood pressure 2024-01-27 09:10:00 71 mm[Hg] [facility] Heart rate 2024-01-27 09:10:00 80 /min [facility] Respiratory rate 2024-01-27 09:10:00 20 /min [facility] Oxygen saturation in Arterial blood by Pulse oximetry 2024-01-27 09:10:00 92 /min [facility] Body temperature 2024-01-27 07:43:00 36.78 Tracey [facility] Body height 2024-01-27 07:43:00 175.3 cm [facility] Body weight 2024-01-27 07:43:00 127.007 kg [facility] BMI 2024-01-27 07:43:00 41.35 kg/m2 [facility] Systolic blood pressure 2021-11-19 14:33:00 153 mm[Hg] [facility] Diastolic blood pressure 2021-11-19 14:33:00 102 mm[Hg] [facility] Heart rate 2021-11-19 14:33:00 94 /[facility] Body temperature 2021-11-19 14:33:00 36.44 Tracey [facility] Respiratory rate 2021-11-19 14:33:00 16 /min [facility] Body height 2021-11-19 14:33:00 177.8 cm [facility] Body weight 2021-11-19 14:33:00 104.327 kg [facility] BMI 2021-11-19 14:33:00 33.00 kg/m2 [facility] Oxygen saturation in Arterial blood by Pulse oximetry 2021-11-19 14:33:00 96 /min [place] [facility] Procedures Procedure Date / Time Performed Performing Clinician Source ACUTE CARE ARTERIAL BLOOD GAS 2024-04-24 00:12:00 Norman Corea [facility] URINE DRUG (IMMUNOASSAY) - COMPREHENSIVE DRUG SCREEN 2024-04-23 20:53:00 Norman Corea [facility] AMMONIA, PLASMA 2024-04-23 19:38:00 Norman Corea [place] [facility] ACUTE CARE ARTERIAL BLOOD GAS 2024-04-23 19:12:00 Norman Corea [facility] CT HEAD WO CONTRAST 2024-04-23 19:09:13 Norman Corea [facility] TROPONIN I 2024-04-23 18:44:00 Norman Corea [facility] COMP. METABOLIC PANEL (82516) 2024-04-23 18:44:00 Norman Corea [facility] ETHANOL 2024-04-23 18:44:00 Norman Corea [facility] SERUM DRUG (IMMUNOASSAY) - COMPREHENSIVE DRUG SCREEN 2024-04-23 18:44:00 Norman Corea [facility] CBC WITH DIFF 2024-04-23 18:44:00 [facility] X[facility] CHEST 1 VW 2024-04-23 18:41:09 [facility] TROPONIN I 2024-03-20 05:28:00 Nuvia [facility] COMP. METABOLIC PANEL (50714) 2024-03-20 05:28:00 Nuvia Meraz [facility] CBC WITH DIFF 2024-03-20 05:28:00 Nuvia Meraz [facility] N-TERMINAL PRO-BNP 2024-03-20 05:28:00 Nuvia Meraz [facility] XR CHEST 1 VW 2024-03-20 05:24:52 Nuvia Meraz [facility] POCT GLUCOSE (AUTOMATED) 2024-03-02 12:59:00 Masel, To [facility] POCT GLUCOSE (AUTOMATED) 2024-03-02 00:47:00 Masel, To [facility] POCT GLUCOSE (AUTOMATED) 2024-03-01 22:09:00 Masel, To [facility] POCT GLUCOSE (AUTOMATED) 2024-03-01 17:19:00 Masel, To [facility] POCT GLUCOSE (AUTOMATED) 2024-03-01 12:46:00 Masel, To [facility] MAGNESIUM 2024-03-01 09:08:00 Alisha Beltran [facility] BASIC METABOLIC PANEL (NA, K, CL, CO2, GLUCOSE, BUN, CREATININE, CA) 2024-03-01 09:08:00 Alisha Beltran [facility] CBC WITH DIFF 2024-03-01 09:08:00 Devin Alisha [facility] POCT GLUCOSE (AUTOMATED) 2024-03-01 02:33:00 Masel, To [facility] POCT GLUCOSE (AUTOMATED) 2024-02-29 21:26:00 Masel, To [facility] POCT GLUCOSE (AUTOMATED) 2024-02-29 17:23:00 Masel, To [facility] POCT GLUCOSE (AUTOMATED) 2024-02-29 13:03:00 Masel, To [facility] MAGNESIUM 2024-02-29 09:10:00 Alisha Beltran [facility] BASIC METABOLIC PANEL (NA, K, CL, CO2, GLUCOSE, BUN, CREATININE, CA) 2024-02-29 09:10:00 Alisha Beltran [facility] CBC WITH DIFF 2024-02-29 09:10:00 Alisha Beltran [facility] POCT GLUCOSE (AUTOMATED) 2024-02-29 01:16:00 Masel, To dd S [facility] POCT GLUCOSE (AUTOMATED) 2024-02-28 21:46:00 Masel, To dd S [facility] MYELIN BASIC PROTEIN 2024-02-28 21:25:00 Alisha Beltran [facility] CEREBROSPINAL FLUID PROTEIN 2024-02-28 21:25:00 Devin Alisha [facility] CEREBROSPINAL FLUID GLUCOSE 2024-02-28 21:25:00 Devin Alisha [facility] BODY FLUID DIRECT COUNT 2024-02-28 21:25:00 Tee alcala Alisha [facility] FUNGUS (ROUTINE) CULTURE 2024-02-28 21:25:00 Luis Alberto perales [facility] EXTRA TUBE CSF 2024-02-28 21:25:00 Ban Beltran [facility] CSF CULTURE 2024-02-28 21:25:00 Devin [facility] MENINGITIS/ENCEPHALITIS PANEL BY PCR 2024-02-28 21:25:00 Devin Alisha [facility] POCT GLUCOSE (AUTOMATED) 2024-02-28 13:25:00 Masel, To dd S [facility] MAGNESIUM 2024-02-28 08:51:00 Devin Alisha [facility] BASIC METABOLIC PANEL (NA, K, CL, CO2, GLUCOSE, BUN, CREATININE, CA) 2024-02-28 08:51:00 Devin Alisha [facility] CBC WITH DIFF 2024-02-28 08:51:00 Devin [facility] PROTHROMBIN TIME / INR 2024-02-27 20:23:00 Carrol blair Alisha [facility] MAGNESIUM 2024-02-27 09:33:00 Paul Ervin [facility] BASIC METABOLIC PANEL (NA, K, CL, CO2, GLUCOSE, BUN, CREATININE, CA) 2024-02-27 09:33:00 Rodolfo Ervin [facility] CBC WITH DIFF 2024-02-27 09:33:00 Paul Ervin [facility] MR STROKE BRAIN WO CONTRAST 2024-02-26 21:59:00 Katy Comer [facility] SHARON AURIS SURVEILLANCE BY PCR (INFECTION CONTROL PURPOSES) 2024-02-26 16:54:00 Rodolfo Ervin [facility] MAGNESIUM 2024-02-26 09:41:00 [facility]ae [facility] BASIC METABOLIC PANEL (NA, K, CL, CO2, GLUCOSE, BUN, CREATININE, CA) 2024-02-26 09:41:00 Jae Mccurdy [facility] CBC WITH DIFF 2024-02-26 09:41:00 Jae Mccurdy [facility] BASIC METABOLIC PANEL (NA, K, CL, CO2, GLUCOSE, BUN, CREATININE, CA) 2024-02-25 09:42:00 Karen Diallo [facility] POCT GLUCOSE (AUTOMATED) 2024-02-25 02:09:00 Baron Vegaammed [facility] TROPONIN I 2024-02-25 01:11:00 Ari Dobson mmad [facility] URINE DRUG (IMMUNOASSAY) - COMPREHENSIVE DRUG SCREEN 2024-02-24 14:15:00 Marvin Gusman [facility] POCT GLUCOSE (AUTOMATED) 2024-02-24 13:17:00 Irma branch Lalit [facility] POCT GLUCOSE (AUTOMATED) 2024-02-24 09:20:00 Lalit Vega [facility] PHOSPHORUS 2024-02-24 08:39:00 Bruna Gusman [facility] MAGNESIUM 2024-02-24 08:39:00 Bruna Gusman [facility] BASIC METABOLIC PANEL (NA, K, CL, CO2, GLUCOSE, BUN, CREATININE, CA) 2024-02-24 08:39:00 Marvin Gusman [facility] CBC WITH DIFF 2024-02-24 08:39:00 Bruna Gusman [facility] POCT GLUCOSE (AUTOMATED) 2024-02-24 05:27:00 Lalit Vega [facility] POCT GLUCOSE (AUTOMATED) 2024-02-24 02:36:00 [facility] POCT GLUCOSE (AUTOMATED) 2024-02-23 22:04:00 [facility] POCT GLUCOSE (AUTOMATED) 2024-02-23 22:03:00 [facility] ANTICARDIOLIPIN ANTIBODIES 2024-02-23 21:53:00 Coty rodriguez [facility] ANTI-B2 GLYCOPROTEIN I AB 2024-02-23 21:53:00 Sol cuevas Lalit [facility] DIAGNOSTIC MANAGEMENT TEAM; SPECIAL COAGULATION EVALUATION 2024-02-23 21:53:00 Aziza Kell [facility] ANTIPHOSPHOLIPID ANTIBODY TESTS AND EVALUATION 2024-02-23 21:53:00 Aziza Kell [facility] ANTIPHOSPHOLIPID ANTIBODY EVALUATION-LT BLUE 2024-02-23 21:53:00 Aziza Kell [facility] ANTIPHOSPHOLIPID ANTIBODY EVALUATION-SST 2024-02-23 21:53:00 Aziza Kell [facility] MRSA / MSSA SCREEN BY GAMAL BRADFORD 2024-02-23 21:53:00 Jacinto Sethi [facility] LUPUS ANTICOAGULANT REFLEXIVE PANEL 2024-02-23 21:53:00 Lalit Marte [facility] ACUTE CARE ARTERIAL BLOOD GAS 2024-02-23 16:51:00 Jacinto Sethi [facility] AC PANEL 20 + LACTIC ACID 2024-02-23 15:00:00 Grace Benavidez [facility] XR TIBIA FIBULA 2 VW RIGHT 2024-02-23 14:50:00 C Katy Pedraza [facility] POCT GLUCOSE (AUTOMATED) 2024-02-23 14:45:00 Venus Judge [facility] MAGNESIUM 2024-02-23 09:08:00 Katy Fernandez [facility] BASIC METABOLIC PANEL (NA, K, CL, CO2, GLUCOSE, BUN, CREATININE, CA) 2024-02-23 09:08:00 Katy Comer [facility] CBC WITH DIFF 2024-02-23 09:08:00 Darren nowak Katy [facility] XR TIBIA FIBULA 2 VW RIGHT 2024-02-22 23:30:00 Des Persaud [facility] SERUM DRUG (IMMUNOASSAY) - COMPREHENSIVE DRUG SCREEN 2024-02-22 21:55:00 Lyric [facility] AC PANEL 21 + LACTIC ACID 2024-02-22 19:09:00 Karlos herrmann [facility] INFLUENZA A/B RSV COVID NAAT 2024-02-22 16:47:00 Darren [facility] LAB ONLY COVID INTERPRETATION 2024-02-22 16:47:00 Darren Chan Kat[facility] TRANSTHORACIC ECHO (TTE) COMPLETE W/ CONTRAST 2024-02-22 16:06:23 Darren Chan [facility] METHYLMALONIC ACID, SERUM 2024-02-22 13:14:00 Ca gilberto [facility] VITAMIN B12, LEVEL 2024-02-22 13:14:00 Darren Chan [facility] FOLATE 2024-02-22 13:14:00 Darren nowak [facility] C-REACTIVE PROTEIN 2024-02-22 13:14:00 Darren Chan [facility] THYROID STIMULATING HORMONE 2024-02-22 13:14:00 Darren Chan [facility] LIPID PANEL (79774)(TOTAL CHOLESTEROL, TRIGLYCERIDES, HDL) 2024-02-22 13:14:00 Darren [facility] SEDIMENTATION RATE 2024-02-22 13:14:00 Darren [facility] SICKLE CELL SCREEN 2024-02-22 13:14:00 Darren [facility] GLYCOSYLATED HEMOGLOBIN (A1C) 2024-02-22 13:14:00 Darren [facility] FACTOR V ASSAY 2024-02-22 13:14:00 Darren nowak [facility] ANTI-NUCLEAR ANTIBODY SCREEN 2024-02-22 13:14:00 Darren [facility] HOMOCYSTEINE 2024-02-22 13:14:00 Darren now[facility] PROTEIN C ANTIGEN 2024-02-22 13:14:00 Darren [facility] ANTI-NUCLEAR ANTIBODY TITER 2024-02-22 13:14:00 Darren [facility] ANTI-DOUBLE STRANDED DNA 2024-02-22 13:14:00 Victor M [facility] FACTOR 5 LEIDEN 2024-02-22 13:14:00 Darren nowak [facility] FACTOR 2 [id number] MUTATION 2024-02-22 13:14:00 Krista [facility] VITAMIN B1 (THIAMINE), WHOLE BLOOD 2024-02-22 13:14:00 Darern [facility] HIV 1/2 AG-AB WITH REFLEX 2024-02-22 13:14:00 Krista [facility] F5 LEIDEN AND F2 [id number] MUTATIONS 2024-02-22 13:14:00 Darren [facility] ANTITHROMBIN ACTIVITY 2024-02-22 13:14:00 Tray [facility] FREE PROTEIN S 2024-02-22 13:14:00 Darren nowak [facility] HB ECG ROUTINE & RHYTHM STRIP 2024-02-22 13:05:14 Darren [facility] XR CHEST 1 VW 2024-02-22 08:18:07 Selam Carrillo [facility] HB ECG ROUTINE & RHYTHM STRIP 2024-02-22 07:55:32 Selam Carrillo [facility] CT ANGIOGRAM HEAD 2024-02-22 07:12:08 Selam Carrillo [facility] CT ANGIOGRAM NECK 2024-02-22 07:12:08 Selam Carirllo [facility] CT HEAD WO CONTRAST 2024-02-22 07:11:35 Selam Carrillo [facility] XR KNEE 3 VW RIGHT 2024-02-22 05:42:55 Berta Selam [facility] TROPONIN I 2024-02-22 05:19:00 [facility] COMP. METABOLIC PANEL (67427) 2024-02-22 05:19:00 Selam Carrillo [facility] CBC WITH DIFF 2024-02-22 05:19:00 Selam Carrillo [facility] EKG-12 LEAD 2024-01-27 09:25:34 Selam Carrillo [facility] XR CHEST 1 VW 2024-01-27 08:17:37 Selam Carrillo [facility] TROPONIN I 2024-01-27 07:48:00 [facility] COMP. METABOLIC PANEL (12401) 2024-01-27 07:48:00 Berta Selam [facility] CBC WITH DIFF 2024-01-27 07:48:00 Selam Carrillo [facility] N-TERMINAL PRO-BNP 2024-01-27 07:48:00 Selam Carrillo [facility] Encounters Start Date/Time End Date/Time Encounter Type Admission Type Attending [facility] Care Facility Care Department Encounter ID Source 2024-10-04 08:30:00 2024-10-04 08:30:00 Outpatient LAKHANI, PEPITO POOJA VILLALOBOS [id number] [facility] 2024-08-29 09:00:00 2024-08-29 09:00:00 Outpatient LAKHANI, PEPITO POOJA VILLALOBOS [id number] [facility] 2024-08-13 10:45:00 2024-08-13 10:45:00 Outpatient JANNA LUCIANO POOJA VILLALOBOS [id number] [facility] 2024-08-12 10:30:00 2024-08-12 10:30:00 Outpatient LAKHANI, PEPITO POOJA VILLALOBOS [id number] [facility] 2024-08-07 00:00:00 2024-08-07 00:00:00 Outpatient LAKHANI, PEPITO POOJA VILLALOBOS [id number] [facility] 2024-08-02 13:00:00 2024-08-02 13:00:00 Outpatient POOJA VILLALOBOS [id number] [facility] 2024-08-02 00:00:00 2024-08-02 00:00:00 Outpatient LAKHANI, PEPITO POOJA VILLALOBOS [id number] [facility] 2024-08-01 11:00:00 2024-08-01 11:00:00 Outpatient LAKHANI, PEPITO [facility]OBOS [id number] [facility] 2024-07-29 13:30:00 2024-07-29 13:30:00 Outpatient LAKHANI, PEPITO POOJA VILLALOBOS [id number] [facility] 2024-07-15 10:05:00 2024-07-15 10:05:00 Outpatient AYY993 POOJA VILLALOBOS [id number] [facility] 2024-07-10 09:30:00 2024-07-10 09:30:00 Outpatient LAKHANI, PEPITO POOJA VILLALOBOS [id number] [facility] 2024-07-10 00:00:00 2024-07-10 00:00:00 Outpatient [facility]ALOBOS [id number] [facility] 2024-06-29 00:00:00 2024-06-29 00:00:00 Outpatient ESPERANZA SOLIS [id number] [facility] 2024-05-22 00:00:00 2024-05-22 00:00:00 Outpatient MD POOJA WOOD [id number] [facility] 2024-05-22 00:00:00 2024-05-22 00:00:00 Outpatient SHEY CARVAJAL [id number] [facility] 2024-05-22 00:00:00 2024-05-22 00:00:00 Outpatient MD POOJA WOOD [id number] [facility] 2024-04-27 00:00:00 2024-04-27 00:00:00 Outpatient ESPERANZA SOLIS [id number] [facility] 2024-04-25 00:00:00 2024-04-25 00:00:00 Outpatient MD POOJA WOOD [id number] [facility] 2024-04-24 00:00:00 2024-04-24 00:00:00 Outpatient MD POOJA WOOD [id number] [facility] 2024-04-23 12:19:00 2024-04-23 21:19:00 Emergency Norman Corea [facility] 1.2.840.114 350.1.13.10 4.2.7.2.686 [id number] [facility] 2024-04-23 00:00:00 2024-04-23 00:00:00 Outpatient RAMSES NUÑEZ [id number] [facility] 2024-04-22 00:00:00 2024-04-22 00:00:00 Outpatient ESPERANZA SOLIS [id number] [facility] 2024-04-15 10:00:00 2024-04-15 10:00:00 Outpatient RAMSES NUÑEZ [id number] [facility] 2024-04-03 00:00:00 2024-04-03 00:00:00 Outpatient ESPERANZA SOLIS [facility] VILLALOBOS [id number] [facility] 2024-03-19 22:42:00 2024-03-20 01:21:00 Emergency X NUVIA MERAZ ERICCA [facility] ERT [id number] [facility] 2024-03-19 22:42:00 2024-03-20 01:21:00 Emergency Nuvia Meraz [facility] 1.840.114 350.1.13.10 4.2.7.2.686 [id number] [facility] 2024-03-08 00:00:00 2024-03-08 00:00:00 Outpatient MD POOJA WOOD [id number] [facility] 2024-03-05 00:00:00 2024-03-05 09:38:24 Letter (Out) Neurology Neurology [facility] 1..114 350.1.13.10 4.2.7.2.686 [id number] [facility] 2024-03-04 00:00:00 2024-03-04 12:50:02 Transition of Care Keenan [place] Miatha R [facility] 1.840.114 350.1.13.10 4.2.7.2.686 [id number] [facility] 2024-02-21 23:51:00 2024-03-02 12:24:00 Inpatient X NESTOR ORTIZ [facility] MANJU [id number] [facility] 2024-02-21 23:51:00 2024-03-02 12:24:00 Hospital Encounter Selam Carrillo, Venus Marte, Nestor Palafox [facility] ([place]) 1.84.114 350.1.13.10 4.2.7.2.686 [id number] [facility] 2024-02-24 00:00:00 2024-02-24 00:00:00 Outpatient KERI, JP VILLALOBOS POOJA [id number] [facility] 2024-02-23 10:00:00 2024-02-23 10:00:00 Outpatient KERI, JP VILLALOBOS [facility]OOJA [id number] [facility] 2024-02-23 00:00:00 2024-02-23 00:00:00 Outpatient KERI, JP VILLALOBOS POOJA [id number] [facility] 2024-02-22 00:00:00 2024-02-22 00:00:00 Outpatient POOJA VILLALOBOS [id number] [facility] 2024-02-16 15:00:00 2024-02-16 15:00:00 Outpatient ES, KALEIGH POOJA VILLALOBOS [id number] [facility] 2024-02-15 14:40:00 2024-02-15 14:40:00 Outpatient KERI, JP POOJA VILLALOBOS [id number] [facility] 2024-02-14 00:00:00 2024-02-14 00:00:00 Outpatient SHEY CARVAJAL [id number] [facility] 2024-02-09 10:35:00 2024-02-09 10:35:00 Outpatient LAB90 POOJA VILLLAOBOS [id number] [facility] 2024-02-09 10:00:00 2024-02-09 10:00:00 Outpatient SHEY CARVAJAL [id number] [facility] 2024-02-07 00:00:00 2024-02-07 10:47:01 Letter (Out) Campaigns, Generic Provider Campaigns, Generic Provider [facility] ([place]) 1.2.840.114 350.1.13.10 4.2.7.2.686 [id number] [facility] 2024-02-02 00:00:00 2024-02-02 12:35:50 Letter (Out) Faculty, Pulmonary Faculty, Pulmonary [facility] 1.2.840.114 350.1.13.10 4.2.7.2.686 [id number] [facility] 2024-01-27 02:48:00 2024-01-27 05:24:00 Emergency X SELAM CARRILLO TIMOTHY [facility] ERT [id number] [facility] 2024-01-27 02:48:00 2024-01-27 05:24:00 Emergency Selam Carrillo [facility] 1.2.840.114 350.1.13.10 4.2.7.2.686 [id number] [facility] 2023-07-31 15:30:00 2023-07-31 15:30:00 Outpatient TATYANA FAN [id number] [facility] 2021-11-19 09:34:00 2021-11-19 10:32:00 Emergency X BAM DA SILVAN [facility] ERT [id number] [facility] 2021-11-19 09:34:00 2021-11-19 10:32:00 Emergency Bam Da Silvan Nigel [facility] 1.2.840.114 350.1.13.10 4.2.7.2.686 [id number] [facility] Results Test Description Test Time Test Comments Results Result Co mments Source [facility].2024-04-24 00:17:12* Test Item Value Reference Range Interpretation Comme nts PH (test code = 2) 7.36 7.35-7.45 PCO2 (test code = 3155057698) 45 35-45 PO2 (test code = 4367175068) 72 80-100 L HCO3 (test code = 5247460172) 25 22-26 BE (test code = 7092751322) -1.1 -3.0-3.0 Lab Interpretation (test cod e = 25839-0) [facility] 1 [id number] 20:52:56EXAM: XR CHEST 1 VW HISTORY: 49 [...] aggressive osseous lesion, ordislocation. No soft tissue abnormality.[facility], [id number] 20:00:03* Test Item Value Reference Range Interpretation Comme nts AMMONIA (test code = 2966727502) 28 umol/L Lab Interpretation (test cod e = 30752-7) [facility] wo [id number] 19:41:57EXAM: CT HEAD WO CONTRAST HISTORY: Mental [...] The calvarium and central skull base are unremarkable.[facility] [id number] 19:33:16* Test Item Value Reference Range Interpretation Comme nts TROPONIN I (test code = 2575414181) 0.001 ng/mL <=0.034 BANDAR (test code = [...] of biotin. Lab Interpretation (test code = 04984-2) Normal [facility]2024-12-10 19:22:05 ALCOHOL<10mg/dL04/23/2024 1:22 [facility] Hxjdbunf47-122 Toxic>100 Depression of [employer]OIL[employer]PERVIS[employer]>400 Fatalities ReportedMethodist Hospital AtascosaComp. Metabolic Panel (35089)2024-04-23 19:21:39* Test Item Value Reference Range Interpretation Comme nts NA (test code = 5094866047) 134 mmol/L 135-145 L K (test code = 9730202629) 4.2 mmol/L 3.5-5.0 CL (test code = 4138832795) 102 mmol/L 98-108 CO2 TOTAL (test code = 3066093674) 25 mmol/L 23-31 AGAP (test code = 1321028446) 7 2-16 BUN (test code = 9274590788) 14 mg/dL 7-23 GLUCOSE (test code = 2723083841) 144 mg/dL 70-110 H CREATININE (test code = 2160-0) 0.85 mg/dL 0.60-1.25 TOTAL BILI (test code = 2312101457) 0.3 mg/dL 0.1-1.1 CALCIUM (test code = 8236467373) 9.2 mg/dL 8.6-10.6 T PROTEIN (test code = 7361386176) 7.2 g/dL 6.3-8.2 ALBUMIN (test code = 6425966875) 4.1 g/dL 3.5-5.0 ALK PHOS (test code = 8622437283) 77 U/L 34-122 ALTv (test code = 1742-6) 43 U/L 5-50 AST(SGOT) (test code = 2810928326) 44 U/L 13-40 H eGFR (test code = 91725-6) 106.5 mL/min/1.73m2 CKD-EPI eGFR (2020). Assuming creatinine has been stable day-to-day for at least three months, the eGFR indicates Category G1 (>= 90 mL/min/1.73 m2) Lab Interpretation (test code = 58253-2) Abnormal [facility] with [id number] 19:09:48* Test Item Value Reference Range Interpretation [...] 33.1 g/dL 31.2-35.0 RDW-SD (test code = 96079-1) 47.3 fL 38.5-51.6 RDW-CV (test code = 788-0) 14.0 % 12.1-15.4 PLT (test code = 777-3) 212 150-328 MPV (test code = 19465-6) 9.7 fL 9.8-13.0 L NRBC/100 WBC (test code = 1826253166) 0.0 0.0-10.0 NRBC x10^3 (test code = 0449487955) See_Comment [Automated messa ge] The system which generated this result transmitted reference range: 10*3/?L. The reference range was not used to interpret this result as normal/abnormal. GRAN MAT (NEUT) % (test code = 770-8) 62.0 % IMM GRAN % (test code = 0354772793) 0.20 % LYMPH % (test code = 736-9) 20.4 % MONO % (test code = 5905-5) 14.0 % EOS % (test code = 713-8) 2.7 % BASO % (test code = 706-2) 0.7 % GRAN MAT x10^3(ANC) (test code = 7575594932) 3.47 10*3/uL 1.99-6.95 IMM GRAN x10^3 (test code = 6015104947) 0.00-0.06 LYMPH x10^3 (test code = 731-0) 1.14 10*3/uL 1.09-3.23 MONO x10^3 (test code = 742-7) 0.78 10*3/uL 0.36-1.02 EOS x10^3 (test code = 711-2) 0.15 10*3/uL 0.06-0.53 BASO x10^3 (test code = 704-7) 0.04 10*3/uL 0.01-0.09 Lab Interpretation (test code = 00218-5) [facility] 1 [id number] 06:55:30EXAM: XR CHEST 1 VW HISTORY: 48 years-old Male; Provided indication: STEMI TECHNIQUE: Single frontal view of the chest. COMPARISON: Radiograph dated 02/22/2024 FINDINGS: Poor inspiratory effort. No focal consolidation or pleural abnormality isvisualized. The cardiomediastinal silhouette is normal in size accounting fortechnique. No focal osseous lesions or acute osseous findings are detected. [facility]inal Xrp-[id number] 06:17:27* Test Item Value Reference Range Interpretation Comme nts NT-proBNP (test code = 63128-9) <=125 Lab Interpretation (test cod e = 45340-4) Normal [facility] [id number] 06:17:07* Test Item Value Reference Range Interpretation Comme nts TROPONIN I (test code = 1874297851) <=0.034 BANDAR (test code = BANDAR) Reference [...] of biotin. Lab Interpretation (test code = 96960-4) Normal [id number] 06:04:19* Test Item Value Reference Range Interpretation Comme nts NA (test code = 9922854925) 134 mmol/L 135-145 L K (test code = 2000903394) 3.8 mmol/L 3.5-5.0 CL (test code = 4902156517) 95 mmol/L 98-108 L CO2 TOTAL (test code = 4784801246) 33 mmol/L 23-31 H AGAP (test code = 3154309804) 6 2-16 BUN (test code = 9533827288) 19 mg/dL 7-23 GLUCOSE (test code = 0137417698) 118 mg/dL 70-110 H CREATININE (test code = 2160-0) 0.96 mg/dL 0.60-1.25 TOTAL BILI (test code = 0657123967) 0.2 mg/dL 0.1-1.1 CALCIUM (test code = 5056249354) 9.9 mg/dL 8.6-10.6 T PROTEIN (test code = 4691193017) 7.6 g/dL 6.3-8.2 ALBUMIN (test code = 2020853859) 4.2 g/dL 3.5-5.0 ALK PHOS (test code = 9429393166) 90 U/L 34-122 ALTv (test code = 1742-6) 43 U/L 5-50 AST(SGOT) (test code = 6675403984) 33 U/L 13-40 eGFR (test code = 71532-9) 97.5 mL/min/1.73m2 CKD-EPI eGFR (2020). Assuming creatinine has been stable day-to-day for at least three months, the eGFR indicates Category G1 (>= 90 mL/min/1.73 m2) Lab Interpretation (test code = 27651-1) [facility]normal [facility] with [id number] 05:39:14* Test Item Value Reference Range Interpretation [...] 32.4 g/dL 31.2-35.0 RDW-SD (test code = 23043-2) 47.5 fL 38.5-51.6 RDW-CV (test code = 788-0) 14.3 % 12.1-15.4 PLT (test code = 777-3) 305 150-328 MPV (test code = 46522-2) 8.8 fL 9.8-13.0 L NRBC/100 WBC (test code = 8357065521) 0.0 0.0-10.0 NRBC x10^3 (test code = 5251375877) See_Comment [Automated messa ge] The system which generated this result transmitted reference range: 10*3/?L. The reference range was not used to interpret this result as normal/abnormal. GRAN MAT (NEUT) % (test code = 770-8) 74.1 % IMM GRAN % (test code = 2996372207) 0.30 % LYMPH % (test code = 736-9) 14.6 % MONO % (test code = 5905-5) 8.6 % EOS % (test code = 713-8) 2.0 % BASO % (test code = 706-2) 0.4 % GRAN MAT x10^3(ANC) (test code = 1553645703) 8.74 10*3/uL 1.99-6.95 H IMM GRAN x10^3 (test code = 8941481551) 0.04 10*3/uL 0.00-0.06 LYMPH x10^3 (test code = 731-0) 1.72 10*3/uL 1.09-3.23 MONO x10^3 (test code = 742-7) 1.01 10*3/uL 0.36-1.02 EOS x10^3 (test code = 711-2) 0.24 10*3/uL 0.06-0.53 BASO x10^3 (test code = 704-7) 0.05 10*3/uL 0.01-0.09 Lab Interpretation (test code = 62377-6) Abnormal [facility] GLUCOSE (AUTOMATED)2024-03-02 13:00:16* Test Item Value Reference Range Interpretation Comme nts POCT GLU (test code = 6995866780) 123 mg/dL 70-110 H Lab Interpretation (test cod e = 06360-0) Abnormal [facility] GLUCOSE (AUTOMATED)2024-03-02 00:48:50* Test Item Value Reference Range Interpretation Comme nts POCT GLU (test code = 4940049109) 181 mg/dL 70-110 H Lab Interpretation (test cod e = 54689-5) Abnormal [facility] GLUCOSE (AUTOMATED)2024-03-01 22:11:45* Test Item Value Reference Range Interpretation Comme nts POCT GLU (test code = 0076405653) 117 mg/dL 70-110 H Lab Interpretation (test cod e = 49512-6) Abnormal [facility] GLUCOSE (AUTOMATED)2024-03-01 17:20:46* Test Item Value Reference Range Interpretation Comme nts POCT GLU (test code = 9253039592) 93 mg/dL 70-110 Lab Interpretation (test cod e = 70695-9) Normal [facility] GLUCOSE (AUTOMATED)2024-03-01 12:48:14* Test Item Value Reference Range Interpretation Comme nts POCT GLU (test code = 2208099981) 109 mg/dL 70-110 Lab Interpretation (test cod e = 48957-9) Normal [facility] GLUCOSE (AUTOMATED)2024-03-01 02:34:07* Test Item Value Reference Range Interpretation Comme nts POCT GLU (test code = 7724350637) 134 mg/dL 70-110 H Lab Interpretation (test cod e = 77275-1) Abnormal [facility] GLUCOSE (AUTOMATED)2024-02-29 21:27:11* Test Item Value Reference Range Interpretation Comme nts POCT GLU (test code = 7021808644) 95 mg/dL 70-110 Lab Interpretation (test cod e = 01998-7) Normal [facility] GLUCOSE (AUTOMATED)2024-02-29 17:24:36* Test Item Value Reference Range Interpretation Comme [facility] POCT GLU (test code = 3632123342) 187 mg/dL 70-110 H Lab Interpretation (test cod e = 14059-5) [facility]; Special Coagulation Fdqthsnxka9673-60-71 16:32:15Related Clinical Vyiqnuq64-qwfc-vlo right handed male with PMH of substance abuse (cocaine, crack, prior crystal meth), alcohol use, smoking history (vapes and tobacco cigarettes), HTN, and CHAVA (not on CPAP) who was transferred from [facility] with CC of R leg weakness. 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 The suspected etiology is watershed versus lacunar infarction. BMI: 42.83 kg/m2 Medications: Aspirin 81 mg and Plavix 75 mg daily Family History: No family history of coagulation disorder 02/29/2024 11:32 AM CDTUTMB LABORATORY SERVICESPertinent Lab Results ? Ref. Range [...] Testing: Factor V Leiden ?Normal ?NormalProthrombin ?Normal ?Kknjyh6102/29/2024 11:32 AM [facility] LABORATORY SERVICESCoagDMT interpretationAntithrombin activity is slightly low. [...] of Plavix is continued. 02/29/2024 11:32 AM [facility] LABORATORY SERVICESRecommendationsIf concerns for antithrombin deficiency persist, [...] therapy, patient should be genotyped for the OOP3P21 enzyme to determine medication efficacy. ?02/29/2024 11:32 AM [facility] LABORAT[facility] SERVICESUnMission Trail [facility] HospitalPOCT [facility] ([facility]ATED)2024-02-29 13:04:10* Test Item Value Reference Range Interpretation Comme [facility] POCT GLU (test code = 2155846624) 133 mg/dL 70-110 H Lab Interpretation (test cod e = 02700-7) Abnormal [facility]aCb with Suka7751-41-22 09:59:58* Test Item Value Reference Range Interpretation [...] 32.5 g/dL 31.2-35.0 RDW-SD (test code = 72926-1) 47.4 fL 38.5-51.6 RDW-CV (test code = 788-0) 14.3 % 12.1-15.4 PLT (test code = 777-3) 339 150-328 H MPV (test code = 91837-9) 9.3 fL 9.8-13.0 L NRBC/100 WBC (test code = 7607862859) 0.0 0.0-10.0 NRBC x10^3 (test code = 6900069720) See_Comment [Automated message] The system which generated this result transmitted reference range: 10*3/?L. The reference range was not used to interpret this result as normal/abnormal. GRAN MAT (NEUT) % (test code = 770-8) 91.6 % IMM GRAN % (test code = 1889881023) 1.80 % LYMPH % (test code = 736-9) 5.1 % MONO % (test code = 5905-5) 1.4 % EOS % (test code = 713-8) 0.0 % BASO % (test code = 706-2) 0.1 % GRAN MAT x10^3(ANC) (test code = 7114112741) 18.78 10*3/uL 1.99-6.95 H IMM GRAN x10^3 (test code = 0372699621) 0.36 10*3/uL 0.00-0.06 H LYMPH x10^3 (test code = 731-0) 1.04 10*3/uL 1.09-3.23 L MONO x10^3 (test code = 742-7) 0.29 10*3/uL 0.36-1.02 L EOS x10^3 (test code = 711-2) 0.06-0.53 L BASO x10^3 (test code = 704-7) 0.01-0.09 Lab Interpretation (test code = 21141-8) Abnormal [facility] Metabolic Panel (NA, K, CL, CO2, GLUCOSE, BUN, CREATININE, CA)2024-02-29 09:48:38* Test Item Value Reference Range Interpretation Comme nts NA (test code = 4965503841) 137 mmol/L 135-145 K (test code = 8652488851) 4.7 mmol/L 3.5-5.0 CL (test code = 4594150548) 97 mmol/L 98-108 L CO2 TOTAL (test code = 0641333577) 31 mmol/L 23-31 AGAP (test code = 5255162768) 9 2-16 BUN (test code = 6150501762) 16 mg/dL 7-23 GLUCOSE (test code = 4681633850) 153 mg/dL 70-110 H CREATININE (test code = 2160-0) 0.82 mg/dL 0.60-1.25 CALCIUM (test code = 8012424473) 9.7 mg/dL 8.6-10.6 eGFR (test code = 11768-0) 108.4 mL/min/1.73m2 CKD-EPI eGFR (2020). Assuming creatinine has been stable day-to-day for at least three months, the eGFR indicates Category G1 (>= 90 mL/min/1.73 m2) Lab Interpretation (test code = 05884-4) [facility]normal [facility]aMagnesium2024-10-17 09:48:38* Test Item Value Reference Range Interpretation Comme nts MAGNESIUM (test code = 6768699723) 2.0 mg/dL 1.7-2.4 Lab Interpretation (test cod e = 32626-7) Normal [facility]2024-02-29 01:17:39* Test Item Value Reference Range Interpretation Comme nts POCT GLU (test code = 8831443295) 176 mg/dL 70-110 H Lab Interpretation (test cod e = 96920-4) Abnormal [facility]aAnti-B2 Glycoprotein I Zc5076-18-17 00:55:22* Test Item Value Reference Range Interpretation Comme nts Anti-B2 Glycoprotein 1 IgG (test code = 8658688781) 2.6 0.0-20.0 Anti-B2 Glycoprotein 1 IgM (test code = 4741636889) 7.0 0.0-20.0 Anti-B2 Glycoprotein 1 IgA (test code = 5615862425) 7.7 0.0-20.0 BANDAR (test code = BANDAR) INTERPRETATION:Delilah ues over 20 SGU, SMU, or LAUREN units are considered positive. NOTE:A positive test for anti-B2 Glycoprotein I antibodies may indicate the presence of Antiphospholipid Syndrome. ?Anti-B2 Glycoprotein I antibodies have been associated with thrombosis, recurrent losses and/or thrombocytopenia. TEST PERFORMED AT:[facility] [address] [place] [id number] Lab Interpretation (test code = 11122-8) Normal [facility]aAnticardiolipin Jdhggyiycd8324-86-39 00:55:12 * Test Item Value Reference Range Interpretation Comme [facility] Anticardiolipin Antibody IgG (test code = 6463475467) 1.4 0.0-10.0 Anticardiolipin Antibody IgM (test code = 7327431656) 2.2 0.0-10.0 Anticardiolipin Antibody IgA (test code = 3264318072) 7.6 0.0-15.0 BANDAR (test code = BANDAR) [...] 4: 2210-4 Lab Interpretation (test code = 03352-7) Normal [facility] GLUCOSE (AUTOMATED)2024-02-28 21:47:39* Test Item Value Reference Range Interpretation Comme [facility] POCT GLU (test code = 8335910818) 181 mg/dL 70-110 H Lab Interpretation (test cod e = 74972-6) Abnormal [facility] GLUCOSE (AUTOMATED)2024-02-28 13:25:39* Test Item Value Reference Range Interpretation Comme [facility] POCT GLU (test code = 1943466972) 139 mg/dL 70-110 H Lab Interpretation (test cod e = 53454-6) Abnormal [facility] Anticoagulant Reflexive Evzmg8911-70-32 02:51:39* Test Item Value Reference Range Interpretation Comme [facility] Prothrombin Time (PT) (test code = 5902-2) 13.3 s 12.0-15.5 Neutralized PTT-LA Ratio (test code = 49735-7) Not Performed <=1.20 dRVVT Screen Ratio (test code = 47268-7) 0.87 <=1.20 Anti-Xa Qualitative Interpretation (test code = 81957-0) Not Performed Not Present Thrombin Time (TT) (test code = 3243-3) Not Performed <=19.5 Anticoagulant Medication Neutralization (test code = 3269-8) Not Performed Not Performed Neutralized dRVVT Screen Ratio (test code = 75002-7) Not Performed <=1.20 dRVVT 1:1 Mix Ratio (test code = 90507-6) Not Performed <=1.20 dRVVT Confirmation Ratio (test code = 15149-7) Not Performed <=1.20 Hexagonal Phospholipid Confirmation (test code = 67646-5) Not Performed <=7.9 Lupus Anticoagulant, Interpretation (test code = 89983-9) See Note Lupus anticoagul ant not detected. [...] developed and its performance characteristics determined by [facility]. It has not been cleared or approved by the U.S. Food and Drug Administration. This test was performed in a CLIA-certified laboratory and is intended for clinical purposes.Performed By: [facility] [place] [id number] Director: Marvin Gillespie MD, PhDCLIA Number: [id number] [facility]aMR STROKE BRAIN WO [id number] 22:08:21 MR STROKE BRAIN WO CONTRAST COMPARISON: [...] the major intracranial vessels are unremarkable.Right mastoid effusion.[facility]aXR TIBIA FIBULA 2 VW LSMNV7597-62-94 17:19:50XR TIBIA FIBULA 2 VW RIGHT HISTORY: ?MRI CLEARANCE Neuro deficit, acute, stroke suspected S/SX, Dx:Stroke COMPARISON: [facility] 02:10:22* Test Item Value Reference Range Interpretation Comme nts POCT GLU (test code = 0476693767) 108 mg/dL 70-110 Lab Interpretation (test cod e = 47516-2) Normal [facility] GLUCOSE (AUTOMATED)2024-02-24 13:17:53* Test Item Value Reference Range Interpretation Comme nts POCT GLU (test code = 1291718633) 99 mg/dL 70-110 Lab Interpretation (test cod e = 20639-1) Normal [facility] GLUCOSE (AUTOMATED)2024-02-24 09:21:47* Test Item Value Reference Range Interpretation Comme nts POCT GLU (test code = 4482170852) 85 mg/dL 70-110 Lab Interpretation (test cod e = 48728-8) Normal [facility] GLUCOSE (AUTOMATED)2024-02-24 05:28:17* Test Item Value Reference Range Interpretation Comme nts POCT GLU (test code = 3001847076) 107 mg/dL 70-110 Lab Interpretation (test cod e = 82180-2) Normal [facility] GLUCOSE (AUTOMATED)2024-02-24 02:37:16* Test Item Value Reference Range Interpretation Comme nts POCT GLU (test code = 7451032836) 112 mg/dL 70-110 H Lab Interpretation (test cod e = 95850-9) Abnormal [facility] GLUCOSE (AUTOMATED)2024-02-23 22:06:44* Test Item Value Reference Range Interpretation Comme nts POCT GLU (test code = 9152317835) 93 mg/dL 70-110 Lab Interpretation (test cod e = 80986-9) Normal [facility] GLUCOSE (AUTOMATED)2024-02-23 22:03:50* Test Item Value Reference Range Interpretation Comme nts POCT GLU (test code = 3826919556) 79 mg/dL 70-110 Lab Interpretation (test cod e = 00264-5) Normal [facility] Arterial Blood Gas.2024-02-23 16:53:18* Test Item Value Reference Range Interpretation Comme nts PH (test code = 2) 7.38 7.35-7.45 PCO2 (test code = 5159534436) 54 35-45 H PO2 (test code = 3513827506) 107 80-100 H QUES HCO3 (test code = 3244254374) 31 22-26 H BE (test code = 0448671313) 4.4 -3.0-3.0 H Lab Interpretation (test cod e = 79766-6) Abnormal [facility]aAC Panel 20 + Lactic Gvgr3316-35-30 15:12:41* Test Item Value Reference Range Interpretation Comme nts PH (test code = 2) 7.39 7.35-7.45 PCO2 (test code = 3054945111) 51 35-45 H PO2 (test code = 3366412420) 62 80-100 L HCO3 (test code = 4282392613) 31 22-26 H BE (test code = 3499801007) 4.3 -3.0-3.0 H THB (test code = 6959316441) 15.8 g/dL 13.5-18.0 %O2HB (test code = 1684308803) 91.7 % 94.0-99.0 L %COHB ART (test code = 2589380287) 1.0 % 0.0-1.5 %METHB ART (test code = 3799286528) 0.3 % 0.4-1.5 L VOL%O2 ART (test code = 2205658658) 20.3 % 15.0-23.0 NA (test code = 7299791610) 139 mmol/L 135-145 K+ (test code = 3239733962) 4.3 mmol/L 3.5-5.0 AC CA IONZ (test code = 4405776744) 4.90 mg/dL 4.50-5.30 GLUCOSE (test code = 1386075260) 92 mg/dL 70-110 LACTIC ACID (test code = 7323267815) 1.29 mmol/L 0.50-2.20 QUES Lab Interpretation (test cod e = 13985-7) [facility]normal [facility]2024-02-23 14:47:48* Test Item Value Reference Range Interpretation Comme nts POCT GLU (test code = 4230952983) 94 mg/dL 70-110 Lab Interpretation (test cod e = 19442-4) Normal [facility]aXR TIBIA FIBULA 2 VW [id number] 12:10:58 XR TIBIA FIBULA 2 VW RIGHT HISTORY: ?For Mri Clearance PT claims to have metal injury from counter topthat had to be removed. Need XR to verify no foreign body still in patientprior to MRI. COMPARISON: ?none available.[facility] Protocol - Transthoracic echo (TTE)2024-02-22 21:09:32* Test Item Value Reference Range Interpretation Comme nts Height (test code = 5424531561) 69 in Weight (test code = 1656178847) 290 lbs Systolic BP (test code = 5036591967) 149 mmHg Diastolic BP (test code = 7157683683) 95 mmHg Heart Rate (test code = 7609101702) 81 bpm BSA (test code = 8393239737) 2.42 m2 LVOT diameter (test code = 7048536013) 2.29 cm LVOT area (test code = 1629360518) 4.10 cm2 LA size (test code = 3910850065) 3.8 cm Ao root diam (test code = 2537401146) 3.40 cm Aortic root (test code = 4811778129) 3.4 cm Ao root annulus (test code = 2562352716) 3.4 cm E wave decelartion time (test code = 4328384517) 0.12 s MV Peak A Elidia (test code = 6545097962) 90.9 cm/s MV Peak E Elidia (test code = 3007020217) 76.2 cm/s E/A ratio (test code = 3585003212) 0.84 ratio MV Prop V (test code = 4359556804) 47.10 cm/s LAV(MOD-sp4) (test code = 0198975850) 28.70 mL Tapse (test code = 9471471351) 1.97 cm LVOT stroke volume (test code = 3018144399) 59.40 cm3 LVOT peak elidia (test code = 5632921323) 99.1 cm/s LVOT mn grad (test code = 5226376928) 1.7 mmHg AV LVOT peak gradient (test code = 4997715245) 3.9 mmHg LVOT peak VTI (test code = 4477488260) 14.4 cm LV V1 mean (test code = 1135141861) 60.30 cm/s LA Volume Index (BP) (test code = 4837536205) 10.1 mL/m2 LA volume (BP) (test code = 9008164008) 24.5 mL LAV(MOD-sp2) (test code = 3795349604) 21.70 mL LVIDD (test code = 0799203000) 5.30 cm Left Ventricular End Diastolic Volume by Teichholz Method (test code = 1162008) 134.8 mL IVS (test code = 9712799615) 0.92 cm Interventricular Septum Diastolic Thickness by 2D (test code = 5685097) 0.92 cm LVPWD (test code = 4649552308) 1.09 cm PW (test code = 9474450253) 1.09 cm 0.6-1.1 EF(Teich) (test code = 3133589880) 52.10 % LVIDS (test code = 9889145410) 3.90 cm Left Ventricular End Systolic Volume by Teichholz Method (test code = 9445139) 64.6 mL FS (test code = 4945222902) 27 % EF - 2D (test code = 03186625) 52.10 % A4C EF (test code = 9171490611) 25.40 % EF(sp4-el) (test code = 1416434077) 23.40 % SV(MOD-sp4) (test code = 1657051054) 45.70 mL SV(sp4-el) (test code = 8063001301) 41.50 mL Radiology Study observation (narrative) (test code = 57748-3) BANDAR (test code = BANDAR) ?Left?Ventricle: Left [...] contrast was performed. Patient exhibited sinus bradycardia. [facility] Panel 21 + Lactic Aexr8133-30-87 19:16:26* Test Item Value Reference Range Interpretation Comme nts PH (test code = 5352854353) 7.35 7.32-7.42 PCO2 GYPSY (test code = 3265862104) 56 41-51 H PO2 GYPSY (test code = 8611224544) 46 25-40 H HCO3 GYPSY (test code = 8708978301) 30 24-28 H AC VBE(BEAKER) (test code = 8770896871) 2.9 mEq/L THB GYPSY (test code = 5146305769) 16.0 g/dL 13.5-18.0 %O2HB GYPSY (test code = 0041034126) 83.4 % 52.0-63.0 H %COHB GYPSY (test code = 8973689111) 1.0 % 0.0-1.5 %METHB GYPSY (test code = 2683721562) 0.3 % 0.4-1.5 L VOL%O2 GYPSY (test code = 5897724143) 18.7 % 6.0-12.0 H NA (test code = 7296178698) 138 mmol/L 135-145 K+ (test code = 6780470931) 4.3 mmol/L 3.5-5.0 AC CA IONZ (test code = 1306330538) 4.90 mg/dL 4.50-5.30 GLUCOSE (test code = 4533103491) 113 mg/dL 70-110 H LACTIC ACID (test code = 3660157866) 1.88 mmol/L 0.50-2.20 QUES Lab Interpretation (test cod e = 56408-0) [facility]normal [facility] CHEST 1 [id number] 16:02:49EXAM: XR CHEST 1 VW COMPARISON: 01/27/2020 [...] tissues: No acute osseous findings are detected. [facility]aCT ANGIOGRAM [id number] 13:49:37CT ANGIOGRAM HEAD, CT ANGIOGRAM NECK HISTORY: [...] Left subclavian artery is obscured bycontrast in the subclavian vein. Common and internal cervical carotids: The [...] artery terminates asPICA The basilar artery is normalin caliber. The superior cerebellararteries are unremarkable. The posterior cerebral arteries areunremarkable. origin of the bilateral posterior cerebral arteries,otherwise patent. The distal cervical, petrous, cavernous and supraclinoidinternal carotid arteries are unremarkable. The distal cervical, petrous, cavernous and supraclinoid internal carotidarteries are patent. The anterior and middle cerebral arteries areunremarkable. Small anterior communicating artery. The dural venous sinuses are grossly patent. [facility]aCT ANGIOGRAM [id number] 13:49:37CT ANGIOGRAM HEAD, CT ANGIOGRAM NECK HISTORY: [...] The dural venous sinuses are grossly patent. [facility]XR KNEE 3 VW [id number] 13:33:39EXAM: XR KNEE 3 VW RIGHT HISTORY: 48 years-old Male with pain COMPARISON: None. FINDINGS: Radiographs of the right knee demonstrate no acute fractures ordislocations. Chronically fragmented tibial tuberosity is visualized. Trav-Stiedatype calcification, likely due to remote MCL injury.Alignment is within normal limits. The soft tissues are unremarkable.[facility]aCT HEAD WO [id number] 13:29:15EXAM: CT HEAD WO CONTRAST HISTORY: 48 [...] clear. The calvarium and central skull base areunremarkable.[facility]aTROPONIN [id number] 08:15:34* Test Item Value Reference Range Interpretation Comme nts TROPONIN I (test code = 9531166440) 0.005 ng/mL <=0.034 BANDAR (test code = [...] of biotin. Lab Interpretation (test code = 63941-5) Normal [facility]aCOM. METABOLIC PANEL ([id number])2024-02-22 06:19:00* Test Item Value Reference Range Interpretation Comme nts NA (test code = 3447070163) 137 mmol/L 135-145 K (test code = 7815514655) 3.6 mmol/L 3.5-5.0 CL (test code = 1990582895) 100 mmol/L 98-108 CO2 TOTAL (test code = 9763846728) 33 mmol/L 23-31 H AGAP (test code = 8179883339) 4 2-16 BUN (test code = 0226698614) 23 mg/dL 7-23 GLUCOSE (test code = 7803249765) 132 mg/dL 70-110 H CREATININE (test code = 2160-0) 1.04 mg/dL 0.60-1.25 TOTAL BILI (test code = 9724963765) 0.5 mg/dL 0.1-1.1 CALCIUM (test code = 7645163902) 9.4 mg/dL 8.6-10.6 T PROTEIN (test code = 6967440937) 7.5 g/dL 6.3-8.2 ALBUMIN (test code = 1470846684) 3.9 g/dL 3.5-5.0 ALK PHOS (test code = 9891621518) 75 U/L 34-122 ALTv (test code = 1742-6) 38 U/L 5-50 AST(SGOT) (test code = 6887951372) 34 U/L 13-40 eGFR (test code = 70484-4) 88.6 mL/min/1.73m2 CKD-EPI eGFR (2020). Assuming creatinine has been stable day-to-day for at least three months, the eGFR indicates Category G2 (60 - 89 mL/min/1.73 m2) Lab Interpretation (test code = 06166-0) Abnormal [facility]aCB WITH [id number] 05:49:38* Test Item Value Reference Range Interpretation [...] 32.6 g/dL 31.2-35.0 RDW-SD (test code = 00771-4) 47.6 fL 38.5-51.6 RDW-CV (test code = 788-0) 14.4 % 12.1-15.4 PLT (test code = 777-3) 294 150-328 MPV (test code = 11312-2) 9.1 fL 9.8-13.0 L NRBC/100 WBC (test code = 3058736999) 0.0 0.0-10.0 NRBC x10^3 (test code = 6951463504) See_Comment [Automated messa ge] The system which generated this result transmitted reference range: 10*3/?L. The reference range was not used to interpret this result as normal/abnormal. GRAN MAT (NEUT) % (test code = 770-8) 56.5 % IMM GRAN % (test code = 0227689161) 0.30 % LYMPH % (test code = 736-9) 30.2 % MONO % (test code = 5905-5) 8.4 % EOS % (test code = 713-8) 4.2 % BASO % (test code = 706-2) 0.4 % GRAN MAT x10^3(ANC) (test code = 4200037474) 5.13 10*3/uL 1.99-6.95 IMM GRAN x10^3 (test code = 2832852765) 0.03 10*3/uL 0.00-0.06 LYMPH x10^3 (test code = 731-0) 2.74 10*3/uL 1.09-3.23 MONO x10^3 (test code = 742-7) 0.76 10*3/uL 0.36-1.02 EOS x10^3 (test code = 711-2) 0.38 10*3/uL 0.06-0.53 BASO x10^3 (test code = 704-7) 0.04 10*3/uL 0.01-0.09 Lab Interpretation (test code = 69664-1) [id number] 08:57:36* Test Item Value Reference Range Interpretation Comme nts NT-proBNP (test code = 16219-4) 20 pg/mL <=125 Lab Interpretation (test cod e = 18344-4) Normal [facility]aTROPONIN [id number] 08:33:10* Test Item Value Reference Range Interpretation Comme nts TROPONIN I (test code = 4209449550) 0.005 ng/mL <=0.034 BANDAR (test code = [...] of biotin. Lab Interpretation (test code = 08581-2) Normal [facility] CHEST 1 [id number] 08:30:11Ordering physician: SELAM CARRILLO Indication: Chest pain Comparison: None Technical quality: Adequate Findings: Single AP view of the chest. The cardiopericardial silhouette ismildly enlarged. There is mild prominence of the central interstitium. Thevisualized bony thorax is intact.[facility]aCOMP. METABOLIC PANEL ([id number])2024-01-27 08:22:18* Test Item Value Reference Range Interpretation Comme nts NA (test code = 7622713851) 137 mmol/L 135-145 K (test code = 4154612708) 3.6 mmol/L 3.5-5.0 CL (test code = 5077921713) 100 mmol/L 98-108 CO2 TOTAL (test code = 6627272720) 32 mmol/L 23-31 H AGAP (test code = 6827154267) 5 2-16 BUN (test code = 4759671043) 17 mg/dL 7-23 GLUCOSE (test code = 9370906762) 163 mg/dL 70-110 H CREATININE (test code = 2160-0) 0.94 mg/dL 0.60-1.25 TOTAL BILI (test code = 7678725142) 0.3 mg/dL 0.1-1.1 CALCIUM (test code = 0359666474) 8.9 mg/dL 8.6-10.6 T PROTEIN (test code = 6092868016) 6.8 g/dL 6.3-8.2 ALBUMIN (test code = 9476083487) 3.8 g/dL 3.5-5.0 ALK PHOS (test code = 1609348864) 84 U/L 34-122 ALTv (test code = 1742-6) 36 U/L 5-50 AST(SGOT) (test code = 8404983111) 46 U/L 13-40 H eGFR (test code = 77537-7) 100.0 mL/min/1.73m2 CKD-EPI eGFR (2020). Assuming creatinine has been stable day-to-day for at least three months, the eGFR indicates Category G1 (>= 90 mL/min/1.73 m2) Lab Interpretation (test code = 13393-3) Abnormal [facility] WITH [id number] 08:05:09* Test Item Value Reference Range Interpretation [...] 32.4 g/dL 31.2-35.0 RDW-SD (test code = 74604-8) 46.6 fL 38.5-51.6 RDW-CV (test code = 788-0) 13.8 % 12.1-15.4 PLT (test code = 777-3) 274 150-328 MPV (test code = 90300-0) 9.6 fL 9.8-13.0 L NRBC/100 WBC (test code = 5182362831) 0.0 0.0-10.0 NRBC x10^3 (test code = 5654049147) See_Comment [Automated messa ge] The system which generated this result transmitted reference range: 10*3/?L. The reference range was not used to interpret this result as normal/abnormal. GRAN MAT (NEUT) % (test code = 770-8) 63.7 % IMM GRAN % (test code = 0329728678) 0.30 % LYMPH % (test code = 736-9) 21.7 % MONO % (test code = 5905-5) 10.1 % EOS % (test code = 713-8) 3.9 % BASO % (test code = 706-2) 0.3 % GRAN MAT x10^3(ANC) (test code = 7230697254) 5.62 10*3/uL 1.99-6.95 IMM GRAN x10^3 (test code = 3251112448) 0.03 10*3/uL 0.00-0.06 LYMPH x10^3 (test code = 731-0) 1.92 10*3/uL 1.09-3.23 MONO x10^3 (test code = 742-7) 0.89 10*3/uL 0.36-1.02 EOS x10^3 (test code = 711-2) 0.34 10*3/uL 0.06-0.53 BASO x10^3 (test code = 704-7) 0.03 10*3/uL 0.01-0.09 Lab Interpretation (test code = 23819-3) Abnormal [facility] Consult Notes Date/Time Note Provider Source 2024-02-28 11:54:18 Associated Order(s): CONSULT LABOR SERVICE REPRESENTATIVE-ADULT Care Management Note 02/28/24 11:54 AM Consult Comments Reason for Consult - will need help obtaining CPAP at home for CHAVA CM ordered home BiPAP that will be delivered to the patient at discharge. Fara Burrell, VIGNESHN, RN Inpatient Emissions Inspector [email or web address] [facility] CM Dept. weekends/holidays [phone] [facility] [employer] 2024-02-24 12:10:40 Associated Order(s): CONSULT HEMATOLOGY HEMATOLOGY AND ONCOLOGY CONSULT NOTE Date of Service: 02/23/2024 Reason for Consultation: Hypercoagulable workup Referring Physician / Primary Service: MICU Chief Complaint: stroke HPI Janiya Verde is a 48 year old /White male with a Medical Hx significant for substance, tobacco use disorder, HTN, ?CHAVA transferred from [facility] to [facility] for right leg weakness. 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 He did not receive tPA or thrombectomy given no LVO and > 4.5 hours from onset of symptoms. Symptoms started 02/19/24 with difficulty walking 2/2 R leg weakness and slurred speech. Presented to [facility] ED with NIHSS 0 and CTH showing left parietal white matter infarct at the MCA HISTORICAL RECORDS ADMINISTRATOR watershed and CTA H/N showing moderate narrowing [...] Friends and Family: Not on file Attends Sikh Services: Not on file Active Member of [...] 10 mg, 10 mg, Slow IV Push, [id number], Katy Comer MD nicotine (NICODERM) 21 mg/24 hr patch 1 Patch, 1 Patch, Topical, Q24H, Katy Comer MD, 1 Patch at 02/23/24 0924 QUEtiapine (SEROQUEL) tablet 100 mg, 100 mg, Oral, QHS, Rodolfo Ervin MD, 100 mg at 02/23/242045 Saline Bubble Study, 6 mL, Injection, SEE-INSTRUCTIONS, Blair Dhaliwal MD, 6 mL at 02/22/24 105 Saline Bubble Study, 6 mL, Injection, SEE-INSTRUCTIONS, [...] Currently pending APLS antibodies. FVL and PT [id number] wild-type. Positive CORNELIUS. Anti-thrombin 3 level was [...] with any further questions/concerns. Gerry Zuñiga MD weaving professor, Department of Hematology/Oncology, [facility]. HEMATOLOGY & ONCOLOGY [facility] 2024-02-22 14:57:12 Associated Order(s): Consult Pulmonary [...] possible CHAVA. Patient was originally admitted to [facility] with right leg weakness where he [...] this. Outpatient he follows Dr. Saavedra at [facility]. Due to hypersomnolence, snoring and obesity a [...] 10 mg 10 mg Slow IV Push [id number] [START ON 02/23/2024] lisinopriL (PRINIVIL,ZESTRIL) tablet 10 [...] 10 mg 10 mg Slow IV Push [id number] [START ON 02/23/2024] lisinopriL (PRINIVIL,ZESTRIL) tablet 10 [...] parietal white matter infarct at the MCA HISTORICAL RECORDS ADMINISTRATOR watershed, have been discussed by Dr. Bashir Cardona with and acknowledged by Dr. Carrillo, over the phone on 02/22/2024 at 2:40 AM with readback. Preliminary Report Dictated by Resident: Bashir Cardona I, Miesha Benton MD., have reviewed this study and agree with the above report. MICROBIOLOGY: Reviewed Assessment & Plan Janiya eVrde is a 48 year old male with [...] without acute exacerbation. Recently was seen by ground crew lines person and had home sleep study done due [...] for PAP device as outpatient with his ground crew lines person. - Lasix 40 mg IV once today Patient to be discussed with Dr Morocho. Rudy Kelsey MD Pulmonary & Critical Care Medicine Fellow 02/22/24 2:57 PM Associated attestation - Ronaldo Morocho MD - 02/23/2024 1:34 PM CDT Attestation: Today 22 February 2024 I examined and discussed this patient with Dr Kelsey. I agree with the observations, assessments, and recommendations. [facility] 2024-02-22 14:12:00 Associated Order(s): CONSULT ADULT OCCUPATIONAL THERAPY OT GENERAL EVALUATION Consult received via [facility], EMR reviewed and evaluation completed 02/22/24. Patient referred to occupational therapy for evaluation and treatment per stroke protocol. Seen in conjunction with Pérez Maynard, PT secondary to anticipated limited activity [...] of skill. Mahnaz Nicole, OTR, OTD Pager: [phone] Total Timed Treatment Codes: 10 Min Total [...] to enable patient to complete evaluation component. Critical access hospital 2024-02-22 14:12:00 Associated Order(s): CONSULT ADULT PHYSICAL [...] before and after session COMMUNICATION Primary Language: Amharic Able to Verbalize needs: Yes Vision:glasses Hearing:good; [...] Treatment Time in Minutes: 30 min Clark Maynard, PT [facility] Department of Rehabilitation Services Clark Maynard PT [facility] 2024-02-22 12:05:00 Associated Order(s): CONSULT SPEECH Speech-Language Pathology Clinical Swallow Evaluation 02/22/2024 Janiya Verde : 1975 Age/Sex: 48 year old male Time IN/OUT: [id number] Referring Physician: Katy Comer MD Date of Referral: 02/22/2024 Reason for Referral: stroke activation (dysphagia, speech-language/cognitive-hortencia guistic) Date of Admission/Onset: 02/22/2024 SUBJECTIVE: Pt awake/alert, no family at bedside, and agreeable to evaluation upon SORTER P[employer]ER arrival. Pt denies coughing or choking on food or liquids. SORTER P[employer]ER observed slightly slurred speech, however pt denies [...] smoking history (vapes and tobacco cigarettes), HTN, CAHVA who was transferred from [facility] with CC of R leg weakness." [...] the scan. Preliminary Report Dictated by Resident: Bashir Cardona [...] parietal white matter infarct at the MCA HISTORICAL RECORDS ADMINISTRATOR watershed, have been discussed by Dr. Bashir [...] respiratory illness. END REPORT RL: [id number] AFC: [id number] Previous SORTER [facility] Services/Swallow History: Pt not previously known to SORTER [facility] services. Past Medical History: Diagnosis Date Cocaine [...] PO trials were administered by patient and SORTER P[employer]ER. Patient was provided with multiple bites/sips of [...] verbally. Discussed findings of evaluation, recommendations and SORTER [facility]ER plan of care. Discussed recommendation/option for instrumental [...] for safe po intake with adherence to SORTER [facility]ER recommendations due to above findings. RECOMMENDATIONS/GOALS: Diet: [...] observed or suspected, please notify MD and SORTER P[facility]ER. Instrumental Swallow Assessment: no Additional Referrals: - None evident at this time. Continued SORTER PACKER services: Recommend SORTER PACKER therapy 2-5x/wk for 15-45 min/session while in-house to address the following goals: Swallowing: - Patient will tolerate the safest, least restricted po diet texture without overt s/sx of aspiration or other negative effects on medical condition Discharge Recommendations: - TBD pending ongoing work-up/progress made while in-house. Eugenie Marquis M.S. [facility] Speech-Language Pathology Office: [phone] Pager: [phone] Associated attestation - Keyana Castelan SLP - 02/22/2024 3:40 PM CDT I agree with the assessment and recommendations as completed and documented by Eugenie Marquis MS, [facility] [facility]. Keyana Castelan MS, [facility] Speech Language Pathology Office Number: [phone] Pager: [phone] [facility] - Health 2024-02-22 11:16:07 Associated Order(s): CONSULT LABOR SERVICE REPRESENTATIVE-ADULT Care Management Note 02/22/24 11:16 AM Consult [...] Outpatient Physical Therapy [] Inpatient Rehab [] Residential Facility JOHN Whitehead, RN Inpatient Emissions Inspector [email or web address] CM Dept. weekends/holidays [phone] [facility] - Health History and Physical Notes Date/Time [...] CHAVA requiring continuous BiPAP. Pt presented to [facility] ED on 02/20 with CC of RLE weakness. Was transferred to [facility] on 02/21 AM due to concern for stroke. CTH revealed Left Parietal White Matter infarct at MCA HISTORICAL RECORDS ADMINISTRATOR Watershed. CTA H/N Moderate narrowing of the superior branch of the left M2 segment of MCA, but no aneurysm or high-grade, flow-limiting stenosis of the intracranial or extracranial vessels. The patient received aspirin loading dose 325 mg and Plavix 75 mg once in [facility] before being transferred. Pulmonary medicine consulted [...] tuberosity which may be seen with remote Yoder Schlatter disease. Preliminary Report Dictated by Resident: [...] parietal white matter infarct at the MCA HISTORICAL RECORDS ADMINISTRATOR watershed, have been discussed by Dr. Bashir [...] factor V leiden mutation, APC resistance, Prothrombin 64775 A mutation, check sickle cell screen, hemoglobin [...] secondary to CHAVA. 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 Patient last known normal was 3 days ago (02/19/2024). The patient reports that 2-3 days ago started experiencing difficulty walking due to R leg weakness, requiring a cane for assistance in his walking as well as slurred speech. The patient was taken to [facility] and at the ED, NIHSS was 0, glucose: 132, BP: Wnl, O2 sat: 90-93%, labs wnl He had a CTH reporting left parietal white matter infarct at the MCA HISTORICAL RECORDS ADMINISTRATOR watershed, and CTA H/N with Moderate narrowing [...] the opportunity to address any questions. The [place] [employer]/[place] Stroke Association AIS guidelines recognize TNK as [...] 10 mg 10 mg Slow IV Push [id number] [START ON 02/23/2024] lisinopriL (PRINIVIL,ZESTRIL) tablet 10 [...] lobe at the area of left MCA HISTORICAL RECORDS ADMINISTRATOR watershed. MRI can be performed to for further evaluation and possible further extension of the suspected infarct. Right mastoid effusion. The findings of this study, including concern for left parietal white matter infarct at the MCA HISTORICAL RECORDS ADMINISTRATOR watershed. CTA H/N 02/22/2024: IMPRESSION Moderate narrowing [...] cigarettes), HTN, CHAVA who was transferred from [facility] with CC of R leg weakness. LSN: 02/19/2024, NIHSS 0. BP 149/95, FSBG 132. NIHSS 0. CTH revealed left parietal white matter infarct at the MCA HISTORICAL RECORDS ADMINISTRATOR watershed, CTA H/N Moderate narrowing of the superior branch of the left M2 segment of MCA, but no aneurysm or high-grade, flow-limiting stenosis of the intracranial or extracranial vessels. Labs wnl, chest xray with bilateral pulmonary congestion. The patient received aspirin loading dose 325 mg and Plavix 75 mg once in [facility] before being transferred. The patient will [...] Consult PT/OT/ Speech pathology/Primary swallowing screen - Global Climate Change Analyst on stroke education, smoking cessation, healthy diet, physical activity, weight loss Imaging: - TTE w/ bubble study - MRI brain without contrast - For Stroke in Young patients <50: - Thrombophilia workup (including protein S and C, anti-cardiolipin, lupus anticoagulant, anti-thrombin III, factor V leiden mutation, APC resistance, Prothrombin 72391 A mutation), check sickle cell screen, hemoglobin electrophoresis, ESR, CRP, CORNELIUS, anti-dsDNA antibodies, vit B12, folate, homocysteine, methylmalonic acid, thiamine, HIV. - GI Prophylaxis: famotidine - DVT Prophylaxis: heparin - Code status: Full code Discussed with Dr. NU LACEY, VENUS, Neurology Faculty Katy Banks MD PGY-2 Neurology Department [facility] Stroke pager: [phone] Associated attestation - Venus Judge MD - 02/24/2024 9:14 AM CDT I personally examined the patient on 02/22/[address] Banks's resident note as written . I actively participated in the decision-making process. Please see the resident's note for additional details. [facility] - Health Procedure Notes Date/Time Note Provider [...] chemistry, cultures, cytology and gram stain. Also, [facility] was ordered. The spinal needle was removed and a sterile dressing was applied. The patient was instructed to lie supine for two hours post procedure. The patient tolerated the procedure well. Complications: None Dr. Ortiz, Faculty was immediately available for the procedure, if needed. [facility] Department of Internal medicine PGY2 Neurology Associated attestation - Nestor Ortiz MD - 02/29/2024 12:19 PM CDT Agree with jannet for LP. [facility] Notes Date/Time Note Provider Source 2024-08-01 09:45:15 Chief Complaint Patient presents with Edema Edema to right foot Elsi Lang LVN [facility] 2024-07-10 09:11:59 Chief Complaint Patient presents with Physical Patient is not fasting Elsi Lang LVN [facility] 2024-04-23 20:40:00 Report given to [facility] EMS personnel LAY Olson RN [facility] 2024-04-23 20:40:00 Patient is awake and alert, oriented x4, speech is clear and appropriate, ambulatory with a steady gait. Respirations even and unlabored, no distress. [facility] 2024-04-23 19:38:15 [place] [facility] cancelled and [facility]. [facility] ETA is 35 to 40 minutes. LAY Resendiz [facility] 2024-04-23 19:08:44 [place] [employer] ETA is 20 minutes. [facility] 2024-04-23 13:12:22 Report received from JORDAN Diego [facility] 2024-04-23 12:23:25 [facility] arrived [facility] for lethargy. EMS originally called out for high BP. Pt from [facility] and was given an extra dose of 0.1mg Clonidine this morning. Pt reports he has felt this tired all morning. EMS gave 2x narcan without change. Pt A&Ox4 but very drowsy. Awakens to verbal stimuli. LAY Baca RN [facility] 2024-04-23 12:15:00 [facility] Emergency Department Note Patient Name: Janiya Verde Date of : 1975 49 year old male Treatment Room: TX1/TX1 Primary Care Physician: PATIENT DOES NOT HAVE A PCP Patient Escorted by: Self [9] Mode of Arrival: EMS - [facility] [45] EMS Treatment Prior to ED Arrival: HEAD WRESTLING COACH treatment: Saline lock;Medication (comment) HEAD WRESTLING COACH treatment comments: Narcan Travel and Exposure Screening: [...] comparison MRI. Preliminary Report Dictated by Resident: Miesha Allen MD., have reviewed this study and agree [...] 0.01 - 0.09 10*3/uL COMP. METABOLIC PANEL (14281) - Abnormal NA 134 (*) 135 - [...] contrast Cbc with Diff Comp. Metabolic Panel (45043) Acute Care Arterial Blood Gas. Troponin I [...] Screening Begins NORMAN COREA MD -- 04/23/24 1240 First Provider Evaluation NORMAN COREA MD -- [...] OXYMETAZOLINE 0.05 % NASAL SPRAY Use 1 [place] in each nostril in the morning and 1 [place] in the evening. QUETIAPINE 400 MG TABLET [...] Electronically signed by: Norman Corea MD 04/23/241836 [facility] 2024-04-15 09:36:44 Chief Complaint Patient presents with Consultation Wants rx for nitroglycerine, has sleep apnea Monica Paulino CMA I [facility] 2024-03-20 01:20:08 Pt given printed and verbal [...] in no apparent distress, LAY Feliz RN [facility] 2024-03-19 22:51:25 Pt to ED via EMS CO CP starting 2029 today. Pt had just gotten out of an NA meeting and was at the [facility] when his CP started. CP is [...] en route with no relief. BGL 98. S BREAKER Inga Sanchez RN [facility] 2024-03-04 12:49:11 TRANSITIONAL CARE MANAGEMENT ASSESSMENT 03/04/2024 Janiya Verde [id number] Janiya Verde is a 48 year old /White male was admitted on 02/21/[address] He was discharged on 03/02/24 with discharge disposition of HR- Routine Discharge. Admitting Physician: Venus Judge Discharge Diagnosis: C/F Multiple sclerosis No linked episodes TCM [id number]-face outreach documentation: Discharge Assessment Chart Assessed: 03/04/24 Chart Reviewed - Post Discharge Call Deferred due to Change in Discharge Status.: Discharged to Other ([address], [place] [address] F: [phone]) Future Appointments: Keenan Spain RN [facility] 2024-03-02 11:41:17 Problem: Falls, Risk of Goal: Absence of falls 03/02/2024 1140 by Geronimo Sargent, JORDAN Outcome: Resolved 03/02/2024942 by Geronimo Sargent, RN Outcome: Progressing as expected Problem: Tissue Perfusion, Cerebral - Altered Goal: Absence of continued neurologic deterioration signs and symptoms 03/02/2024 1140 by Geronimo Sargent, RN Outcome: Resolved 03/02/2024 0943 by Geronimo Sargent, RN Outcome: Progressing as expected Problem: Procedure Routine Goal: Absence of post-procedure complications 03/02/2024 1140 by Geronimo Sargent, RN Outcome: [...] medication management 03/02/2024 1140 by Geronimo Sargent, JORDAN Outcome: Resolved 03/02/2024 0943 by Geronimo Sargent, RN Outcome: Progressing as expected Goal: Knowledge of need for follow-up care 03/02/2024 1140 by Geronimo Sargent, JORDAN Outcome: Resolved 03/02/2024 0943 by Geronimo Sargent, RN Outcome: Progressing as expected Goal: Knowledge of personal stroke risk factors 03/02/2024 1140 by Geronimo Sargent, JORDAN Outcome: Resolved 03/02/2024 0943 by Geronimo Sargent, RN Outcome: Progressing as expected Goal: Knowledge of stroke warning signs 03/02/2024 1140 by Geronimo Sargent, JORDAN Outcome: Resolved 03/02/2024 0943 by Geronimo Sargent, RN Outcome: Progressing as expected Problem: Aspiration, Risk of Goal: Absence of aspiration 03/02/2024 1140 by Geronimo Sargent, RN Outcome: Resolved 03/02/2024 0943 by Geronimo Sargent, RN Outcome: Progressing as expected Problem: Complications of thrombolytic administration (risk or actual) Goal: Absence of impaired coagulation signs and symptoms 03/02/2024 1140 by Geronimo Sargent, RN Outcome: Resolved 03/02/2024 0943 by Geronimo Sargent, RN Outcome: Progressing as expected Goal: Absence of active bleeding 03/02/2024 1140 by Geronimo Sargent, RN Outcome: Resolved 03/02/2024 0943 by Geronimo Sargetn, RN Outcome: Progressing as expected Goal: Absence of angioedema signs & symptoms 03/02/2024 1140 by Geronimo Sargent, RN Outcome: Resolved 03/02/2024 09 by Geronimo Sargent, RN Outcome: Progressing as expected Problem: Bowel Function - Altered Goal: Normal bowel habits 03/02/2024 1140 by Geronimo Sargent, RN Outcome: Resolved 03/02/2024 0943 by Geronimo Sargent, RN Outcome: Progressing as expected Problem: Cognitive-Perceptual Pattern - Impaired Goal: Able to achieve maximum level of cognitive ability 03/02/2024 1140 by Geronimo Sargent, JORDAN Outcome: Resolved 03/02/2024 09 by Geronimo Sargent, RN Outcome: Progressing as expected Goal: Mood stable 03/02/2024 1140 by Geronimo Sargent, RN Outcome: Resolved 03/02/2024 09 by Geronimo Sargent, RN Outcome: Progressing as expected Problem: Mobility - Impaired Goal: Able to achieve maximum mobility level 03/02/2024 1140 by Geronimo Sargent, RN Outcome: Resolved 03/02/2024 09 by Geronimo Sargent, RN Outcome: Progressing as expected Goal: Able to use ambulatory assistive device appropriately 03/02/2024 1140 by Geronimo Sargent, RN Outcome: Resolved 03/02/2024 09 by Geronimo Sargent, RN Outcome: Progressing as expected Problem: Nutrition Deficit, Risk of Goal: Adequate nutritional intake 03/02/2024 1140 by Geronimo Sargent, JORDAN Outcome: Resolved 03/02/2024 09 by Geronimo Sargent, RN Outcome: Progressing as expected Problem: Pain Goal: Control of pain at or below patient's documented comfort goal Outcome: Resolved Goal: Reduction in pain sensation 03/02/2024 1140 by Geronimo Sargent, RN Outcome: Resolved 03/02/2024 09 by Geronimo Sargent, RN Outcome: Progressing as expected Problem: Skin integrity Impaired (Risk or Actual) Goal: Prevention of new skin breakdown 03/02/2024 1140 by Geronimo Sargent, RN Outcome: Resolved 03/02/2024 0943 by Geronimo Sargent RN Outcome: Progressing as expected Problem: Respiratory Function - Impaired Goal: Able to cough effectively 03/02/2024 1140 by Geronimo Sargent RN Outcome: Resolved 03/02/2024 0943 by Geronimo Sargent RN Outcome: Progressing as expected Goal: Adequate oxygenation 03/02/2024 1140 by Geronimo Sargent, JORDAN Outcome: Resolved 03/02/2024 0943 by Geronimo Sargent RN Outcome: Progressing as expected Goal: Adequate work of breathing 03/02/2024 1140 by Geronimo Sargent, JORDAN Outcome: Resolved 03/02/2024 0943 by Geronimo Sargent RN Outcome: Progressing as expected Goal: Patent airway 03/02/2024 1140 by Geronimo Sargent RN Outcome: Resolved 03/02/2024 0943 by Geronimo Sargent RN Outcome: Progressing as expected Geronimo Sargent RN [facility] 2024-03-02 02:13:52 Problem: Falls, Risk of [...] Outcome: Progressing as expected Sabino Schroeder RN [facility] 2024-03-01 10:40:20 Problem: Falls, Risk of [...] Goal: Patent airway Outcome: Progressing as expected [facility] 2024-02-29 20:08:48 Problem: Falls, Risk of [...] Progressing as expected T Ambrocio Bravo RN [facility] 2024-02-29 13:23:32 Problem: Falls, Risk of [...] Progressing as expected T Maryam Sadler RN [facility] [employer] 2024-02-28 20:24:45 Problem: Falls, Risk of Goal: [...] stroke warning signs Outcome: Progressing as expected [facility] [employer] 2024-02-28 16:07:38 Problem: Falls, Risk of Goal: [...] Goal: Patent airway Outcome: Progressing as expected Critical access hospital 2024-02-28 04:29:45 Problem: Falls, Risk of Goal: [...] Outcome: Progressing as expected Lyndon Nicolas RN [facility] 2024-02-27 14:46:16 Janiya Verde is a 48 year old right handed male with PMH of substance abuse (cocaine, crack, prior crystal meth), alcohol use, smoking history (vapes and tobacco cigarettes), HTN, CHAVA who was transferred from [facility] with CC of R leg weakness. LSN: 02/19/2024, NIHSS 0. BP 149/95, FSBG 132. NIHSS 0. CTH revealed left parietal white matter infarct at the MCA HISTORICAL RECORDS ADMINISTRATOR watershed, CTA H/N Moderate narrowing of the [...] CHAVA device prior to discharge. Julianne Yanez [facility] 2024-02-27 08:49:33 Problem: Falls, Risk of [...] Outcome: Adequate for discharge Dorina Hidalgo RN [facility] 2024-02-27 04:42:02 Problem: Falls, Risk of [...] Goal: Patent airway Outcome: Progressing as expected [facility] 2024-02-26 09:09:39 Problem: Falls, Risk of Goal: [...] Goal: Patent airway Outcome: Progressing as expected Critical access hospital 2024-02-25 22:53:24 Problem: Falls, Risk of Goal: [...] Goal: Patent airway Outcome: Progressing as expected [facility] [employer] [facility] 2024-02-25 13:09:35 Problem: Falls, Risk of Goal: [...] Goal: Patent airway Outcome: Progressing as expected [facility] [employer] [facility] 2024-02-25 06:33:03 Problem: Falls, Risk of Goal: [...] of active bleeding Outcome: Progressing as expected Critical access hospital 2024-02-25 06:31:34 Dr. Jones making rounds and see pt ambulating in his room. Denies chest pain or SOB at this time. [facility] Bibiana Jalloh RN [facility] 2024-02-25 00:08:45 During nurse rounding pt observe walking in his room. Denies chest pain or SOB at this time. Offered assistance pt denies any discomfort at this time. Vital signs WNL. Critical access hospital 2024-02-24 15:46:57 Problem: Falls, Risk of Goal: [...] Outcome: Progressing as expected Lacy Doe RN [facility] 2024-02-23 18:40:24 Problem: Falls, Risk of [...] Outcome: Progressing as expected Eunice Garcia RN [facility] 2024-02-23 13:45:32 Rapid Response Note Patient with apneic spells and severe lethargy (brief awakening to painful stimuli). Pt had been removing CPAP mask overnight. Mask in place but long apneic intervals and mid 90's saturations. After awakening pt alert and apnea improved, but still dozing off. Likely need for rescue BiPAP. Pt transferred to ICU. Rapid Response Note Neftali Castano RN [facility] 2024-02-23 03:27:38 Patient refused CPAP 3x, ripping off both face and nasal mask. Keeps desaturating to 80 before coming up with bouts of apnea. Placed on 3 L O2, messaged providers and waiting on response. Azzia Urban RT [facility] 2024-02-22 16:56:39 Problem: Falls, Risk of [...] Outcome: Progressing as expected Ramila Jones RN [facility] 2024-02-22 06:17:43 Problem: Falls, Risk of Goal: Absence of falls Outcome: Progressing as expected Problem: Tissue Perfusion, Cerebral - Altered Goal: Absence of continued neurologic deterioration signs and symptoms Outcome: Progressing as expected Problem: Procedure Routine Goal: Absence of post-procedure complications Outcome: Progressing as expected Goal: Knowledge of procedure Outcome: Progressing as expected Krunal Duran RN [facility] 2024-02-22 04:39:[address] [facility] for diagnosis of weakness of right leg, acute CVA, sleep apnea Patient agrees to transfer/admit plan and verbalized understanding of plan of care, family aware of plan Patient awake alert, oriented, resp reg unlabored, skin w/d PIV patent, no s/s infiltration noted, No adverse reaction to medications given while in ED. Report given to [facility] personnel Isha Ordaz RN [facility] 2024-02-22 04:12:22 Nurse Report Report given to JORDAN Quintanilla. Chief complaint, assessment findings, infusion verify and orders reviewed. Plan of care discussed with patient and both nurses. Patient/family members verbalized understanding. Isha Ordaz RN [facility] 2024-02-22 00:59:38 Report to Isha ORTEGA. Inga Sanchez RN [facility] 2024-02-21 23:52:44 Pt arrived from [facility] for multiple falls and today started complaining of R leg weakness for a few days. Pt recently had sleep study done but no results. Brandie Baca RN [facility] 2024-02-21 23:49:00 Associated Order(s): EKG-12 Lead ROUTINE ONCE Pre-Procedure Diagnose(s): Weakness of right leg Post-Procedure Diagnose(s): Weakness of right leg [facility] Emergency Department Note Patient Name: Janiya Verde Date of : 1975 48 year old male Treatment Room: 8/8 Primary Care Physician: PATIENT DOES NOT HAVE A PCP Patient Escorted by: Friend [6] Mode of Arrival: Personal means [1] EMS Treatment Prior to ED Arrival: HEAD WRESTLING COACH treatment: Medication (comment) HEAD WRESTLING COACH treatment comments: 100mg Seroquel, 100mg Trazodone Travel [...] arteries are unremarkable. origin of the right HISTORICAL RECORDS ADMINISTRATOR with a very faint right P1 segment. [...] arteries are unremarkable. origin of the right HISTORICAL RECORDS ADMINISTRATOR with a very faint right P1 segment. [...] of watershed between the left MCA and HISTORICAL RECORDS ADMINISTRATOR. Otherwise no parenchymal attenuation abnormality is seen. The tomlinson-white matter differentiation is preserved. There is complete opacification of right mastoid air cells. The left mastoid air cells are clear. The calvarium and central skull base are unremarkable. IMPRESSION Suspected area of infarct at the deep white matter of the left parietal lobe at the area of left MCA HISTORICAL RECORDS ADMINISTRATOR watershed. MRI can be performed to for further evaluation and possible further extension of the suspected infarct. Right mastoid effusion. The findings of this study, including concern for left parietal white matter infarct at the MCA HISTORICAL RECORDS ADMINISTRATOR watershed, have been discussed by Dr. Bashir [...] intercondylar notch could represent sequela of prior Yoder Schlatter disease. Preliminary Report Dictated by Resident: [...] 0.01 - 0.09 10*3/uL COMP. METABOLIC PANEL (88290) - Abnormal NA 137 135 - 145 [...] VW CBC WITH DIFF COMP. METABOLIC PANEL (94338) TROPONIN I BI-PAP Orders Placed This Encounter Medications ipratropium-albuteroL (DUONEB) 0.5 mg-3 mg(2.5 mg base)/3 mL nebulizer solution 3 mL iopamidol (ISOVUE 370-500 mL) injection 80 mL aspirin tablet 325 mg clopidogreL (PLAVIX) 75 mg tablet 75 mg atorvastatin (LIPITOR) tablet 80 mg First Provider Eval: ED Events Date/Time Event User Comments 02/21/242351 Medical Screening Begins SELAM CARRILLO DO -- 02/21/242351 First Provider Evaluation SELAM CARRILLO DO -- ED COURSE Diagnosis/Impression as of 02/22/24 0432 Weakness of right leg Sleep apnea in adult Acute CVA (cerebrovascular accident) Procedures: EKG-12 Lead ROUTINE ONCE Date/Time: 02/22/2024 3:17 AM Performed by: Selam Carrillo DO Authorized by: Selam Carrillo DO ECG interpreted by ED Physician in the absence of a actuarial analyst: yes Interpretation: Interpretation: non-specific Rate: ECG rate: [...] Disposition/Condition: ED Disposition ED Disposition Transfer - [facility] ED to IP/Obs Condition -- Comment -- [...] signed by: Selam Carrillo DO 02/22/24 0432 T EM-EMERGENCY MEDICINE STAFF [facility] 2024-02-15 14:43:47 Chief Complaint Patient presents with Consultation CHAVA Sweta Huitron MA II [facility] 2024-01-27 04:45:00 Pt dc'd back [facility]. Pt v/u of dc instructions and copy sent back with patient. Pt to follow up with cardiology and sleep study T [facility] 2024-01-27 03:03:15 Pt has undiagnosed sleep apnea, states multiple people have told him he has it. Pt has breathing patterns that appears to be sleep apnea. Pt on 2L NC. T [facility] 2024-01-27 02:39:26 Pt arrived via [facility] from [facility] for CP that started at 1:45 am while taking a bath. Pt given Nitro by facility and EMS gave 324 ASA, 500 NS, 4 Zofran HEAD WRESTLING COACH. Pt also took trazodone and Seroquel and is very drowsy but awakes to verbal stimuli. Brandie Baca RN [facility] - [facility] 2024-01-27 02:36:00 Associated Order(s): EKG-12 Lead ROUTINE ONCE Pre-Procedure Diagnose(s): Acute chest pain Post-Procedure Diagnose(s): Acute chest pain [facility] Emergency Department Note Patient Name: Janiya Verde Date of : 1975 48 year old male Treatment Room: Room/bed info not found Primary Care Physician: PATIENT DOES NOT HAVE A PCP Patient Escorted by: Self [9] Mode of Arrival: EMS - [facility] ([place]) [43] EMS Treatment Prior to ED Arrival: HEAD WRESTLING COACH treatment: Saline lock;Oxygen HEAD WRESTLING COACH treatment comments: Nitro @ Rehab home, Zofran [...] respiratory illness. END REPORT RL: [id number] AFC: [id number] Lab Results: Lab Results CBC WITH DIFF [...] 0.01 - 0.09 10*3/uL COMP. METABOLIC PANEL (86341) - Abnormal NA 137 135 - 145 [...] WITH DIFF TROPONIN I COMP. METABOLIC PANEL (56565) N-TERMINAL PRO-BNP Consult/Referral Cardiology CONSULT/REFERRAL SLEEP CLINIC ADULT PULM No orders of the defined types were placed in this encounter. First Provider Eval: ED Events Date/Time Event User Comments 01/27/24239 Medical Screening Begins SELAM CARRILLO DO -- 01/27/24239 First Provider Evaluation SELAM CARRILLO DO -- ED COURSE Diagnosis/Impression as of 01/27/24 042 Acute chest pain Sleep apnea, unspecified type Procedures: EKG-12 Lead ROUTINE ONCE Date/Time: 01/27/2024 4:23 AM Performed by: Selam Carrillo DO Authorized by: Selam Carrillo DO ECG interpreted by ED Physician in the absence of a actuarial analyst: yes Interpretation: Interpretation: normal Rate: ECG rate: [...] signed by: Selam Carrillo DO 01/27/24 0425 Critical access hospital
--- NOTE | 2024-08-08 18:00 | RAD REPORT ---
Procedure: Chest Single View HISTORY: Chest pain COMPARISON: August 05, 2024 FINDINGS: Bilateral pulmonary opacities appear resolved. Heart has decreased in size and is mildly enlarged No significant pleural effusion seen. Linear opacity overlies the left chest presumably overlying artifact.
[2024-08-08 18:40] LABS: Absolute Basophils 0.1 K/uL (0-0.5); Absolute Eosinophils 0.4 K/uL (0-0.5); Absolute Lymphocytes (CBC) 1.8 K/uL (0.7-4.9); Absolute Monocytes 0.7 K/uL (0.1-1.3); Absolute Neutrophil 6.3 K/uL (1.8-8.0); Basophils % 0.9 % (0-1.3); Eosinophils % 4.1 % (0-4.4); Hematocrit 44.7 % (39.6-49.0); Lymphocytes % 18.9 % (15.3-44.8); MCH 29.8 pg (27.0-35.0); MCHC 33.6 g/dL (32.0-36.0); MCV 88.6 fL (80-100); MPV 7.9 fL (7.6-11.3); Neutrophils % 68.1 % (41.7-73.7); Platelets 302 thou/uL (152-406); RBC Red Blood Cell Count 5.05 M/uL (4.33-5.43); Red Cell Distribution Width 13.9 % (12.1-15.2)
[2024-08-08 18:43] LABS: PT Prothrombin Time 11.6 SECONDS (10-13.0); Protime INR 1.02
[2024-08-08] MEDS ORDERED: KETOROLAC 30 MG/ML INJ ONE (18:49)
[2024-08-08 18:55] LABS: ALT/SGPT 41 U/L (16-61); AST/SGOT 28 U/L (15-37); Albumin 3.5 g/dL (3.4-5.0); Albumin/Globulin Ratio 0.8 (1.1-1.8); Alkaline Phosphatase 104 U/L (45-117); Anion Gap 8.5 mEq/L (5.0-15.0); BUN Blood Urea Nitrogen 20 mg/dL (7-18); Bicarbonate 33 mEq/L (21-32); Bilirubin Total 0.3 mg/dL (0.2-1.0); Globulin 4.5 g/dL (2.3-3.5); Glomerular Filtration Rate 76 ml/min (=/>90); Glucose Level 101 mg/dL (74-106); Magnesium 2.4 mg/dL (1.6-2.4); NT PRO-BNP 43 pg/mL (<125); Potassium 3.5 mEq/L (3.5-5.1); Sodium Level 138 mEq/L (136-145); Troponin High Sensitivity 3.6 pg/mL (<58.9)
[2024-08-08 18:56] LABS: Bilirubin Direct < 0.2 mg/dL (0-0.2); Bilirubin Indirect, Calculated 0.1 mg/dL (0.2-0.8)
[2024-08-08] MEDS ORDERED: METHYLPREDNISOLONE 125 MG INJ ONE (19:52)
[2024-08-08] MEDS ORDERED: DIPHENHYDRAMINE 50 MG/ML VIAL ONE (19:53)
--- NOTE | 2024-08-08 20:20 | RAD REPORT ---
EXAM: CTA of the chest, abdomen and pelvis HISTORY: Chest and abdominal pain COMPARISON: 2007 CT abdomen TECHNIQUE: Multiple contiguous axial images were obtained a CTA of the chest and abdomen with contras t per aortic dissection protocol. Sagittal and coronal 3-D MIP reformats were performed. 100 cc Isovue-370 administered intravenously.Automated exposure control, adjustment of the mA and kV accordi ng to the patient size, and iterative reconstruction. Unless otherwise specified, incidental findings do not require dedicated imaging follow-up. FINDINGS: An aortic dissection not seen. No aortic aneurysm Moderate narrowing proximal celiac artery. SMA and HOMER do not demonstrate a significant abnormality. Renal arteries do not demonstrate a significant abnormality. Lungs are clear Liver, spleen, pancreas, adrenals, kidneys and bladder do not demonstrate a significant abnormality No evidence of diverticulitis. Appendectomy. Small umbilical hernia. Small inguinal hernias.. Small bilateral inguinal lymph nodes presumably reac tive in nature. Follow-up ultrasound in 3 months could be obtained to assess stability. IMPRESSION: No evidence of an aortic dissection Moderate narrowing proximal celiac artery
--- NOTE | 2024-08-08 21:58 | ER ---
Nurse's Notes [facility] Name: Konrad Verde Age: 49 yrs Sex: Male : 1975 Arrival Date: 08/08/2024 Time: 17:02 Bed 8 Private MD: Diagnosis: Chest pain, unspecified;Pain in right leg Presentation: 08/08 17:08 Chief complaint: EMS states: Cellulitis to RLE, was admitted for same complaint, d/c ph home 08/07 w/ Augmentin and Doxycycline, reports that it was improving in the hospital but feels like the swelling got worse after getting home. Coronavirus screen: Vaccine status: Patient reports being unvaccinated. Ebola Screen: No symptoms or risks identified at this time. Initial Sepsis Screen: Does the patient meet any 2 criteria? No. Patient's initial sepsis screen is negative. Does the patient have a suspected source of infection? No. Patient's initial sepsis screen is negative. Risk Assessment: Do you want to hurt yourself or someone else? Patient reports no desire to harm self or others. Onset of symptoms was August 08, 2024. 17:08 Method Of Arrival: [facility] ph 17:08 Acuity: HEIDY 3 ph Historical: - Allergies: 17:10 No Known Allergies; ph - PMHx: 17:10 Anxiety; depressive disorder; Hypertensive disorder; Multiple Sclerosis; narcolepsy; ph Sleep apnea; - Immunization history:: Adult Immunizations unknown. - Infectious Disease History:: Denies. - Social history:: Smoking status: Patient denies any tobacco usage or history of. Screenin:36 [facility] ED Fall Risk Assessment (Adult) History of falling in the last 3 months, ph including since admission No falls in past 3 months (0 pts) Confusion or Disorientation No (0 pts) Intoxicated or Sedated No (0 pts) Impaired Gait No (0 pts) Mobility Assist Device Used No (0 pt) Altered Elimination No (0 pt) Score/Fall Risk Level 0 - 2 = Low Risk Oriented to surroundings, Maintained a safe environment, Hourly rounding (assess needs \T\ fall precautionary measures) done. Abuse screen: Denies threats or abuse. Denies injuries from another. Nutritional screening: No deficits noted. Tuberculosis screening: No symptoms or risk factors identified. Assessment: 18:35 General: Appears in no apparent distress. comfortable, Behavior is calm, cooperative. ph Pain: Complains of pain in lateral aspect of right calf and medial aspect of right calf. Neuro: Level of Consciousness is awake, alert, obeys commands, Oriented to person, place, time, situation. Cardiovascular: Capillary refill < 3 seconds in bilateral fingers Patient's skin is warm and dry. Respiratory: Airway is patent Respiratory effort is even, unlabored. GI: No signs and/or symptoms were reported involving the gastrointestinal system. Derm: Skin is healthy with good turgor, Skin is pink, warm \T\ dry. SWELLING AND REDNESS TO RLE. Musculoskeletal: Circulation, motion, and sensation intact. 19:29 Reassessment: Patient appears in no apparent distress at this time. Reassessment: pt bm8 reports itching all over, provider informed awaiting further orders. General: Appears in no apparent distress. comfortable, Behavior is calm, cooperative, appropriate for age. Pain: Complains of pain in right leg and medial aspect of right calf and lateral aspect of right calf Pain currently is 7 out of 10 on a pain scale. Neuro: No deficits noted. Level of Consciousness is awake, alert, obeys commands. Cardiovascular: Denies chest pain, Capillary refill < 3 seconds in bilateral fingers Patient's skin is warm and dry. Respiratory: Airway is patent Respiratory effort is even, unlabored. GI: No signs and/or symptoms were reported involving the gastrointestinal system. : No signs and/or symptoms were reported regarding the genitourinary system. EENT: No signs and/or symptoms were reported regarding the EENT system. Derm: Skin is healthy with good turgor, Skin is pink, warm \T\ dry. swelling to right lower leg. Musculoskeletal: Circulation, motion, and sensation intact. 21:54 Reassessment: Patient appears in no apparent distress at this time. Patient and/or bm8 family updated on plan of care and expected duration. Pain level reassessed. Patient is alert, oriented x 3, equal unlabored respirations, skin warm/dry/pink. pt is resting with eyes closed breathing is even unlabored with symmetrical rise and fall of chest. Vital Signs: 17:08 BP 119 / 70; Pulse 71; Resp 18; Temp 98.3(O); Pulse Ox 97% on R/A; Weight 158.76 kg; ph 18:37 BP 106 / 58; Pulse 79; Resp 18; Pulse Ox 98% on R/A; ph 19:29 BP 117 / 63; Pulse 77; Resp 18; Temp 98.3; Pulse Ox 95% ; Pain 7/10; bm8 21:54 BP 119 / 82; Pulse 83; Resp 18; Temp 98.3; Pulse Ox 95% ; Pain 01/10; bm8 19:29 Pain Scale: Adult bm8 21:54 Pain Scale: Adult bm8 Billings Coma Score: 19:29 Eye Response: spontaneous(4). Motor Response: obeys commands(6). Verbal Response: bm8 oriented(5). Total: 15. 21:54 Eye Response: spontaneous(4). Motor Response: obeys commands(6). Verbal Response: bm8 oriented(5). Total: 15. ED Course: 17:07 Patient arrived in ED. ph 17:08 Jim Dodson PA is PHCP. cp 17:08 Keven Sutton MD is Attending Physician. cp 17:10 Triage completed. ph 17:12 Gina Bentley, RN is Primary Nurse. ph 17:56 XRAY Chest (1 view) In Process Unspecified. EDMS 18:35 Basic Metabolic Panel Sent. ph 18:35 CBC with Diff Sent. ph 18:35 LFT's Sent. ph 18:35 Magnesium Sent. ph 18:35 NT PRO-BNP Sent. ph 18:35 PT-INR Sent. ph 18:35 Troponin HS Sent. ph 18:35 Arm band placed on Patient placed in an exam room, on a stretcher. ph 18:36 Patient has correct armband on for positive identification. Bed in low position. Call ph light in reach. Side rails up X 1. Pulse ox on. NIBP on. Door closed. Noise minimized. Warm blanket given. Pillow given. 20:07 CT Aorta for Dissection In Process Unspecified. EDMS 21:19 Troponin High Sensitivity Sent. oe 21:54 No provider procedures requiring assistance completed. IV discontinued, intact, bm8 bleeding controlled, No redness/swelling at site. Pressure dressing applied. 21:54 Provided Education on: post er care. bm8 21:57 Jim Alvarez MD is Attending Physician. cp Administered Medications: 18:57 Drug: Ketorolac IVP 15 mg IVP once Route: IVP; Site: right forearm; ph 18:57 Follow up: Response: No adverse reaction ph 19:55 Drug: diphenhydrAMINE IVP 50 mg IVP once Route: IVP; Site: right forearm; me1 21:56 Follow up: Response: No adverse reaction bm8 19:56 Drug: MethylPrednisoLONE IVP 125 mg IVP once Route: IVP; Site: right forearm; me1 21:56 Follow up: Response: No adverse reaction bm8 Medication: 18:36 VIS not applicable for this client. ph Outcome: 21:54 Discharged to home ambulatory, bm8 21:54 Condition: stable 21:54 Discharge instructions given to patient, Instructed on discharge instructions, follow up and referral plans. no drinking with medication, no driving heavy equipment, medication usage, safety practices, Demonstrated understanding of instructions, follow-up care, medications, 21:58 Discharge ordered by . major 22:12 Patient left the ED. bm8 Signatures: Dispatcher [employer] Gina Christianson RN RN Jim Dodson PA PA Sami Rosales Michelle, RN RN pa1 Molina Waggoner RN RN bm8
--- NOTE | 2024-08-08 21:58 | EDPHYS ---
Physician Documentation [facility] Name: Konrad Verde Age: 49 yrs Sex: Male : 1975 Arrival Date: 08/08/2024 Time: 17:02 Bed 8 Private MD: ED Physician iJm Alvarez HPI: 08/08 17:30 This 49 yrs old Male presents to ER via EMS with complaints of Leg Swelling and Chest cp Pain. 17:30 The patient presents with pain, swelling. The complaints affect the right loweer leg. cp 17:30 Context: recent discharge from [facility] for cellulitis of right lower leg. reports concern cp for increased swelling and pain today. The patient or guardian reports chest pain that is located primarily in the substernal area, anterior chest wall. Onset: while in ED. The pain does not radiate. Historical: - Allergies: 17:10 No Known Allergies; ph - PMHx: 17:10 Anxiety; depressive disorder; Hypertensive disorder; Multiple Sclerosis; narcolepsy; ph Sleep apnea; - Immunization history:: Adult Immunizations unknown. - Infectious Disease History:: Denies. - Social history:: Smoking status: Patient denies any tobacco usage or history of. ROS: 17:35 Constitutional: Negative for body aches, chills, fever, poor PO intake, cp 17:35 Eyes: Negative for injury, pain, redness, and discharge, cp 17:35 Cardiovascular: Positive for chest pain, Negative for palpitations, 17:35 Respiratory: Negative for cough, shortness of breath, wheezing, 17:35 Abdomen/GI: Negative for abdominal pain, vomiting, diarrhea, constipation, 17:35 MS/extremity: Positive for pain, swelling, tenderness, of the right lower leg, 17:35 Neuro: Negative for altered mental status, dizziness, headache, numbness, syncope, cp weakness, 17:35 All other systems are negative, Exam: 17:40 Constitutional: The patient appears in no acute distress, alert, awake, cp non-diaphoretic, non-toxic, well developed, well nourished, obese, uncomfortable, 17:40 Head/Face: Normocephalic, atraumatic. cp 17:40 Eyes: Periorbital structures: appear normal, Conjunctiva: normal, no exudate, no injection, Sclera: no appreciated abnormality, Lids and lashes: appear normal, bilaterally, 17:40 ENT: External ear(s): are unremarkable, Nose: is normal, Mouth: Lips: moist, Oral mucosa: moist, Posterior pharynx: is normal, airway is patent, no erythema, no exudate, 17:40 Chest/axilla: Inspection: normal, Palpation: crepitus, is not appreciated, tenderness, that is moderate, of the anterior aspect of right upper chest, anterior aspect of left upper chest and mid-sternal area, 17:40 Cardiovascular: Rate: normal, Rhythm: regular, JVD: is not appreciated, 17:40 Respiratory: the patient does not display signs of respiratory distress, Respirations: normal, no use of accessory muscles, no retractions, labored breathing, is not present, Breath sounds: are clear throughout, no decreased breath sounds, no stridor, no wheezing, 17:40 Abdomen/GI: Inspection: abdomen appears normal, Palpation: abdomen is soft and non-tender, in all quadrants, 17:40 Back: CVA tenderness, is absent, 17:40 Musculoskeletal/extremity: Extremities: noted in the right lower leg: pain, swelling, tenderness, mild erythema, Perfusion: the extremity is normally perfused throughout, 17:40 Neuro: Orientation: to person, place \T\ time. Mentation: is normal, Motor: moves all fours, strength is normal, Sensation: no obvious gross deficits, 18:37 ECG was reviewed by the Attending Physician. cp Vital Signs: 17:08 BP 119 / 70; Pulse 71; Resp 18; Temp 98.3(O); Pulse Ox 97% on R/A; Weight 158.76 kg; ph 18:37 BP 106 / 58; Pulse 79; Resp 18; Pulse Ox 98% on R/A; ph 19:29 BP 117 / 63; Pulse 77; Resp 18; Temp 98.3; Pulse Ox 95% ; Pain 7/10; bm8 21:54 BP 119 / 82; Pulse 83; Resp 18; Temp 98.3; Pulse Ox 95% ; Pain 01/10; bm8 19:29 Pain Scale: Adult bm8 21:54 Pain Scale: Adult bm8 Wilfredo Coma Score: 19:29 Eye Response: spontaneous(4). Motor Response: obeys commands(6). Verbal Response: bm8 oriented(5). Total: 15. 21:54 Eye Response: spontaneous(4). Motor Response: obeys commands(6). Verbal Response: bm8 oriented(5). Total: 15. MDM: 17:19 Medical Screening Exam initiated cp 21:58 Data reviewed: vital signs, nurses notes, lab test result(s), EKG, radiologic studies, cp CT scan, plain films, and as a result, I will discharge patient. 21:58 Differential diagnosis: abnormal EKG, acute myocardial infarction, acute pericarditis, cp coronary artery disease pulmonary embolus, stable angina, thoracic aortic disection, unstable angina. I considered the following discharge prescriptions or medication management in the emergency department Medications were administered in the Emergency Department. See MAR. Independent interpretation of the following test(s) in the Emergency Department EKG: See my EKG interpretation above. Counseling: I had a detailed discussion with the patient and/or guardian regarding the historical points, exam findings, and any diagnostic results supporting the discharge/admit diagnosis, lab results, radiology results, to return to the emergency department if symptoms worsen or persist or if there are any questions or concerns that arise at home. Response to treatment: the patient's symptoms have markedly improved after treatment, and as a result, I will discharge patient. Special discussion: Based on the patient's history, exam, and Dx evaluation, there is no indication for emergent intervention or inpatient Tx. It is understood by the patient/guardian that if the Sx's persist or worsen they need to return immediately for re-evaluation. 08/08 17:28 Order name: Basic Metabolic Panel; Complete Time: 19:03 08/08 19:03 Interpretation: Normal except: CO2 33; BUN 20; GFR 76. cp 08/08 17:28 Order name: CBC with Diff; Complete Time: 19:03 cp 08/08 17:28 Order name: LFT's; Complete Time: 19:03 08/08 19:04 Interpretation: Normal except: IBILI, CALC 0.1; GLOB 4.5; A/G 0.8. cp 08/08 17:28 Order name: Magnesium; Complete Time: 19:03 cp 08/08 17:28 Order name: NT PRO-BNP; Complete Time: 19:03 cp 08/08 17:28 Order name: PT-INR; Complete Time: 19:03 08/08 17:28 Order name: Troponin HS; Complete Time: 19:03 cp 08/08 19:04 Interpretation: Reviewed. cp 08/08 20:55 Order name: Troponin High Sensitivity; Complete Time: 21:41 cp 08/08 21:41 Interpretation: Reviewed. cp 08/08 17:28 Order name: XRAY Chest (1 view); Complete Time: 18:26 cp 08/08 18:26 Interpretation: Report reviewed. cp 08/08 19:06 Order name: CT Aorta for Dissection; Complete Time: 20:54 cp 08/08 17:28 Order name: Cardiac monitoring; Complete Time: 18:35 cp 08/08 17:28 Order name: EKG - Nurse/Tech; Complete Time: 18:35 cp 08/08 17:28 Order name: IV Saline Lock; Complete Time: 18:35 cp 08/08 17:28 Order name: Labs collected and sent; Complete Time: 18:35 cp 08/08 17:28 Order name: O2 Per Protocol; Complete Time: 18:17 cp 08/08 17:28 Order name: O2 Sat Monitoring; Complete Time: 18:17 cp EC:37 Rate is 73 beats/min. Rhythm is regular. OH interval is normal. QRS interval is normal. cp QT interval is normal. T waves are Inverted in lead aVR. Interpreted by me. Reviewed by me. Administered Medications: 18:57 Drug: Ketorolac IVP 15 mg IVP once Route: IVP; Site: right forearm; ph 18:57 Follow up: Response: No adverse reaction ph 19:55 Drug: diphenhydrAMINE IVP 50 mg IVP once Route: IVP; Site: right forearm; me1 21:56 Follow up: Response: No adverse reaction bm8 19:56 Drug: MethylPrednisoLONE IVP 125 mg IVP once Route: IVP; Site: right forearm; me1 21:56 Follow up: Response: No adverse reaction bm8 Disposition Summary: 08/08/24 21:58 Discharge Ordered Notes: Location: Home cp Problem: new cp Symptoms: have improved cp Condition: Stable cp Diagnosis - Chest pain, unspecified cp - Pain in right leg cp Followup: cp - With: Private Physician - When: 2 - 3 days - Reason: Recheck today's complaints Discharge Instructions: - Discharge Summary Sheet cp - Nonspecific Chest Pain, Adult cp - Musculoskeletal Pain cp - Aspirin and Your Heart cp Forms: - Medication Reconciliation Form cp - Antibiotic Education cp - Prescription Opioid Use cp - Patient Portal Instructions cp - Leadership Thank You Letter cp Prescriptions: - Celebrex 200 mg Oral Capsule - take 1 capsule ORAL route once daily As needed take with food; 20 capsule; cp Refills: 0, Product Selection Permitted - methocarbamol 750 mg Oral tablet - take 1 tablet ORAL route every 8 hours; 30 tablet; Refills: 0, Product cp Selection Permitted Signatures: Dispatcher [employer] EDMS Gina Bentley, RN RN ph Jim Dodson PA PA cp Sheryl Dalton RN RN me1 Molina Waggoner RN bm8 Corrections: (The following items were deleted from the chart) 17:28 17:28 BASIC METABOLIC PANEL+C.LAB.BRZ ordered. EDMS EDMS 17:28 17:28 CBC+H.LAB.BRZ ordered. EDMS EDMS 17:28 17:28 HEPATIC FUNCTION+C.LAB.BRZ ordered. EDMS EDMS 17:28 17:28 MAGNESIUM+C.LAB.BRZ ordered. EDMS EDMS 17:28 17:28 PROBNP+C.LAB.BRZ ordered. EDMS EDMS 17:28 17:28 PROTIME (+INR)+COAG.LAB.BRZ ordered. EDMS EDMS 17:28 17:28 Troponin High Sensitivity+C.LAB.BRZ ordered. EDMS EDMS 17:28 17:28 Chest Single View+RAD.RAD.BRZ ordered. EDMS EDMS
[2024-08-08 22:21] VITALS: TEMP 98.3
[2024-08-08 22:24] VITALS: O2SAT 95
[2024-08-08 22:25] VITALS: BP 119/82
--- NOTE | 2024-08-12 11:32 | EKG ---
Test Date: 2024-08-08 Test Time: 18:30:51 [employer] Estate [employer] Analyst: PH MEASUREMENT RESULTS: Intervals: Rate: 73 OR: 174 QRSD: 68 QT: 396 QTc: 436 [place]: P: 4 OR: 174 QRS: 30 T: 55 INTERPRETIVE STATEMENTS: Normal sinus rhythm Low voltage QRS Borderline ECG Compared to ECG 08/05/2024 20:27:18 No significant changes Electronically Signed On 08-12-24 11:23:30 CDT by Bernardo Guerrero
== END 2024-08-08 22:12 | disposition home or self-care (01) ==
LOC: ER 17:02
DX: R07.9 Chest pain, unspecified (principal); M79.661 Pain in right lower leg
CPT/HCPCS: 36415; 71045; 71275; 74175; 80048; 80076; 83735; 83880; 84484; 85025; 85610; 93005; 96374; 96375; 99284; J1200; J2919; Q9967